=== PATIENT | female | born 1985 | race Caucasian/White ===

== ENCOUNTER 2023-08-04 20:33 | Outpatient (REF) | payer OTHER, SELFPAY ==
--- OUTSIDE RECORDS SUMMARY | 2023-08-05 10:13 | XMS_ITS | CCD ---
Author Name Unknown Address [id number] [place] [address] Organization [facility] Care Team Providers Care Computer Programming Supervisor Name Role Phone RAMSES CALERO Unavailable Unavailable RAMSES CALERO Unavailable Unavailable TRI, DR MULLEN Admitting Unavailable TRI, DR MULLEN Attending Unavailable TRI, DR MULLEN Consulting Unavailable TRI, DR MULLEN Primary Care Unavailable NGOC DALEY Consulting Unavailable TRI, DR MULLEN Primary Care Unavailable TRI, DR MULLEN Consulting Unavailable TRI, DR MULLEN Admitting Unavailable TRI, DR MULLEN Attending Unavailable TRI, DR MULLEN Admitting Unavailable TRI, DR MULLEN Attending Unavailable TRI, DR MULLEN Consulting Unavailable TRI, DR MULLEN Primary Care Unavailable MARV GARCIA Consulting Unavailable DEBORAH SY Consulting Unavailable TIR, DR MULLEN Admitting Unavailable TRI, DR MULLEN Attending Unavailable TRI, DR MULLEN Consulting Unavailable TRI, DR MULLEN Primary Care Unavailable TRI, DR MULLEN Admitting Unavailable RANKIN, DR JADEN Salazar Consulting Unavailable TRI, DR MULLEN Attending Unavailable TRI, DR MULLEN Primary Care Unavailable TRI, DR MULLEN Consulting Unavailable TRI, DR MULLEN Admitting Unavailable TRI, DR MULLEN Attending Unavailable TRI, DR MULLEN Consulting Unavailable TRI, DR MULLEN Primary Care Unavailable NORIS, DR MAHARAJ Admitting Unavailable NORIS, DR MAHARAJ Attending Unavailable NORIS, DR MAHARAJ Consulting Unavailable TRI, DR MULLEN Primary Care Unavailable Kenzie Lazar Unavailable Kenzie Lazar Primary Care Unavailable Kenzie Lazar Primary Care Unavailable Jamie Piper Admitting Unavailable Jamie Piper Attending Unavailable Kenzie Lazar Primary Care Unavailable Jamie Piper Admitting Unavailable Jamie Piper Attending Unavailable Allergies Allergy Classification Reported Allergen(s) Allergy Type Date of Onset Reaction(s) Facility (2 sources) Codeine; Translations: [codeine] Drug Allergy 08-16-19 03 [facility] Repository (1 source) NSAIDs Drug allergy (disorder) 08-16-19 14 [facility] Repository (1 source) Penicillins Drug allergy (disorder) 08-16-18 90 [facility] Repository (1 source) Sulfonamides (Antibiotic) Drug allergy (disorder) 08-16-18 96 [facility] Repository (1 source) Betadine Skin Cleanser Drug allergy (disorder) [facility] Repository (4 sources) Codeine Drug Allergy Unknown [facility] Other (4 sources) penicillAMINE Drug Allergy Unknown [facility] Other (4 sources) Sulfacetamide / Sulfur Drug Allergy Unknown [facility] Other (1 source) NSAIDs; Translations: [NSAIDs] Propensity to adverse reactions to drug (disorder) [facility] Repository (3 sources) Penicillin; Translations: [penicillin] Drug Allergy 11-19-19 18 Unknown [facility] Repository (1 source) Sulfamethoxazole; Translations: [sulfamethoxazole] Drug Allergy [facility] Repository (1 source) Sulfamethoxazole / Trimethoprim; Translations: [sulfamethoxazole-t rimethoprim] Drug Allergy [facility] Repository (2 sources) Caffeine Drug Allergy 11-19-19 18 Unknown [facility] Other (2 sources) Codeine Drug Allergy 11-19-19 18 Unknown [facility] Other (2 sources) Non-steroidal anti-inflammatory agent Drug allergy Unknown [facility] Other (2 sources) Wound Closure Strips *MEDICAL DEVICES AND SUPPLIES Propensity to adverse reactions Comment:Rednes s and swelling -Steri Strips [facility] Other (1 source) Allergies Reconciled Propensity to adverse reactions Unknown [facility] Other (2 sources) Substance with penicillin structure and antibacterial mechanism of action (substance) Drug allergy Unknown [facility] Other (2 sources) Substance with sulfonamide structure and antibacterial mechanism of action (substance) Drug allergy Unknown [facility] Other (1 source) patient allergy list reviewed by nurse or physicia Propensity to adverse reactions 08-25-19 Comment:Done [facility] Other (2 sources) Curity Wound Closure 1/2 x4 *MEDICAL DEVICES AND Propensity to adverse reactions Comment:Suture - [employer] [facility] Other Medications Current Medications Medication Drug Class(es) Dates Sig (Normalized) Sig (Original) lisdexamfetamine dimesylate 30 mg oral capsule (3 sources) Central Nervous System Stimulant Start: 02-05-2023 take 1 capsule by mouth every twenty-four hours Vyvanse 30 MG 1 capsule Orally Once a day for 30 days Jan, Active nitrofurantoin, macrocrystals 25 mg / nitrofurantoin, monohydrate 75 mg oral capsule (3 sources) Nitrofuran Antibacterial Start: 02-08-2023 take 1 capsule by mouth every twelve hours Nitrofurantoin Monohyd Macro 100 MG 1 capsule with food Orally every 12 hrs for 7 day(s) Jan, Active omeprazole 40 mg delayed release oral capsule (1 source) Proton Pump Inhibitor Start: 07-01-2023 take 1 capsule by mouth once daily Omeprazole 40 MG 1 capsule 30 minutes before morning meal Orally Once a day for 30 day(s) Jun, Active phentermine hydrochloride 37.5 mg oral tablet (1 source) Sympathomimetic Amine Anorectic Start: 07-01-2023 take 1 tablet by mouth once daily before breakfast Adipex-P 37.5 MG 1 tablet before breakfast Orally Once a day for 30 days Jun, Active Problems Active Problems Problem Classification Problem Date Documented Da te Episodic/Chronic Abdominal pain (11 sources) Pelvic and perineal pain; Translations: [Unspecified abdominal pain] Onset: 07-21-2022 Episodic Esophageal disorders (3 sources) Gastro-esophageal reflux disease without esophagitis; Translations: [Laryngopharyngeal reflux] Onset: 08-03-2022 Chronic Esophageal disorders (2 sources) Esophageal disorders; Translations: [GERD, OBESITY] Onset: 07-21-2017 Gastrointestinal hemorrhage (4 sources) Hemorrhage of rectum and anus; Translations: [Rectal bleed] Episodic Genitourinary symptoms and ill-defined conditions (1 source) Genitourinary symptoms; Translations: [Unspecified symptoms and signs involving the genitourinary system] Episodic Immunizations and screening for infectious disease (1 source) Encounter for screening for human papillomavirus (HPV); Translations: [ENC SCREENING HUMAN PAPILLOMAVIRUS] Onset: 05-13-2022 Episodic Inflammatory diseases of female pelvic organs (1 source) Female pelvic peritoneal adhesions (postinfective); Translations: [FE PELV PERITON ADHES POSTINFECTIVE] Onset: 08-03-2022 Episodic Miscellaneous mental health disorders (5 sources) Binge eating disorder; Translations: [Binge eating disorder] Chronic Mood disorders (2 sources) Depression; Translations: [Dysthymia] Onset: 11-18-2017 Resolved: 07-20-2019 Chronic Mood disorders (1 source) Mood disorders; Translations: [DEPRESSION UNSPECIFIED] Onset: 08-03-2022 Mycoses (1 source) Candidiasis; Translations: [Candidiasis, unspecified] Episodic Nonmalignant breast conditions (4 sources) Lump in right breast; Translations: [Unspecified lump in the right breast, unspecified quadrant] Resolved: 02-03-2022 Episodic Other aftercare (1 source) Other fdc (current) drug therapy; Translations: [OTH PENITENTIARY CURRENT DRUG THERAPY] Onset: 08-03-2022 Episodic Other aftercare (1 source) History and physical examination, follow-up; Translations: [Encounter for follow-up examination after completed treatment for conditions other than malignant neoplasm] Episodic Other complications of (1 source) High risk ; Translations: [Supervision of high risk , unspecified, unspecified trimester] Episodic Other female genital disorders (1 source) Abnormal uterine and vaginal bleeding, unspecified; Translations: [ABNORMAL UTERINE VAGINAL BLEED UNS] Onset: 08-03-2022 Chronic Other female genital disorders (1 source) Unspecified dyspareunia; Translations: [UNSPECIFIED DYSPAREUNIA] Onset: 08-03-2022 Chronic Other female genital disorders (2 sources) Noninflammatory disorder of the vagina; Translations: [Noninflammatory disorder of vagina, unspecified] Resolved: 07-20-2019 Episodic Other gastrointestinal disorders (4 sources) Diarrhea; Translations: [Diarrhea] Episodic Other gastrointestinal disorders (4 sources) Dysphagia; Translations: [Dysphagia] Episodic Other gastrointestinal disorders (1 source) Flatulence, eructation and gas pain; Translations: [Abdominal distension (gaseous)] Episodic Other lower respiratory disease (1 source) Dyspnea; Translations: [Other forms of dyspnea] Episodic Other nutritional; endocrine; and metabolic disorders (1 source) Obese class II; Translations: [Body mass index (BMI) 38.0-38.9, adult] Chronic Other nutritional; endocrine; and metabolic disorders (2 sources) Body mass index 40+ - severely obese; Translations: [Body mass index (BMI) 40.0-44.9, adult] Resolved: 02-03-2022 Chronic Other nutritional; endocrine; and metabolic disorders (1 source) Obesity; Translations: [Obesity, unspecified] Chronic Other nutritional; endocrine; and metabolic disorders (1 source) Severe obesity; Translations: [Morbid (severe) obesity due to excess calories] Chronic Other nutritional; endocrine; and metabolic disorders (1 source) Morbid (severe) obesity due to excess calories Chronic Other nutritional; endocrine; and metabolic disorders (1 source) Body mass index (BMI) 40.0-44.9, adult Chronic Other nutritional; endocrine; and metabolic disorders (1 source) Abnormal weight gain; Translations: [Abnormal weight gain] Episodic Other screening for suspected conditions (not mental disorders or infectious disease) (5 sources) Encounter for screening for malignant neoplasm of cervix; Translations: [Urine test negative] Onset: 05-11-2022 Episodic Ovarian cyst (4 sources) Unspecified ovarian cyst, left side; Translations: [UNSPECIFIED OVARIAN CYST LEFT SIDE] Onset: 06-16-2022 Episodic Residual codes; unclassified (1 source) Tobacco user; Translations: [Tobacco use] Episodic Residual codes; unclassified (1 source) History of uterine scar from previous surgery; Translations: [History of uterine scar from previous surgery] Episodic Spondylosis; intervertebral disc disorders; other back problems (2 sources) Low back pain; Translations: [Low back pain, unspecified] Onset: 11-18-2017 Resolved: 07-20-2019 Episodic Unclassified (1 source) CONTACT W/AND (SUSP) EXPOS COVID-19; Translations: [CONTACT W/AND (SUSP) EXPOS COVID-19] Onset: 07-27-2022 Urinary tract infections (1 source) Urinary tract infection, site not specified Episodic Varicose veins of lower extremity (1 source) Pain co-occurrent and due to varicose veins of bilateral legs; Translations: [Varicose veins of bilateral lower extremities with pain] Episodic Past or Other Problems Problem Classification Problem Date Documented Date Episodic/Chronic Anxiety disorders (2 sources) Anxiety disorder, unspecified; Translations: [Anxiety disorder] Onset: 11-18-2017 Resolved: 07-20-2019 Chronic Cardiac dysrhythmias (1 source) Tachycardia; Translations: [Tachycardia, unspecified] Onset: 11-18-2017 Resolved: 07-20-2019 Episodic Headache; including migraine (1 source) Migraine without aura, not refractory ; Translations: [Migraine, unspecified, not intractable, without status migrainosus] Onset: 11-18-2017 Resolved: 07-20-2019 Chronic Malaise and fatigue (1 source) Fatigue; Translations: [Other fatigue] Onset: 11-18-2017 Resolved: 07-20-2019 Episodic Miscellaneous mental health disorders (1 source) depression; Translations: [ depression] Resolved: 06-11-2017 Episodic Other female genital disorders (4 sources) Other specified noninflammatory disorders of vagina; Translations: [OTH SPEC NONINFLAMMATORY D/O VAGINA] Onset: 02-04-2022 Episodic Other infections; including parasitic (1 source) Disorder due to infection; Translations: [Unspecified infectious disease] Resolved: 02-03-2022 Episodic Other nutritional; endocrine; and metabolic disorders (3 sources) Obese class I; Translations: [Body mass index 32.0-32.9, adult] Onset: 11-18-2017 Resolved: 07-20-2019 Chronic Other nutritional; endocrine; and metabolic disorders (1 source) Body mass index 30+ - obesity; Translations: [Body mass index 31.0-31.9, adult] Onset: 11-18-2017 Resolved: 07-20-2019 Chronic Other nutritional; endocrine; and metabolic disorders (1 source) Overweight; Translations: [Overweight] Onset: 11-18-2017 Resolved: 07-20-2019 Episodic Other upper respiratory disease (1 source) Disorder of upper respiratory system; Translations: [Other diseases of nasal cavity and sinuses] Onset: 11-18-2017 Resolved: 07-20-2019 Episodic Other upper respiratory infections (1 source) Chronic sinusitis; Translations: [Chronic sinusitis, unspecified] Resolved: 02-03-2022 Chronic Residual codes; unclassified (1 source) C/O - a back symptom; Translations: [Other symptoms referable to back] Onset: 03-11-2018 Resolved: 07-20-2019 Episodic Unclassified (1 source) care; Translations: [Supervision of other normal ] Results Test Name Value Interpretation Reference Range Facility .Auto Diff 1on 02-17-2023 Auto Cassia % 7 % Normal 12 [facility] Comment on above: Performed By: #### [id number], [id number] 5, [id number], [id number] #### [facility] (DEFAULT) [address] [place] [address] 28889 Baso Abs# 0.0 x10 Normal 0.0-0.2 [facility] Comment on above: Performed By: #### [id number], [id number] 5, [id number], [id number] #### [facility] (DEFAULT) [address] [place] [address] 15746 Basophils/100 WBC (Bld) 0.4 % Normal 0.2-2.0 [facility] Comment on above: Performed By: #### [id number], [id number] 5, [id number], [id number] #### [facility] (DEFAULT) [address] [place] [address] 81364 Eos Abs# 0.1 x10 Normal 0.0-0.4 [facility] Comment on above: Performed By: #### [id number], [id number] 5, [id number], [id number] #### [facility] (DEFAULT) [address] [place] [address] 40446 Eosinophils/100 WBC (Bld) 1.0 % Normal 0.9-4.0 [facility] Comment on above: Performed By: #### [id number], [id number] 5, [id number], [id number] #### [facility] (DEFAULT) [address] [place] [address] 23552 Lymph Abs# 2.4 x10 Normal 1.3-2.9 [facility] Comment on above: Performed By: #### [id number], [id number] 5, [id number], [id number] #### [facility] (DEFAULT) [address] [place] [address] Lymphocytes/100 WBC (Bld) 41 % Normal 14-48 [facility] Comment on above: Performed By: #### [id number], [id number] 5, [id number], [id number] #### [facility] (DEFAULT) [address] [place] [address] Cassia Abs# 0.4 x10 Normal 0.0-0.8 [facility] Comment on above: Performed By: #### [id number], [id number] 5, [id number], [id number] #### [facility] (DEFAULT) [address] [place] [address] Neut Abs# 2.9 x10 Normal 1.5-9.2 [facility] Comment on above: Performed By: #### [id number], [id number] 5, [id number], [id number] #### [facility] (DEFAULT) [address] [place] [address] Neutrophils/100 WBC (Bld) 50 % Normal 44-88 [facility] Comment on above: Performed By: #### [id number], [id number] 5, [id number], [id number] #### [facility] (DEFAULT) [address] [place] [address] CBC w/ Auto Diffon 3 Erythrocyte distribution width (RBC) [Ratio] 14.1 % Normal 11.5-15.0 [facility] Comment on above: Performed By: #### [id number], [id number] 5, [id number], [id number] #### [facility] (DEFAULT) [address] [place] [address] Hematocrit (Bld) [Volume fraction] 37.5 % Normal 33.7-40.4 [facility] Comment on above: Performed By: #### [id number], [id number] 5, [id number], [id number] #### [facility] (DEFAULT) [address] [place] [address] 44106 Hemoglobin (Bld) [Mass/Vol] 12.8 g/dL Normal 11.3-15.9 [facility] Comment on above: Performed By: #### [id number], [id number] 5, [id number], [id number] #### [facility] (DEFAULT) [address] [place] [address] Man Diff? Auto Invalid Interpretation Code [facility] Comment on above: Performed By: #### [id number], [id number] 5, [id number], [id number] #### [facility] (DEFAULT) [address] [place] [address] MCH (RBC) [Entitic mass] 29 pg Normal 24-34 [facility] Comment on above: Performed By: #### [id number], [id number] 5, [id number], [id number] #### [facility] (DEFAULT) [address] [place] [address] MCHC (RBC) [Mass/Vol] 34 g/dL Normal 26-37 [facility] Comment on above: Performed By: #### [id number], [id number] 5, [id number], [id number] #### [facility] (DEFAULT) [address] [place] [address] 59741 MCV (RBC) [Entitic vol] 85 fL Normal 81-100 [facility] Comment on above: Performed By: #### [id number], [id number] 5, [id number], [id number] #### [facility] (DEFAULT) [address] [place] [address] 96145 Platelet 298 x10 Normal 138-427 [facility] Comment on above: Performed By: #### [id number], [id number] 5, [id number], [id number] #### [facility] (DEFAULT) [address] [place] [address] 14342 Platelet mean volume (Bld) [Entitic vol] 8.0 fL Normal 6.3-10.2 [facility] Comment on above: Performed By: #### [id number], [id number] 5, [id number], [id number] #### [facility] (DEFAULT) [address] [place] [address] 55807 RBC 4.42 x10 Normal 3.70-5.30 [facility] Comment on above: Performed By: #### [id number], [id number] 5, [id number], [id number] #### [facility] (DEFAULT) [address] [place] [address] 70162 WBC 5.8 x10 Normal 3.5-10.5 [facility] Comment on above: Performed By: #### [id number], [id number] 5, [id number], [id number] #### [facility] (DEFAULT) [address] [place] [address] 47392 CMP Standardon 02-17-2023 eGFR Non AA >60 Invalid Interpretation Code [facility] Comment on above: Performed By: #### [id number], [id number] 5, [id number], [id number] #### [facility] (DEFAULT) [address] [place] [address] 02495 eGFR AA >60 Invalid Interpretation Code [facility] Comment on above: Performed By: #### [id number], [id number] 5, [id number], [id number] #### [facility] (DEFAULT) [address] [place] [address] 88356 Albumin [Mass/Vol] 3.9 g/dL Normal 3.5-5.0 [facility] Comment on above: Performed By: #### [id number], [id number] 5, [id number], [id number] #### [facility] (DEFAULT) [address] [place] [address] 75181 Albumin/Globulin [Mass ratio] 1.3 {ratio} Low 1.4-2.6 [facility] Comment on above: Performed By: #### [id number], [id number] 5, [id number], [id number] #### [facility] (DEFAULT) [address] [place] [address] 92325 Alk Phos 57 IU/L Normal 32-91 [facility] Comment on above: Performed By: #### [id number], [id number] 5, [id number], [id number] #### [facility] (DEFAULT) [address] [place] [address] 92442 ALT [Catalytic activity/Vol] 17.0 U/L Normal 14.0-54.0 [facility] Comment on above: Performed By: #### [id number], [id number] 5, [id number], [id number] #### [facility] (DEFAULT) [address] [place] [address] 62503 Anion gap [Moles/Vol] 9.8 mmol/L Normal 5.0-19.0 [facility] Comment on above: Performed By: #### [id number], [id number] 5, [id number], 7369024 #### [facility] (DEFAULT) [address] [place] [address] 21047 AST [Catalytic activity/Vol] 16 U/L Normal 15-41 [facility] Comment on above: Performed By: #### [id number], [id number] 5, [id number], [id number] #### [facility] (DEFAULT) [address] [place] [address] 11504 Bili Total 0.5 mg/dL Normal 0.3-1.2 [facility] Comment on above: Performed By: #### [id number], [id number] 5, [id number], 6931619 #### [facility] (DEFAULT) [address] [place] [address] 69549 Calcium [Mass/Vol] 8.7 mg/dL Low 8.9-10.3 [facility] Comment on above: Performed By: #### [id number], [id number] 5, [id number], [id number] #### [facility] (DEFAULT) [address] [place] [address] 69449 Chloride [Moles/Vol] 109 mmol/L Normal 101-111 [facility] Comment on above: Performed By: #### [id number], [id number] 5, [id number], [id number] #### [facility] (DEFAULT) [address] [place] [address] 13218 CO2 [Moles/Vol] 25 mmol/L Normal 21-32 [facility] Comment on above: Performed By: #### [id number], [id number] 5, [id number], [id number] #### [facility] (DEFAULT) [address] [place] [address] 07374 Creatinine [Mass/Vol] 0.70 mg/dL Normal 0.60-1.30 [facility] Comment on above: Performed By: #### [id number], [id number] 5, [id number], [id number] #### [facility] (DEFAULT) [address] [place] [address] 04139 Globulin (S) [Mass/Vol] 3.0 g/dL Normal 1.5-4.3 [facility] Comment on above: Performed By: #### [id number], [id number] 5, [id number], [id number] #### [facility] (DEFAULT) [address] [place] [address] 41806 Glucose [Mass/Vol] 98.0 mg/dL Normal 74.0-118.0 [facility] Comment on above: Performed By: #### [id number], [id number] 5, [id number], [id number] #### [facility] (DEFAULT) [address] [place] [address] 34857 Osmolality 280 mOsm/L Invalid Interpretation Code [facility] Comment on above: Performed By: #### [id number], [id number] 5, [id number], [id number] #### [facility] (DEFAULT) [address] [place] [address] 29183 Potassium [Moles/Vol] 3.8 mmol/L Normal 3.6-5.1 [facility] Comment on above: Performed By: #### [id number], [id number] 5, [id number], [id number] #### [facility] (DEFAULT) [address] [place] [address] 07822 Protein [Mass/Vol] 6.9 g/dL Normal 6.5-8.1 [facility] Comment on above: Performed By: #### [id number], [id number] 5, [id number], [id number] #### [facility] (DEFAULT) [address] [place] [address] 82697 Sodium [Moles/Vol] 140.0 mmol/L Normal 136.0-144.0 [facility] Comment on above: Performed By: #### [id number], [id number] 5, [id number] #### [facility] (DEFAULT) [address] [place] [address] [id number] Urea nitrogen [Mass/Vol] 15 mg/dL Normal 8-26 [facility] Comment on above: Performed By: #### [id number], [id number] 5, [id number], [id number] #### [facility] (DEFAULT) [address] [place] [address] 34533 Urea nitrogen/Creatin ine [Mass ratio] 21.4 mg/mg High 4.6-16.2 [facility] Comment on above: Performed By: #### [id number], [id number] 5, [id number], [id number] #### [facility] (DEFAULT) [address] [place] [address] 50791 Lipid Panel Standardon 02-17 Cholesterol [Mass/Vol] 154.0 mg/dL Normal 66.0-200.0 [facility] Comment on above: Performed By: #### [id number], [id number] 5, [id number], [id number] #### [facility] (DEFAULT) [address] [place] [address] 48011 Cholesterol in HDL [Mass/Vol] 66 mg/dL Normal 40-71 [facility] Comment on above: Performed By: #### [id number], [id number] 5, [id number] #### [facility] (DEFAULT) [address] [place] [address] 57475 Cholesterol in LDL [Mass/Vol] 81 mg/dL Normal 1-100 [facility] Comment on above: Performed By: #### [id number], [id number] 5, [id number], [id number] #### [facility] (DEFAULT) [address] [place] [address] Cholesterol.tota l/Cholesterol in HDL [Mass ratio] 2.3 {ratio} Normal 0.0-4.5 [facility] Comment on above: Performed By: #### [id number], [id number] 5, [id number], [id number] #### [facility] (DEFAULT) [address] [place] [address] Triglyceride [Mass/Vol] 31.0 mg/dL Normal 0.0-150.0 [facility] Comment on above: Performed By: #### [id number], [id number] 5, [id number], [id number] #### [facility] (DEFAULT) [address] [place] [address] VLDL. 6 mg/dL Normal 5-40 [facility] Comment on above: Performed By: #### [id number], [id number] 5, [id number], [id number] #### [facility] (DEFAULT) [address] [place] [address] Consent Formson 10-27-2022 Consent Forms [id number] 08-13-2022 Consent Forms [id number]#[id number] CBC AUTO DIFFon 07-18-2022 BASO # 0.0 103/ul Normal 0.0-0.1 [facility] Comment on above: Performed By: #### CBC #### [facility] [address] [place] [address] Dr. Cullen Garcia Basophils/100 WBC (Bld) 0.1 % Critically low 0.2-2.0 [facility] Comment on above: Performed By: #### CBC #### [facility] [address] [place] [address] Dr. Cullen Garcia EO # 0.0 103/ul Normal 0.0-0.7 [facility] Comment on above: Performed By: #### CBC #### [facility] [address] [address] [address] Cullen Garcia Eosinophils/100 WBC (Bld) 0.5 % Critically low 0.9-7.0 [facility] Comment on above: Performed By: #### CBC #### [facility] [address] [place] [address] Dr. Cullen Garcia Erythrocyte distribution width (RBC) [Ratio] 13.1 % Normal 11.0-15.0 [facility] Comment on above: Performed By: #### CBC #### [facility] [address] [place] [address] Dr. Cullen Garcia Hematocrit (Bld) [Volume fraction] 38.2 % Normal 36.0-48.0 [facility] Comment on above: Performed By: #### CBC #### [facility] [address] [place] [address] Dr. Cullen Garcia Hemoglobin (Bld) [Mass/Vol] 12.8 g/dL Normal 12.0-16.0 [facility] Comment on above: Performed By: #### CBC #### [facility] [address] [place] [address] Dr. Cullen Garcia IG # 0.02 10e3/ul Normal 0.00-0.03 [facility] Comment on above: Performed By: #### CBC #### [facility] [address] [place] [address] Dr. Cullen Garcia IG % 0.3 % Normal 0.0-0.5 [facility] Comment on above: Performed By: #### CBC #### [facility] [address] [place] [address] Dr. Cullen Garcia LYMPH # 2.4 103/ul Normal 1.2-3.8 [facility] Comment on above: Performed By: #### CBC #### [facility] [address] [place] [address] Dr. Cullen Garcia Lymphocytes/100 WBC (Bld) 32.6 % Normal 20.5-60.0 [facility] Comment on above: Performed By: #### CBC #### [facility] [address] [place] [address] Dr. Cullen Garcia MANUAL DIFF REQ NO Normal [facility] Comment on above: Performed By: #### CBC #### [facility] [address] [place] [address] Dr. Cullen Garcia MCH (RBC) [Entitic mass] 28.9 pg Normal 26.7-34.0 [facility] Comment on above: Performed By: #### CBC #### [facility] [address] [place] [address] Dr. Cullen Garcia MCHC (RBC) [Mass/Vol] 33.5 g/dL Normal 29.9-35.2 [facility] Comment on above: Performed By: #### CBC #### [facility] [address] [place] [address] Dr. Cullen Garcia MCV (RBC) [Entitic vol] 86.2 fL Normal 81.0-99.0 [facility] Comment on above: Performed By: #### CBC #### [facility] [address] [place] [address] Dr. Cullen Garcia MONO # 0.5 103/ul Normal 0.3-0.8 [facility] Comment on above: Performed By: #### CBC #### [facility] [address] [place] [address] Dr. Cullen Garcia Monocytes/100 WBC (Bld) 6.7 % Normal 1.7-12.0 [facility] Comment on above: Performed By: #### CBC #### [facility] [address] [place] [address] Dr. Cullen Garcia NEUT # 4.4 103/ul Normal 1.4-6.5 [facility] Comment on above: Performed By: #### CBC #### [facility] [address] [place] [address] Dr. Cullen Garcia Neutrophils/100 WBC (Bld) 59.8 % Normal 43.0-75.0 [facility] Comment on above: Performed By: #### CBC #### [facility] [address] [place] [address] Dr. Cullen Garcia Platelet mean volume (Bld) [Entitic vol] 9.5 fL Normal 9.5-13.5 [facility] Comment on above: Performed By: #### CBC #### [facility] [address] [place] [address] Dr. Cullen Garcia PLT 279 103/ul Normal 150-450 [facility] Comment on above: Performed By: #### CBC #### [facility] [address] [place] [address] Dr. Cullen Garcia RBC 4.43 106/ul Normal 4.20-5.40 [facility] Comment on above: Performed By: #### CBC #### [facility] [address] [place] [address] Dr. Cullen Garcia WBC 7.3 103/ul Normal 4.0-11.0 [facility] Comment on above: Performed By: #### CBC #### [facility] [address] [place] [address] Dr. Cullen Garcia [facility]on SARS-CoV-2 (COVID-19) RNA ALISE+probe Ql (Unsp spec) Not detected Normal NOT DETECTED [facility] Comment on above: Result Comment: This test is not yet brianna roved or cleared by the [place] FDA. When there are no FDA-approved or cleared tests available, and other criteria are met, FDA can make tests available under an emergency access mechanism called an Emergency Use Authorization (EUA). The EUA for this test is supported by the [place] of Health and Human Service's (HHS's) declaration that circumstances exist to justify the emergency use of in vitro diagnostics for the detection and/or diagnosis of the virus that causes COVID-19. This EUA will remain in effect (meaning this test can be used) for the duration of the COVID-19 declaration justifying emergency of IVDs, unless it is terminated or revoked by FDA (after which the test may no longer be used). When diagnostic testing is negative, the possibility of a false negative should be considered in the context of a patient's recent exposures and the presence of clinical signs and symptoms consistent with SARS-CoV-2. Performed By: #### C VDTBH #### [facility] [address] [place] [address] Dr. Cullen Garcia PREG QUANT HCGon 07-18-2022 HCG QUANT <1 Normal [facility] Comment on above: Performed By: #### PREGQNT #### [facility] [address] [place] [address] Dr. Cullen Garcia HCG RANGE SEE BELOW Normal [facility] Comment on above: Result Comment: 5-50 0.2-1 WEEK 50-500 1 -2 WEEKS 100-5,000 2-3 WEEKS 500-10,000 3-4 WEEKS 1,000-50,000 4-5 WEEKS 10,000-100,000 5-6 WEEKS 15,000-200,000 6-8 WEEKS 10,000-100,000 2-3 MONTHS Performed By: #### P REGQNT #### [facility] [address] [place] [address] Dr. Cullen Garcia AFP (TUMOR MARKER)on 022 AFP, Serum, Tumor Marker 1.8 ng/mL Normal 0.0-6.4 [facility] Comment on above: Result Comment: [employer] Electr ochemiluminescence Immunoassay (ECLIA) . Values obtained with different assay methods or kits cannot be used interchangeably. Results cannot be interpreted as absolute evidence of the presence or absence of malignant disease. . This test is not interpretable in females. Performed By: #### A FP. #### [facility] [address] [place] [address] Dr. Cullen Garcia CA 125on 06-18-2022 Cancer Antigen (CA) 125 23.7 U/mL Normal 0.0-38.1 [facility] Comment on above: Result Comment: [employer] Electr ochemiluminescence Immunoassay (ECLIA) . Values obtained with different assay methods or kits cannot be used interchangeably. Results cannot be interpreted as absolute evidence of the presence or absence of malignant disease. Performed By: #### C VDTBH #### [facility] [address] [place] [address] Dr. Cullen Garcia CEAon 06-18-2022 CEA 0.5 ng/mL Normal 0.0-4.7 [facility] Comment on above: Result Comment: Nonsmokers <3.9 Smokers <5.6 . [employer] Electrochemiluminescence Immunoassay (ECLIA) . Values obtained with different assay methods or kits cannot be used interchangeably. Results cannot be interpreted as absolute evidence of the presence or absence of malignant disease. Performed By: #### C EA. #### [facility] [address] [place] [address] Dr. Cullen Garcia LDHon 06-16-2022 LDH 152 U/L Normal 81-234 [facility] Comment on above: Performed By: #### CVDTBH #### [facility] [address] [place] [address] Dr. Cullen Garcia PREG QUANT HCGon 06-16-2022 HCG QUANT <1 Normal [facility] Comment on above: Performed By: #### CVDTBH #### [facility] [address] [place] [address] Dr. Cullen Garcia HCG RANGE SEE BELOW Normal [facility] Comment on above: Result Comment: 5-50 0.2-1 WEEK 50-500 1 -2 WEEKS 100-5,000 2-3 WEEKS 500-10,000 3-4 WEEKS 1,000-50,000 4-5 WEEKS 10,000-100,000 5-6 WEEKS 15,000-200,000 6-8 WEEKS 10,000-100,000 2-3 MONTHS Performed By: #### C VDTBH #### [facility] [address] [place] [address] Dr. Cullen Garcia US PELVIS AND TRANSVAGon US PELVIS AND TRANSVAG EXAMINATION: US PELVIS AND TRANSVAG HISTORY: Pelvic and perineal pain COMPARISON: No relevant comparison available. FINDINGS: Transabdominal and transvaginal images The uterus is normal in size, contour and echotexture measuring 9.5 x 5.4 x 4.9 cm. Anteflexed. No focal myometrial mass. The endometrium measures 13 mm, normal The right ovary measures 3.4 x 2.4 x 2.5 cm. Normal color flow. Area of anechoic echogenicity measuring 1.8 cm, simple cyst Left ovary measures 4.9 x 3.8 x 4.2 cm. Normal color flow. Complex cystic area measuring 4.0 x 3.8 x 3.9 cm with no definite internal flow IMPRESSION: 4 cm complex cystic structure in the left ovary, consider hemorrhagic cyst, complex cyst or endometrioma Electronically authenticated by: JADEN LEBLANC Date: 2022-05-28 19:04 Normal [facility] PAP ACOG PANEL 2: 30 to 65on 05-18-2022 . . Normal [facility] Comment on above: Result Comment: Performed at: WB Performed By: #### [id number] #### [facility] [address] [address] [address] Cullen Garcia Age Gdln ACOG Testing 30-65 Normal [facility] Comment on above: Performed By: #### [id number] #### [facility] [address] [address] [address] Cullen Garcia DIAGNOSIS: Comment Normal [facility] Comment on above: Result Comment: NEGATIVE FOR INTRAEPITHE LIAL LESION OR MALIGNANCY. Performed at: WB Performed By: #### [id number] #### [facility] [address] [place] [address] Dr. Cullen Garcia HPV Aptima Negative Normal Negative [facility] Comment on above: Result Comment: This nucleic acid amplif ication test detects fourteen high-risk HPV types (16,18,31,33,35,39,45,51,52,56,58,59,66,68) without differentiation. Performed at: =G Performed By: #### [id number] #### [facility] [address] [place] [address] Dr. Cullen Garcia Methodology: Comment Normal [facility] Comment on above: Result Comment: This liquid based ThinPr ep(R) pap test was screened with the use of an image guided system. Performed at: WB Performed By: #### [id number] #### [facility] [address] [place] [address] Dr. Cullen Garcia Note: Comment Normal [facility] Comment on above: Result Comment: The Pap smear is a scree сергей test designed to aid in the detection of premalignant and malignant conditions of the uterine cervix. It is not a diagnostic procedure and should not be used as the sole means of detecting cervical cancer. Both false-positive and false-negative reports do occur. . Performed at: WB Performed By: #### [id number] #### [facility] [address] [place] [address] Dr. Cullen Garcia Performed by: Comment Normal [facility] Comment on above: Result Comment: Melly Poon Cytotechn ologist (ASCP) Performed at: WB Performed By: #### [id number] #### [facility] [address] [place] [address] Dr. Cullen Garcia Specimen adequacy: Comment Normal [facility] Comment on above: Result Comment: Satisfactory for evaluat ion. Endocervical and/or squamous metaplastic cells (endocervical component) are present. Performed at: WB Performed By: #### [id number] #### [facility] [address] [place] [address] Dr. Cullen Garcia HERPES SIMPLEX VIRUS (HSV) C ULTUREon 02-08-2022 HSV Culture/Type Comment Normal [facility] Comment on above: Result Comment: Negative No Herpes simplex virus isolated. Performed By: #### H SVCUL #### [facility] [address] [place] [address] Dr. Cullen Garcia VAGINITIS/VAGINOSIS DNA PROB Clark 02-06-2022 Seda species Negative Normal Negative [facility] Comment on above: Performed By: #### VAGINT #### [facility] [address] [place] [address] Dr. Cullen Garcia Gardnerella vaginalis Negative Normal Negative [facility] Comment on above: Performed By: #### VAGINT #### [facility] [address] [place] [address] Dr. Cullen Garcia Trichomonas vaginalis Negative Normal Negative [facility] Comment on above: Performed By: #### VAGINT #### [facility] [address] [place] [address] Dr. Cullen Garcia Diagnostic Mammogram, Bilate ral w/Beny (3D)on 08-22-2021 Diagnostic Mammogram, Bilateral w/Beny (3D) HISTORY: Right breast lump COMPARISON: No prior examinations. TECHNIQUE: 2D and 3D Tomosynthesis of the right and left breasts was performed. FINDINGS: Breast composition demonstrates scattered fibroglandular densities. No suspicious microcalcifications, dominant mass lesions, or distortion is present. IMPRESSION: BIRADS 1 - NEGATIVE MAMMOGRAM Board Certified Radiologist. Accredited by the ACR and FDA. MAMMOGRAPHY IS VERY IMPORTANT TO YOUR HEALTH. THE CURRENT [place] [employer] OF [employer] AND N[employer] COMPREHENSIVE CANCER NETWORK GUIDELINES RECOMMENDS ANNUAL MAMMOGRAPHY BEGINNING AT AGE 40 THIS FACILITY USES A REMINDER SYSTEM TO ENSURE ALL PATIENTS RECEIVE REMINDER NOTIFICATIONS AT THE APPROPRIATE TIME BASED ON THE RECOMMENDATIONS OF THIS EXAM. Report reported and signed by Abel Monroy on 08/22/2021 1304 Normal [facility] Specialist XR Chest 2 Views*on 08-22-19 22 XR Chest 2 Views* HISTORY: SOB x 1 month, right sided pain FINDINGS: No acute cardiac or pulmonary disease is identified. No worrisome mass lesions or infiltrates are seen. No pulmonary edema or pneumothorax is present. Cardiac silhouette size is normal. Skeletal structures are unremarkable. IMPRESSION: No acute cardiac or pulmonary disease. Report reported and signed by Abel Monroy on 08/22/2021 0938 Normal [facility] Field Human Resources Manager Progress Noteon 01-05-2018 HIM IP Note OR Uke Driver Normal [facility] Progress Noteon 12-09-2017 HIM IP Note OR Uke Driver Normal [facility] Progress Noteon 12-08-2017 HIM IP Note OR Uke Driver Normal [facility] Progress Noteon 11-11-2017 HIM IP Note OR Uke Driver Normal [facility] Progress Noteon 11-10-2017 HIM IP Note OR Uke Driver [facility] H. pylori Detectionon 2016 H. pylori Detection Specimen Description .TISSUE, STOMACH BIOPSY Special Requests NOT REPORTED Direct Exam NEGATIVE Report Status FINAL 07/22/2017 Normal [facility] Comment on above: Performed By: #### HCLO ####Rufina Whitehead [id number] [id number] History and Physicalon 07-21 HIM IP Note OR Uke Driver Normal [facility] Vital Signs Date Time Vital Sign Value Performing Clinician Facility 07-01-2023 10:45-0500 Body height 154.94 cm Kenzie Lazar Other [facility] 07-01-2023 10:45-0500 Body mass index (BMI) [Ratio] 41.56 kg/m2 Kenzie Lazar Other [facility] Other 07-01-2023 10:45-0500 Body weight 99.79 kg Kenzie Lazar Other [facility] Other 07-01-2023 10:45-0500 Diastolic blood pressure 80 mm[Hg] Kenzie Lazar Other [facility] Other 07-01-2023 10:45-0500 Systolic blood pressure 116 mm[Hg] Kenzie Lazar Other [facility] Other 02-05-2023 09:45-0400 Body height 154.94 cm Kenzie Lazar Other [facility] Other 02-05-2023 09:45-0400 Body mass index (BMI) [Ratio] 40.62 kg/m2 Kenzie Lazar Other [facility] Other 02-05-2023 09:45-0400 Body weight 97.52 kg Kenzie Lazar Other [facility] Other 02-05-2023 09:45-0400 Diastolic blood pressure 73 mm[Hg] Kenzie Lazar Other [facility] Other 02-05-2023 09:45-0400 Systolic blood pressure 109 mm[Hg] Kenzie Lazar Other [facility] Other Encounters Encounter Date Encounter Type Care Provider Facility Start: 07-01-2023 End: 07-01-2023 ambulatory Kenzie Lazar Other [facility] Other Start: 07-01-2023 Office outpatient vi sit 15 minutes Kenzie Cady [facility] Start: 03-13-2023 End: 03-13-2023 ambulatory Kenzie Cady Other [facility] Other Start: 03-13-2023 Telephone encounter Kenzie Lazar [facility] Start: 02-19-2023 End: 02-19-2023 ambulatory Kenzie Cady Other [facility] Other Start: 02-19-2023 Telephone encounter Kenzie Lazar [facility] Start: 02-17-2023 End: 02-18-2023 ambulatory Kenzie Lazar Facility:[facility] Start: 02-05-2023 End: 02-05-2023 ambulatory Kenzie Cady Other [facility] Other Start: 02-05-2023 Office outpatient vi sit 25 minutes Kenzie Lazar [facility] Start: 10-06-2022 End: 10-07-2022 ambulatory Kenzie Lazar Facility:[facility] Start: 08-04-2022 End: 08-05-2022 ambulatory Kenzie Lazar Facility:[facility] Start: 07-27-2022 Encounter for preprocedural laboratory examination DR SEBAS TORRES [facility] Start: 07-21-2022 End: 07-21-[address] SEBAS TORRES Facility:[facility] Start: 07-18-2022 End: 07-19-[address] SEBAS TORRES Facility:[facility] Start: 07-18-2022 End: 07-19-2022 Encounter for preprocedural laboratory examination DR SEBAS TORRES Facility:[facility] Start: 07-16-2022 Encounter for other preprocedural examination DR SEBAS TORRES [facility] Start: 07-16-2022 Encounter for preprocedural cardiovascular examination DR SEBAS TORRES [facility] Start: 07-13-2022 End: 07-14-[address] SEBAS TORRES Facility:[facility] Start: 07-13-2022 End: 07-14-2022 Encounter for preprocedural cardiovascular examination DR SEBAS TORRES Facility:[facility] Start: 06-16-2022 End: 06-17-[address] SEBAS TORRES Facility:[facility] Start: 05-28-2022 End: 05-29-[address] SEBAS TORRES Facility:[facility] Start: 05-11-2022 End: 05-11-[address] SEBAS TORRES Facility:[facility] Start: 05-11-2022 Adult health examination Phuong Lazar Other [facility] Other Start: 05-11-2022 Gynecological examin ation normal Kenzie Lazar Other [facility] Other Start: 02-04-2022 End: 02-04-[address] CAROL ANN HAMM Facility:[facility] Start: 07-21-2017 End: 07-21-2017 Ambulatory RAMSES CALERO [facility] Procedures Date Procedure Procedure Detail Performing Clinician Start: 07-21-2017 DISCHARGE PATIENT SONDRA CALERO Start: 07-21-2017 [facility]. [facility] Depression screening Kenzie Lazar Other Payers Date Payer Category Payer Unknown [id number] 1984 Unknown [id number] 2..84 [id number] 1984 Unknown [id number] ..[id number] 1984 Unknown [id number] ..[id number] 1984 Unknown [id number] .16.84 [id number] 1984 Unknown [id number] .16.84 [id number] 1984 Unknown [id number] 2.16.84 [id number] 1959 Unknown [id number] Social History Date Type Detail Facility Unknown if ever smoked [facility] Other Sex Assigned At Sex Assigned At Bir th [facility] Other Evaluation note 07-01-2023 Note Date & Type Note Facility 07-01-2023 Evaluation note Encounter Date Diagnosis Assessment Notes Jun, Morbid (severe) obesity due to excess calories (ICD-10 - E66.01) BMI 41. Patient has clearly made a good lacie effort for several months on her own to lose weight with little success. Pt to start Adipex daily. Medication is a stimulant. May cause you to be jittery or constipated. Take in the morning, may also take stool softener daily as needed. Continue to eat a healthy well balanced diet and continue work-out regimine. Pt aware that this is not a cure for obesity but a tool used to help them during their weight loss plateau. Pt aware that they need to continue to work hard at weight loss or the weight will be regained. Side effects discussed and understood. Pt education printed and discussed. Pt notified of prescribing schedule with 30 day dispensing, no refills, for up to 12 weeks, with a 6 month break in-between treatments. Id SOB, CP, mood changes, tachycardia, HTN, headaches, blurred vision occur, go to ER and Follow-up with me immediately. Jun, Body mass index [BMI] 40.0-44.9, adult (ICD-10 - Z68.41) Jun, LPRD (laryngophar yngeal reflux disease) (ICD-10 - K21.9) Offered referral to GI. Would opt to start w PPI for 1 month and proceed with EGD, etc if needed in 1 month. [facility] Other Evaluation note 02-05-2023 Note Date & Type Note Facility 02-05-2023 Evaluation note Encounter Date Diagnosis Assessment Notes Jan, Lower abdominal pain (ICD-10 - R10.30) Encouraged to followup w PHOTOVOLTAIC INSTALLATION TECHNICIAN. Pt will atkinson out CT and make phone calls to schedule. Order printed and given to Caryn. Jan, Left flank pain (ICD-10 - R10.9) as above. R/o kidney stone Jan, Binge eating disorder (ICD-10 - F50.81) resume sindyyvanse Jan, UTI (urinary tract infection) (ICD-10 - N39.0) Will treat empirically. [facility] Other Clinical Note 07-21-2022 Note Date & Type Note Facility 07-21-2022 Note OPERATIVE NOTE OPERATION DATE: 07/21/2022 PROCEDURE: Diagnostic laparoscopy with removal of epiploic adhesion of the bowel from the patient's left ovary. PREOPERATIVE DIAGNOSIS: Pelvic pain. POSTOPERATIVE DIAGNOSIS: Pelvic pain including adhesion of epiploic fat to the patient's ovary. SURGEON: Sebas Torres D.O. WEARING APPAREL PRESSER: GOLDEN Conway URINE OUTPUT: Yellow and clear. BLOOD LOSS: 5 mL. SPECIMEN: None. FINDINGS: Normal appearing uterus, tubes and right ovary. Left ovary had a small cyst and epiploic fat adhered densely to the patient's left ovary. ANESTHESIA: General. PROCEDURE: The patient was taken back to the Operating Room where she was placed in dorsal lithotomy position after given general anesthesia. The patient was prepped and draped in normal sterile fashion. A sponge stick was placed into the patient's vagina. Attention was turned to the patient's abdomen, where a small umbilical incision was made. The fascia was tented using Lida clamps and the fascia was entered sharply. Confirmation of intra-abdominal placement of the 10 mm port was confirmed under direct visualization using a laparoscope. The patient's abdomen was then insufflated using CO2 gas with approximately 4 liters. A second port was placed left laterally. This was done under direct visualization with a 5 mm port. Survey of the patient's abdomen demonstrated normal liver and gallbladder. Survey of the patient's pelvic anatomy demonstrated normal appearing ovaries and tubes as well as normal appearing uterus. No endometrial implants could be noted, no evidence of any pelvic disease was seen, normal appearing pelvic cavity. All instruments were removed from the patient's abdomen. The patient's abdomen was desufflated of CO2 gas. The patient tolerated the procedure well. Sponge stick was removed from the patient's vagina. The patient's infraumbilical fascia was closed using #0 Vicryl on a GI needle. The patient's skin was closed laterally and infraumbilically using 4-0 Vicryl. The patient tolerated the procedure well. Sponge, lap and needle counts were correct x 2. The patient was taken to Recovery Room in stable condition. [facility] Clinical Note 07-21-2022 Note Date & Type Note Facility 07-21-2022 Note OPERATIVE NOTE OPERATION DATE: 07/29/2022 ADDENDUM: Please note adhesion of epiploic fat to the patient's left ovary was noted and this was bluntly and sharply dissected and taken down. [facility] Clinical Note 08-22-2021 Note Date & Type Note Facility 08-22-2021 Note FINDINGS: Sonographic evaluation targeted to the right breast, periareolar region demonstrates no worrisome cystic or solid mass lesions. Comparison made with the same day bilateral mammogram. IMPRESSION: BIRADS 1 - NEGATIVE Report reported and signed by Abel Monroy on 08/22/2021 [id number] [facility] Field Human Resources Manager Evaluation note Note Date & Type Note Facility Evaluation note No Information [email or web address] Other History general Narrative - Reported Note Date & Type Note Facility History general Narrative - Reported Type Medical History Endometriosis Surgical History laparoscopy Surgical History c section x3 Surgical History vertical sleeve gastrectomy Hospitalization History SEE SURIGCAL HX [facility] Other Summary Purpose Family History No Family History Records FoundNo Family History Records FoundNo Family History Records FoundNo Family History Records Found Advance Directives No Advanced Directives Records FoundNo Advanced Directives Records FoundNo Advanced Directives Records FoundNo Advanced Directives Records Found Additional Source Comments INFORMATION SOURCE (unrecogn ized section and content) DATE CREATED AUTHOR 02/02/2018 [facility] DATE CREATED AUTHOR AUTHOR'S ORGANIZ ATION 08/23/2021 [facility] Me dical Specialist DATE CREATED AUTHOR AUTHOR'S ORGANIZ ATION 08/06/2022 [facility] pital DATE CREATED AUTHOR AUTHOR'S ORGANIZ ATION 02/18/2023 [facility] REASON FOR VISIT (unrecogniz ed section and content) pelvic fullnesslabsCTDifficu lty Swallowing, Sore Throat FOR RECORDS PERTAINING TO PATIENTS WHO ARE OR HAVE BEEN ENROLLED IN A CHEMICAL DEPENDENCY/SUBSTANCEABUSE PROGRAM, SOME INFORMATION MAY BE OMITTED. This clinical summary was aggregated from multiple sources. Caution should be exercised in using it in the provision of clinical care. This summary normalizes information from multiple sources, and as a consequence, information in this document may materially change the coding, format and clinical context of patient data. In addition, data may be omitted in some cases. CLINICAL DECISIONS SHOULD BE BASED ON THE PRIMARY CLINICAL RECORDS. [facility]. provides no warranty or guarantee of the accuracy or completeness of information in this document.
[2023-08-11 00:07] LABS: Age Gdln ACOG Testing Note (.); HPV Aptima Negative (Negative); IGP, Aptima HPV, rfx 16/18,45 Note (.)
== END 2023-08-04 20:34 | disposition home or self-care (01) ==
LOC: LAB 20:33
PROVIDERS: Visit Provider Obstetrics & Gynecology
DX: Z01.419 Encounter for gynecological examination (general) (routine) without abnormal findings (principal)
CPT/HCPCS: 87624; G0145

== ENCOUNTER 2023-11-26 09:57 | Outpatient (OUT) | payer OTHER, SELFPAY ==
--- OUTSIDE RECORDS SUMMARY | 2023-11-26 10:17 | XMS_ITS | CCD ---
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 Role Phone RAMSES CALERO Unavailable Unavailable [...] GARCIA Consulting Unavailable DEBORAH SY Consulting Unavailable TRI, DR MULLEN Admitting Unavailable TRI, DR MULLEN Attending Unavailable TRI, DR MULLEN Consulting Unavailable TRI, DR MULLEN Primary Care Unavailable TRI, DR MULLEN Admitting Unavailable EAST KILLINGLY, DR JADEN Salazar Consulting Unavailable TRI, DR MULLEN Attending Unavailable TRI, DR MULLEN Primary Care Unavailable TRI, DR MULLEN Consulting Unavailable TRI, DR MULLEN Admitting Unavailable TRI, DR MULLEN Attending Unavailable TRI, DR MULLEN Consulting Unavailable TRI, DR MULLEN Primary Care Unavailable KARBECKY, DR MAHARAJ Admitting Unavailable NORIS, DR MAHARAJ Attending Unavailable NORIS, DR MAHARAJ Consulting Unavailable TRI, DR MULLEN Primary Care Unavailable Kenzie Lazar Unavailable Kenize Lazar Primary Care Unavailable Kenzie Lazar Primary Care Unavailable Jamie Piper Admitting Unavailable Jamie Piper Attending Unavailable Kenzie Lazar Primary Care Unavailable Jamie Piper Admitting Unavailable Jamie Piper Attending Unavailable Natali Love Unavailable VERONICA SEE Attending Unavailable VERONICA SEE Attending Unavailable SEBAS TORRES Attending Unavailable Allergies Allergy Classification Reported Allergen(s) Allergy Type Date of Onset Reaction(s) Facility (2 sources) Codeine; Translations: [codeine] Drug Allergy 08-16-19 03 [facility] Repository (1 source) NSAIDs Drug allergy (disorder) 08-16-19 14 [facility] (1 source) Penicillins Drug allergy (disorder) 08-16-18 90 [facility] (1 source) Sulfonamides (Antibiotic) Drug allergy (disorder) 08-16-18 96 [facility] (1 source) Betadine Skin Cleanser Drug allergy (disorder) [facility] (7 sources) Codeine Drug Allergy Unknown [facility] Other (7 sources) penicillAMINE Drug Allergy Unknown [facility] Other (7 sources) Sulfacetamide / Sulfur Drug Allergy Unknown [facility] Other (1 source) NSAIDs; Translations: [NSAIDs] Propensity to adverse reactions to drug (disorder) [facility] Repository (6 sources) Penicillin; Translations: [penicillin] Drug Allergy 11-19-19 18 Unknown [facility] Repository (1 source) Sulfamethoxazole; Translations: [sulfamethoxazole] Drug Allergy [facility] Repository (1 source) Sulfamethoxazole / Trimethoprim; Translations: [sulfamethoxazole-t rimethoprim] Drug Allergy [facility] Repository (5 sources) Caffeine Drug Allergy 11-19-19 18 Unknown [facility] Other (5 sources) Codeine Drug Allergy 11-19-19 18 Unknown [facility] Other (5 sources) Non-steroidal anti-inflammatory agent Drug allergy Unknown [facility] Other (5 sources) Wound Closure Strips *MEDICAL DEVICES AND SUPPLIES Propensity to adverse reactions Comment:Rednes s and swelling -Steri Strips [facility] Other (1 source) Allergies Reconciled Propensity to adverse reactions Unknown [facility] Other (5 sources) Substance with penicillin structure and antibacterial mechanism of action (substance) Drug allergy Unknown [facility] Other (5 sources) Substance with sulfonamide structure and antibacterial mechanism of action (substance) Drug allergy Unknown [facility] Other (1 source) patient allergy list reviewed by nurse or physicia Propensity to adverse reactions 08-25-19 Comment:Done [facility] Other (5 sources) Curity Wound Closure 1/2 x4 *MEDICAL DEVICES AND Propensity to adverse reactions Comment:Suture - [employer] [facility] Other Medications Current Medications Medication Drug Class(es) Dates Sig (Normalized) Sig (Original) doxycycline hyclate 100 mg oral tablet (1 source) Tetracycline-class Drug Start: 08-25-2023 take 1 tablet by mouth every twelve hours Doxycycline Hyclate 100 MG 1 tablet Orally Twice a day for 10 day(s) Aug, Active lisdexamfetamine dimesylate 30 mg oral capsule (3 [...] omeprazole 40 mg delayed release oral capsule (4 sources) Proton Pump Inhibitor Start: 07-01-2023 take 1 capsule by mouth once daily Omeprazole 40 MG 1 capsule 30 minutes before morning meal Orally Once a day for 30 day(s) Jun, Active phentermine hydrochloride 37.5 mg oral tablet (4 sources) Sympathomimetic Amine Anorectic Start: 09-13-2023 take 1 tablet by mouth once daily before breakfast Adipex-P 37.5 MG 1 tablet before breakfast Orally Once a day for 30 days Aug, Active Start: 08-02-2023 take 1 tablet by kyung th once daily before breakfast Adipex-P 37.5 MG 1 tablet before breakfast Orally Once a day for 30 days Jul, Active Start: 07-01-2023 take 1 tablet by kyung th once daily before breakfast Adipex-P 37.5 MG 1 tablet before breakfast Orally Once a day for 30 days Jun, Active predniSONE 20 mg oral tablet (1 source) Start: 08-25-2023 take 2 tablets by mouth once daily at mealtime predniSONE 20 MG 2 tablets with food or milk Orally Once a day for 5 10 Aug, 2023 Active Problems Active Problems Problem Classification Problem Date Documented Da te Episodic/Chronic Abdominal pain (11 sources) Pelvic and perineal pain; Translations: [Unspecified abdominal pain] Onset: 07-21-2022 Episodic Esophageal disorders (8 sources) Gastro-esophageal reflux disease without esophagitis; Translations: [Laryngopharyngeal reflux] Onset: 08-03-2022 Chronic Esophageal disorders (2 sources) Esophageal disorders; Translations: [GERD, OBESITY] Onset: 07-21-2017 Gastrointestinal hemorrhage (7 sources) Hemorrhage of rectum and anus; Translations: [...] Onset: 08-03-2022 Episodic Miscellaneous mental health disorders (8 sources) Binge eating disorder; Translations: [Binge eating [...] 02-03-2022 Episodic Other aftercare (1 source) Other watermaster (current) drug therapy; Translations: [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] Onset: 08-03-2022 Episodic Other [...] unspecified] Resolved: 07-20-2019 Episodic Other gastrointestinal disorders (7 sources) Diarrhea; Translations: [Diarrhea] Episodic Other gastrointestinal disorders (7 sources) Dysphagia; Translations: [Dysphagia] Episodic Other gastrointestinal disorders (1 source) Flatulence, eructation and gas pain; Translations: [Abdominal distension (gaseous)] Episodic Other lower respiratory disease (1 source) Dyspnea; Translations: [Other forms of dyspnea] Episodic Other nutritional; endocrine; and metabolic disorders (1 source) Obese class II; Translations: [Body mass index (BMI) 38.0-38.9, adult] Chronic Other nutritional; endocrine; and metabolic disorders (5 sources) Body mass index 40+ - severely obese; Translations: [Body mass index (BMI) 40.0-44.9, adult] Resolved: 02-03-2022 Chronic Other nutritional; endocrine; and metabolic disorders (1 source) Obesity; Translations: [Obesity, unspecified] Chronic Other nutritional; endocrine; and metabolic disorders (4 sources) Severe obesity; Translations: [Morbid (severe) obesity due to excess calories] Chronic Other nutritional; endocrine; and metabolic disorders (3 sources) Morbid (severe) obesity due to excess calories Chronic Other nutritional; endocrine; and metabolic disorders (3 sources) Body mass index (BMI) 40.0-44.9, adult Chronic Other nutritional; endocrine; and metabolic disorders (1 source) Abnormal weight gain; Translations: [Abnormal weight gain] Episodic Other screening for suspected conditions (not mental disorders or infectious disease) (5 sources) Encounter for screening for malignant neoplasm of cervix; Translations: [Urine test negative] Onset: 05-11-2022 Episodic Other upper respiratory infections (1 source) Acute sinusitis, unspecified Episodic Ovarian cyst (4 sources) Unspecified ovarian cyst, left side; Translations: [UNSPECIFIED OVARIAN CYST LEFT SIDE] Onset: 06-16-2022 Episodic Pleurisy; pneumothorax; pulmonary collapse (2 sources) Pleurisy Episodic Residual codes; unclassified (1 source) Tobacco [...] Range Facility .Auto Diff 1on 02-17-2023 Auto [place] % 7 % Normal 08-27 [facility] Comment on above: Performed By: #### [id number], [id number] 5, [id number], [id number] #### [facility] (DEFAULT) [address] [place] [address] Baso Abs# 0.0 x10 Normal 0.0-0.2 [facility] Comment on above: Performed By: #### [id number], [id number] 5, [id number], [id number] #### [facility] (DEFAULT) [address] [place] [address] 55090 Basophils/100 WBC (Bld) 0.4 % Normal 0.2-2.0 [facility] Comment on above: Performed By: #### [id number], [id number] 5, [id number], [id number] #### [facility] (DEFAULT) [address] [place] [address] 37083 Eos Abs# 0.1 x10 Normal 0.0-0.4 [facility] Comment on above: Performed By: #### [id number], [id number] 5, [id number], [id number] #### [facility] (DEFAULT) [address] [place] [address] 99100 Eosinophils/100 WBC (Bld) 1.0 % Normal 0.9-4.0 [facility] Comment on above: Performed By: #### [id number], [id number] 5, [id number], [id number] #### [facility] (DEFAULT) [address] [place] [address] 41871 Lymph Abs# 2.4 x10 Normal 1.3-2.9 [facility] Comment on above: Performed By: #### [id number], [id number] 5, [id number], [id number] #### [facility] (DEFAULT) [address] [place] [address] 77148 Lymphocytes/100 WBC (Bld) 41 % Normal 14-48 [facility] Comment on above: Performed By: #### [id number], [id number] 5, [id number], [id number] #### [facility] (DEFAULT) [address] [place] [address] 36512 [place] Abs# 0.4 x10 Normal 0.0-0.8 [facility] Comment on above: Performed By: #### [id number], [id number] 5, [id number], [id number] #### [facility] (DEFAULT) [address] [place] [address] 66056 Neut Abs# 2.9 x10 Normal 1.5-9.2 [facility] Comment on above: Performed By: #### [id number], [id number] 5, 16854230, [id number] #### [facility] (DEFAULT) [address] [place] [address] 86342 Neutrophils/100 WBC (Bld) 50 % Normal 44-88 [facility] Comment on above: Performed By: #### [id number], [id number] 5, [id number], [id number] #### [facility] (DEFAULT) [address] [place] [address] CBC w/ Auto Diffon 3 Erythrocyte distribution width (RBC) [Ratio] 14.1 % Normal 11.5-15.0 [facility] Comment on above: Performed By: #### [id number], [id number] 5, [id number], 6214526 #### [facility] (DEFAULT) [address] [place] [address] Hematocrit (Bld) [Volume fraction] 37.5 % Normal 33.7-40.4 [facility] Comment on above: Performed By: #### [id number], [id number] 5, 98435229, 8871568 #### [facility] (DEFAULT) [address] [place] [address] Hemoglobin (Bld) [Mass/Vol] 12.8 g/dL Normal 11.3-15.9 [facility] Comment on above: Performed By: #### [id number], [id number] 5, 35053390, 8305475 #### [facility] (DEFAULT) [address] [place] [address] Man Diff? Auto Invalid Interpretation Code [facility] Comment on above: Performed By: #### [id number], [id number] 5, [id number], [id number] #### [facility] (DEFAULT) [address] [place] [address] 31682 MCH (RBC) [Entitic mass] 29 pg Normal 24-34 [facility] Comment on above: Performed By: #### [id number], [id number] 5, [id number], [id number] #### [facility] (DEFAULT) [address] [place] [address] MCHC (RBC) [Mass/Vol] 34 g/dL Normal 26-37 [facility] Comment on above: Performed By: #### [id number], [id number] 5, 90000567, [id number] #### [facility] (DEFAULT) [address] [place] [address] 03860 MCV (RBC) [Entitic vol] 85 fL Normal 81-100 [facility] Comment on above: Performed By: #### [id number], [id number] 5, 94869717, 3144636 #### [facility] (DEFAULT) [address] [place] [address] 92709 Platelet 298 x10 Normal 138-427 [facility] Comment on above: Performed By: #### [id number], [id number] 5, 60751220, 7459713 #### [facility] (DEFAULT) [address] [place] [address] 34608 Platelet mean volume (Bld) [Entitic vol] 8.0 fL Normal 6.3-10.2 [facility] Comment on above: Performed By: #### [id number], [id number] 5, 40096975, [id number] #### [facility] (DEFAULT) [address] [place] [address] 85286 RBC 4.42 x10 Normal 3.70-5.30 [facility] Comment on above: Performed By: #### [id number], [id number] 5, 05437291, 1743791 #### [facility] (DEFAULT) [address] [place] [address] 51224 WBC 5.8 x10 Normal 3.5-10.5 [facility] Comment on above: Performed By: #### [id number], [id number] 5, 57762935, 1334144 #### [facility] (DEFAULT) [address] [place] [address] CMP Standardon 02-17-2023 eGFR Non AA >60 Invalid Interpretation Code [facility] Comment on above: Performed By: #### [id number], [id number] 5, 85748563, 5978249 #### [facility] (DEFAULT) [address] [place] [address] 30638 eGFR AA >60 Invalid Interpretation Code [facility] Comment on above: Performed By: #### [id number], [id number] 5, [id number], [id number] #### [facility] (DEFAULT) [address] [place] [address] 44945 Albumin [Mass/Vol] 3.9 g/dL Normal 3.5-5.0 [facility] Comment on above: Performed By: #### [id number], [id number] 5, 29853640, 0235645 #### [facility] (DEFAULT) [address] [place] [address] 00395 Albumin/Globulin [Mass ratio] 1.3 {ratio} Low 1.4-2.6 [facility] Comment on above: Performed By: #### [id number], [id number] 5, 41337739, [id number] #### [facility] (DEFAULT) [address] [place] [address] 52611 Alk Phos 57 IU/L Normal 32-91 [facility] Comment on above: Performed By: #### [id number], [id number] 5, 86426973, 1310968 #### [facility] (DEFAULT) [address] [place] [address] 10717 ALT [Catalytic activity/Vol] 17.0 U/L Normal 14.0-54.0 [facility] Comment on above: Performed By: #### [id number], [id number] 5, 23542040, 0812976 #### [facility] (DEFAULT) [address] [place] [address] 08028 Anion gap [Moles/Vol] 9.8 mmol/L Normal 5.0-19.0 [facility] Comment on above: Performed By: #### [id number], [id number] 5, 07527800, 9623748 #### [facility] (DEFAULT) [address] [place] [address] 12980 AST [Catalytic activity/Vol] 16 U/L Normal 15-41 [facility] Comment on above: Performed By: #### [id number], [id number] 5, 53607144, 8221474 #### [facility] (DEFAULT) [address] [place] [address] 84331 Bili Total 0.5 mg/dL Normal 0.3-1.2 [facility] Comment on above: Performed By: #### [id number], [id number] 5, 83929671, 9329307 #### [facility] (DEFAULT) [address] [place] [address] 66424 Calcium [Mass/Vol] 8.7 mg/dL Low 8.9-10.3 [facility] Comment on above: Performed By: #### [id number], [id number] 5, 50999083, 9065283 #### [facility] (DEFAULT) [address] [place] [address] 30066 Chloride [Moles/Vol] 109 mmol/L Normal 101-111 [facility] Comment on above: Performed By: #### [id number], [id number] 5, 71103708, 8356008 #### [facility] (DEFAULT) [address] [place] [address] 37374 CO2 [Moles/Vol] 25 mmol/L Normal 21-32 [facility] Comment on above: Performed By: #### [id number], [id number] 5, 16157497, 8206386 #### [facility] (DEFAULT) [address] [place] [address] 15845 Creatinine [Mass/Vol] 0.70 mg/dL Normal 0.60-1.30 [facility] Comment on above: Performed By: #### [id number], [id number] 5, 85444468, 0962940 #### [facility] (DEFAULT) [address] [place] [address] 26792 Globulin (S) [Mass/Vol] 3.0 g/dL Normal 1.5-4.3 [facility] Comment on above: Performed By: #### [id number], [id number] 5, 02912705, 7788421 #### [facility] (DEFAULT) [address] [place] [address] 65248 Glucose [Mass/Vol] 98.0 mg/dL Normal 74.0-118.0 [facility] Comment on above: Performed By: #### [id number], [id number] 5, 61757166, 2799885 #### [facility] (DEFAULT) [address] [place] [address] 08221 Osmolality 280 mOsm/L Invalid Interpretation Code [facility] Comment on above: Performed By: #### [id number], [id number] 5, 52693554, 4850171 #### [facility] (DEFAULT) [address] [place] [address] 13521 Potassium [Moles/Vol] 3.8 mmol/L Normal 3.6-5.1 [facility] Comment on above: Performed By: #### [id number], [id number] 5, 03389210, 7993457 #### [facility] (DEFAULT) [address] [place] [address] 58909 Protein [Mass/Vol] 6.9 g/dL Normal 6.5-8.1 [facility] Comment on above: Performed By: #### [id number], [id number] 5, 73159739, 8126909 #### [facility] (DEFAULT) [address] [place] [address] 69614 Sodium [Moles/Vol] 140.0 mmol/L Normal 136.0-144.0 [facility] Comment on above: Performed By: #### [id number], [id number] 5, 07074882, 0163022 #### [facility] (DEFAULT) [address] [place] [address] 49161 Urea nitrogen [Mass/Vol] 15 mg/dL Normal 8-26 [facility] Comment on above: Performed By: #### [id number], [id number] 5, 58157972, 4428892 #### [facility] (DEFAULT) [address] [place] [address] 18768 Urea nitrogen/Creatin ine [Mass ratio] 21.4 mg/mg High 4.6-16.2 [facility] Comment on above: Performed By: #### [id number], [id number] 5, 97565921, 1371744 #### [facility] (DEFAULT) [address] [place] [address] 08205 Lipid Panel Standardon 02-17 Cholesterol [Mass/Vol] 154.0 mg/dL Normal 66.0-200.0 [facility] Comment on above: Performed By: #### [id number], [id number] 5, 68703076, 4944974 #### [facility] (DEFAULT) [address] [place] [address] 46152 Cholesterol in HDL [Mass/Vol] 66 mg/dL Normal 40-71 [facility] Comment on above: Performed By: #### [id number], [id number] 5, 61429295, 3703090 #### [facility] (DEFAULT) [address] [place] [address] 57369 Cholesterol in LDL [Mass/Vol] 81 mg/dL Normal 1-100 [facility] Comment on above: Performed By: #### [id number], [id number] 5, 13606841, 6760824 #### [facility] (DEFAULT) [address] [place] [address] 32308 Cholesterol.tota l/Cholesterol in HDL [Mass ratio] 2.3 {ratio} Normal 0.0-4.5 [facility] Comment on above: Performed By: #### [id number], [id number] 5, 31015971, 6636912 #### [facility] (DEFAULT) [address] [place] [address] 43509 Triglyceride [Mass/Vol] 31.0 mg/dL Normal 0.0-150.0 [facility] Comment on above: Performed By: #### [id number], [id number] 5, 91913283, 3498016 #### [facility] (DEFAULT) [address] [place] [address] 89440 VLDL. 6 mg/dL Normal 5-40 [facility] Comment on above: Performed By: #### [id number], [id number] 5, 12538774, 9266476 #### [facility] (DEFAULT) [address] [place] [address] 08156 Consent Formson 10-27-2022 Consent Forms [id number] 08-13-2022 Consent Forms [id number][facility] CBC AUTO DIFFon 07-18-2022 BASO # 0.0 103/ul Normal 0.0-0.1 [facility] Comment on above: Performed By: #### CBC #### [facility] [address] [address] [address] Cullen Garcia Basophils/100 WBC (Bld) 0.1 % Critically low 0.2-2.0 [facility] Comment on above: Performed By: #### CBC #### [facility] [address] [place] [address] Dr. Cullen Garcia EO # 0.0 103/ul Normal 0.0-0.7 [facility] Comment on above: Performed By: #### CBC #### [facility] [address] [place] [address] Dr. Cullen Garcia Eosinophils/100 WBC (Bld) 0.5 % Critically low 0.9-7.0 [facility] Comment on above: Performed By: #### CBC #### [facility] [address] [place] [address] Dr. Cullen Garcia Erythrocyte distribution width (RBC) [Ratio] 13.1 % Normal 11.0-15.0 [facility] Comment on above: Performed By: #### CBC #### [facility] [address] [place] [address] Dr. Cullen Garcia Hematocrit (Bld) [Volume fraction] 38.2 % Normal 36.0-48.0 [facility] Comment on above: Performed By: #### CBC #### [facility] [address] [place] [address] Dr. Cullen Garcia Hemoglobin (Bld) [Mass/Vol] 12.8 g/dL Normal 12.0-16.0 [facility] Comment on above: Performed By: #### CBC #### [facility] [address] [place] [address] Dr. Cullen Garcia IG # 0.02 10e3/ul Normal 0.00-0.03 [facility] Comment on above: Performed By: #### CBC #### [facility] [address] [place] [address] Dr. Cullen Garcia IG % 0.3 % Normal 0.0-0.5 [facility] Comment on above: Performed By: #### CBC #### [facility] [address] [place] [address] Dr. Cullen Garcia LYMPH # 2.4 103/ul Normal 1.2-3.8 [facility] Comment on above: Performed By: #### CBC #### [facility] [address] [place] [address] Dr. Cullen Garcia Lymphocytes/100 WBC (Bld) 32.6 % Normal 20.5-60.0 [facility] Comment on above: Performed By: #### CBC #### [facility] [address] [place] [address] Dr. Cullen Garcia MANUAL DIFF REQ NO Normal [facility] Comment on above: Performed By: #### CBC #### [facility] [address] [place] [address] Dr. Cullen Garcia MCH (RBC) [Entitic mass] 28.9 pg Normal 26.7-34.0 [facility] Comment on above: Performed By: #### CBC #### [facility] [address] [place] [address] Dr. Cullen Garcia MCHC (RBC) [Mass/Vol] 33.5 g/dL Normal 29.9-35.2 [facility] Comment on above: Performed By: #### CBC #### [facility] [address] [place] [address] Dr. Cullen Garcia MCV (RBC) [Entitic vol] 86.2 fL Normal 81.0-99.0 [facility] Comment on above: Performed By: #### CBC #### [facility] [address] [place] [address] Dr. Cullen Garcia MONO # 0.5 103/ul Normal 0.3-0.8 [facility] Comment on above: Performed By: #### CBC #### [facility] [address] [place] [address] Dr. Cullen Garcia Monocytes/100 WBC (Bld) 6.7 % Normal 1.7-12.0 [facility] Comment on above: Performed By: #### CBC #### [facility] [address] [place] [address] Dr. Cullen Garcia NEUT # 4.4 103/ul Normal 1.4-6.5 [facility] Comment on above: Performed By: #### CBC #### [facility] [address] [place] [address] Dr. Cullen Garcia Neutrophils/100 WBC (Bld) 59.8 % Normal 43.0-75.0 [facility] Comment on above: Performed By: #### CBC #### [facility] [address] [place] [address] Dr. Cullen Garcia Platelet mean volume (Bld) [Entitic vol] 9.5 fL Normal 9.5-13.5 [facility] Comment on above: Performed By: #### CBC #### [facility] [address] [place] [address] Dr. Cullen Garcia PLT 279 103/ul Normal 150-450 [facility] Comment on above: Performed By: #### CBC #### [facility] [address] [place] [address] Dr. Cullen Garcia RBC 4.43 106/ul Normal 4.20-5.40 [facility] Comment on above: Performed By: #### CBC #### [facility] [address] [place] [address] Dr. Cullen Garcia WBC 7.3 103/ul Normal 4.0-11.0 [facility] Comment on above: Performed By: #### CBC #### [facility] [address] [place] [address] Dr. Cullen Garcia [facility] SARS-CoV-2 (COVID-19) RNA ALISE+probe Ql (Unsp spec) Not detected Normal NOT DETECTED [facility] Comment on above: Result Comment: This test is not yet brianna roved or cleared by the [place] FDA. When there are no FDA-approved or cleared tests available, and other criteria are met, FDA can make tests available under an emergency access mechanism called an Emergency Use Authorization (EUA). The EUA for this test is supported by the Community Service Patrol Officer of Health and Human Service's (HHS's) declaration [...] SARS-CoV-2. Performed By: #### C VDTBH #### [facility] [address] [place] [address] Dr. Cullen Garcia PREG QUANT HCGon 07-18-2022 HCG QUANT <1 Normal [facility] Comment on above: Performed By: #### PREGQNT #### [facility] [address] [place] [address] Dr. Cullen Garcia HCG RANGE SEE BELOW Normal [facility] Comment on above: Result Comment: 5-50 0.2-1 WEEK 50-500 1 -2 WEEKS 100-5,000 2-3 WEEKS 500-10,000 3-4 WEEKS 1,000-50,000 4-5 WEEKS 10,000-100,000 5-6 WEEKS 15,000-200,000 6-8 WEEKS 10,000-100,000 2-3 MONTHS Performed By: #### P REGQNT #### [facility] [address] [place] [address] Dr. Cullen Garcia AFP (TUMOR MARKER)on 022 AFP, Serum, Tumor Marker 1.8 ng/mL Normal 0.0-6.4 [facility] Comment on above: Result Comment: [employer] Electr ochemiluminescence Immunoassay (ECLIA) . Values obtained with different assay methods or kits cannot be used interchangeably. Results cannot be interpreted as absolute evidence of the presence or absence of malignant disease. . This test is not interpretable in females. Performed By: #### A FP. #### [facility] [address] [place] [address] Dr. Cullen Garcia CA 125on 06-18-2022 Cancer Antigen (CA) 125 23.7 U/mL Normal 0.0-38.1 [facility] Comment on above: Result Comment: [employer] Electr ochemiluminescence Immunoassay (ECLIA) . Values obtained with different assay methods or kits cannot be used interchangeably. Results cannot be interpreted as absolute evidence of the presence or absence of malignant disease. Performed By: #### C VDTBH #### [facility] [address] [place] [address] Dr. Cullen Garcia CEAon 06-18-2022 CEA 0.5 ng/mL Normal 0.0-4.7 [facility] Comment on above: Result Comment: Nonsmokers <3.9 Smokers <5.6 . [employer] Electrochemiluminescence Immunoassay (ECLIA) . Values obtained with different assay methods or kits cannot be used interchangeably. Results cannot be interpreted as absolute evidence of the presence or absence of malignant disease. Performed By: #### C EA. #### [facility] [address] [place] [address] Dr. Cullen Garcia LDHon 06-16-2022 LDH 152 U/L Normal 81-234 [facility] Comment on above: Performed By: #### CVDTBH #### [facility] [address] [place] [address] Dr. Cullen Garcia PREG QUANT HCGon 06-16-2022 HCG QUANT <[address] [facility] Comment on above: Performed By: #### CVDTBH #### [facility] [address] [place] [address] Dr. Cullen Garcia HCG RANGE SEE BELOW Normal [facility] Comment on above: Result Comment: 5-50 0.2-1 WEEK 50-500 1 -2 WEEKS 100-5,000 2-3 WEEKS 500-10,000 3-4 WEEKS 1,000-50,000 4-5 WEEKS 10,000-100,000 5-6 WEEKS 15,000-200,000 6-8 WEEKS 10,000-100,000 2-3 MONTHS Performed By: #### C VDTBH #### [facility] [address] [place] [address] Dr. Cullen Garcia US PELVIS AND TRANSVAGon [...] by: JADEN LEBLANC Date: 2022-05-28 19:[address] [facility] PAP ACOG PANEL 2: 30 to 65on 05-18-[address] [facility] Comment on above: Result Comment: Performed at: WB Performed By: #### [id number] #### [facility] [address] [place] [address] Dr. Cullen Garcia Age Gdln ACOG Testing 30-[address] [facility] Comment on above: Performed By: #### [id number] #### [facility] [address] [address] [address] Cullen Garcia DIAGNOSIS: Comment Normal [facility] Comment on above: Result Comment: NEGATIVE FOR INTRAEPITHE LIAL LESION OR MALIGNANCY. Performed at: WB Performed By: #### [id number] #### [facility] [address] [address] [address] Cullen Garcia HPV Aptima Negative Normal Negative [facility] Comment on above: Result Comment: This nucleic acid amplif ication test detects fourteen high-risk HPV types (16,18,31,33,35,39,45,51,52,56,58,59,66,68) without differentiation. Performed at: =G Performed By: #### [id number] #### [facility] [address] [place] [address] Dr. Cullen Garcia Methodology: Comment Normal [facility] Comment on above: Result Comment: This liquid based ThinPr ep(R) pap test was screened with the use of an image guided system. Performed at: WB Performed By: #### [id number] #### [facility] [address] [place] [address] Dr. Cullen Garcia Note: Comment Normal [facility] Comment on above: Result Comment: The Pap smear is a scree сергей test designed to aid in the detection of premalignant and malignant conditions of the uterine cervix. It is not a diagnostic procedure and should not be used as the sole means of detecting cervical cancer. Both false-positive and false-negative reports do occur. . Performed at: WB Performed By: #### [id number] #### [facility] [address] [place] [address] Dr. Cullen Garcia Performed by: Comment Normal [facility] Comment on above: Result Comment: Melly Poon Cytotechn ologist (ASCP) Performed at: WB Performed By: #### [id number] #### [facility] [address] [place] [address] Dr. Cullen Garcia Specimen adequacy: Comment Normal [facility] Comment on above: Result Comment: Satisfactory for evaluat ion. Endocervical and/or squamous metaplastic cells (endocervical component) are present. Performed at: WB Performed By: #### [id number] #### [facility] [address] [place] [address] Dr. Cullen Garcia HERPES SIMPLEX VIRUS (HSV) Freddy Rawls 02-08-2022 HSV Culture/Type Comment Normal [facility] Comment on above: Result Comment: Negative No Herpes simplex virus isolated. Performed By: #### H SVCUL #### [facility] [address] [place], [place] [address] Dr. Cullen Garcia VAGINITIS/VAGINOSIS DNA PROB Clark 02-06-2022 Seda species Negative Normal Negative [facility] Comment on above: Performed By: #### VAGINT #### [facility] [address] [address] [address] Cullen Garcia Gardnerella vaginalis Negative Normal Negative [facility] Comment on above: Performed By: #### VAGINT #### [facility] [address] [address] [address] Cullen Garcia Trichomonas vaginalis Negative Normal Negative [facility] Comment on above: Performed By: #### VAGINT #### [facility] [address] [address] [address] Cullen Garcia Diagnostic Mammogram, Bilate ral [...] VERY IMPORTANT TO YOUR HEALTH. THE CURRENT [place] [employer] GUIDELINES RECOMMENDS ANNUAL MAMMOGRAPHY BEGINNING AT AGE 40 THIS FACILITY USES A REMINDER SYSTEM TO ENSURE ALL PATIENTS RECEIVE REMINDER NOTIFICATIONS AT THE APPROPRIATE TIME BASED ON THE RECOMMENDATIONS OF THIS EXAM. Report reported and signed by Abel Monroy on 08/22/2021 1304 Normal [facility] Specialist XR Chest 2 Views*on 08-22-19 [...] by Abel Monroy on 08/22/2021 0938 Normal [facility] Specialist Progress Noteon 01-05-2018 HIM IP Note OR Manager Rn Case Normal [facility] Progress Noteon 12-09-2017 HIM IP Note OR Manager Rn Case Normal [facility] Progress Noteon 12-08-2017 HIM IP Note OR Manager Rn Case Normal [facility] Progress Noteon 11-11-2017 HIM IP Note OR Manager Rn Case Normal [facility] Progress Noteon 11-10-2017 HIM IP Note OR Manager Rn Case [facility] H. pylori Detectionon 2016 H. pylori Detection Specimen Description .TISSUE, STOMACH BIOPSY Special Requests NOT REPORTED Direct Exam NEGATIVE Report Status FINAL 07/22/2017 Normal [facility] Comment on above: Performed By: #### TIERAO ####[address] [place] [address] History and Physicalon 07-21 HIM IP Note OR Manager Rn Case [facility] Vital Signs Date Time Vital Sign Value Performing Clinician Facility 09-13-2023 09:30-0500 Body height 154.94 cm Kenzie Lazar Other [facility] Other 09-13-2023 09:30-0500 Body mass index (BMI) [Ratio] 41.26 kg/m2 Kenzie Lazar Other [facility] Other 09-13-2023 09:30-0500 Body weight 99.07 kg Kenzie Lazar Other [facility] Other 09-13-2023 09:30-0500 Diastolic blood pressure 76 mm[Hg] Kenzie Lazar Other [facility] Other 09-13-2023 09:30-0500 Systolic blood pressure 110 mm[Hg] Kenzie Lazar Other [facility] Other 08-25-2023 09:00-0500 Body height 154.94 cm Natali Love Other [facility] Other 08-25-2023 09:00-0500 Body mass index (BMI) [Ratio] 41.19 kg/m2 Natali Astudillomond Other [facility] Other 08-25-2023 09:00-0500 Body temperature 97.6 [degF] Natali Astudillomond Other [facility] Other 08-25-2023 09:00-0500 Body weight 98.88 kg Natali Love Other [facility] Other 08-25-2023 09:00-0500 Diastolic blood pressure 58 mm[Hg] Natali Kate Other [facility] Other 08-25-2023 09:00-0500 Respiratory rate 18 /min Natali Love Other [facility] Other 08-25-2023 09:00-0500 SaO2% (BldA) [Mass fraction] 97 % Natali Love Other [facility] Other 08-25-2023 09:00-0500 Systolic blood pressure 123 mm[Hg] Natali Astudillomond Other [facility] Other 08-02-2023 13:15-0500 Body height 154.94 cm Kenzie Lazar Other [facility] Other 08-02-2023 13:15-0500 Body mass index (BMI) [Ratio] 40.7 kg/m2 Kenzie Lazar Other [facility] Other 08-02-2023 13:15-0500 Body weight 97.71 kg Kenzie Lazar Other [facility] Other 08-02-2023 13:15-0500 Diastolic blood pressure 82 mm[Hg] Kenzie Lazar Other [facility] Other 08-02-2023 13:15-0500 Systolic blood pressure 120 mm[Hg] Kenzie Lazar Other [facility] Other 07-01-2023 10:45-0500 Body height 154.94 cm Kenzie Lazar Other [facility] Other 07-01-2023 10:45-0500 Body mass index (BMI) [Ratio] 41.56 kg/m2 Kenzie Lazar Other [facility] Other 07-01-2023 10:45-0500 Body weight 99.79 kg Kenzie Lazar Other [facility] Other 07-01-2023 10:45-0500 Diastolic blood pressure 80 mm[Hg] Kenzie Lazar Other [facility] Other 07-01-2023 10:45-0500 Systolic blood pressure 116 mm[Hg] Kenzie Lazar Other [facility] Other 02-05-2023 09:45-0400 Body height 154.94 cm Kenzie Lazar Other [facility] Other 02-05-2023 09:45-0400 Body mass index (BMI) [Ratio] 40.62 kg/m2 Kenzie Lazar Other [facility] Other 02-05-2023 09:45-0400 Body weight 97.52 kg Kenzie Lazar Other [facility] Other 02-05-2023 09:45-0400 Diastolic blood pressure 73 mm[Hg] Kenzie Lazar Other [facility] Other 02-05-2023 09:45-0400 Systolic blood pressure 109 mm[Hg] Kenzie Lazar Other [facility] Other Encounters Encounter Date Encounter Type Care Provider Facility Start: 11-01-2023 End: 11-01-2023 ambulatory VERONICA H TIMMIS Not Available Start: 09-13-2023 End: 09-13-2023 ambulatory Kenzie Lazar Other [facility] Other Start: 09-13-2023 Office outpatient vi sit 15 minutes Kenzie Lazar [facility] Start: 08-30-2023 End: 08-30-2023 ambulatory VERONICA H TIMMIS Not Available Start: 08-25-2023 End: 08-25-2023 ambulatory Natali Kate Other [facility] Other Start: 08-25-2023 Office outpatient vi sit 15 minutes Natali Love [facility] Start: 08-04-2023 End: 08-04-2023 ambulatory SEBAS CORADOO Not Available Start: 08-02-2023 End: 08-02-2023 ambulatory Kenzie Lazar Other [facility] Other Start: 08-02-2023 Office outpatient vi sit 15 minutes Kenzie Lazar [facility] Start: 07-01-2023 End: 07-01-2023 ambulatory Kenzie Lazar Other [facility] Other Start: 07-01-2023 Office outpatient vi sit 15 minutes Kenzie Lazar [facility] Start: 03-13-2023 End: 03-13-2023 ambulatory Kenzie Lazar Other [facility] Other Start: 03-13-2023 Telephone encounter Kenzie Lazar [facility] Start: 02-19-2023 End: 02-19-2023 ambulatory Kenzie Lazar Other [facility] Other Start: 02-19-2023 Telephone encounter Kenzie Cady [facility] Start: 02-17-2023 End: 02-18-2023 ambulatory Kenzie Lazar Facility:[facility] Start: 02-05-2023 End: 02-05-2023 ambulatory Kenzie Lazar Other [facility] Other Start: 02-05-2023 Office outpatient vi sit 25 minutes Kenzie Cady [facility] Start: 10-06-2022 End: 10-07-2022 ambulatory Kenzie Lazar Facility:[facility] Start: 08-04-2022 End: 08-05-2022 ambulatory Kenzie Lazar Facility:[facility] Start: 07-27-2022 Encounter for preprocedural laboratory examination DR SEBAS TORRES [facility] Start: 07-21-2022 End: 07-21-[address] SEBAS TORRES Facility:[facility] Start: 07-18-2022 End: 07-19-[address] SEBAS TORRES Facility:[facility] Start: 07-18-2022 End: 07-19-2022 Encounter for preprocedural laboratory examination DR SEBAS TORRES Facility:[facility] Start: 07-16-2022 Encounter for other preprocedural examination DR SEBAS TORRES [facility] Start: 07-16-2022 Encounter for preprocedural cardiovascular examination DR SEBAS TORRES [facility] Start: 07-13-2022 End: 07-14-[address] SEBAS TORRES Facility:[facility] Start: 07-13-2022 End: 07-14-2022 Encounter for preprocedural cardiovascular examination DR SEBAS TORRES Facility:[facility] Start: 06-16-2022 End: 06-17-[address] SEBAS TORRES Facility:[facility] Start: 05-28-2022 End: 05-29-[address] SEBAS TORRES Facility:[facility] Start: 05-11-2022 End: 05-11-[address] SEBAS TORRES Facility:[facility] Start: 05-11-2022 Adult health examination Phuong Lazar Other [facility] Other Start: 05-11-2022 Gynecological examin ation normal Kenzie Cady Other [facility] Other Start: 02-04-2022 End: 02-04-[address] CAROL ANN HAMM Facility:[facility] Start: 07-21-2017 End: 07-21-2017 Ambulatory RAMSES CALERO [facility] Procedures Date Procedure Procedure Detail Performing Clinician Start: 07-21-2017 DISCHARGE PATIENT SONDRA CALERO Start: 07-21-2017 H. PYLORI DETECTION MAT [facility] JOHNBANNER Depression screening Kenzie Cady Other Payers Date Payer Category Payer Unknown [id number] 2.16.84 [id number] 1985 Unknown [id number] 2.16.84 [id number] 1984 Unknown [id number] 2.16.84 [id number] 1984 Unknown [id number] 2.16.84 [id number] 1984 Unknown [id number] 2.16.84 [id number] 1984 Unknown [id number] 2.16.84 [id number] 1984 Unknown [id number] 2.16.84 [id number] 1984 Unknown [id number] 2.16.84 [id number] 1984 Unknown [id number] 2.16.84 [id number] 1984 Unknown [id number] 1959 Unknown [id number] Social History Date Type Detail Facility Unknown if ever smoked [facility] Other Sex Assigned At Sex Assigned At Bir th [facility] Other Evaluation note 09-13-2023 Note Date & Type Note Facility 09-13-2023 Evaluation note Encounter Date Diagnosis Assessment Notes Aug, Morbid (severe) obesity due to excess calories (ICD-10 - E66.01) Patient has clearly made a good lacie [...] to ER and Follow-up with me immediately. Aug, Body mass index [BMI] 40.0-44.9, adult (ICD-10 - Z68.41) Aug, Pleurisy (ICD-10 - R09.1) reviewed urgent care note and treatment. overall improved. Aug, LPRD (laryngophar yngeal reflux disease) (ICD-10 - K21.9) reviewed notes from ENT visit. Laryngoscopy was normal, per pt. Continue PPI, added famotidine qpm [facility] Other Evaluation note 08-25-2023 Note Date & Type Note Facility 08-25-2023 Evaluation note Encounter Date Diagnosis Assessment Notes Aug, Acute sinusitis, recurrence not specified, unspecified location (ICD-10 - J01.90) Sinusitis home care material was printed Drink plenty fluids, get plenty of rest. Take the doxycycline and prednisone as prescribed until gone for your sinus infection. The prednisone will help the pleurisy as well. Use your Flonase inhaler as prescribed until your symptoms of sinus infection improved. Take Tylenol or Motrin for aches pains or fevers. Off work today, may return to work tomorrow. Follow-up with your family physician if no improvement in 2 to 3 days Aug, Pleurisy (ICD-10 - R09.1) [facility] Other Evaluation note 08-02-2023 Note Date & Type Note Facility 08-02-2023 Evaluation note Encounter Date Diagnosis Assessment Notes Jul, Morbid (severe) obesity due to excess calories (ICD-10 - E66.01) Patient has clearly made a good lacie [...] to ER and Follow-up with me immediately. Jul, Body mass index [BMI] 40.0-44.9, adult (ICD-10 - Z68.41) Jul, LPRD (laryngophar yngeal reflux disease) (ICD-10 - K21.9) Pt agrees to referral to Dr. See for globus sensation and ongoing LPRD while on PPI [facility] Other Evaluation note 07-01-2023 Note Date & [...] EGD, etc if needed in 1 month. [facility] Other Evaluation note 02-05-2023 Note Date & Type Note Facility 02-05-2023 Evaluation note Encounter Date Diagnosis Assessment Notes Jan, Lower abdominal pain (ICD-10 - R10.30) Encouraged to followup w HOUSE CLEANER. Pt will atkinson out CT and make phone calls to schedule. Order printed and given to Olga. Jan, Left flank pain (ICD-10 - R10.9) as above. R/o kidney stone Jan, Binge eating disorder (ICD-10 - F50.81) resume vyvanse Jan, UTI (urinary tract infection) (ICD-10 - N39.0) Will treat empirically. [facility] Other Clinical Note 07-21-2022 Note Date & Type Note Facility 07-21-2022 Note OPERATIVE NOTE OPERATION DATE: 07/21/2022 PROCEDURE: Diagnostic laparoscopy with removal of epiploic adhesion of the bowel from the patient's left ovary. PREOPERATIVE DIAGNOSIS: Pelvic pain. POSTOPERATIVE DIAGNOSIS: Pelvic pain including adhesion of epiploic fat to the patient's ovary. SURGEON: Sebas Torres D.O. DINING ROOM SUPERVISOR: GOLDEN Conway URINE OUTPUT: Yellow and clear. [...] to Recovery Room in stable condition. [facility] Clinical Note 07-21-2022 Note Date & Type Note Facility 07-21-2022 Note OPERATIVE NOTE OPERATION DATE: 07/29/2022 ADDENDUM: Please note adhesion of epiploic fat to the patient's left ovary was noted and this was bluntly and sharply dissected and taken down. [facility] Clinical Note 08-22-2021 Note Date & Type Note Facility 08-22-2021 Note FINDINGS: Sonographic evaluation targeted to the right breast, periareolar region demonstrates no worrisome cystic or solid mass lesions. Comparison made with the same day bilateral mammogram. IMPRESSION: BIRADS 1 - NEGATIVE Report reported and signed by Abel Monroy on 08/22/2021 1304 [facility] Child Nutrition Director Evaluation note Note Date & Type Note Facility Evaluation note No Information [facility] Other History general Narrative - Reported Note Date & Type Note Facility History general Narrative - Reported Type Medical History Endometriosis Surgical History laparoscopy Surgical History c section x3 Surgical History vertical sleeve gastrectomy Hospitalization History SEE SURIGCAL HX [facility] Other Summary Purpose Family History No Family History Records FoundNo Family History Records FoundNo Family History Records FoundNo Family History Records FoundNo Family History Records Found Advance Directives No Advanced Directives Records FoundNo Advanced Directives Records FoundNo Advanced Directives Records FoundNo Advanced Directives Records FoundNo Advanced Directives Records Found Reason for Referral Reason R anterior neck discomfort, LPRD on PPI Diagnosis 1 LPRD (laryngopharyng eal reflux disease) (K21.9) Referral Organization [facility] renita Referring Provider First Name Kenzie Referring Provider Last Name Cady Referring Provider Specialty Family [facility] Referred Organization [facility] Referred Provider Veronica See Referred Address ,[place], [place],[address] Referred Provider Specialty Ear, Nose an d Throat Referral Priority Routine General Notes Qi Sanchez 02:09:20 PM >received today, waiting for notes to be locked Additional Source Comments INFORMATION SOURCE (unrecogn ized section and content) DATE CREATED AUTHOR 02/02/2018 [facility] DATE CREATED AUTHOR AUTHOR'S ORGANIZ ATION 08/23/2021 [facility] Me dical Specialist DATE CREATED AUTHOR AUTHOR'S ORGANIZ ATION 08/06/2022 [facility] pitla DATE CREATED AUTHOR AUTHOR'S ORGANIZ ATION 02/18/2023 [facility] DATE CREATED AUTHOR AUTHOR'S ORGANIZ ATION 11/01/2023 [facility] dical Specialists EPIC REASON FOR VISIT (unrecogniz ed section and content) pelvic fullnesslabsCTDifficu lty Swallowing, Sore Throat1 month Follow upPOSS SINUS INFECTION1 month Follow up FOR RECORDS PERTAINING TO PATIENTS WHO ARE [...] BE BASED ON THE PRIMARY CLINICAL RECORDS. [facility] [employer] [facility]. provides no warranty or guarantee of the accuracy or completeness of information in this document.
--- NOTE | 2023-11-26 10:42 | ECG_ITS ---
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
--- NOTE | 2023-11-26 11:02 | PM.PRESUREVA ---
History of Present Illness History of Present Illness Chief complaint: tongue based asymmetry Narrative: Patient presents for preadmission testing, the patient reports a history of globus sensation and epigastric pain as well as pain with swallowing. The patient denies sore throat, hemoptysis, difficulty breathing, epistaxis, dental pain, fever, nausea, vomiting, or any other complaints. The patient states she has been taking Pepcid and Prilosec as directed. Review of Systems ROS Narrative REVIEW OF SYSTEMS: Negative except as stated in HPI, ten or more systems reviewed. Constitutional: No fever , chills, weakness ENT: No sore throat or epistaxis Cardiovascular: No edema, chest pain, palpitations, or activity intolerance Respiratory: No shortness of breath, cough, or wheezing Musculoskeletal: No joint pain or swelling Gastrointestinal: No abdominal pain, constipation, diarrhea, or vomiting Genitourinary: No dysuria or hematuria Neurological: No numbness, tingling, weakness, or headache Psychiatric: No mood changes PFSH [facility] Medical History (Updated 11/26/23 @ 11:06 by Odalis Gurrola NP) Back pain ?M54.9 - Dorsalgia, unspecified (ICD-10) Panic attacks ?F41.0 - Panic disorder [episodic paroxysmal anxiety] (ICD-10) Anxiety ?F41.9 - Anxiety disorder, unspecified (ICD-10) Depression ?F32.A - Depression, unspecified (ICD-10) COVID-19 ?U07.1 - COVID-19 (ICD-10) Migraine ?G43.909 - Migraine, unspecified, not intractable, without status migrainosus (ICD-10) Pelvic pain ?R10.2 - Pelvic and perineal pain (ICD-10) Fatty liver ?K76.0 - Fatty (change of) liver, not elsewhere classified (ICD-10) Epigastric pain ?R10.13 - Epigastric pain (ICD-10) GERD (gastroesophageal reflux disease) ?K21.9 - Gastro-esophageal reflux disease without esophagitis (ICD-10) Ovarian cyst ?N83.209 - Unspecified ovarian cyst, unspecified side (ICD-10) Hypotension after procedure ?I95.81 - Postprocedural hypotension (ICD-10) Postoperative nausea and vomiting ?R11.2 - Nausea with vomiting, unspecified (ICD-10) ?Z98.890 - Other specified postprocedural states (ICD-10) Delayed recovery from anesthesia Endometriosis ?N80.9 - Endometriosis, unspecified (ICD-10) Tongue symptom ?R19.8 - Other specified symptoms and signs involving the digestive system and abdomen (ICD-10) Dysphagia ?R13.10 - Dysphagia, unspecified (ICD-10) Globus sensation ?R09.A2 - Foreign body sensation, throat (ICD-10) Tongue lesion ?K14.8 - Other diseases of tongue (ICD-10) Surgical History (Updated 11/26/23 @ 11:01 by Odalis Gurrola NP) History of wisdom tooth extraction ?K08.409 - Partial loss of teeth, unspecified cause, unspecified class (ICD-10) History of tonsillectomy ?Z90.89 - Acquired absence of other organs (ICD-10) History of laparoscopy ?Z98.890 - Other specified postprocedural states (ICD-10) History of laparoscopy ?Z98.890 - Other specified postprocedural states (ICD-10) History of cholecystectomy ?Z90.49 - Acquired absence of other specified parts of digestive tract (ICD-10) History of section ?Z98.891 - History of uterine scar from previous surgery (ICD-10) History of section ?Z98.891 - History of uterine scar from previous surgery (ICD-10) History of section ?Z98.891 - History of uterine scar from previous surgery (ICD-10) History of sleeve gastrectomy ?Z90.3 - Acquired absence of stomach [part of] (ICD-10) Family History (Updated 11/26/23 @ 10:36 by Odalis Gurrola NP) Other Family history of cancer Family history of diabetes mellitus Family history of hypertension Family history of pulmonary embolism Social History (Updated 11/26/23 @ 10:27 by Odalis Gurrola NP) Within the past year, how often did you have a drink containing alcohol: never Score interpretation: A score less than 3 is consistent with normal alcohol consumption. 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 Highest level of school completed/degree received: Bachelor's degree Meds Home Medications and Allergies Home Medications ?Medication ?Instructions ?Recorded ?Confirmed ?Type famotidine 20 mg tablet 20 mg PO DAILY 11/26/23 11/26/23 History omeprazole 40 mg capsule,delayed 40 mg PO DAILY 11/26/23 11/26/23 History release phentermine 37.5 mg tablet 37.5 mg PO DAILY 11/26/23 11/26/23 History Allergies Allergy/AdvReac Type Severity Reaction Status Date / Time Penicillins Allergy Rash Verified 11/26/23 10:21 Sulfa (Sulfonamide Allergy Rash Verified 11/26/23 10:21 Antibiotics) codeine AdvReac dizzy Verified 11/26/23 10:21 NSAIDS (Non-Steroidal AdvReac Verified 11/26/23 10:21 Anti-Inflamma Exam Narrative Exam Narrative: Constitutional: Awake, alert, comfortable, well-appearing, nontoxic, interactive, vital signs as charted Head: Normocephalic, atraumatic Eyes: Conjunctiva and lids normal to inspection, pupils normal ENT: Tympanic membranes pearly delarosa, nonerythematous, noninjected, naris patent, uvula asymmetry noted, oral mucosa moist Neck: Supple, normal appearance, normal range of motion, no meningeal signs, no lymphadenopathy Respiratory: No respiratory distress, breath sounds clear Cardiovascular: Regular rate and rhythm, strong and regular heart tones Musculoskeletal: Normal gait, no swelling or edema Skin: No rashes or induration, no lesions, only visible skin inspected Neuro: No neurological deficits, normal sensation Psychiatric: Oriented ?3, normal affect Assessment and Plan Assessment and Plan (1) Tongue symptom: (2) Dysphagia: (3) Globus sensation: (4) Tongue lesion: Plan Direct laryngoscopy and biopsy scheduled with Dr. Becker 12/07/2023.
[2023-11-26 11:36] LABS: Basophils Percent Auto 0.3 % (0.2-2.0); Eosinophils Absolute Auto 0.1 10^3/uL (0.0-0.7); Eosinophils Percent Auto 0.8 % (0.9-7.0); Hematocrit 37.8 % (36.0-48.0); Hemoglobin 12.3 g/dL (12.0-16.0); Immature Granulocytes Abs Auto 0.02 10^3/uL (0.00-0.03); Immature Granulocytes Pct Auto 0.3 % (0.0-0.5); Lymphocytes Absolute Auto 2.4 10^3/uL (1.2-3.8); Lymphocytes Percent Auto 37.2 % (20.5-60.0); Mean Corpuscular HGB Conc 32.5 g/dL (29.9-35.2); Mean Corpuscular Hemoglobin 28.6 pg (26.7-34.0); Mean Corpuscular Volume 87.9 fL (81.0-99.0); Mean Platelet Volume 9.7 fL (9.5-13.5); Monocytes Absolute Auto 0.4 10^3/uL (0.3-0.8); Monocytes Percent Auto 6.2 % (1.7-12.0); Neutrophils Absolute Auto 3.6 10^3/uL (1.4-6.5); Neutrophils Percent Auto 55.2 % (43.0-75.0); Platelet Count 279 10^3/uL (150-450); Red Cell Distribution Width 12.9 % (11.0-15.0); White Blood Count 6.5 10^3/uL (4.0-11.0)
== END 2023-11-26 09:58 | disposition home or self-care (01) ==
LOC: PST 09:58
PROVIDERS: PCP Family Medicine; Visit Provider Otolaryngology
DX: Z01.810 Encounter for preprocedural cardiovascular examination (principal); Z01.812 Encounter for preprocedural laboratory examination; Z01.818 Encounter for other preprocedural examination; K14.8 Other diseases of tongue; R09.A2 Foreign body sensation, throat
CPT/HCPCS: 85025; 93005; G0463

== ENCOUNTER 2023-12-07 08:50 | Day surgery (SDC) | payer OTHER, SELFPAY ==
[2023-11-26 10:59] VITALS: BP 112/74; PULSE 74; TEMP 36.2; O2SAT 100; BMI 41.1
[2023-12-07] VITALS (12 sets, daily range): BP systolic 93–130; BP diastolic 66–90; PULSE 70–83; TEMP 36–36.2; O2SAT 97–100; BMI 41.3
--- NOTE | 2023-12-07 | OP_ITS ---
OPERATION DATE: 12/07/2023 PRIMARY CARE PHYSICIAN: Kenzie Lazar M.D. SURGEON: Veronica Becker M.D. PREOPERATIVE DIAGNOSIS: Globus sensation and right tongue base asymmetry. POSTOPERATIVE DIAGNOSIS: Globus sensation and right tongue base asymmetry. PROCEDURE: Direct laryngoscopy and biopsy of right tongue base. ANESTHESIA: General endotracheal. COMPLICATIONS: None. FINDINGS: Probable lymphatic fullness of the right tongue base. INDICATIONS: This 38-year-old woman presented with a globus sensation in the right side of her throat. She was noted to have a fullness of the right tongue base and was brought to the OR for biopsy as well as examination of the hypopharynx. PROCEDURE: Patient identified in the holding area and taken back to the OR where she was placed in the supine position. After induction of general endotracheal anesthesia, a shoulder roll was placed and a tooth guard put in position. An anterior commissure laryngoscope was used to examine the tonsillar fossae, tongue base, supraglottic larynx, piriform sinuses and introitus of the esophagus, as well as the endolarynx. The above finding was noted. There was no other abnormality evident. Using the upbiting cup forceps then, multiple biopsies were made of the asymmetric area of the tongue base. There was self- limited bleeding. The patient was then awakened and taken to the recovery room in good condition. 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
[2023-12-07 09:19] LABS: HCG Qualitative NEGATIVE (NEGATIVE)
[2023-12-07] MEDS: LACTATED RINGER'S SOLUTION 1,000 ML 50 ML IV (09:25)
--- NOTE | 2023-12-07 12:43 | PC.NURSE ---
PATIENT BECAME A LITTLE NAUSEOUS BUT GAVE HER AN ALCOHOL PAD TO SMELL AND NAUSEA CALMED DOWN.
== END 2023-12-07 13:28 | disposition home or self-care (01) ==
PROVIDERS: Anesthesiology; PCP Family Medicine; Visit Provider Otolaryngology
PROC: (CPT 320; principal; 2023-12-07 10:05)
DX: K14.8 Other diseases of tongue (principal); R13.10 Dysphagia, unspecified; F41.0 Panic disorder [episodic paroxysmal anxiety]; F41.9 Anxiety disorder, unspecified; Z86.16 Personal history of COVID-19; K76.0 Fatty (change of) liver, not elsewhere classified; K21.9 Gastro-esophageal reflux disease without esophagitis; R09.A2 Foreign body sensation, throat; Z90.49 Acquired absence of other specified parts of digestive tract; Z90.3 Acquired absence of stomach [part of]; E66.01 Morbid (severe) obesity due to excess calories; Z68.41 Body mass index [BMI] 40.0-44.9, adult
CPT/HCPCS: 31535; 36415; 84703; 88305; 88341; 88342; 99999; J1094; J2704

== ENCOUNTER 2024-03-28 10:09 | Outpatient (OUT) | payer OTHER, SELFPAY ==
--- NOTE | 2024-03-28 10:14 | CT_ITS ---
[address] [address] Patient Name: CARYN SALES MRN: [id number] date: 1985 Sex: F Assigned Patient Location: CT Current Patient Location: Accession/Order Number: [id number] Exam Date: 03/28/2024 10:25 Report Date: 03/29/2024 15:09 At the request of: JOSE RAFAEL MORRIS Procedure: CT soft tissue neck w con EXAM: CT soft tissue neck w con CLINICAL INDICATION: Globus Sensation R09.A2 COMPARISON: None TECHNIQUE: Standard enhanced CT of the neck following intravenous administration of 99 cc of Omnipaque 300. Axial sections with coronal and sagittal reformats were obtained. Dose reduction techniques were achieved by using automated exposure control and/or adjustment of mA and/or kV according to patient size and/or use of iterative reconstruction technique. FINDINGS: Lymph Nodes/Soft Tissues: No extranodal soft tissue mass, abnormal enhancement, or fat stranding. No enlarged or morphologically abnormal lymph nodes. No soft tissue abnormality adjacent to the cutaneous marker indicating the patient's stated palpable abnormality. No abnormal soft tissue mineralization/calcification. Nasopharynx: Normal. Suprahyoid Neck: Oropharynx, oral cavity, parapharyngeal, and retropharyngeal spaces are clear and symmetric. Infrahyoid Neck: Larynx, hypopharynx, and supraglottic area are clear and symmetric. Vocal cords are symmetric. Parotid Glands: Normal. Submandibular Glands: Normal. Thyroid: Normal. Orbits: Normal. Paranasal Sinuses: Well-aerated. Mastoid Air Cells: Well-aerated. Skull Base: Normal. Thoracic Inlet: Visualized lung apices are clear. Vascular Structures: Symmetric and patent. Musculoskeletal: No acute osseous abnormality. Minimal dorsal osteophytic ridging at C5-C6. CT/CT soft tissue neck w con IMPRESSION: No soft tissue abnormality or lymphadenopathy in the neck. Electronically authenticated by: MICHAEL VALLE Date: 03/29/2024 15:09
--- OUTSIDE RECORDS SUMMARY | 2024-03-28 10:26 | XMS_ITS | CCD ---
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 Name Role Phone RAMSES CALERO Unavailable Unavailable [...] Primary Care Unavailable MARV GARCIA Consulting Unavailable GEMBUSDEBORAH Consulting Unavailable TRI, DR MULLEN Admitting Unavailable TRI, DR MULLEN Attending Unavailable TRI, DR MULLEN Consulting Unavailable TRI, DR MULLEN Primary Care Unavailable TRI, DR MULLEN Admitting Unavailable [place], DR JADEN Salazar Consulting Unavailable TRI, DR MULLEN Attending Unavailable TRI, DR MULLEN Primary Care Unavailable TRI, DR MULLEN Consulting Unavailable TRI, DR MULLEN Admitting Unavailable TRI, DR MULLEN Attending Unavailable TRI, DR MULLEN Consulting Unavailable TRI, DR MULLEN Primary Care Unavailable KARHARRYK, DR MAHARAJ Admitting Unavailable KARBECKY, DR MAHARAJ Attending Unavailable NORIS, DR MAHARAJ Consulting Unavailable TRI, DR MULLEN Primary Care Unavailable Kenzie Lazar Unavailable Kenzie Lazar Primary Care Unavailable Kenzie Lazar Primary Care Unavailable Jamie Piper Admitting Unavailable Jamie Piper Attending Unavailable Kenzie Lazar Primary Care Unavailable Jamie Piper Admitting Unavailable Jamie Piper Attending Unavailable Natali Love Unavailable MD Kenzie Lazar Primary Care Provider [phone] MD Veronica See Jr Attending Provider VERONICA Paz Attending Unavailable VERONICA SEE Attending Unavailable SEBAS TORRES Attending Unavailable VERONICA SEE Attending Unavailable Veronica See Jr Attending Unavailable Veronica See Jr Admitting Unavailable Kenzie Lazar Primary Care Unavailable Allergies Allergy Classification Reported Allergen(s) Allergy Type Date of Onset Reaction(s) Facility (4 sources) Codeine; Translations: [codeine] Drug Allergy 08-16-19 03 [facility] Repository (1 source) NSAIDs Drug allergy (disorder) 08-16-19 14 [facility] Repository (3 sources) Penicillins Drug allergy (disorder) 08-16-18 90 [facility] Repository (1 source) Sulfonamides (Antibiotic) Drug allergy (disorder) 08-16-18 96 [facility] Repository (1 source) Betadine Skin Cleanser Drug allergy (disorder) [facility] Repository (7 sources) Codeine Drug Allergy Unknown [employer] Other (9 sources) penicillAMINE Drug Allergy 09-13-19 24 Unknown, [facility] (7 sources) Sulfacetamide / Sulfur Drug Allergy Unknown [employer] Other (1 source) NSAIDs; Translations: [NSAIDs] Propensity to adverse reactions to drug (disorder) [facility] Repository (6 sources) Penicillin; Translations: [penicillin] Drug Allergy 11-19-19 18 Unknown [facility] Repository (1 source) Sulfamethoxazole; Translations: [sulfamethoxazole] Drug Allergy [facility] Repository (1 source) Sulfamethoxazole / Trimethoprim; Translations: [sulfamethoxazole-t rimethoprim] Drug Allergy [facility] Repository (5 sources) Caffeine Drug Allergy 11-19-19 18 Unknown [employer] Other (5 sources) Codeine Drug Allergy 11-19-19 18 Unknown [employer] Other (5 sources) Non-steroidal anti-inflammatory agent Drug allergy Unknown [employer] Other (5 sources) Wound Closure Strips *MEDICAL DEVICES AND SUPPLIES Propensity to adverse reactions Comment:Rednes s and swelling -Steri Strips [employer] Other (1 source) Allergies Reconciled Propensity to adverse reactions Unknown [employer] Other (5 sources) Substance with penicillin structure and antibacterial mechanism of action (substance) Drug allergy Unknown [employer] Other (5 sources) Substance with sulfonamide structure and antibacterial mechanism of action (substance) Drug allergy Unknown [employer] Other (1 source) patient allergy list reviewed by nurse or physicia Propensity to adverse reactions 08-25-19 Comment:Done [employer] Other (5 sources) Curity Wound Closure 1/2 x4 *MEDICAL DEVICES AND Propensity to adverse reactions Comment:Suture - [employer] Other (3 sources) Sulfacetamide; Translations: [sulfacetamide] Drug Allergy 09-13-19 24 [facility] (3 sources) Sulfonamides (Antibiotic); Translations: [Sulfa (Sulfonamide Antibiotics)] Allergy to substance 09-13-19 24 [facility] (3 sources) Sulfur; Translations: [sulfur] Drug Allergy 09-13-19 24 [facility] (1 source) Codeine Drug Allergy 09-13-19 24 [facility] Repository (1 source) penicillAMINE Drug Allergy 09-13-19 24 [facility] Repository (1 source) Penicillins Drug allergy (disorder) 09-13-[address] [place] [address] Repository Medications Current Medications Medication Drug Class(es) Dates Sig (Normalized) Sig (Original) doxycycline hyclate 100 mg oral tablet (1 source) Tetracycline-cl ass Drug Start: 08-25-2023 take 1 tablet by mouth every twelve hours Doxycycline Hyclate 100 MG 1 tablet Orally Twice a day for 10 day(s) Aug, Active lisdexamfetamine dimesylate 30 mg oral capsule (4 sources) Central Nervous System Stimulant Start: 03-20-2024 take 1 capsule by mouth once daily Lisdexamfetamine (Vyvanse) 30 mg capsule Active 30 MG PO Daily 30 March 20, 2024 Start: 02-05-2023 take 1 capsule by mo uth every twenty-four hours Vyvanse 30 MG 1 [...] omeprazole 40 mg delayed release oral capsule (6 sources) Proton Pump Inhibitor Start: 02-11-2024 End: 02-14-2024 take 40 mg by mouth once daily Omeprazole Active 40 MG PO Daily February 14, 2024 12:26pm Start: 07-01-2023 take 1 capsule by mo uth once daily Omeprazole 40 MG 1 capsule 30 minutes before morning meal Orally Once a day for 30 day(s) Jun, Active predniSONE 20 mg oral tablet (1 source) Start: 08-25-2023 take 2 tablets by mouth once daily at mealtime predniSONE 20 MG 2 tablets with food or milk Orally Once a day for 5 Aug, Active Completed/Discontinued Medications Medication Drug Class(es) Dates Sig (Normalized) Sig (Original) ciprofloxacin 250 mg oral tablet (2 sources) Quinolone Antimicrobial Start: 11-03-2023 End: 03-20-2024 take 250 mg by mouth twice daily Ciprofloxacin Hcl Discontinued 250 MG PO Twice daily November 03, 2023 12:00am March 20, 2024 1:40pm phentermine hydrochloride 37.5 mg oral tablet (11 sources) Sympathomimetic Amine Anorectic Start: 10-15-2023 End: 03-20-2024 take 37.5 mg by mouth once daily Phentermine Discontinued 37.5 MG PO Daily February 14, 2024 12:26pm March 20, 2024 2:13pm Start: 09-13-2023 take 1 tablet by kyung th once [...] Translations: [Unspecified abdominal pain] Onset: 07-21-2022 Episodic Disorders usually diagnosed in infancy, childhood, or adolescence (2 sources) Adult attention deficit hyperactivity disorder ; Translations: [Other specified behavioral and emotional disorders with onset usually occurring in childhood and adolescence] 03-20-2024 Chronic Esophageal disorders (8 sources) Gastro-esophageal reflux disease [...] 02-03-2022 Episodic Other aftercare (1 source) Other termite helper (current) drug therapy; Translations: [OTH INTERMEDIATE CURRENT DRUG THERAPY] Onset: 08-03-2022 Episodic Other [...] metabolic disorders (3 sources) Body mass index 30+ - obesity; Translations: [Body mass index 31.0-31.9, adult] Onset: 11-18-2017 Resolved: 07-20-2019 10-15-2023 Chronic Other nutritional; endocrine; and metabolic disorders [...] Test Name Value Interpretation Reference Range Facility HCG ( test) IA.shantelli d Ql (U)on 12-07-2023 HCG ( test) Ql (U) Negative NEGATIVE [facility] Christos 12-07-2023 L Specimen: [id number] Received: 12/08/23 Status: AD [place]ira Num: [id number] Spec Type: Surgical Subm Dr: VERONCIA SEE MD Tissues: A TONGUE - biopsy (RT TONGUE BASE) Procedures: HE/2, Gross/Micro L4, AE1-AE3, BCL-2, BCL-6, CD10, CD20, CD23, CD3, CD5, Ki-67, PAX5 Age/ Patient Sex Location Account Attending Physician Olga Pressley 38/F LABELL [id number] VERONICA SEE MD SPEC NUM: [id number] RECD: 12/08/23 STATUS: AD MOREIRA NUM: [id number] KARINA: 12/07/[address] [facility] [address]: VERONICA SEE MD ENTERED: 12/08/23 [facility] DR: Jayy,Lab SPEC TYPE: Surgical DEPT: ADILSON CAO ORDERED: HE/2, Gross/Micro L4, AE1-AE3, BCL-2, BCL-6, CD10, CD20, CD23, CD3, CD5, Ki-67, PAX5 ORDERED: HE/2, Gross/Micro L4, AE1-AE3, BCL-2, BCL-6, CD10, CD20, CD23, CD3, CD5, Ki-67, PAX5 Pathological Diagnosis Right tongue base, biopsy: Fragments of benign squamous mucosa and lymphoid tissue showing reactive lymphoid hyperplasia. Focal features suggestive of lymphoepithelial cyst. Focal acute inflammation with ulceration. Diagnosis confirmed with CD3, CD20, CD5, CD10, Bcl-2, BCL6, CD23, PAX5, Ki-67 and pancytokeratin immunostain. Gross Description Received in formalin, labeled with the patient's name and right tongue base are multiple fragments of santana oral tissue measuring in aggregate 1.0 x 0.9 x 0.3 cm, entirely submitted in A1. Clinical history: Dysphagia, santana base asymmetry CPT Codes 73298, 02275, 64586p6 Specimen: [id number] Received: 12/08/23 Status: AD [place] Num: [id number] Spec Type: Surgical Subm Dr: VERONICA SEE MD Tissues: A TONGUE - biopsy (RT TONGUE BASE) Procedures: HE/2, Gross/Micro L4, AE1-AE3, BCL-2, BCL-6, CD10, CD20, CD23, CD3, CD5, Ki-67, PAX5 Patient: Olga Pressley [id number] (Continued) Signed (signature on file) Romeo Dong MD 12/14/23 1430 Normal [facility] Basophils Auto (Bld) [#/Vol] on 11-26-2023 Basophils (Bld) [#/Vol] 0.0 10 3/uL 0.0-0.1 [facility] Basophils/100 WBC Auto (Bld) on 11-26-2023 Basophils/100 WBC (Bld) 0.3 % 0.2-2.0 [facility] Eosinophils/100 WBC Auto (Bl d)on 11-26-2023 Eosinophils/100 WBC (Bld) 0.8 % 0.9-7.0 [facility] Erythrocyte distribution wid th Auto (RBC) [Ratio]on 11-26-2023 Erythrocyte distribution width (RBC) [Ratio] 12.9 % 11.0-15.0 [facility] Hematocrit Auto (Bld) [Volum e fraction]on 11-26-2023 Hematocrit (Bld) [Volume fraction] 37.8 % 36.0-48.0 [facility] Hemoglobin [Mass/volume] in Bloodon 11-26-2023 Hemoglobin (Bld) [Mass/Vol] 12.3 g/dL 12.0-16.0 [facility] Laboratory - Hematology and Cell countson 11-26-2023 Immature granulocytes/100 WBC (Bld) 0.3 % 0.0-0.5 [facility] Leukocytes [#/volume] correc eileen for nucleated erythrocytes in Blood by Automated counon 11-26-2023 WBC corrected for nucl RBC Auto (Bld) [#/Vol] 6.5 10 3/uL 4.0-11.0 [facility] Lymphocytes Auto (Bld) [#/Vo l]on 11-26-2023 Lymphocytes (Bld) [#/Vol] 2.4 10 3/uL 1.2-3.8 [facility] Lymphocytes/100 WBC Auto (Bl d)on 11-26-2023 Lymphocytes/100 WBC (Bld) 37.2 % 20.5-60.0 [facility] MCH Auto (RBC) [Entitic mass ]on 11-26-2023 MCH (RBC) [Entitic mass] 28.6 pg 26.7-34.0 [facility] MCHC Auto (RBC) [Mass/Vol]on 11-26-2023 MCHC (RBC) [Mass/Vol] 32.5 g/dL 29.9-35.2 [facility] MCV Auto (RBC) [Entitic vol] on 11-26-2023 MCV (RBC) [Entitic vol] 87.9 fL 81.0-99.0 [facility] Monocytes Auto (Bld) [#/Vol] on 11-26-2023 Monocytes (Bld) [#/Vol] 0.4 10 3/uL 0.3-0.8 [facility] Monocytes/100 WBC Auto (Bld) on 11-26-2023 Monocytes/100 WBC (Bld) 6.2 % 1.7-12.0 [facility] Neutrophils Auto (Bld) [#/Vo l]on 11-26-2023 Neutrophils (Bld) [#/Vol] 3.6 10 3/uL 1.4-6.5 [facility] Neutrophils/100 WBC Auto (Bl d)on 11-26-2023 Neutrophils/100 WBC (Bld) 55.2 % 43.0-75.0 [facility] No Panel Informationon 11-25 Eosinophils # (Auto) 0.1 10 3/uL 0.0-0.7 [facility] Immature Granulocyte # (Auto) 0.02 10 3/uL 0.00-0.03 [facility] Platelet mean volume Auto (B ld) [Entitic vol]on 11-26-2023 Platelet mean volume (Bld) [Entitic vol] 9.7 fL 9.5-13.5 [facility] Platelets Auto (Bld) [#/Vol] on 11-26-2023 Platelets (Bld) [#/Vol] 279 10 3/uL 150-450 [facility] RBC Auto (Bld) [#/Vol]on RBC (Bld) [#/Vol] 4.30 10 6/uL 4.20-5.40 [facility] .Auto Diff 1on 02-17-2023 Auto [place] % 7 % Normal - [facility] Comment on above: Performed By: #### [id number], [id number] 5, [id number], [id number] #### [facility] (DEFAULT) [address] [place] [address] 99790 Baso Abs# 0.0 x10 Normal 0.0-0.2 [facility] Comment on above: Performed By: #### [id number], [id number] 5, [id number], [id number] #### [facility] (DEFAULT) [address] [place] [address] 17212 Basophils/100 WBC (Bld) 0.4 % Normal 0.2-2.0 [facility] Comment on above: Performed By: #### [id number], [id number] 5, [id number], [id number] #### [facility] (DEFAULT) [address] [place] [address] 01595 Eos Abs# 0.1 x10 Normal 0.0-0.4 [facility] Comment on above: Performed By: #### [id number], [id number] 5, [id number], [id number] #### [facility] (DEFAULT) [address] [place] [address] 65888 Eosinophils/100 WBC (Bld) 1.0 % Normal 0.9-4.0 [facility] Comment on above: Performed By: #### [id number], [id number] 5, [id number], [id number] #### [facility] (DEFAULT) [address] [place] [address] 79416 Lymph Abs# 2.4 x10 Normal 1.3-2.9 [facility] Comment on above: Performed By: #### [id number], [id number] 5, [id number], [id number] #### [facility] (DEFAULT) [address] [place] [address] 11933 Lymphocytes/100 WBC (Bld) 41 % Normal 14-48 [facility] Comment on above: Performed By: #### [id number], [id number] 5, [id number], [id number] #### [facility] (DEFAULT) [address] [place] [address] 51524 [place] Abs# 0.4 x10 Normal 0.0-0.8 [facility] Comment on above: Performed By: #### [id number], [id number] 5, [id number], 9714832 #### [facility] (DEFAULT) [address] [place] [address] 30188 Neut Abs# 2.9 x10 Normal 1.5-9.2 [facility] Comment on above: Performed By: #### [id number], [id number] 5, [id number], [id number] #### [facility] (DEFAULT) [address] [place] [address] 61536 Neutrophils/100 WBC (Bld) 50 % Normal 44-88 [facility] Comment on above: Performed By: #### [id number], [id number] 5, 68683248, 7939804 #### [facility] (DEFAULT) [address] [place] [address] CBC w/ Auto Diffon 3 Erythrocyte distribution width (RBC) [Ratio] 14.1 % Normal 11.5-15.0 [facility] Comment on above: Performed By: #### [id number], [id number] 5, [id number], 4607321 #### [facility] (DEFAULT) [address] [place] [address] Hematocrit (Bld) [Volume fraction] 37.5 % Normal 33.7-40.4 [facility] Comment on above: Performed By: #### [id number], [id number] 5, 58403427, 5995239 #### [facility] (DEFAULT) [address] [place] [address] Hemoglobin (Bld) [Mass/Vol] 12.8 g/dL Normal 11.3-15.9 [facility] Comment on above: Performed By: #### [id number], [id number] 5, 54479965, [id number] #### [facility] (DEFAULT) [address] [place] [address] Man Diff? Auto Invalid Interpretation Code [facility] Comment on above: Performed By: #### [id number], [id number] 5, [id number], 5977330 #### [facility] (DEFAULT) [address] [place] [address] MCH (RBC) [Entitic mass] 29 pg Normal 24-34 [facility] Comment on above: Performed By: #### [id number], [id number] 5, [id number], 8251946 #### [facility] (DEFAULT) [address] [place] [address] MCHC (RBC) [Mass/Vol] 34 g/dL Normal 26-37 [facility] Comment on above: Performed By: #### [id number], [id number] 5, 43046310, 8144368 #### [facility] (DEFAULT) [address] [place] [address] 83499 MCV (RBC) [Entitic vol] 85 fL Normal 81-100 [facility] Comment on above: Performed By: #### [id number], [id number] 5, 00590060, 6187478 #### [facility] (DEFAULT) [address] [place] [address] 85794 Platelet 298 x10 Normal 138-427 [facility] Comment on above: Performed By: #### [id number], [id number] 5, 63238002, 0102703 #### [facility] (DEFAULT) [address] [place] [address] 95795 Platelet mean volume (Bld) [Entitic vol] 8.0 fL Normal 6.3-10.2 [facility] Comment on above: Performed By: #### [id number], [id number] 5, [id number], 2031761 #### [facility] (DEFAULT) [address] [place] [address] 16992 RBC 4.42 x10 Normal 3.70-5.30 [facility] Comment on above: Performed By: #### [id number], [id number] 5, 91574649, 9641649 #### [facility] (DEFAULT) [address] [place] [address] 77101 WBC 5.8 x10 Normal 3.5-10.5 [facility] Comment on above: Performed By: #### [id number], [id number] 5, 21149221, 1197647 #### [facility] (DEFAULT) [address] [place] [address] 97196 CMP Standardon 02-17-2023 eGFR Non AA >60 Invalid Interpretation Code [facility] Comment on above: Performed By: #### [id number], [id number] 5, 94574297, 5572920 #### [facility] (DEFAULT) [address] [place] [address] 83968 eGFR AA >60 Invalid Interpretation Code [facility] Comment on above: Performed By: #### [id number], [id number] 5, 49752701, 5333044 #### [facility] (DEFAULT) [address] [place] [address] 71101 Albumin [Mass/Vol] 3.9 g/dL Normal 3.5-5.0 [facility] Comment on above: Performed By: #### [id number], [id number] 5, 17460414, 3189812 #### [facility] (DEFAULT) [address] [place] [address] 60753 Albumin/Globulin [Mass ratio] 1.3 {ratio} Low 1.4-2.6 [facility] Comment on above: Performed By: #### [id number], [id number] 5, 43927596, 1019193 #### [facility] (DEFAULT) [address] [place] [address] Alk Phos 57 IU/L Normal 32-91 [facility] Comment on above: Performed By: #### [id number], [id number] 5, 90029629, 4189640 #### [facility] (DEFAULT) [address] [place] [address] 89431 ALT [Catalytic activity/Vol] 17.0 U/L Normal 14.0-54.0 [facility] Comment on above: Performed By: #### [id number], [id number] 5, 14429046, 1290848 #### [facility] (DEFAULT) [address] [place] [address] 54497 Anion gap [Moles/Vol] 9.8 mmol/L Normal 5.0-19.0 [facility] Comment on above: Performed By: #### [id number], [id number] 5, 59759047, 9530738 #### [facility] (DEFAULT) [address] [place] [address] 85381 AST [Catalytic activity/Vol] 16 U/L Normal 15-41 [facility] Comment on above: Performed By: #### [id number], [id number] 5, 44922677, 3099126 #### [facility] (DEFAULT) [address] [place] [address] 55363 Bili Total 0.5 mg/dL Normal 0.3-1.2 [facility] Comment on above: Performed By: #### [id number], [id number] 5, 04158273, 8070340 #### [facility] (DEFAULT) [address] [place] [address] 09633 Calcium [Mass/Vol] 8.7 mg/dL Low 8.9-10.3 [facility] Comment on above: Performed By: #### [id number], [id number] 5, 83297037, 7225137 #### [facility] (DEFAULT) [address] [place] [address] 12099 Chloride [Moles/Vol] 109 mmol/L Normal 101-111 [facility] Comment on above: Performed By: #### [id number], [id number] 5, 15113491, 8854077 #### [facility] (DEFAULT) [address] [place] [address] 92723 CO2 [Moles/Vol] 25 mmol/L Normal 21-32 [facility] Comment on above: Performed By: #### [id number], [id number] 5, 08380299, 3778465 #### [facility] (DEFAULT) [address] [place] [address] 63188 Creatinine [Mass/Vol] 0.70 mg/dL Normal 0.60-1.30 [facility] Comment on above: Performed By: #### [id number], [id number] 5, 93576130, 5088810 #### [facility] (DEFAULT) [address] [place] [address] 04960 Globulin (S) [Mass/Vol] 3.0 g/dL Normal 1.5-4.3 [facility] Comment on above: Performed By: #### [id number], [id number] 5, 52769060, 1453051 #### [facility] (DEFAULT) [address] [place] [address] 90339 Glucose [Mass/Vol] 98.0 mg/dL Normal 74.0-118.0 [facility] Comment on above: Performed By: #### [id number], [id number] 5, 63386832, 4380859 #### [facility] (DEFAULT) [address] [place] [address] 16883 Osmolality 280 mOsm/L Invalid Interpretation Code [facility] Comment on above: Performed By: #### [id number], [id number] 5, 40440759, 9653696 #### [facility] (DEFAULT) [address] [place] [address] 53856 Potassium [Moles/Vol] 3.8 mmol/L Normal 3.6-5.1 [facility] Comment on above: Performed By: #### [id number], [id number] 5, 32628590, 9248171 #### [facility] (DEFAULT) [address] [place] [address] 95410 Protein [Mass/Vol] 6.9 g/dL Normal 6.5-8.1 [facility] Comment on above: Performed By: #### [id number], [id number] 5, 79563000, 9554016 #### [facility] (DEFAULT) [address] [place] [address] 59293 Sodium [Moles/Vol] 140.0 mmol/L Normal 136.0-144.0 [facility] Comment on above: Performed By: #### [id number], [id number] 5, 02614590, 0365482 #### [facility] (DEFAULT) [address] [place] [address] 41782 Urea nitrogen [Mass/Vol] 15 mg/dL Normal 8-26 [facility] Comment on above: Performed By: #### [id number], [id number] 5, 50343361, 2494362 #### [facility] (DEFAULT) [address] [place] [address] 38231 Urea nitrogen/Creatin ine [Mass ratio] 21.4 mg/mg High 4.6-16.2 [facility] Comment on above: Performed By: #### [id number], [id number] 5, 85605823, 9953164 #### [facility] (DEFAULT) [address] [place] [address] 98638 Lipid Panel Standardon 02-17 Cholesterol [Mass/Vol] 154.0 mg/dL Normal 66.0-200.0 [facility] Comment on above: Performed By: #### [id number], [id number] 5, 87521760, 5492258 #### [facility] (DEFAULT) [address] [place] [address] 96567 Cholesterol in HDL [Mass/Vol] 66 mg/dL Normal 40-71 [facility] Comment on above: Performed By: #### [id number], [id number] 5, 54918587, 0049711 #### [facility] (DEFAULT) [address] [place] [address] 28411 Cholesterol in LDL [Mass/Vol] 81 mg/dL Normal 1-100 [facility] Comment on above: Performed By: #### [id number], [id number] 5, 66900976, 4373032 #### [facility] (DEFAULT) [address] [place] [address] 21291 Cholesterol.tota l/Cholesterol in HDL [Mass ratio] 2.3 {ratio} Normal 0.0-4.5 [facility] Comment on above: Performed By: #### [id number], [id number] 5, [id number], [id number] #### [facility] (DEFAULT) [address] [place] [id number] Triglyceride [Mass/Vol] 31.0 mg/dL Normal 0.0-150.0 [facility] Comment on above: Performed By: #### [id number], [id number] #### [facility] (DEFAULT) [address] [place] [id number] VLDL. 6 mg/dL Normal 5-40 [facility] Comment on above: Performed By: #### [id number], [id number], [id number] #### [facility] (DEFAULT) [address] [place] [id number] Consent Formson 10-27-2022 Consent Forms [id number] Normal [facility] Consent Formson 08-13-2022 Consent Forms [id number] Normal [facility] CBC AUTO DIFFon 07-18-2022 BASO # 0.0 103/ul Normal 0.0-0.1 [facility] Comment on above: Performed By: #### CBC #### [facility] [address] [address] [address] Cullen Garcia Basophils/100 WBC (Bld) 0.1 % Critically low 0.2-2.0 [facility] Comment on above: Performed By: #### CBC #### [facility] [address] [address] [address] Cullen Garcia EO # 0.0 103/ul Normal 0.0-0.7 [facility] Comment on above: Performed By: #### CBC #### [facility] [address] [address] [address] Cullen Garcia Eosinophils/100 WBC (Bld) 0.5 % Critically low 0.9-7.0 [facility] Comment on above: Performed By: #### CBC #### [facility] [address] [address] [address] Cullen Garcia Erythrocyte distribution width (RBC) [Ratio] 13.1 % Normal 11.0-15.0 [facility] Comment on above: Performed By: #### CBC #### [facility] [address] [address] [address] Cullen Garcia Hematocrit (Bld) [Volume fraction] 38.2 % Normal 36.0-48.0 [facility] Comment on above: Performed By: #### CBC #### [facility] [address] [address] [address] Cullen Garcia Hemoglobin (Bld) [Mass/Vol] 12.8 g/dL Normal 12.0-16.0 [facility] Comment on above: Performed By: #### CBC #### [facility] [address] [address] [address] Cullen Garcia IG # 0.02 10e3/ul Normal 0.00-0.03 [facility] Comment on above: Performed By: #### CBC #### [facility] [address] [place] [address] Dr. Cullen Garcia IG % 0.3 % Normal 0.0-0.5 [facility] Comment on above: Performed By: #### CBC #### [facility] [address] [place] [address] Dr. Cullen Garcia LYMPH # 2.4 103/ul Normal 1.2-3.8 [facility] Comment on above: Performed By: #### CBC #### [facility] [address] [place] [address] Dr. Cullen Garcia Lymphocytes/100 WBC (Bld) 32.6 % Normal 20.5-60.0 [facility] Comment on above: Performed By: #### CBC #### [facility] [address] [place] [address] Dr. Cullen Garcia MANUAL DIFF REQ NO Normal [facility] Comment on above: Performed By: #### CBC #### [facility] [address] [place] [address] Dr. Cullen Garcia MCH (RBC) [Entitic mass] 28.9 pg Normal 26.7-34.0 [facility] Comment on above: Performed By: #### CBC #### [facility] [address] [place] [address] Dr. Cullen Garcia MCHC (RBC) [Mass/Vol] 33.5 g/dL Normal 29.9-35.2 [facility] Comment on above: Performed By: #### CBC #### [facility] [address] [place] [address] Dr. Cullen Garcia MCV (RBC) [Entitic vol] 86.2 fL Normal 81.0-99.0 [facility] Comment on above: Performed By: #### CBC #### [facility] [address] [place] [address] Dr. Cullen Garcia MONO # 0.5 103/ul Normal 0.3-0.8 [facility] Comment on above: Performed By: #### CBC #### [facility] [address] [place] [address] Dr. Cullen Garcia Monocytes/100 WBC (Bld) 6.7 % Normal 1.7-12.0 [facility] Comment on above: Performed By: #### CBC #### [facility] [address] [place] [address] Dr. Cullen Garcia NEUT # 4.4 103/ul Normal 1.4-6.5 [facility] Comment on above: Performed By: #### CBC #### [facility] [address] [place] [address] Dr. Cullen Garcia Neutrophils/100 WBC (Bld) 59.8 % Normal 43.0-75.0 [facility] Comment on above: Performed By: #### CBC #### [facility] [address] [place] [address] Dr. Cullen Garcia Platelet mean volume (Bld) [Entitic vol] 9.5 fL Normal 9.5-13.5 [facility] Comment on above: Performed By: #### CBC #### [facility] [address] [place] [address] Dr. Cullen Garcia PLT 279 103/ul Normal 150-450 [facility] Comment on above: Performed By: #### CBC #### [facility] [address] [place] [address] Dr. Cullen Garcia RBC 4.43 106/ul Normal 4.20-5.40 [facility] Comment on above: Performed By: #### CBC #### [facility] [address] [place] [address] Dr. Cullen Garcia WBC 7.3 103/ul Normal 4.0-11.0 [facility] Comment on above: Performed By: #### CBC #### [facility] [address] [place] [address] Dr. Cullen Garcia [facility]on SARS-CoV-2 (COVID-19) RNA ALISE+probe Ql (Unsp spec) Not detected Normal NOT DETECTED [facility] Comment on above: Result Comment: This test is not yet brianna roved or cleared by the [place] FDA. When there are no FDA-approved or cleared tests available, and other criteria are met, FDA can make tests available under an emergency access mechanism called an Emergency Use Authorization (EUA). The EUA for this test is supported by the [employer] Assistant Principal of Health and Human Service's (HHS's) declaration [...] SARS-CoV-2. Performed By: #### C VDTBH #### [facility] [address] [address] [address] Cullen Garcia PREG QUANT HCGon 07-18-2022 HCG QUANT <1 Normal [facility] Comment on above: Performed By: #### PREGQNT #### [facility] [address] [address] [address] Cullen Garcia HCG RANGE SEE BELOW Normal [facility] Comment on above: Result Comment: 5-50 0.2-1 WEEK 50-500 1 -2 WEEKS 100-5,000 2-3 WEEKS 500-10,000 3-4 WEEKS 1,000-50,000 4-5 WEEKS 10,000-100,000 5-6 WEEKS 15,000-200,000 6-8 WEEKS 10,000-100,000 2-3 MONTHS Performed By: #### P REGQNT #### [facility] [address] [address] [address] Cullen Garcia AFP (TUMOR MARKER)on 022 AFP, Serum, Tumor Marker 1.8 ng/mL Normal 0.0-6.4 [facility] Comment on above: Result Comment: [employer] Electr ochemiluminescence Immunoassay (ECLIA) . Values obtained with different assay methods or kits cannot be used interchangeably. Results cannot be interpreted as absolute evidence of the presence or absence of malignant disease. . This test is not interpretable in females. Performed By: #### A FP. #### [facility] [address] [address] [address] Cullen Garcia CA 125on 06-18-2022 Cancer Antigen (CA) 125 23.7 U/mL Normal 0.0-38.1 [facility] Comment on above: Result Comment: [employer] Electr ochemiluminescence Immunoassay (ECLIA) . Values obtained with different assay methods or kits cannot be used interchangeably. Results cannot be interpreted as absolute evidence of the presence or absence of malignant disease. Performed By: #### C VDTBH #### [facility] [address] [place] [address] Dr. Cullen Garcia CEAon 06-18-2022 CEA 0.5 ng/mL Normal 0.0-4.7 [facility] Comment on above: Result Comment: Nonsmokers <3.9 Smokers <5.6 . [employer] Electrochemiluminescence Immunoassay (ECLIA) . Values obtained with different assay methods or kits cannot be used interchangeably. Results cannot be interpreted as absolute evidence of the presence or absence of malignant disease. Performed By: #### C EA. #### [facility] [address] [place] [address] Dr. Cullen Garcia LDHon 06-16-2022 LDH 152 U/L Normal 81-234 [facility] Comment on above: Performed By: #### CVDTBH #### [facility] [address] [place] [address] Dr. Cullen Garcia PREG QUANT HCGon 06-16-2022 HCG QUANT <1 Normal [facility] Comment on above: Performed By: #### CVDTBH #### [facility] [address] [place] [address] Dr. Cullen Garcia HCG RANGE SEE BELOW Normal [facility] Comment on above: Result Comment: 5-50 0.2-1 WEEK 50-500 1 -2 WEEKS 100-5,000 2-3 WEEKS 500-10,000 3-4 WEEKS 1,000-50,000 4-5 WEEKS 10,000-100,000 5-6 WEEKS 15,000-200,000 6-8 WEEKS 10,000-100,000 2-3 MONTHS Performed By: #### C VDTBH #### [facility] [address] [address] [address] Cullen Garcia US PELVIS AND TRANSVAGon [...] by: JADEN LEBLANC Date: 2022-05-28 19:04 Normal [facility] PAP ACOG PANEL 2: 30 to 65on 05-18-2022 . . Normal [facility] Comment on above: Result Comment: Performed at: WB Performed By: #### [id number] #### [facility] [address] [place] [address] Dr. Cullen Garcia Age Gdln ACOG Testing 30-65 Normal [facility] Comment on above: Performed By: #### [id number] #### [facility] [address] [address] [address] Cullen Garcia DIAGNOSIS: Comment Normal [facility] Comment on above: Result Comment: NEGATIVE FOR INTRAEPITHE LIAL LESION OR MALIGNANCY. Performed at: WB Performed By: #### [id number] #### [facility] [address] [address] [address] Cullen Garcia HPV Aptima Negative Normal Negative [facility] Comment on above: Result Comment: This nucleic acid amplif ication test detects fourteen high-risk HPV types (16,18,31,33,35,39,45,51,52,56,58,59,66,68) without differentiation. Performed at: =G Performed By: #### [id number] #### [facility] [address] [place] [address] Dr. Cullen Garcia Methodology: Comment Normal [facility] Comment on above: Result Comment: This liquid based ThinPr ep(R) pap test was screened with the use of an image guided system. Performed at: WB Performed By: #### [id number] #### [facility] [address] [place] [address] Dr. Cullen Garcia Note: Comment Normal [facility] Comment on above: Result Comment: The Pap smear is a scree сергей test designed to aid in the detection of premalignant and malignant conditions of the uterine cervix. It is not a diagnostic procedure and should not be used as the sole means of detecting cervical cancer. Both false-positive and false-negative reports do occur. . Performed at: WB Performed By: #### [id number] #### [facility] [address] [place] [address] Dr. Cullen Garcia Performed by: Comment Normal [facility] Comment on above: Result Comment: Melly Poon Cytotechn ologist (ASCP) Performed at: WB Performed By: #### [id number] #### [facility] [address] [place] [address] Dr. Cullen Garcia Specimen adequacy: Comment Normal [facility] Comment on above: Result Comment: Satisfactory for evaluat ion. Endocervical and/or squamous metaplastic cells (endocervical component) are present. Performed at: WB Performed By: #### [id number] #### [facility] [address] [place] [address] Dr. Cullen Garcia HERPES SIMPLEX VIRUS (HSV) C EDDIETUREon 02-08-2022 HSV Culture/Type Comment Normal [facility] Comment on above: Result Comment: Negative No Herpes simplex virus isolated. Performed By: #### H SVCUL #### [facility] [address] [place] [address] Dr. Cullen Garcia VAGINITIS/VAGINOSIS DNA PROB Clark 02-06-2022 Seda species Negative Normal Negative [facility] Comment on above: Performed By: #### VAGINT #### [facility] [address] [place], [place] [address] Dr. Cullen Garcia Gardnerella vaginalis Negative Normal Negative [facility] Comment on above: Performed By: #### VAGINT #### [facility] [address] [place], [place] [address] Dr. Cullen Garcia Trichomonas vaginalis Negative Normal Negative [facility] Comment on above: Performed By: #### VAGINT #### [facility] [address] [place], [place] [address] Dr. Cullen Garcia Diagnostic Mammogram, Bilate ral [...] VERY IMPORTANT TO YOUR HEALTH. THE CURRENT [employer] GUIDELINES RECOMMENDS ANNUAL MAMMOGRAPHY BEGINNING AT AGE 40 THIS FACILITY USES A REMINDER SYSTEM TO ENSURE ALL PATIENTS RECEIVE REMINDER NOTIFICATIONS AT THE APPROPRIATE TIME BASED ON THE RECOMMENDATIONS OF THIS EXAM. Report reported and signed by Abel Monroy on 08/22/2021 1304 Normal [facility] XR Chest 2 Views*on 08-22-19 22 XR [...] by Abel Monroy on 08/22/2021 0938 Normal [facility] Progress Noteon 01-05-2018 HIM IP Note OR Monomer Purification Operator Normal [facility] Progress Noteon 12-09-2017 HIM IP Note OR Monomer Purification Operator Normal [facility] Progress Noteon 12-08-2017 HIM IP Note OR Monomer Purification Operator [facility] Progress Noteon 11-11-2017 HIM IP Note OR Monomer Purification Operator Normal [facility] Progress Noteon 11-10-2017 HIM IP Note OR Monomer Purification Operator [facility] H. pylori Detectionon 2016 H. pylori Detection Specimen Description .TISSUE, STOMACH BIOPSY Special Requests NOT REPORTED Direct Exam NEGATIVE Report Status FINAL 07/22/2017 [facility] Comment on above: Performed By: #### TIERAO ####[address] [place] [address] History and Physicalon 07-21 HIM IP Note OR Monomer Purification Operator [facility] Vital Signs Date Time Vital Sign Value Performing Clinician Facility 03-20-2024 13:32-0400 Body height 154.94 cm [facility] [place] [facility] 03-20-2024 13:32-0400 Body mass index (BMI) [Ratio] 40 kg/m2 [facility] 03-20-2024 13:32-0400 Body weight 96.16 kg [facility] [place] [facility] 03-20-2024 13:32-0400 Diastolic blood pressure 62 mm[Hg] [facility] 03-20-2024 13:32-0400 Heart rate 83 /min [facility] [place] [facility] 03-20-2024 13:32-0400 Systolic blood pressure 104 mm[Hg] [facility] 09-13-2023 09:30-0500 Body height 154.94 cm Kenzie Lazar Other [facility] 09-13-2023 09:30-0500 Body mass index (BMI) [Ratio] 41.26 kg/m2 Kenzie Lazar Other [employer] Other 09-13-2023 09:30-0500 Body weight 99.07 kg Kenzie Lazra Other [employer] Other 09-13-2023 09:30-0500 Body weight 99.06 kg MD Kenzie Lazar Work Phone: [facility] 09-13-2023 09:30-0500 Diastolic blood pressure 76 mm[Hg] Kenzie Lazar Other [facility] 09-13-2023 09:30-0500 Systolic blood pressure 110 mm[Hg] Kenzie Lazar Other [facility] 08-25-2023 09:00-0500 Body height 154.94 cm Natali Kate Other [employer] Other 08-25-2023 09:00-0500 Body mass index (BMI) [Ratio] 41.19 kg/m2 Natali Kate Other [employer] Other 08-25-2023 09:00-0500 Body temperature 97.6 [degF] Natali Kate Other [employer] Other 08-25-2023 09:00-0500 Body weight 98.88 kg Natali Kate Other [employer] Other 08-25-2023 09:00-0500 Diastolic blood pressure 58 mm[Hg] Natali Kate Other [employer] Other 08-25-2023 09:00-0500 Respiratory rate 18 /min Natali Kate Other [employer] Other 08-25-2023 09:00-0500 SaO2% (BldA) [Mass fraction] 97 % Natali Kate Other [employer] Other 08-25-2023 09:00-0500 Systolic blood pressure 123 mm[Hg] Natali Kate Other [employer] Other 08-02-2023 13:15-0500 Body height 154.94 cm Kenzie Lazar Other [employer] Other 08-02-2023 13:15-0500 Body mass index (BMI) [Ratio] 40.7 kg/m2 Kenzie Lazar Other [employer] Other 08-02-2023 13:15-0500 Body weight 97.71 kg Kenzie Lazar Other [employer] Other 08-02-2023 13:15-0500 Diastolic blood pressure 82 mm[Hg] Kenzie Lazar Other [employer] Other 08-02-2023 13:15-0500 Systolic blood pressure 120 mm[Hg] Kenzie Lazar Other [employer] Other 07-01-2023 10:45-0500 Body height 154.94 cm Kenzie Lazar Other [employer] Other 07-01-2023 10:45-0500 Body mass index (BMI) [Ratio] 41.56 kg/m2 Kenzie Lazar Other [employer] Other 07-01-2023 10:45-0500 Body weight 99.79 kg Kenzie Lazar Other [employer] Other 07-01-2023 10:45-0500 Diastolic blood pressure 80 mm[Hg] Kenzie Lazar Other [employer] Other 07-01-2023 10:45-0500 Systolic blood pressure 116 mm[Hg] Kenzie Lazar Other [employer] Other 02-05-2023 09:45-0400 Body height 154.94 cm Kenzie Lazar Other [employer] Other 02-05-2023 09:45-0400 Body mass index (BMI) [Ratio] 40.62 kg/m2 Kenzie Lazar Other [employer] Other 02-05-2023 09:45-0400 Body weight 97.52 kg Kenzie Lazar Other [employer] Other 02-05-2023 09:45-0400 Diastolic blood pressure 73 mm[Hg] Kenzie Lazar Other [employer] Other 02-05-2023 09:45-0400 Systolic blood pressure 109 mm[Hg] Kenzie Lazar Other [employer] Other Encounters Encounter Date Encounter Type Care Provider Facility Start: 03-20-2024 End: 03-20-2024 ambulatory [facility] Work Phone: Start: 03-20-2024 End: 03-20-2024 Patient encounter procedure [facility] Work Phone: Start: 12-13-2023 End: 12-13-2023 ambulatory VERONICA H TIMMIS Not Available Start: 12-07-2023 End: 12-07-2023 ambulatory Veronica H Timmis Jr Facility:[facility] Start: 12-07-2023 End: 12-07-2023 ambulatory MD Kenzie Lazar Work Phone: [facility] Work Phone: Start: 12-07-2023 End: 12-07-2023 Departed Referred MD Kenzie Lazar Work Phone: [facility] Start: 12-07-2023 Non-patient / Non-visit MD Kristin Lazar Work Phone: [facility] Work Phone: Start: 11-26-2023 Non-patient / Non-visit MD Kristin Lazar Work Phone: [facility] Physician [facility] Work Phone: Start: 11-01-2023 End: 11-01-2023 ambulatory VERONICA H TIMMIS Not Available Start: 10-15-2023 Non-patient / Non-visit MD Kristin Lazar Work Phone: [facility] Physician [facility] Work Phone: Start: 09-13-2023 End: 09-13-2023 ambulatory Kenzie Lazar Other [employer] Other Start: 09-13-2023 Office outpatient vi sit 15 minutes Kenzie Lazar [facility] Start: 09-13-2023 End: 09-13-2023 Patient encounter procedure MD Kenzie Lazar Work Phone: [facility] Physician [facility] Start: 08-30-2023 End: 08-30-2023 ambulatory VERONICA H TIMMIS Not Available Start: 08-25-2023 End: 08-25-2023 ambulatory Natali Kate Other [employer] Other Start: 08-25-2023 Office outpatient vi sit 15 minutes Natali Love [facility] Start: 08-04-2023 End: 08-04-2023 ambulatory SEBAS TORRES Not Available Start: 08-02-2023 End: 08-02-2023 ambulatory Kenzie Lazar Other [employer] Other Start: 08-02-2023 Office outpatient vi sit 15 minutes Kenzie Lazar [facility] Start: 07-01-2023 End: 07-01-2023 ambulatory Kenzie Lazar Other [employer] Other Start: 07-01-2023 Office outpatient vi sit 15 minutes Kenzie Lazar [facility] Start: 03-13-2023 End: 03-13-2023 ambulatory Kenzie Lazar Other [employer] Other Start: 03-13-2023 Telephone encounter Kenzie Lazar [facility] Start: 02-19-2023 End: 02-19-2023 ambulatory Kenzie Lazar Other [employer] Other Start: 02-19-2023 Telephone encounter Kenzie Lazar [facility] Start: 02-17-2023 End: 02-18-2023 ambulatory Kenzie Lazra Facility:[facility] Start: 02-05-2023 End: 02-05-2023 ambulatory Kenzie Lazar Other [employer] Other Start: 02-05-2023 Office outpatient vi sit 25 minutes Kenzie Lazar [facility] Start: 10-06-2022 End: 10-07-2022 ambulatory Kenzie Lazar Facility:[facility] Start: 08-04-2022 End: 08-05-2022 ambulatory Kenzie Lazar Facility:[facility] Start: 07-27-2022 Encounter for preprocedural laboratory examination DR SEBAS TORRES [facility] Start: 07-21-2022 End: 07-21-[address] SEBAS TORRES Facility:[facility] Start: 07-18-2022 End: 07-19-[address] SEBAS TORRES Facility:[facility] Start: 07-18-2022 End: 07-19-2022 Encounter for preprocedural laboratory examination DR SEBAS TORRES Facility:[facility] Start: 07-16-2022 Encounter for other preprocedural examination DR SEBAS TORRES [facility] Start: 07-16-2022 Encounter for preprocedural cardiovascular examination DR SEBAS TORRES [facility] Start: 07-13-2022 End: 07-14-[address] SEBAS TORRES Facility:[facility] Start: 07-13-2022 End: 07-14-2022 Encounter for preprocedural cardiovascular examination DR SEBAS TORRES Facility:[facility] Start: 06-16-2022 End: 06-17-[address] SEBAS TORRES Facility:[facility] Start: 05-28-2022 End: 05-29-[address] SEBAS TORRES Facility:[facility] Start: 05-11-2022 End: 05-11-[address] SEBAS TORRES Facility:[facility] Start: 05-11-2022 Adult health examination Phuong Lazar Other [employer] Other Start: 05-11-2022 Gynecological examin ation normal Kenzie Lazar Other [employer] Other Start: 02-04-2022 End: 02-04-[address] CAROL ANN HAMM Facility:[facility] Start: 07-21-2017 End: 07-21-2017 Ambulatory RAMSES CALERO [facility] Procedures Date Procedure Procedure Detail Performing Clinician Start: 07-21-2017 DISCHARGE PATIENT SONDRA CALERO Start: 07-21-2017 H. PYLORI DETECTION MAT [facility] [place] Depression screening Kenzie Lazar Other Payers Date Payer Category Payer Self-pay 1985 Unknown [id number] 2.16.84 [id number] 1984 Unknown [id number] 2.16.84 [id number] 1984 Unknown [id number] 1984 Unknown [id number] 1984 Unknown [id number] 1984 Unknown [id number] 2.16.84 [id number] 1984 Unknown [id number] .16.84 [id number] 1984 Unknown [id number] 2.16.84 [id number] 1984 Unknown [id number] 2.16.84 [id number] 1984 Unknown [id number] 2.16.84 [id number] 1984 Unknown [id number] [id number] .[id number] 1959 Unknown [id number] Medicaid Medicaid [id number] Medicaid [employer] [id number] Unknown [id number] Social History Date Type Detail Facility Unknown if ever smoked [employer] Other Sex Assigned At Sex Assigned At Bir th [employer] Other Start: 10-15-2023 Tobacco smoking status NHIS Never smoked tobacco (finding) [facility] Start: 1985 Sex Assigned At Female F [facility] Clinical Notes 08-22-2021 to 09-13-2023 Note Date & Type Note Facility [...] per pt. Continue PPI, added famotidine qpm [employer] Other 01-10-2024 Evaluation note* Encounter Date Diagnosis Assessment Notes Treatment Notes Treatment Clinical Notes Aug, Acute sinusitis, recurrence not specified, [...] 3 days Aug, Pleurisy (ICD-10 - R09.1) [employer] Other 12-18-2023 Evaluation note* Encounter Date Diagnosis Assessment Notes Treatment Notes Treatment Clinical Notes Jul, Morbid (severe) obesity due to [...] 40.0-44.9, adult (ICD-10 - Z68.41) Jul, LPRD (laryngopharyngea l reflux disease) (ICD-10 - K21.9) Pt agrees to referral to Dr. See for globus sensation and ongoing LPRD while on PPI [employer] Other 11-16-2023 Evaluation note* Encounter Date Diagnosis Assessment Notes Treatment Notes Treatment Clinical Notes Jun, Morbid (severe) obesity due to [...] 40.0-44.9, adult (ICD-10 - Z68.41) Jun, LPRD (laryngopharyngea l reflux disease) (ICD-10 - K21.9) Offered referral to GI. Would opt to start w PPI for 1 month and proceed with EGD, etc if needed in 1 month. [employer] Other 06-23-2023 Evaluation note* Encounter Date Diagnosis Assessment Notes Treatment Notes Treatment Clinical Notes Jan, Lower abdominal pain (ICD-10 - R10.30) Encouraged to followup w [employer]. Pt will atkinson out CT and make phone calls to schedule. Order printed and given to Olga. Jan, Left flank pain (ICD-10 - R10.9) as above. R/o kidney stone Jan, Binge eating disorder (ICD-10 - F50.81) resume vyvanse Jan, UTI (urinary tract infection) (ICD-10 - N39.0) Will treat empirically. [employer] Other 12-06-2022 NoteOPERATIVE NOTE OPERATION DATE: 07/21/2022 PROCEDURE: Diagnostic laparoscopy with removal of epiploic adhesion of the bowel from the patient's left ovary. PREOPERATIVE DIAGNOSIS: Pelvic pain. POSTOPERATIVE DIAGNOSIS: Pelvic pain including adhesion of epiploic fat to the patient's ovary. SURGEON: Sebas Torres D.O. EMERGENCY ROOM RN: GOLDEN Conway URINE OUTPUT: Yellow and clear. [...] was taken to Recovery Room in stable condition.[facility] [id number] NoteOPERATIVE NOTE OPERATION DATE: 07/29/2022 ADDENDUM: Please note adhesion of epiploic fat to the patient's left ovary was noted and this was bluntly and sharply dissected and taken down.[facility] [id number] NoteFINDINGS: Sonographic evaluation targeted to the right breast, periareolar region demonstrates no worrisome cystic or solid mass lesions. Comparison made with the same day bilateral mammogram. IMPRESSION: BIRADS 1 - NEGATIVE Report reported and signed by Abel Monroy on 08/22/2021 [id number] [place] Medical SpecialistChief complaint+Reason for visit Narrative* Chief Complaint dicuss swallowing/ g astrology referral Reason for Visit Attention deficit di sorder (ADD) in adult [facility] Work Phone: Evaluation noteNo InformationNort Room [employer] Other Evaluation noteNo assessment information available [facility] Work Phone: Evaluation note* Diagnosis Onset Date Resolution Status Attention deficit disorder (ADD) in adult acute [facility] Work Phone: History general Narrative - Reported* Type Description Date Medical History Endometriosis Surgical History laparoscopy Surgical History c section x3 Surgical History vertical sleeve gastrectomy Hospitalization History SEE SURIGCAL HX [employer] Other Summary Purpose Family History No Family History Records FoundNo Family History Records FoundNo Family History Records FoundNo Family History Records FoundNo Family History Records FoundNo Family History Records Found Advance Directives Advance Directive Response Recorded Date/ Time Advance Directives No November 25 024 11:52am Reason for Referral Reason R anterior neck discomfort, LPRD on PPI Diagnosis 1 LPRD (laryngopharyng eal reflux disease) (K21.9) Referral Organization [facility] Referring Provider First Name Kenzie Referring Provider Last Name Cady Referring Provider Specialty Family Medi cine Referred Organization [facility] Referred Provider Veronica See Referred Address ,[place], [place],[address] Referred Provider Specialty Ear, Nose an d Throat Referral Priority Routine General Notes Qi Sanchez 02:09:20 PM >received today, waiting for notes to be locked Additional Source Comments INFORMATION SOURCE (unrecogn ized section and content) DATE CREATED AUTHOR 02/02/[address] [facility] DATE CREATED AUTHOR AUTHOR'S ORGANIZ ATION 08/23/2021 [facility] Special[facility] DATE CREATED AUTHOR AUTHOR'S ORGANIZ ATION 08/06/2022 [facility] DATE CREATED AUTHOR AUTHOR'S ORGANIZ ATION 02/18/2023 [facility] DATE CREATED AUTHOR AUTHOR'S ORGANIZ ATION 12/14/2023 [facility] dical Specialists EPIC DATE CREATED AUTHOR AUTHOR'S ORGANIZ ATION 12/15/2023 [facility] y[facility] REASON FOR VISIT (unrecogniz ed section and content) pelvic fullnesslabsCTDifficu lty Swallowing, Sore Throat1 month Follow upPOSS SINUS INFECTION1 month Follow up Care Teams (unrecognized sec tion and content) Team Status: Active Member Role Status Dates Kenzie Lazar MD Primary Care Provider Active Team Status: Inactive Member Role Status Dates Kenzie Lazar MD Attending Provider Active St art: September 13, 2023 End: September 13, 2023 Team Status: Active Member Role Status Dates Kenzie Lazar MD Primary Care Provider Active Start: October 15, 2023 TAY Britton Attending Provider Active Start : October 15, 2023 Team Status: Active Member Role Status Dates Kenzie Lazar MD Primary Care Provide r, Attending Provider Active Start: November 26, 2023 Team Status: Active Member Role Status Dates Kenzie Lazar MD Primary Care Provide r, Attending Provider Active Start: December 07, 2023 Team Status: Inactive Member Role Status Dates Kenzie Lazar MD Primary Care Provider Active Start: December 07, 2023 End: December 07, 2023 Veronica See Jr, MD Attending Provider Active Start: December 07, 2023 End: December 07, 2023 Team Status: Inactive Member Role Status Dates Kenzie Lazar MD Primary Care Provide r, Attending Provider Active Start: March 20, 2024 End: March 20, 2024 Goals (unrecognized section and content) Goals may be documented in a n alternate section FOR RECORDS PERTAINING TO PATIENTS WHO ARE [...] BE BASED ON THE PRIMARY CLINICAL RECORDS. [employer] provides no warranty or guarantee of the accuracy or completeness of information in this document.
== END 2024-03-28 10:10 | disposition home or self-care (01) ==
LOC: CT 10:10
PROVIDERS: PCP Family Medicine; Visit Provider Family Medicine
DX: R09.A2 Foreign body sensation, throat (principal)
CPT/HCPCS: 70491; Q9967

== ENCOUNTER 2024-08-07 20:51 | Outpatient (REF) | payer OTHER, SELFPAY ==
--- OUTSIDE RECORDS SUMMARY | 2024-08-07 20:54 | XMS_ITS | CCD ---
Author Organization [facility] Care Team Providers Care Weatherization Administrator Name Role Phone RAMSES CALERO Unavailable Unavailable RAMSES CALERO Unavailable Unavailable BRIAN, DR MULLEN Admitting Unavailable BRIAN, DR MULLEN Attending Unavailable BRIAN, DR MULLEN Consulting Unavailable BRIAN, DR MULLEN Primary Care Unavailable NGOC DALEY Consulting Unavailable BRIAN, DR MULLEN Primary Care Unavailable BRIAN, DR MULLEN Consulting Unavailable BRIAN, DR MULLEN Admitting Unavailable BRIAN, DR MULLEN Attending Unavailable BRIAN, DR MULLEN Admitting Unavailable BRIAN, DR MULLEN Attending Unavailable BRIAN, DR MULLEN Consulting Unavailable BRIAN, DR MULLEN Primary Care Unavailable MARV GARCIA Consulting Unavailable DEBORAH SY Consulting Unavailable BRIAN, DR MULLEN Admitting Unavailable BRIAN, DR MULLEN Attending Unavailable BRIAN, DR MULLEN Consulting Unavailable BRIAN, DR MULLEN Primary Care Unavailable BRIAN, DR MULLEN Admitting Unavailable K[place]AS, DR JADEN Salazar Consulting Unavailable BRIAN, DR MULLEN Attending Unavailable BRIAN, DR MULLEN Primary Care Unavailable BRIAN, DR MULLEN Consulting Unavailable BRIAN, DR MULLEN Admitting Unavailable BRIAN, DR MULLEN Attending Unavailable BRIAN, DR MULLEN Consulting Unavailable BRIAN, DR MULLEN Primary Care Unavailable NORIS, DR MAHARAJ Admitting Unavailable NORIS, DR MAHARAJ Attending Unavailable NORIS, DR MAHARAJ Consulting Unavailable BRIAN, DR MULLEN Primary Care Unavailable Kenzie Lazar Unavailable Kenzie Lazar Primary Care Unavailable Kenzie Lazar Primary Care Unavailable Jamie Piper Admitting Unavailable Jamie Piper Attending Unavailable Kenzie Lazar Primary Care Unavailable Jamie Piper Admitting Unavailable Piper, Jamie L Attending Unavailable Natali Love Unavailable MD Kenzie Lazar Primary Care Provider [phone] MD Veronica See Jr Attending Provider VERONICA Paz Attending Unavailable VERONICA SEE Attending Unavailable SEBAS TORRES Attending Unavailable VERONICA SEE Attending Unavailable Veronica See Jr Attending Unavailable Veronica See Jr Admitting Unavailable Kenzie Lazar Primary Care Unavailable Kenzie Lazar MD Primary Care Provider [phone] Allergies Allergy Classification Reported Allergen(s) Allergy Type Date of Onset Reaction(s) Facility (5 sources) Codeine; Translations: [codeine] Drug Allergy 08-16-19 03 Hives, dizziness [facility] Repository (1 source) NSAIDs Drug allergy (disorder) 08-16-19 14 [facility] Rep[facility] (4 sources) Penicillins Drug allergy (disorder) 08-16-18 90 Hives [facility] Repository (1 source) Sulfonamides (Antibiotic) Drug allergy (disorder) 08-16-18 96 [facility] Rep[facility] (1 source) Betadine Skin Cleanser Drug allergy (disorder) [facility] Rep[facility] (7 sources) Codeine Drug Allergy Unknown [employer] Other (10 sources) penicillAMINE Drug Allergy 09-13-19 24 Unknown, [facility] (7 sources) Sulfacetamide / Sulfur Drug Allergy Unknown [employer] Other (4 sources) NSAIDs; Translations: [NSAIDs] Propensity to adverse reactions to drug (disorder) 07-28-20 23 GI bleeding, GI intolerance [facility] Repository (6 sources) Penicillin; Translations: [penicillin] Drug Allergy 11-19-19 18 Unknown [facility] Repository (1 source) Sulfamethoxazole; Translations: [sulfamethoxazole] Drug Allergy [facility] Repository (1 source) Sulfamethoxazole / Trimethoprim; Translations: [sulfamethoxazole-t rimethoprim] Drug Allergy [facility] Repository (5 sources) Caffeine Drug Allergy 11-19-19 18 Unknown [employer] Other (8 sources) Codeine Drug Allergy 08-01-20 13 Nausea And Vomiting, Unknown [facility] Work Phone: (5 sources) Non-steroidal anti-inflammatory agent Drug allergy Unknown [employer] Other (5 sources) Wound Closure Strips *MEDICAL DEVICES AND SUPPLIES Propensity to adverse reactions Comment:Redne ss and swelling -Steri Strips [employer] Other (1 source) Allergies Reconciled Propensity to adverse reactions Unknown [employer] Other (5 sources) Substance with penicillin structure and antibacterial mechanism of action (substance) Drug allergy Unknown [employer] Other (8 sources) Substance with sulfonamide structure and antibacterial mechanism of action (substance) Drug allergy 08-01-20 13 Hives, Itching, Rash, Swelling [employer] Other (1 source) patient allergy list reviewed by nurse or physicia Propensity to adverse reactions 08-25-19 19 Comment:Done [employer] Other (5 sources) Curity Wound Closure 1/2 x4 *MEDICAL DEVICES AND Propensity to adverse reactions Comment:[employer] [facility] [employer] Other (4 sources) Sulfacetamide; Translations: [sulfacetamide] Drug Allergy 09-13-19 [facility] (4 sources) Sulfonamides (Antibiotic); Translations: [Sulfa (Sulfonamide Antibiotics)] Allergy to substance 09-13-19 [facility] (4 sources) Sulfur; Translations: [sulfur] Drug Allergy 09-13-19 [facility] (1 source) Codeine Drug Allergy 09-13-19 [facility] Repository (1 source) penicillAMINE Drug Allergy 09-13-19 [facility] Repository (1 source) Penicillins Drug allergy (disorder) 09-13-19 [facility] Repository (1 source) NSAIDS (Non-Steroidal Anti-Inflamma Propensity to adverse reactions 06-12-20 24 Abdominal Pain [facility] (3 sources) Penicillins Drug Intolerance 08-01-20 13 Hives, Itching, Rash, Swelling [facility] Medications Current Medications Medication Drug Class(es) Dates Sig (Normalized) Sig (Original) Berberine Chloride (1 source) Start: 06-12-2024 Berberine Chloride Active MG PO June 12, 2024 12:00am doxycycline hyclate 100 mg oral tablet (1 source) Tetracycline-cl ass Drug Start: 08-25-2023 take 1 tablet by mouth every twelve hours Doxycycline Hyclate 100 MG 1 tablet Orally Twice a day for 10 day(s) Aug, Active famotidine 20 mg oral tablet (3 sources) Histamine-2 Receptor Antagonist Start: 08-30-2023 End: 08-07-2024 take 1 tablet by mouth at bedtime famotidine (Pepcid) 20 MG tablet Indications: LPRD (laryngopharyngeal reflux disease) Take 1 tablet (20 mg) by mouth at bedtime 90 tablet 08/30/2023 08/07/2024 Discontinued (Therapy completed) lisdexamfetamine dimesylate 40 mg oral capsule (9 sources) Central Nervous System Stimulant Start: 04-24-2024 End: 05-26-2024 take 40 mg by mouth once daily Lisdexamfetamine Active 40 MG PO Daily May 26, 2024 Start: 03-20-2024 End: 04-24-2024 take 1 capsule by mouth once daily Lisdexamfetamine (Vyvanse) 30 mg capsule Discontinued 30 MG PO Daily March 20, 2024 April 24, 2024 9:40pm Start: 02-05-2023 take 1 capsule by [facility] every twenty-four hours Vyvanse 30 MG 1 capsule Orally Once a day for 30 days Jan, Active magnesium gluconate 500 mg oral tablet (1 source) Start: 06-12-2024 take 500 mg by mouth once daily Magnesium Gluconate Active 500 MG PO Daily June 12, 2024 12:00am nitrofurantoin, macrocrystals 25 mg / nitrofurantoin, monohydrate 75 mg oral capsule (3 sources) Nitrofuran Antibacterial Start: 02-08-2023 take 1 capsule by mouth every twelve hours Nitrofurantoin Monohyd Macro 100 MG 1 capsule with food Orally every 12 hrs for 7 day(s) Jan, Active omeprazole 40 mg delayed release oral capsule (12 sources) Proton Pump Inhibitor Start: 06-01-2024 take 1 capsule by mouth once daily Omeprazole Active 0 .ROUTE .COMPLEX 90 June 01, 2024 8:22am TAKE 1 CAPSULE BY MOUTH DAILY Start: 07-01-2023 End: 06-01-2024 take 1 capsule by mouth before mealtime omeprazole (PriLOSEC) [address] capsule Indications: LPRD (laryngopharyngeal reflux disease) Take 1 capsule (40 mg) by mouth in the morning. Take before meals. Do not crush or chew.. 90 capsule 08/30/2023 Active predniSONE 20 mg oral tablet (1 source) Start: 08-25-2023 take 2 tablets by mouth once daily at mealtime predniSONE 20 MG 2 tablets with food or milk Orally Once a day for 5 Aug, Active Tirzepatide (Weight Loss) (1 source) Start: 06-12-2024 Tirzepatide (W eight Loss) (Zepbound) 2.5 mg/0.5 mL pen injector Active 2.5 MG SUBCUT every week 2.5 June 12, 2024 12:00am Zepbound 2.5 MG/0.5ML solution auto-injector (2 sources) Start: 06-13-2024 inject 2.5 mg by subcutaneous injection every week Zepbound 2.5 MG/0.5ML solution auto-injector INJECT 2.5 MG SUBCUTANEOUSLY (UNDER THE SKIN) ONCE A WEEK 06/13/2024 Active Completed/Discontinued Medications Medication Drug Class(es) Dates Sig (Normalized) Sig (Original) ciprofloxacin 250 mg oral tablet (3 sources) Quinolone Antimicrobial Start: 11-03-2023 End: 03-20-2024 take 250 mg by mouth twice daily Ciprofloxacin Hcl Discontinued 250 MG PO Twice daily November 03, 2023 12:00am March 20, 2024 1:40pm phentermine hydrochloride 37.5 mg oral tablet (18 sources) Sympathomimetic Amine Anorectic Start: 10-15-2023 End: 03-20-2024 take 37.5 mg by mouth once daily Phentermine Discontinued 37.5 MG PO Daily February 14, 2024 12:26pm March 20, 2024 2:13pm Start: 07-01-2023 End: 08-07-2024 take 1 tablet by mouth once daily before breakfast Adipex-P 37.5 MG 1 tablet before breakfast Orally Once a day for 30 days Aug, Active Problems Active Problems Problem Classification Problem Date Documented Da te Episodic/Chronic Administrative/social admission (4 sources) Patient encounter status; Translations: [Exercise counseling] 06-12-2024 Episodic Disorders usually diagnosed in infancy, childhood, or adolescence (5 sources) Adult attention deficit hyperactivity disorder ; Translations: [Other specified behavioral and emotional disorders with onset usually occurring in childhood and adolescence] 03-20-2024 Chronic Endometriosis (3 sources) Endometriosis (clinical); Translations: [Endometriosis, unspecified] Onset: 08-13-2023 08-13-2023 Chronic Esophageal disorders (11 sources) Gastro-esophageal reflux disease without esophagitis; Translations: [Laryngopharyngeal reflux] Onset: 08-03-2022 Chronic Esophageal disorders (2 sources) Esophageal disorders; Translations: [GERD, OBESITY] Onset: 07-21-2017 Gastrointestinal hemorrhage (7 sources) Hemorrhage of rectum and anus; Translations: [Rectal bleed] Episodic Genitourinary symptoms and ill-defined conditions (1 source) Genitourinary symptoms; Translations: [Unspecified symptoms and signs involving the genitourinary system] Episodic Headache; including migraine (4 sources) Migraine without aura, not refractory ; Translations: [Migraine, unspecified, not intractable, without status migrainosus] Onset: 08-01-2013 Resolved: 07-20-2019 08-13-2023 Chronic Immunizations and screening for infectious disease (1 source) Encounter for screening for human papillomavirus (HPV); Translations: [ENC SCREENING HUMAN PAPILLOMAVIRUS] Onset: 05-13-2022 Episodic Inflammatory diseases of female pelvic organs (1 source) Female pelvic peritoneal adhesions (postinfective); Translations: [FE PELV PERITON ADHES POSTINFECTIVE] Onset: 08-03-2022 Episodic Miscellaneous mental health disorders (10 sources) Binge eating disorder; Translations: [Binge eating disorder] Chronic Mood disorders (5 sources) Depression; Translations: [Dysthymia] Onset: 08-01-2013 Resolved: 07-20-2019 08-13-2023 Chronic Mood disorders (1 source) Mood disorders; Translations: [DEPRESSION UNSPECIFIED] Onset: 08-03-2022 Mycoses (1 source) Candidiasis; Translations: [Candidiasis, unspecified] Episodic Nonmalignant breast conditions (4 sources) Lump in right breast; Translations: [Unspecified lump in the right breast, unspecified quadrant] Resolved: 02-03-2022 Episodic Nutritional deficiencies (3 sources) Vitamin D deficiency; Translations: [Vitamin D deficiency, unspecified] Onset: 09-28-2014 08-13-2023 Chronic Other aftercare (1 source) Other prison (current) drug therapy; Translations: [OTH LONG-TERM CURRENT DRUG THERAPY] Onset: 08-03-2022 Episodic Other [...] pain; Translations: [Abdominal distension (gaseous)] Episodic Other gastrointestinal disorders (1 source) Heartburn; Translations: [Heartburn] 06-12-2024 Episodic Other gastrointestinal disorders (1 source) Heartburn; Translations: [Heartburn] 06-12-2024 Episodic Other lower respiratory disease (1 source) Dyspnea; Translations: [Other forms of dyspnea] Episodic Other nutritional; endocrine; and metabolic disorders (1 source) Obese class II; Translations: [Body mass index (BMI) 38.0-38.9, adult] Chronic Other nutritional; endocrine; and metabolic disorders (7 sources) Body mass index 40+ - severely obese; Translations: [Body mass index (BMI) 40.0-44.9, adult] Resolved: 02-03-2022 06-12-2024 Chronic Other nutritional; endocrine; and metabolic disorders (4 sources) Body mass index 30+ - obesity; Translations: [Body mass index 31.0-31.9, adult] Onset: 11-18-2017 Resolved: 07-20-2019 10-15-2023 Chronic Other nutritional; endocrine; and metabolic disorders (1 source) Obesity; Translations: [Obesity, unspecified] Chronic Other nutritional; endocrine; and metabolic disorders (4 sources) Severe obesity; Translations: [Morbid (severe) obesity due to excess calories] Chronic Other nutritional; endocrine; and metabolic disorders (4 sources) Morbid (severe) obesity due to excess calories; Translations: [Morbid obesity] Chronic Other nutritional; endocrine; and metabolic disorders (4 sources) Body mass index (BMI) 40.0-44.9, adult; Translations: [Body Mass Index 40.0-44.9, adult] Chronic Other nutritional; endocrine; and metabolic disorders (3 sources) Morbid obesity; Translations: [Morbid (severe) obesity due to excess calories] Onset: 08-01-2013 08-13-2023 Chronic Other nutritional; endocrine; and metabolic disorders (2 sources) Abnormal weight gain; Translations: [Abnormal weight gain] 06-12-2024 Episodic Other nutritional; endocrine; and metabolic disorders (1 source) Abnormal weight gain; Translations: [Abnormal weight gain] 06-12-2024 Episodic Other screening for suspected conditions (not mental disorders or infectious disease) (7 sources) Encounter for screening for malignant neoplasm of cervix; Translations: [Urine test negative] Onset: 05-11-2022 Episodic Other upper respiratory disease (3 sources) Chronic laryngitis; Translations: [Chronic laryngitis] Onset: 08-30-2023 08-30-2023 Chronic Other upper respiratory infections (1 source) Acute [...] of uterine scar from previous surgery] Episodic Residual codes; unclassified (1 source) Acquired absence of stomach [part of]; Translations: [Personal history of surgery to other organs] 06-12-2024 Episodic Residual codes; unclassified (1 source) Acquired absence of other specified parts of digestive tract; Translations: [Other postprocedural status] 06-12-2024 Episodic Unclassified (1 source) CONTACT W/AND (SUSP) EXPOS COVID-19; Translations: [CONTACT W/AND (SUSP) EXPOS COVID-19] Onset: 07-27-2022 Varicose veins of lower extremity (1 source) Pain co-occurrent and due to varicose veins of bilateral legs; Translations: [Varicose veins of bilateral lower extremities with pain] Episodic Past or Other Problems Problem Classification Problem Date Documented Date Episodic/Chronic Abdominal pain (20 sources) Pelvic and perineal pain; Translations: [Unspecified abdominal pain] Onset: 07-21-2022 Episodic Anxiety disorders (2 sources) Anxiety disorder, unspecified; Translations: [Anxiety disorder] Onset: 11-18-2017 Resolved: 07-20-2019 Chronic Cardiac dysrhythmias (1 source) Tachycardia; Translations: [Tachycardia, unspecified] Onset: 11-18-2017 Resolved: 07-20-2019 Episodic Diseases of mouth; excluding dental (3 sources) Lesion of tongue; Translations: [Other diseases of tongue] Onset: 11-01-2023 11-01-2023 Episodic Malaise and fatigue (1 source) Fatigue; Translations: [...] Resolved: 07-20-2019 Episodic Other upper respiratory disease (5 sources) Feeling of lump in throat; Translations: [Globus sensation] Onset: 11-01-2023 03-20-2024 Episodic Other upper respiratory infections (1 source) Chronic sinusitis; Translations: [Chronic sinusitis, unspecified] Resolved: 02-03-2022 Chronic Residual codes; unclassified (1 source) C/O - a back symptom; Translations: [Other symptoms referable to back] Onset: 03-11-2018 Resolved: 07-20-2019 Episodic Residual codes; unclassified (4 sources) History of sleeve gastrectomy; Translations: [Acquired absence of stomach [part of]] Onset: 10-18-2013 Resolved: 08-13-2023 06-12-2024 Episodic Spondylosis; intervertebral disc disorders; other back problems (5 sources) Low back pain; Translations: [Low back pain, unspecified] Onset: 08-01-2013 Resolved: 07-20-2019 08-13-2023 Episodic Unclassified (1 source) care; Translations: [Supervision of other normal ] Urinary tract infections (4 sources) Urinary tract infection, site not specified; Translations: [Recurrent urinary tract infection] Onset: 08-13-2023 Episodic Results Test Name Value Interpretation Reference Range Facility HCG ( test) IA.shantelli d Ql (U)on 12-07-2023 HCG ( test) Ql (U) Negative NEGATIVE [facility] Christos 12-07-2023 L Specimen: [id number] Received: 12/08/23 Status: AD [facility] Num: [id number] Spec Type: Surgical Subm Dr: VERONICA SEE MD Tissues: A TONGUE - biopsy (RT TONGUE BASE) Procedures: HE/2, Gross/Micro L4, AE1-AE3, BCL-2, BCL-6, CD10, CD20, CD23, CD3, CD5, Ki-67, PAX5 Age/ Patient Sex Location Account Attending Physician Olga Pressley 38/F [facility] [id number] VERONICA SEE MD SPEC NUM: [id number] RECD: 12/08/23 STATUS: AD [facility] NUM: [id number] KARINA: 12/07/[address] [facility] [address]: VERONICA SEE MD ENTERED: 12/08/[address] [facility] [address]: Jayy,Lab SPEC TYPE: Surgical DEPT: ADILSON [...] history: Dysphagia, santana base asymmetry CPT Codes 56711, 99764, 28979c8 Specimen: [id number] Received: 12/08/23-1425 Status: AD [place] Num: [id number] Spec Type: Surgical Subm Dr: VERONICA SEE MD Tissues: A TONGUE - biopsy (RT TONGUE BASE) Procedures: HE/2, Gross/Micro L4, AE1-AE3, BCL-2, BCL-6, CD10, CD20, CD23, CD3, CD5, Ki-67, PAX5 Patient: Olga Pressley [id number] (Continued) Signed (signature on file) Romeo Dong MD 12/14/23 1430 Normal [facility] Basophils Auto (Bld) [#/Vol] on 11-26-2023 Basophils (Bld) [#/Vol] 0.0 10 3/uL 0.0-0.1 [facility] Basophils/100 WBC Auto (Bld) on 11-26-2023 Basophils/100 WBC (Bld) 0.3 % 0.2-2.0 [facility] Eosinophils/100 WBC Auto (Bl d)on 11-26-2023 Eosinophils/100 WBC (Bld) 0.8 % 0.9-7.0 [facility] Erythrocyte distribution wid th Auto (RBC) [Ratio]on 11-26-2023 Erythrocyte distribution width (RBC) [Ratio] 12.9 % 11.0-15.0 [facility] Hematocrit Auto (Bld) [Volum e fraction]on 11-26-2023 Hematocrit (Bld) [Volume fraction] 37.8 % 36.0-48.0 [facility] Hemoglobin [Mass/volume] in Bloodon 11-26-2023 Hemoglobin (Bld) [Mass/Vol] 12.3 g/dL 12.0-16.0 [facility] Laboratory - Hematology and Cell countson 11-26-2023 Immature granulocytes/100 WBC (Bld) 0.3 % 0.0-0.5 [facility] Leukocytes [#/volume] correc eileen for nucleated erythrocytes in Blood by Automated counon 11-26-2023 WBC corrected for nucl RBC Auto (Bld) [#/Vol] 6.5 10 3/uL 4.0-11.0 [facility] Lymphocytes Auto (Bld) [#/Vo l]on 11-26-2023 Lymphocytes (Bld) [#/Vol] 2.4 10 3/uL 1.2-3.8 [facility] Lymphocytes/100 WBC Auto (Bl d)on 11-26-2023 Lymphocytes/100 WBC (Bld) 37.2 % 20.5-60.0 [facility] MCH Auto (RBC) [Entitic mass ]on 11-26-2023 MCH (RBC) [Entitic mass] 28.6 pg 26.7-34.0 [facility] MCHC Auto (RBC) [Mass/Vol]on 11-26-2023 MCHC (RBC) [Mass/Vol] 32.5 g/dL 29.9-35.2 [facility] MCV Auto (RBC) [Entitic vol] on 11-26-2023 MCV (RBC) [Entitic vol] 87.9 fL 81.0-99.0 [facility] Monocytes Auto (Bld) [#/Vol] on 11-26-2023 Monocytes (Bld) [#/Vol] 0.4 10 3/uL 0.3-0.8 [facility] Monocytes/100 WBC Auto (Bld) on 11-26-2023 Monocytes/100 WBC (Bld) 6.2 % 1.7-12.0 [facility] Neutrophils Auto (Bld) [#/Vo l]on 11-26-2023 Neutrophils (Bld) [#/Vol] 3.6 10 3/uL 1.4-6.5 [facility] Neutrophils/100 WBC Auto (Bl d)on 11-26-2023 Neutrophils/100 WBC (Bld) 55.2 % 43.0-75.0 [facility] No Panel Informationon 11-25 Eosinophils # (Auto) 0.1 10 3/uL 0.0-0.7 [facility] Immature Granulocyte # (Auto) 0.02 10 3/uL 0.00-0.03 [facility] Platelet mean volume Auto (B ld) [Entitic vol]on 11-26-2023 Platelet mean volume (Bld) [Entitic vol] 9.7 fL 9.5-13.5 [facility] Platelets Auto (Bld) [#/Vol] on 11-26-2023 Platelets (Bld) [#/Vol] 279 10 3/uL 150-450 [facility] RBC Auto (Bld) [#/Vol]on RBC (Bld) [#/Vol] 4.30 10 6/uL 4.20-5.40 [facility] .Auto Diff 1on 02-17-2023 Auto [place] % 7 % Normal 08-27 [facility] Comment on above: Performed By: #### [id number] 5, [id number] #### [facility] (DEFAULT) [address] [place] [address] 38518 Baso Abs# 0.0 x10 Normal 0.0-0.2 [facility] Comment on above: Performed By: #### [id number], [id number] 5, [id number] #### [facility] (DEFAULT) [address] [place] [address] 62125 Basophils/100 WBC (Bld) 0.4 % Normal 0.2-2.0 [facility] Comment on above: Performed By: #### [id number], [id number] 5, [id number] #### [facility] (DEFAULT) [address] [place] [address] 17204 Eos Abs# 0.1 x10 Normal 0.0-0.4 [facility] Comment on above: Performed By: #### [id number], [id number] 5, [id number] #### [facility] (DEFAULT) [address] [place] [address] 91326 Eosinophils/100 WBC (Bld) 1.0 % Normal 0.9-4.0 [facility] Comment on above: Performed By: #### [id number], [id number] 5, [id number], [id number] #### [facility] (DEFAULT) [address] [place] [address] 68019 Lymph Abs# 2.4 x10 Normal 1.3-2.9 [facility] Comment on above: Performed By: #### [id number], [id number] 5, [id number] #### [facility] (DEFAULT) [address] [place] [address] 22410 Lymphocytes/100 WBC (Bld) 41 % Normal 14-48 [facility] Comment on above: Performed By: #### [id number], [id number] 5, [id number], [id number] #### [facility] (DEFAULT) [address] [place] [address] 78783 Bergen Abs# 0.4 x10 Normal 0.0-0.8 [facility] Comment on above: Performed By: #### [id number], [id number] 5, [id number] #### [facility] (DEFAULT) [address] [place] [address] 36950 Neut Abs# 2.9 x10 Normal 1.5-9.2 [facility] Comment on above: Performed By: #### [id number], [id number] 5, [id number], [id number] #### [facility] (DEFAULT) [address] [place] [address] 49013 Neutrophils/100 WBC (Bld) 50 % Normal 44-88 [facility] Comment on above: Performed By: #### [id number], [id number] 5, [id number], [id number] #### [facility] (DEFAULT) [address] [place] [address] 89041 CBC w/ Auto Diffon 3 Erythrocyte distribution width (RBC) [Ratio] 14.1 % Normal 11.5-15.0 [facility] Comment on above: Performed By: #### [id number], [id number] 5, [id number], [id number] #### [facility] (DEFAULT) [address] [place] [address] Hematocrit (Bld) [Volume fraction] 37.5 % Normal 33.7-40.4 [facility] Comment on above: Performed By: #### [id number], [id number] 5, [id number], [id number] #### [facility] (DEFAULT) [address] [place] [address] Hemoglobin (Bld) [Mass/Vol] 12.8 g/dL Normal 11.3-15.9 [facility] Comment on above: Performed By: #### [id number], [id number] 5, [id number], [id number] #### [facility] (DEFAULT) [address] [place] [address] Man Diff? Auto Invalid Interpretation Code [facility] Comment on above: Performed By: #### [id number], [id number] 5, [id number] #### [facility] (DEFAULT) [address] [place] [address] 24173 MCH (RBC) [Entitic mass] 29 pg Normal 24-34 [facility] Comment on above: Performed By: #### [id number], [id number] 5, [id number], [id number] #### [facility] (DEFAULT) [address] [place] [address] 36555 MCHC (RBC) [Mass/Vol] 34 g/dL Normal 26-37 [facility] Comment on above: Performed By: #### [id number], [id number] 5, [id number], [id number] #### [facility] (DEFAULT) [address] [place] [address] MCV (RBC) [Entitic vol] 85 fL Normal 81-100 [facility] Comment on above: Performed By: #### [id number], [id number] 5, [id number], [id number] #### [facility] (DEFAULT) [address] [place] [address] 23137 Platelet 298 x10 Normal 138-427 [facility] Comment on above: Performed By: #### [id number], [id number] 5, [id number], [id number] #### [facility] (DEFAULT) [address] [place] [address] 02903 Platelet mean volume (Bld) [Entitic vol] 8.0 fL Normal 6.3-10.2 [facility] Comment on above: Performed By: #### [id number], [id number] 5, [id number], [id number] #### [facility] (DEFAULT) [address] [place] [address] RBC 4.42 x10 Normal 3.70-5.30 [facility] Comment on above: Performed By: #### [id number], [id number] 5, [id number], [id number] #### [facility] (DEFAULT) [address] [place] [address] WBC 5.8 x10 Normal 3.5-10.5 [facility] Comment on above: Performed By: #### [id number], [id number] 5, [id number], [id number] #### [facility] (DEFAULT) [address] [place] [address] 87958 CMP Standardon 02-17-2023 eGFR Non AA >60 Invalid Interpretation Code [facility] Comment on above: Performed By: #### [id number], [id number] 5, [id number], [id number] #### [facility] (DEFAULT) [address] [place] [address] 30518 eGFR AA >60 Invalid Interpretation Code [facility] Comment on above: Performed By: #### [id number], [id number] 5, [id number], [id number] #### [facility] (DEFAULT) [address] [place] [address] 05649 Albumin [Mass/Vol] 3.9 g/dL Normal 3.5-5.0 [facility] Comment on above: Performed By: #### [id number], [id number] 5, [id number], 9767021 #### [facility] (DEFAULT) [address] [place] [address] Albumin/Globulin [Mass ratio] 1.3 {ratio} Low 1.4-2.6 [facility] Comment on above: Performed By: #### [id number], [id number] 5, [id number], [id number] #### [facility] (DEFAULT) [address] [place] [address] Alk Phos 57 IU/L Normal 32-91 [facility] Comment on above: Performed By: #### [id number], [id number] 5, [id number], [id number] #### [facility] (DEFAULT) [address] [place] [address] ALT [Catalytic activity/Vol] 17.0 U/L Normal 14.0-54.0 [facility] Comment on above: Performed By: #### [id number], [id number] 5, [id number], [id number] #### [facility] (DEFAULT) [address] [place] [address] 05373 Anion gap [Moles/Vol] 9.8 mmol/L Normal 5.0-19.0 [facility] Comment on above: Performed By: #### [id number], [id number] 5, [id number], [id number] #### [facility] (DEFAULT) [address] [place] [address] 60345 AST [Catalytic activity/Vol] 16 U/L Normal 15-41 [facility] Comment on above: Performed By: #### [id number], [id number] 5, [id number], 6210724 #### [facility] (DEFAULT) [address] [place] [address] 81599 Bili Total 0.5 mg/dL Normal 0.3-1.2 [facility] Comment on above: Performed By: #### [id number], [id number] 5, [id number], 5915285 #### [facility] (DEFAULT) [address] [place] [address] 38551 Calcium [Mass/Vol] 8.7 mg/dL Low 8.9-10.3 [facility] Comment on above: Performed By: #### [id number], [id number] 5, [id number], [id number] #### [facility] (DEFAULT) [address] [place] [address] 24838 Chloride [Moles/Vol] 109 mmol/L Normal 101-111 [facility] Comment on above: Performed By: #### [id number], [id number] 5, [id number], 9269619 #### [facility] (DEFAULT) [address] [place] [address] 83938 CO2 [Moles/Vol] 25 mmol/L Normal 21-32 [facility] Comment on above: Performed By: #### [id number], [id number] 5, [id number], 4303786 #### [facility] (DEFAULT) [address] [place] [address] 18230 Creatinine [Mass/Vol] 0.70 mg/dL Normal 0.60-1.30 [facility] Comment on above: Performed By: #### [id number], [id number] 5, [id number], 1308792 #### [facility] (DEFAULT) [address] [place] [address] 26499 Globulin (S) [Mass/Vol] 3.0 g/dL Normal 1.5-4.3 [facility] Comment on above: Performed By: #### [id number], [id number] 5, [id number], 3754269 #### [facility] (DEFAULT) [address] [place] [address] 44776 Glucose [Mass/Vol] 98.0 mg/dL Normal 74.0-118.0 [facility] Comment on above: Performed By: #### [id number], [id number] 5, [id number], 5729203 #### [facility] (DEFAULT) [address] [place] [address] 50327 Osmolality 280 mOsm/L Invalid Interpretation Code [facility] Comment on above: Performed By: #### [id number], [id number] 5, [id number], [id number] #### [facility] (DEFAULT) [address] [place] [address] 51782 Potassium [Moles/Vol] 3.8 mmol/L Normal 3.6-5.1 [facility] Comment on above: Performed By: #### [id number], [id number] 5, [id number], [id number] #### [facility] (DEFAULT) [address] [place] [address] 24708 Protein [Mass/Vol] 6.9 g/dL Normal 6.5-8.1 [facility] Comment on above: Performed By: #### [id number], [id number] 5, 87991507, 1741855 #### [facility] (DEFAULT) [address] [place] [address] 64393 Sodium [Moles/Vol] 140.0 mmol/L Normal 136.0-144.0 [facility] Comment on above: Performed By: #### [id number], [id number] 5, [id number], 5500387 #### [facility] (DEFAULT) [address] [place] [address] 23051 Urea nitrogen [Mass/Vol] 15 mg/dL Normal 8-26 [facility] Comment on above: Performed By: #### [id number], [id number] 5, [id number], 2648509 #### [facility] (DEFAULT) [address] [place] [address] 52748 Urea nitrogen/Creatin ine [Mass ratio] 21.4 mg/mg High 4.6-16.2 [facility] Comment on above: Performed By: #### [id number], [id number] 5, [id number], 2113925 #### [facility] (DEFAULT) [address] [place] [address] 72654 Lipid Panel Standardon 02-17 Cholesterol [Mass/Vol] 154.0 mg/dL Normal 66.0-200.0 [facility] Comment on above: Performed By: #### [id number], [id number] 5, [id number], 8576931 #### [facility] (DEFAULT) [address] [place] [address] 70698 Cholesterol in HDL [Mass/Vol] 66 mg/dL Normal 40-71 [facility] Comment on above: Performed By: #### [id number], [id number] 5, 90078030, 6052619 #### [facility] (DEFAULT) [address] [place] [address] 32262 Cholesterol in LDL [Mass/Vol] 81 mg/dL Normal 1-100 [facility] Comment on above: Performed By: #### [id number], [id number] 5, 97761150, 9233280 #### [facility] (DEFAULT) [address] [place] [address] 41853 Cholesterol.tota l/Cholesterol in HDL [Mass ratio] 2.3 {ratio} Normal 0.0-4.5 [facility] Comment on above: Performed By: #### [id number], [id number] 5, 57282716, 6048897 #### [facility] (DEFAULT) [address] [place] [address] 77176 Triglyceride [Mass/Vol] 31.0 mg/dL Normal 0.0-150.0 [facility] Comment on above: Performed By: #### [id number], [id number] 5, 94547861, 9016166 #### [facility] (DEFAULT) [address] [place] [address] 77379 VLDL. 6 mg/dL Normal 5-40 [facility] Comment on above: Performed By: #### [id number], [id number] 5, 57002086, 9625259 #### [facility] (DEFAULT) [address] [place] [address] 39861 Consent Formson 10-27-2022 Consent Forms [id number] Normal [facility] Consent Formson 08-13-2022 Consent Forms [id number]#[id number] Normal [facility] CBC AUTO DIFFon 07-18-2022 BASO # 0.0 103/ul Normal 0.0-0.1 [facility] Comment on above: Performed By: #### CBC #### [facility] [address] [address] [address] Cullen Garcia Basophils/100 WBC (Bld) 0.1 % Critically low 0.2-2.0 [facility] Comment on above: Performed By: #### CBC #### [facility] [address] [place] [address] Dr. Cullen Garcia EO # 0.0 103/ul Normal 0.0-0.7 [facility] Comment on above: Performed By: #### CBC #### [facility] [address] [place] [address] Dr. Cullen Garcia Eosinophils/100 WBC (Bld) 0.5 % Critically low 0.9-7.0 [facility] Comment on above: Performed By: #### CBC #### [facility] [address] [place] [address] Dr. Cullen Garcia Erythrocyte distribution width (RBC) [Ratio] 13.1 % Normal 11.0-15.0 [facility] Comment on above: Performed By: #### CBC #### [facility] [address] [place] [address] Dr. Cullen Garcia Hematocrit (Bld) [Volume fraction] 38.2 % Normal 36.0-48.0 [facility] Comment on above: Performed By: #### CBC #### [facility] [address] [place] [address] Dr. Cullen Garcia Hemoglobin (Bld) [Mass/Vol] 12.8 g/dL Normal 12.0-16.0 [facility] Comment on above: Performed By: #### CBC #### [facility] [address] [place] [address] Dr. Cullen Garcia IG # 0.02 10e3/ul Normal 0.00-0.03 [facility] Comment on above: Performed By: #### CBC #### [facility] [address] [place] [address] Dr. Cullen Garcia IG % 0.3 % Normal 0.0-0.5 [facility] Comment on above: Performed By: #### CBC #### [facility] [address] [place] [address] Dr. Cullen Garcia LYMPH # 2.4 103/ul Normal 1.2-3.8 [facility] Comment on above: Performed By: #### CBC #### [facility] [address] [place] [address] Dr. Cullen Garcia Lymphocytes/100 WBC (Bld) 32.6 % Normal 20.5-60.0 [facility] Comment on above: Performed By: #### CBC #### [facility] [address] [place] [address] Dr. Cullen Garcia MANUAL DIFF REQ NO Normal [facility] Comment on above: Performed By: #### CBC #### [facility] [address] [place] [address] Dr. Cullen Garcia MCH (RBC) [Entitic mass] 28.9 pg Normal 26.7-34.0 [facility] Comment on above: Performed By: #### CBC #### [facility] [address] [place] [address] Dr. Cullen Garcia MCHC (RBC) [Mass/Vol] 33.5 g/dL Normal 29.9-35.2 [facility] Comment on above: Performed By: #### CBC #### [facility] [address] [place] [address] Dr. Cullen Garcia MCV (RBC) [Entitic vol] 86.2 fL Normal 81.0-99.0 [facility] Comment on above: Performed By: #### CBC #### [facility] [address] [place] [address] Dr. Cullen Garcia MONO # 0.5 103/ul Normal 0.3-0.8 [facility] Comment on above: Performed By: #### CBC #### [facility] [address] [place] [address] Dr. Cullen Garcia Monocytes/100 WBC (Bld) 6.7 % Normal 1.7-12.0 [facility] Comment on above: Performed By: #### CBC #### [facility] [address] [place] [address] Dr. Cullen Garcia NEUT # 4.4 103/ul Normal 1.4-6.5 [facility] Comment on above: Performed By: #### CBC #### [facility] [address] [address] [address] Cullen Garcia Neutrophils/100 WBC (Bld) 59.8 % Normal 43.0-75.0 [facility] Comment on above: Performed By: #### CBC #### [facility] [address] [place] [address] Dr. Cullen Garcia Platelet mean volume (Bld) [Entitic vol] 9.5 fL Normal 9.5-13.5 [facility] Comment on above: Performed By: #### CBC #### [facility] [address] [place] [address] Dr. Cullen Garcia PLT 279 103/ul Normal 150-450 [facility] Comment on above: Performed By: #### CBC #### [facility] [address] [place] [address] Dr. Cullen Garcia RBC 4.43 106/ul Normal 4.20-5.40 [facility] Comment on above: Performed By: #### CBC #### [facility] [address] [place] [address] Dr. Cullen Garcia WBC 7.3 103/ul Normal 4.0-11.0 [facility] Comment on above: Performed By: #### CBC #### [facility] [address] [place] [address] Dr. Cullen Garcia Covid-19 PCR ([facility]on SARS-CoV-2 (COVID-19) RNA ALISE+probe Ql (Unsp spec) Not detected Normal NOT DETECTED [facility] Comment on above: Result Comment: This test is not yet rbianna roved or cleared by the [place] FDA. When there are no FDA-approved or cleared tests available, and other criteria are met, FDA can make tests available under an emergency access mechanism called an Emergency Use Authorization (EUA). The EUA for this test is supported by the [place] of Health and Human Service's (HHS's) declaration [...] SARS-CoV-2. Performed By: #### C VDTBH #### [facility] [address] [place] [address] Dr. Cullen Garcia PREG QUANT HCGon 07-18-2022 HCG QUANT <1 Normal [facility] Comment on above: Performed By: #### PREGQNT #### [facility] [address] [place] [address] Dr. Cullen Garcia HCG RANGE SEE BELOW Normal [facility] Comment on above: Result Comment: 5-50 0.2-1 WEEK 50-500 1 -2 WEEKS 100-5,000 2-3 WEEKS 500-10,000 3-4 WEEKS 1,000-50,000 4-5 WEEKS 10,000-100,000 5-6 WEEKS 15,000-200,000 6-8 WEEKS 10,000-100,000 2-3 MONTHS Performed By: #### P REGQNT #### [facility] [address] [place] [address] Dr. Cullen Garcia AFP (TUMOR MARKER)on 022 AFP, Serum, Tumor Marker 1.8 ng/mL Normal 0.0-6.4 [facility] Comment on above: Result Comment: [employer] Electr ochemiluminescence Immunoassay (ECLIA) . Values obtained with different assay methods or kits cannot be used interchangeably. Results cannot be interpreted as absolute evidence of the presence or absence of malignant disease. . This test is not interpretable in females. Performed By: #### A FP. #### [facility] [address] [place] [address] Dr. Culeln Garcia CA 125on 06-18-2022 Cancer Antigen (CA) 125 23.7 U/mL Normal 0.0-38.1 [facility] Comment on above: Result Comment: [employer] Electr ochemiluminescence Immunoassay (ECLIA) . Values obtained with different assay methods or kits cannot be used interchangeably. Results cannot be interpreted as absolute evidence of the presence or absence of malignant disease. Performed By: #### C VDTBH #### [facility] [address] [place] [address] Dr. Cullen Garcia CEAon 06-18-2022 CEA 0.5 ng/mL Normal 0.0-4.7 [facility] Comment on above: Result Comment: Nonsmokers <3.9 Smokers <5.6 . [employer] Electrochemiluminescence Immunoassay (ECLIA) . Values obtained with different assay methods or kits cannot be used interchangeably. Results cannot be interpreted as absolute evidence of the presence or absence of malignant disease. Performed By: #### C EA. #### [facility] [address] [place] [address] Dr. Cullen Garcia LDHon 06-16-2022 LDH 152 U/L Normal 81-234 [facility] Comment on above: Performed By: #### CVDTBH #### [facility] [address] [place] [address] Dr. Cullen Garcia PREG QUANT HCGon 06-16-2022 HCG QUANT <1 Normal [facility] Comment on above: Performed By: #### CVDTBH #### [facility] [address] [place] [address] Dr. Cullen Garcia HCG RANGE SEE BELOW Normal [facility] Comment on above: Result Comment: 5-50 0.2-1 WEEK 50-500 1 -2 WEEKS 100-5,000 2-3 WEEKS 500-10,000 3-4 WEEKS 1,000-50,000 4-5 WEEKS 10,000-100,000 5-6 WEEKS 15,000-200,000 6-8 WEEKS 10,000-100,000 2-3 MONTHS Performed By: #### C VDTBH #### [facility] [address] [place] [address] Dr. Cullen Garcia US PELVIS AND TRANSVAGon [...] by: JADEN LEBLANC Date: 2022-05-28 19:04 Normal [facility] PAP ACOG PANEL 2: 30 to 65on 05-18-2022 . . Normal [facility] Comment on above: Result Comment: Performed at: WB Performed By: #### [id number] #### [facility] [address] [address] [address] Cullen Garcia Age Gdln ACOG Testing 30-65 Normal [facility] Comment on above: Performed By: #### [id number] #### [facility] [address] [address] [address] Cullen Garcia DIAGNOSIS: Comment Normal [facility] Comment on above: Result Comment: NEGATIVE FOR INTRAEPITHE LIAL LESION OR MALIGNANCY. Performed at: WB Performed By: #### [id number] #### [facility] [address] [address] [address] Cullen Garcia HPV Aptima Negative Normal Negative [facility] Comment on above: Result Comment: This nucleic acid amplif ication test detects fourteen high-risk HPV types (16,18,31,33,35,39,45,51,52,56,58,59,66,68) without differentiation. Performed at: =G Performed By: #### [id number] #### [facility] [address] [address] [address] Cullen Garcia Methodology: Comment Normal [facility] Comment on above: Result Comment: This liquid based ThinPr ep(R) pap test was screened with the use of an image guided system. Performed at: WB Performed By: #### [id number] #### [facility] [address] [place] [address] Dr. Cullen Garcia Note: Comment Normal [facility] Comment on above: Result Comment: The Pap smear is a scree сергей test designed to aid in the detection of premalignant and malignant conditions of the uterine cervix. It is not a diagnostic procedure and should not be used as the sole means of detecting cervical cancer. Both false-positive and false-negative reports do occur. . Performed at: WB Performed By: #### [id number] #### [facility] [address] [place] [address] Dr. Cullen Garcia Performed by: Comment Normal [facility] Comment on above: Result Comment: Melly Poon [employer] ologist (ASCP) Performed at: WB Performed By: #### [id number] #### [facility] [address] [place] [address] Dr. Cullen Garcia Specimen adequacy: Comment Normal [facility] Comment on above: Result Comment: Satisfactory for evaluat ion. Endocervical and/or squamous metaplastic cells (endocervical component) are present. Performed at: WB Performed By: #### [id number] #### [facility] [address] [place] [address] Dr. Cullen Garcia HERPES SIMPLEX VIRUS (HSV) C ULTUREon 02-08-2022 HSV Culture/Type Comment Normal [facility] Comment on above: Result Comment: Negative No Herpes simplex virus isolated. Performed By: #### H SVCUL #### [facility] [address] [place] [address] Dr. Cullen Garcia VAGINITIS/VAGINOSIS DNA PROB Clark 02-06-2022 Seda species Negative Normal Negative [facility] Comment on above: Performed By: #### VAGINT #### [facility] [address] [place], [place] [address] Dr. Cullen Garcia Gardnerella vaginalis Negative Normal Negative [facility] Comment on above: Performed By: #### VAGINT #### [facility] [address] [place], [place] [address] Dr. Cullen Garcia Trichomonas vaginalis Negative Normal Negative [facility] Comment on above: Performed By: #### VAGINT #### [facility] [address] [address] [address] Cullen Garcia Diagnostic Mammogram, Bilate ral [...] VERY IMPORTANT TO YOUR HEALTH. THE CURRENT [employer] GUIDELINES RECOMMENDS ANNUAL MAMMOGRAPHY BEGINNING AT AGE 40 THIS FACILITY USES A REMINDER SYSTEM TO ENSURE ALL PATIENTS RECEIVE REMINDER NOTIFICATIONS AT THE APPROPRIATE TIME BASED ON THE RECOMMENDATIONS OF THIS EXAM. 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 pylori Detectionon 2016 H. pylori Detection Specimen Description .TISSUE, STOMACH BIOPSY Special Requests NOT REPORTED Direct Exam NEGATIVE Report Status FINAL 07/22/2017 [facility] Comment on above: Performed By: #### HCLO ####Rufina Charley [id number] [place] [address] History and Physicalon 07-21 HIM IP Note OR [employer] [facility] Vital Signs Date Time Vital Sign Value Performing Clinician Facility 08-07-2024 10:46-0500 Body mass index (BMI) [Ratio] 36.84 kg/m2 [employer] DO Work Phone: [facility] 08-07-2024 10:46-0500 Body weight 88.45 kg [facility] Work Phone: [facility] 08-07-2024 10:46-0500 Diastolic blood pressure 74 mm[Hg] [employer] DO Work Phone: [facility] 08-07-2024 10:46-0500 Systolic blood pressure 122 mm[Hg] Sebas Brian DO Work Phone: [facility] 06-12-2024 14:47-0400 Body mass index (BMI) [Ratio] 42.2 kg/m2 [facility] 06-12-2024 14:47-0400 Diastolic blood pressure 72 mm[Hg] [facility] 06-12-2024 14:47-0400 Heart rate 80 /min [facility] 06-12-2024 14:47-0400 Respiratory rate 16 /min [facility] 06-12-2024 14:47-0400 SaO2% (BldA) [Mass fraction] 100 % [facility] 06-12-2024 14:47-0400 Systolic blood pressure 119 mm[Hg] [facility] 06-12-2024 10:57-0400 Body height 153.03 cm [facility] 06-12-2024 10:57-0400 Body weight 98.93 kg [facility] 03-20-2024 13:32-0400 Body height 154.94 cm [facility] 03-20-2024 13:32-0400 Body mass index (BMI) [Ratio] 40 kg/m2 [facility] 03-20-2024 13:32-0400 Body weight 96.16 kg [facility] 03-20-2024 13:32-0400 Diastolic blood pressure 62 mm[Hg] [facility] 03-20-2024 13:32-0400 Heart rate 83 /min [facility] 03-20-2024 13:32-0400 Systolic blood pressure 104 mm[Hg] [facility] 09-13-2023 09:30-0500 Body height 154.94 cm Kenzie Lazar Other [facility] 09-13-2023 09:30-0500 Body mass index (BMI) [Ratio] 41.26 kg/m2 Kenzie Lazar Other [employer] [facility] [employer] Other 09-13-2023 09:30-0500 Body weight 99.07 kg Kenzie Lazar Other [employer] [facility] [employer] Other 09-13-2023 09:30-0500 Body weight 99.06 kg MD Kenzie Lazar Work Phone: [facility] 09-13-2023 09:30-0500 Diastolic blood pressure 76 mm[Hg] Kenzie Lazar Other [facility] 09-13-2023 09:30-0500 Systolic blood pressure 110 mm[Hg] Kenzie Lazar Other [facility] 08-25-2023 09:00-0500 Body height 154.94 cm Natali Love Other [employer] Other 08-25-2023 09:00-0500 Body mass index (BMI) [Ratio] 41.19 kg/m2 Natali Love Other [employer] Other 08-25-2023 09:00-0500 Body temperature 97.6 [degF] Natali Love Other [employer] Other 08-25-2023 09:00-0500 Body weight 98.88 kg Natali Astudillomond Other [employer] Other 08-25-2023 09:00-0500 Diastolic blood pressure 58 mm[Hg] Natali Kate Other [employer] Other 08-25-2023 09:00-0500 Respiratory rate 18 /min Natali Love Other [employer] Other 08-25-2023 09:00-0500 SaO2% (BldA) [Mass fraction] 97 % Natali Love Other [employer] Other 08-25-2023 09:00-0500 Systolic blood pressure 123 mm[Hg] Natali Kate Other [employer] Other 08-02-2023 13:15-0500 Body height 154.94 cm Kenzie Lazar Other [employer] Other 08-02-2023 13:15-0500 Body mass index (BMI) [Ratio] 40.7 kg/m2 Kenzie Lazar Other [employer] Other 08-02-2023 13:15-0500 Body weight 97.71 kg Kenzie Lazar Other [employer] Other 08-02-2023 13:15-0500 Diastolic blood pressure 82 mm[Hg] Kenzie Lazar Other [employer] Other 08-02-2023 13:15-0500 Systolic blood pressure 120 mm[Hg] Kenzie Lazar Other [employer] Other 07-01-2023 10:45-0500 Body height 154.94 cm Kenzie Lazar Other [employer] Other 07-01-2023 10:45-0500 Body mass index (BMI) [Ratio] 41.56 kg/m2 Kenzie Lazar Other [employer] Other 07-01-2023 10:45-0500 Body weight 99.79 kg Kenzie Lazar Other [employer] Other 07-01-2023 10:45-0500 Diastolic blood pressure 80 mm[Hg] Kenzie Lazar Other [employer] Other 07-01-2023 10:45-0500 Systolic blood pressure 116 mm[Hg] Kenzie Lazar Other [employer] Other 02-05-2023 09:45-0400 Body height 154.94 cm Kenzie Lazar Other [employer] Other 02-05-2023 09:45-0400 Body mass index (BMI) [Ratio] 40.62 kg/m2 Kenzie Lazar Other [employer] Other 02-05-2023 09:45-0400 Body weight 97.52 kg Kenzie Lazar Other [employer] Other 02-05-2023 09:45-0400 Diastolic blood pressure 73 mm[Hg] Kenzie Lazar Other [employer] Other 02-05-2023 09:45-0400 Systolic blood pressure 109 mm[Hg] Kenzie Lazar Other [facility] [employer] Other Encounters Encounter Date Encounter Type Care Provider Facility Start: 08-07-2024 End: 08-07-2024 Bamboo flowsheet Sebas Brian DO Work Phone: [facility] Start: 08-07-2024 End: 08-07-2024 Bamboo flowsheet Sebas Brian DO Work Phone: [facility] Start: 08-07-2024 End: 08-07-2024 Patient encounter procedure Sebas Brian DO Work Phone: [facility] Start: 08-07-2024 End: 08-07-2024 Periodic preventive med est patient 40-64yrs Sebas Brian DO Work Phone: [facility] Comment on above: Well woman exam with routine gynecological exam; Breast cancer screening by mammogram Start: 06-12-2024 End: 06-12-2024 ambulatory [facility] Work Phone: Start: 06-12-2024 End: 06-12-2024 Patient encounter procedure [facility] Physician [facility] Work Phone: Start: 03-20-2024 End: 03-20-2024 ambulatory [facility] Work Phone: Start: 03-20-2024 End: 03-20-2024 Patient encounter procedure [facility] Physician [facility] Work Phone: Start: 12-13-2023 End: 12-13-2023 ambulatory VERONICA H TIMMIS Not Available Start: 12-07-2023 End: 12-07-2023 ambulatory Veronica H Timmis Jr Facility:[facility] Start: 12-07-2023 End: 12-07-2023 ambulatory MD Kenzie Lazar Work Phone: [facility] Work Phone: Start: 12-07-2023 End: 12-07-2023 Departed Referred MD Kenzie Lazar Work Phone: [facility] Start: 12-07-2023 Non-patient / Non-visit MD Kristin Lazar Work Phone: [facility] Work Phone: Start: 11-26-2023 Non-patient / Non-visit MD Kristin Lazar Work Phone: [facility] Work Phone: Start: 11-01-2023 End: 11-01-2023 ambulatory VERONICA H TIMMIS Not Available Start: 10-15-2023 Non-patient / Non-visit MD Kristin Lazar Work Phone: [facility] Work Phone: Start: 09-13-2023 End: 09-13-2023 ambulatory Kenzie Lazar Other [employer] Other Start: 09-13-2023 Office outpatient vi sit 15 minutes Kenzie Lazar [facility] Start: 09-13-2023 End: 09-13-2023 Patient encounter procedure MD Kenzie Lazar Work Phone: [facility] Start: 08-30-2023 End: 08-30-2023 ambulatory VERONICA H TIMMIS Not Available Start: 08-25-2023 End: 08-25-2023 ambulatory Natali Love Other [employer] Other Start: 08-25-2023 Office outpatient vi sit 15 minutes Natali Love [facility] Start: 08-04-2023 End: 08-04-2023 ambulatory SEBAS BRIAN Not Available Start: 08-02-2023 End: 08-02-2023 ambulatory Kenzie Lazar Other [employer] Other Start: 08-02-2023 Office outpatient vi sit 15 minutes Kenzie Lazar [facility] Start: 07-01-2023 End: 07-01-2023 ambulatory Kenzie Lazar Other [employer] Other Start: 07-01-2023 Office outpatient vi sit 15 minutes Kenzie Lazar [facility] Start: 03-13-2023 End: 03-13-2023 ambulatory Kenzie Lazar Other [employer] Other Start: 03-13-2023 Telephone encounter Kenzie Lazar [facility] Start: 02-19-2023 End: 02-19-2023 ambulatory Kenzie Lazar Other [employer] Other Start: 02-19-2023 Telephone encounter Kenzie Lazar [facility] Start: 02-17-2023 End: 02-18-2023 ambulatory Kenzie Lazar Facility:[facility] Start: 02-05-2023 End: 02-05-2023 ambulatory Kenzie Lazar Other [employer] Other Start: 02-05-2023 Office outpatient vi sit 25 minutes Kenzie Lazar [facility] Start: 10-06-2022 End: 10-07-2022 ambulatory Kenzie Lazar Facility:[facility] Start: 08-04-2022 End: 08-05-2022 ambulatory Kenzie Lazar Facility:[facility] Start: 07-27-2022 Encounter for preprocedural laboratory examination DR SEBAS TORRES [facility] Start: 07-21-2022 End: 07-21-[address] SEBAS TORRES Facility:[facility] Start: 07-18-2022 End: 07-19-[address] SEBAS TORRES Facility:[facility] Start: 07-18-2022 End: 07-19-2022 Encounter for preprocedural laboratory examination DR SEBAS TORRES Facility:[facility] Start: 07-16-2022 Encounter for other preprocedural examination DR SEBAS TORRES [facility] Start: 07-16-2022 Encounter for preprocedural cardiovascular examination DR SEBAS TORRES [facility] Start: 07-13-2022 End: 07-14-[address] SEBAS TORRES Facility:[facility] Start: 07-13-2022 End: 07-14-2022 Encounter for preprocedural cardiovascular examination DR SEBAS TORRES Facility:[facility] Start: 06-16-2022 End: 06-17-[address] SEBAS TORRES Facility:[facility] Start: 05-28-2022 End: 05-29-[address] SEBAS TORRES Facility:[facility] Start: 05-11-2022 End: 05-11-[address] SEBAS TORRES Facility:[facility] Start: 05-11-2022 Adult health examination Phuong Lazar Other [employer] Other Start: 05-11-2022 Gynecological examin ation normal Kenzie Lazar Other [employer] Other Start: 02-04-2022 End: 02-04-[address] CAROL ANN HAMM Facility:[facility] Start: 07-21-2017 End: 07-21-2017 Ambulatory RAMSES CALERO [facility] Procedures Date Procedure Procedure Detail Performing Clinician Start: 08-04-2023 Microscopic observation [Identifier] in Cervix by Cyto stain Sebas Garciao DO Work Phone: Start: 08-22-2021 Mammography Sebas Garciao DO Work Phone: Start: 07-21-2017 DISCHARGE PATIENT RAMSES CALERO Start: 07-21-2017 H. PYLORI DETECTION RAMSES CALERO Depression screening Kenzie Lazar Other History of cholecystectomy Hx laparoscopic cholecystectomy Plan of Treatment Date Care Activity Detail Author Start: 08-04-2026 Screening for malignant neoplasm of cervix [facility] [employer] Start: 08-07-2024 End: 10-08-2025 MG Breast - bilateral Screening Bilateral screening mammogram Imaging Routine Breast cancer screening by mammogram Expected: 08/07/2024 (Approximate), Expires: 10/08/2025 [facility] Work Phone: Comment on above: Expected: 08/07/2024 (Approximate), Expires: 10/08/2025 Start: 04-16-2024 Influenza vaccination Influenza Vacc ine (#1) [facility] Start: 03-20-2024 Patient referral [facility] Work Phone: Start: 2024 Screening for malignant neoplasm of breast Mammogram [facility] Start: 2014 Screening for malignant neoplasm of cervix HPV/Cotest [facility] CT Neck W contrast IV [facility] Patient referral [facility] Work Phone: THIN PREP TIS PAP AN D HR HPV DNA THIN PREP TIS PAP AND HR HPV DNA Pathology and Cytology Routine Well woman exam with routine gynecological exam Ordered: 08/07/2024 [facility] Comment on above: Ordered: 08/07/2024 Immunizations Immunization Date Immunization Notes Care Provider [facility] 06-07-2024 influenza virus vacc ine, unspecified formulation Sebas Brian DO Work Phone: [facility] 05-20-2023 influenza, injectabl e, quadrivalent, preservative free Sebas Brian DO Work Phone: [facility] 05-29-2021 influenza, injectabl e, quadrivalent, preservative free Sebas Brian DO Work Phone: [facility] 06-05-2020 influenza, injectabl e, quadrivalent, preservative free Sebas Brian DO Work Phone: [facility] 06-02-2016 influenza, injectabl e, quadrivalent, preservative free Sebas Brian DO Work Phone: [facility] Payers Date Payer Category Payer Self-pay 2021 Private Health Insurance [id number] 1984 Unknown [id number] 2.16.84 [id number] 1984 Unknown [id number] 2.16.84 [id number] 1984 Unknown [id number] 2.16.84 [id number] 1984 Unknown [id number] 2.16.84 [id number] 1984 Unknown [id number] 2.16.84 [id number] 1984 Unknown [id number] 2.16.84 [id number] 1984 Unknown [id number] 2.16.84 [id number] 1984 Unknown [id number] 2.16.84 [id number] 1984 Unknown [id number] 2.16.84 [id number] 1984 Unknown [id number] 2.16.84 [id number] 1984 Unknown [id number] [id number] .[id number] 1959 Unknown [id number] Medicaid Medicaid [id number] Medicaid [id number] Unknown [id number] 2.16.8 [id number] Social History Date Type Detail Facility Unknown if ever smoked [employer] Other Start: 08-27-2023 End: 12-08-2023 Sex Assigned At [facility] Start: 08-13-2023 End: 10-15-2023 Tobacco smoking status NHIS Never smoked tobacco (finding) [facility] Start: 1985 Sex Assigned At Female F [facility] Start: 08-13-2023 Tobacco use and exposure Smokeless tobacco non-user [facility] Start: 12-13-2023 End: 08-07-2024 Alcoholic beverage intake Ex-drinker (finding) [facility] Start: 08-27-2023 End: 12-08-2023 History of Social function [facility] How often to you hav e a drink containing alcohol? Monthly or less [facility] Average Number of Drinks Not on file [facility] Start: 07-20-2023 Alcohol Comment caffeine: soda [facility] Start: 03-09-2023 Gender identity Identifies as female gender (finding) [facility] Start: 03-09-2023 Sexual orientation Heterosexual (fin ding) [facility] NEGATED: Highlighted row [facility] Clinical Notes 08-22-2021 to 08-07-2024 Alyson Pham MA - 08/07/2024 10:00 AM EST Note Date & Type Note Facility 08-07-2024 History of Presen t illness Narrative Reason for Appointment: Patient ID: Olga Pressley is a 39 y.o. female who presents for Routine Visit Patient presents today for Annual Exam. MEDICATIONS Current Outpatient Medications Medication Instructions lisdexamfetamine (Vyvanse) 40 MG capsule omeprazole (PRILOSEC) 40 mg, Oral, Daily before breakfast, Do not crush or chew. Zepbound 2.5 MG/0.5ML solution auto-injector INJECT 2.5 MG SUBCUTANEOUSLY (UNDER THE SKIN) ONCE A WEEK ALLERGIES Allergies Allergen Reactions Nsaids GI bleeding and GI intolerance Codeine Nausea And Vomiting and Unknown Other Reaction(s): Other (See Comments) dizzy Penicillins Hives, Itching, Rash and Swelling Other Reaction(s): Unknown Sulfa Antibiotics Hives, Itching, Rash and Swelling Other Reaction(s): Unknown PROBLEMS Active Ambulatory Problems Diagnosis Date Noted Depressed ([facility]) 08/01/2013 Endometriosis 08/13/2023 Epigastric pain 08/13/2023 Abdominal pain 08/13/2023 Back pain 08/01/2013 Flank pain 08/13/2023 Pelvic pain 08/13/2023 Migraine ([facility]) 08/01/2013 Morbid obesity ([facility]) 08/01/2013 Recurrent UTI 08/13/2023 Vitamin D deficiency 09/28/2014 LPRD (laryngopharyngeal reflux disease) 08/30/2023 Chronic laryngitis 08/30/2023 Globus sensation 11/01/2023 Tongue lesion 11/01/2023 Resolved Ambulatory Problems Diagnosis Date Noted 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 Past Medical History: Diagnosis Date Anxiety Binge eating disorder Depression (CMS/HCC) Dizziness GERD (gastroesophageal reflux disease) History of migraine headaches Inflammatory bowel disease Obesity Ovarian cyst HISTORY PAST MEDICAL HISTORY SOCIAL HISTORY Past Medical History: Diagnosis Date Anxiety Binge eating disorder Depression (CMS/HCC) Dizziness Endometriosis GERD (gastroesophageal reflux disease) History of migraine headaches Inflammatory bowel disease Obesity Ovarian cyst 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 Vitamin D deficiency Social History Tobacco Use Smoking status: Never Smokeless tobacco: Never Substance Use Topics Alcohol use: Not Currently Comment: caffeine: soda Drug use: Never FAMILY HISTORY Family History Problem Relation Name Age of Onset Hypertension Mother Arelis Bre Mental illness Mother Arelis Bre Migraines Mother Arelis Bre Mental illness Father Connor Leann Hypertension Father Connor Leann Cancer Father Connor Leann Hyperlipidemia Father Connor Leann Diabetes Paternal Grandmother Sonjafelicita Noriega Cancer Father's Sister JULIO ARMENTA Cancer Father's Sister Rosy Crawofrd Cancer Father's Brother Dougie Noriega SURGICAL HISTORY Past Surgical History: Procedure Laterality Date ADENOIDECTOMY SECTION, LOW TRANSVERSE CHOLECYSTECTOMY 2007 GASTRECTOMY 09/2013 Verical sleeve OTHER SURGICAL HISTORY 12/07/2023 DL & BX @ [facility] Timmis PELVIC LAPAROSCOPY 07/21/2022 laparoscopy w/removal of epiploic adhesion of bowel from left ovary TONSILLECTOMY REVIEW OF SYSTEMS Review of Systems: Review of Systems All other systems reviewed and are negative. OBJECTIVE Objective: Physical Exam Constitutional: Appearance: Normal appearance. She is well-developed. Genitourinary: Vulva normal. Cardiovascular: Rate and Rhythm: Normal rate and regular rhythm. Pulmonary: Effort: Pulmonary effort is normal. Breath sounds: Normal breath sounds. Abdominal: General: Bowel sounds are normal. There is no distension. Palpations: Abdomen is soft. Tenderness: There is no abdominal tenderness. There is no guarding or rebound. Musculoskeletal: General: No swelling. Normal range of motion. Right lower leg: No edema. Left lower leg: No edema. Neurological: Mental Status: She is alert and oriented to person, place, and time. Skin: General: Skin is warm and dry. Psychiatric: Mood and Affect: Mood normal. Behavior: Behavior normal. Vitals and nursing note reviewed. Exam conducted with a lesson instructor present. Vitals: Estimated body mass index is 40.25 kg/m as calculated from the following: Height as of 12/13/23: 5' 1 . Weight as of 12/13/23: 213 lb. BP: No LMP recorded. ASSESSMENT & PLAN ICD-10-CM 1. Well woman exam with routine gynecological exam Z01.419 2. Breast cancer screening by mammogram Z12.31 Annual: Patient presents today for an annual exam. Patient states she is doing well and has no complaints. Pap was obtained without difficulty and patient given mammogram order to have scheduled/obtained. No orders of the defined types were placed in this encounter. Follow Up: Patient is to return in one year for annual unless needed otherwise. Documented by Alyson Pham MA on behalf of: Sebas Torres DO documented in this encounter [facility] 09-13-2023 Evaluation note Encounter Date Diagnosis Assessment [...] per pt. Continue PPI, added famotidine qpm [employer] Other 01-10-2024 Evaluation note* Encounter Date Diagnosis [...] 3 days Aug, Pleurisy (ICD-10 - R09.1) [employer] Other 12-18-2023 Evaluation note* Encounter Date Diagnosis [...] sensation and ongoing LPRD while on PPI [employer] Other 11-16-2023 Evaluation note* Encounter Date Diagnosis [...] EGD, etc if needed in 1 month. [employer] Other 06-23-2023 Evaluation note* Encounter Date Diagnosis Assessment Notes Treatment Notes Treatment Clinical Notes Jan, Lower abdominal pain (ICD-10 - R10.30) Encouraged to followup w MAIL SORTING SUPERVISOR. Pt will atkinson out CT and make phone calls to schedule. Order printed and given to Olga. Jan, Left flank pain (ICD-10 - R10.9) as above. R/o kidney stone Jan, Binge eating disorder (ICD-10 - F50.81) resume vyvanse Jan, UTI (urinary tract infection) (ICD-10 - N39.0) Will treat empirically. [employer] Other 12-06-2022 NoteOPERATIVE NOTE OPERATION DATE: 07/21/2022 PROCEDURE: Diagnostic laparoscopy with removal of epiploic adhesion of the bowel from the patient's left ovary. PREOPERATIVE DIAGNOSIS: Pelvic pain. POSTOPERATIVE DIAGNOSIS: Pelvic pain including adhesion of epiploic fat to the patient's ovary. SURGEON: Sebas Torres D.O. TIMBER CUTTER: GOLDEN Conway URINE OUTPUT: Yellow and clear. [...] taken to Recovery Room in stable condition.[facility] [id number] NoteOPERATIVE NOTE OPERATION DATE: 07/29/2022 ADDENDUM: Please note adhesion of epiploic fat to the patient's left ovary was noted and this was bluntly and sharply dissected and taken down.[facility] [id number] NoteFINDINGS: Sonographic evaluation targeted to the right breast, periareolar region demonstrates no worrisome cystic or solid mass lesions. Comparison made with the same day bilateral mammogram. IMPRESSION: BIRADS 1 - NEGATIVE Report reported and signed by Abel Monroy on 08/22/2021 [id number] [place] [facility] SpecialistChief complaint+Reason for visit Narrative* Chief Complaint dicuss swallowing/ g astrology referral Reason for Visit Attention deficit di sorder (ADD) in adult [facility] Work Phone: Chief complaint+Reason for visit Narrative* Chief Complaint dicuss swallowing/ g astrology referral Self- [facility] Reason for Visit Attention deficit di sorder (ADD) in adult Globus sensation Abnormal weight gain Attention deficit disorder (ADD) in adult Binge eating disorder BMI 40.0-44.9, adult Dietary surveillance and counseling Exercise counseling H/O gastric sleeve Heartburn Hx laparoscopic cholecystectomy Obesity, Class III, BMI 40-49.9 (morbid obesity) [facility] Work Phone: Evaluation noteNo [employer] Other Evaluation noteNo assessment information available [facility] Work Phone: Evaluation note* Diagnosis Onset Date Resolution Status Attention deficit disorder (ADD) in adult acute [facility] Work Phone: Evaluation note* Diagnosis Onset Date Resolution Status Attention deficit disorder (ADD) in adult acute Globus sensation acute Abnormal weight gain acute Attention deficit disorder (ADD) in adult acute Binge eating disorder acute BMI 40.0-44.9, adult acute Dietary surveillance and counseling acute Exercise counseling acute H/O gastric sleeve acute Heartburn acute Hx laparoscopic cholecystectomy acute Obesity, Class III, BMI 40-49.9 (morbid obesity) acute [facility] Work Phone: Evaluation note* Diagnosis Well woman exam with routine gynecological exam Routine gynecological examination Breast cancer screening by mammogram documented in this encounter [facility] N[facility]ative - Reported* Type Description Date Medical History Endometriosis Surgical History laparoscopy Surgical History c section x3 Surgical History vertical sleeve gastrectomy Hospitalization History [facility] [employer] Other Summary Purpose Family History Relationship Condition Age at Onset Recorded Date/T destiny mother Mental disorder Unknown father Malignant neoplasm Unknown Hypertension Unknown High blood cholesterol Unknown brother Hypertension Unknown son Attention deficit hy peractivity disorder (ADHD) Unknown Advance Directives Advance Directive Response Recorded Date/ Time Advance Directives No November 25 024 11:52am Reason for Referral Reason R anterior neck discomfort, LPRD on PPI Diagnosis 1 LPRD (laryngopharyng eal reflux disease) (K21.9) Referral Organization [facility] Referring Provider First Name Kenzie Referring Provider Last Name Cady Referring Provider Specialty [facility] Referred Organization [facility] Referred Provider Veronica See Referred Address ,[place], [place],[address] Referred Provider Specialty Ear, Nose an d Throat Referral Priority Routine General Notes Qi Sanchez 02:09:20 PM >received today, waiting for notes to be locked Additional Source Comments INFORMATION SOURCE (unrecogn ized section and content) DATE CREATED AUTHOR 02/02/2018 [facility] DATE CREATED AUTHOR AUTHOR'S ORGANIZ ATION 08/23/2021 [facility] dical Specialist DATE CREATED AUTHOR AUTHOR'S ORGANIZ ATION 08/06/2022 [facility] DATE CREATED AUTHOR AUTHOR'S ORGANIZ ATION 02/18/2023 [facility] DATE CREATED AUTHOR AUTHOR'S ORGANIZ ATION 12/14/2023 [facility] dical Specialists EPIC DATE CREATED AUTHOR AUTHOR'S ORGANIZ ATION 12/15/2023 [facility] REASON FOR VISIT (unrecogniz ed section and content) Reason Comments Routine Visit Care Teams (unrecognized sec tion and content) [...] March 20, 2024 End: March 20, 2024 Team Status: Inactive Member Role Status Dates Kenzie Lazar MD Primary Care Provider Active Start: June 12, 2024 End: June 12, 2024 Leticia Razo DNP Attending Provider Active S tart: June 12, 2024 End: June 12, 2024 Weatherization Administrator Relationship Specialty Start Date End Date Kenzie Lazar MD [address] [place] [phone] PCP - General 08/03/23 Weatherization Administrator Relationship Specialty [place] [address] [place] [phone] PCP - General 08/03/23 Goals (unrecognized section and content) Goals may [...] BE BASED ON THE PRIMARY CLINICAL RECORDS. [facility] [employer] [facility]. provides no warranty or guarantee of the accuracy or completeness of information in this document.
[2024-08-15 14:07] LABS: Age Gdln ACOG Testing Note (.); HPV Aptima Negative (Negative); IGP, Aptima HPV, rfx 16/18,45 Note (.)
== END 2024-08-07 20:52 | disposition home or self-care (01) ==
LOC: LAB 20:51
PROVIDERS: PCP Family Medicine; Visit Provider Obstetrics & Gynecology
DX: Z01.419 Encounter for gynecological examination (general) (routine) without abnormal findings (principal)
CPT/HCPCS: 87624; 88175

== ENCOUNTER 2025-02-09 11:27 | Outpatient (OUT) | payer OTHER, SELFPAY ==
--- OUTSIDE RECORDS SUMMARY | 2025-02-09 11:35 | XMS_ITS | CCD ---
Author Organization [facility] Care Team Providers Care Wheel Truer Name Role Phone RAMSES CALERO Unavailable Unavailable RAMSES CALERO Unavailable Unavailable BRIAN, DR MULLEN Admitting Unavailable BRIAN, DR MULLEN Attending Unavailable BRIAN, DR MULLEN Consulting Unavailable BRIAN, DR MULLEN Primary Care Unavailable DALEYNGOC RAMIREZ Consulting Unavailable BRIAN, DR MULLEN Primary Care [...] Care Unavailable BRIAN, DR MULLEN Admitting Unavailable WANAKENA, DR JADEN Salzaar Consulting Unavailable BRIAN, DR MULLEN Attending Unavailable BRIAN, DR MULLNE Primary Care Unavailable BRIAN, DR MULLEN Consulting Unavailable BRIAN, DR MULLEN Admitting Unavailable BRIAN, DR MULLEN Attending Unavailable BRIAN, DR MULLEN Consulting Unavailable BRIAN, DR MULLEN Primary Care Unavailable KARBECKY, DR MAHARAJ Admitting Unavailable NORIS, DR MAHARAJ Attending Unavailable NORIS, DR MAHARAJ Consulting Unavailable BRIAN, DR MULLEN Primary Care Unavailable Kenzie Lazar Unavailable Kenzie Lazar Primary Care Unavailable Kenzie aLzar Primary Care Unavailable Jamie Piper Admitting Unavailable Jamie Piper Attending Unavailable Kenzie Lazar Primary Care Unavailable Jamie Piper Admitting Unavailable Jamie Piper Attending Unavailable Natali Love Unavailable MD Kenzie Lazar Primary Care Provider [phone] MD Layne See Jr Attending Provider Kenzie Parra MD Primary Care Provider [phone] LAYNE SEE Attending Unavailable LAYNE SEE Attending Unavailable LAYNE SEE Attending Unavailable HAMILTON TORRES Attending Unavailable Kenzie Lazar MD Primary Care Provider Ly DODeedeeJane L Attending Provider Ly, Jane L Admitting Unavailable Chelly Jane L Attending Unavailable Kenzie Lazar Primary Care Unavailable Layne See Jr Admitting Unavailable Layne See Jr Attending Unavailable Kenzie Lazar Primary Care Unavailable GIA ALVAREZ Attending Unavailable Allergies Allergy Classification Reported Allergen(s) Allergy Type Date of Onset Reaction(s) Facility (9 sources) Codeine; Translations: [codeine] Drug Allergy 08-16-19 03 Hives, dizziness [facility] Repository (1 source) NSAIDs Drug allergy (disorder) 08-16-19 14 [facility] Repository (8 sources) Penicillins Drug allergy (disorder) 08-16-18 90 [facility] Repository (1 source) Sulfonamides (Antibiotic) Drug allergy (disorder) 08-16-18 96 [facility] Repository (1 source) Betadine Skin Cleanser Drug allergy (disorder) [facility] Repository (7 sources) Codeine Drug Allergy Unknown [facility] Other (10 sources) penicillAMINE Drug Allergy 09-13-19 24 Unknown, [facility] (7 sources) Sulfacetamide / Sulfur Drug Allergy Unknown [facility] Other (5 sources) NSAIDs; Translations: [NSAIDs] Propensity to adverse reactions to drug (disorder) 07-28-20 23 GI bleeding, GI intolerance [facility] Repository (6 sources) Penicillin; Translations: [penicillin] Drug Allergy 11-19-19 18 Unknown [facility] Repository (1 source) Sulfamethoxazole; Translations: [sulfamethoxazole] Drug Allergy [facility] Repository (1 source) Sulfamethoxazole / Trimethoprim; Translations: [sulfamethoxazole-t rimethoprim] Drug Allergy [facility] Repository (5 sources) Caffeine Drug Allergy 11-19-19 18 Unknown [facility] Other (9 sources) Codeine Drug Allergy 08-01-20 13 Nausea And Vomiting, Unknown [facility] Work Phone: (5 sources) Non-steroidal anti-inflammatory agent Drug allergy Unknown [facility] Other (5 sources) Wound Closure Strips *MEDICAL DEVICES AND SUPPLIES Propensity to adverse reactions Comment:Redne ss and swelling -Steri Strips [facility] Other (1 source) Allergies Reconciled Propensity to adverse reactions Unknown [facility] Other (5 sources) Substance with penicillin structure and antibacterial mechanism of action (substance) Drug allergy Unknown [facility] Other (9 sources) Substance with sulfonamide structure and antibacterial mechanism of action (substance) Drug allergy 08-01-20 13 Hives, Itching, Rash, Swelling [facility] Other (1 source) patient allergy list reviewed by nurse or physicia Propensity to adverse reactions 08-25-19 19 Comment:Done [facility] Other (5 sources) Curity Wound Closure 1/2 x4 *MEDICAL DEVICES AND Propensity to adverse reactions Comment:[employer]ur [employer] - [employer] [facility] [employer] Other (4 sources) Sulfacetamide; Translations: [sulfacetamide] Drug Allergy 09-13-[address] [facility] (8 sources) Sulfonamides (Antibiotic); Translations: [Sulfa (Sulfonamide Antibiotics)] Allergy to substance 09-13-[address] [facility] (4 sources) Sulfur; Translations: [sulfur] Drug Allergy 09-13-[address] [facility] (6 sources) NSAIDS (Non-Steroidal Anti-Inflamma; Translations: [NSAIDS (Non-Steroidal Anti-Inflamma] Propensity to adverse reactions 06-12-20 24 Abdominal Pain [facility] Comment on above: hx gastric sleeve (4 sources) Penicillins Drug Intolerance 08-01-20 13 Hives, Itching, Rash, Swelling [facility] (1 source) Codeine Drug Allergy 08-17-19 [facility] Repository (1 source) penicillAMINE Drug Allergy 09-13-19 24 [facility] Repository (1 source) Penicillins Drug allergy (disorder) 08-17-19 [facility] Repository Medications Current Medications Medication Drug Class(es) [...] completed) lisdexamfetamine dimesylate 40 mg oral capsule (20 sources) Central Nervous System Stimulant Start: 04-24-2024 End: 11-03-2024 take 1 capsule by mouth once daily Lisdexamfetamine 40 mg capsule Active 40 MG PO Daily November 03, 2024 Start: 03-20-2024 End: 04-24-2024 take 1 capsule by mouth once daily Lisdexamfetamine (Vyvanse) 30 mg capsule Discontinued 30 MG PO Daily March 20, 2024 April 24, 2024 9:40pm Start: 02-05-2023 take 1 capsule by [facility] every twenty-four hours Vyvanse 30 MG 1 capsule Orally Once a day for 30 days Jan, Active magnesium gluconate 500 mg oral tablet (1 source) Start: 06-12-2024 take 500 mg by mouth once daily Magnesium Gluconate Active 500 MG PO Daily June 12, 2024 12:00am magnesium glycinate 100 mg oral tablet (7 sources) Start: 09-01-2024 Magnesium Glyc inate 100 mg tablet Active 400 MG PO Daily September 01, 2024 10:07am Start: 07-28-2024 End: 09-01-2024 Magnesium Glycinate 100 mg t ablet Discontinued 200 MG PO Daily July 28, 2024 1:00am September 01, 2024 10:08am melatonin 10 mg oral capsule (1 source) Start: 11-17-2024 take 1 capsule by mouth once daily at bedtime as needed Melatonin 10 mg capsule Active 10 MG PO Daily at bedtime as needed November 17, 2024 12:00am nitrofurantoin, macrocrystals 25 mg / nitrofurantoin, monohydrate 75 mg oral capsule (3 sources) Nitrofuran Antibacterial Start: 02-08-2023 take 1 capsule by mouth every twelve hours Nitrofurantoin Monohyd Macro 100 MG 1 capsule with food Orally every 12 hrs for 7 day(s) Jan, Active omeprazole 40 mg delayed release oral capsule (20 sources) Proton Pump Inhibitor Start: 08-17-2024 End: 09-25-2024 take 1 capsule by mouth once daily Omeprazole 40 mg capsule,delayed release(DR/EC) Active 40 MG PO Daily September 25, 2024 3:58pm TAKE 1 CAPSULE BY MOUTH DAILY Start: 06-01-2024 End: 08-17-2024 take 1 capsule by mouth once daily Omeprazole 40 mg capsule,delayed release(DR/EC) Discontinued 0 .ROUTE .COMPLEX June 01, 2024 8:22am August 17, 2024 8:28am TAKE 1 CAPSULE BY MOUTH DAILY Start: 07-01-2023 End: 06-01-2024 take 1 capsule by mouth once daily Omeprazole 40 mg capsule,delayed release(DR/EC) Discontinued 40 MG PO Daily February 11, 2024 12:00am February 14, 2024 12:26pm predniSONE 20 mg oral tablet (1 source) Start: 08-25-2023 take 2 tablets by mouth once daily at mealtime predniSONE 20 MG 2 tablets with food or milk Orally Once a day for 5 Aug, Active Tirzepatide-Weight Management (Zepbound) 5 MG/0.5ML solution auto-injector (1 source) Start: 08-07-2024 inject 0.5 mL by subcutaneous injection every week Tirzepatide-Weight Management (Zepbound) 5 MG/0.5ML solution auto-injector Indications: Encounter for weight management Inject 0.5 mL under the skin 1 (one) time per week 0.5 mL 3 08/07/2024 Active Zepbound 2.5 MG/0.5ML solution auto-injector (3 sources) Start: 06-13-2024 inject 2.5 mg by subcutaneous injection every week Zepbound 2.5 MG/0.5ML solution auto-injector INJECT 2.5 MG SUBCUTANEOUSLY (UNDER THE SKIN) ONCE A WEEK 06/13/2024 Active Completed/Discontinued Medications Medication Drug Class(es) Dates Sig (Normalized) Sig (Original) Berberine Chloride 500 mg capsule (4 sources) Start: 06-12-2024 End: 07-28-2024 Berberine Chloride 500 mg capsule Discontinued MG PO June 12, 2024 12:00am July 28, 2024 11:17am Start: 06-12-2024 End: 07-28-2024 Berberine Chloride 500 mg ca psule Discontinued MG PO June 11, 2024 11:00pm July 28, 2024 10:17am ciprofloxacin 250 mg oral tablet (7 sources) Quinolone Antimicrobial Start: 11-03-2023 End: 03-20-2024 take 1 tablet by mouth twice daily Ciprofloxacin Hcl 250 mg tablet Discontinued 250 MG PO Twice daily November 03, 2023 12:00am March 20, 2024 1:40pm Magnesium Gluconate 12.5 mg magne- sium (250 mg) tablet (4 sources) Start: 06-12-2024 End: 07-28-2024 take 1 tablet by mouth once daily Magnesium Gluconate 12.5 mg magne- sium (250 mg) tablet Discontinued 500 MG PO Daily June 12, 2024 12:00am July 28, 2024 11:38am Start: 06-12-2024 End: 07-28-2024 take 1 tablet by mouth once daily Magnesium Gluconate 12.5 mg magne- sium (250 mg) tablet Discontinued 500 MG PO Daily June 11, 2024 11:00pm July 28, 2024 10:38am phentermine hydrochloride 37.5 mg oral tablet (20 sources) Sympathomimetic Amine Anorectic Start: 07-01-2023 End: 08-07-2024 take 1 tablet by mouth once daily Phentermine 37.5 mg tablet Discontinued 37.5 MG PO Daily October 15, 2023 1:00am October 15, 2023 10:11am Tirzepatide (3 sources) Start: 08-18-2024 End: 09-08-2024 Tirzepatide (Mounjaro) 5 mg/0.5 mL pen injector Discontinued 5 MG SUBCUT every week 2 August 18, 2024 1:00am September 08, 2024 11:26am Start: 08-18-2024 End: 09-08-2024 Tirzepatide (Mounjaro) 5 mg/ 0.5 mL pen injector Discontinued 5 MG SUBCUT every week 2 August 18, 2024 12:00am September 08, 2024 10:26am Start: 08-18-2024 Tirzepatide (M ounjaro) 5 mg/0.5 mL pen injector Active 5 MG SUBCUT every week 2 August 18, 2024 12:00am Tirzepatide (Weight Loss) (5 sources) Start: 06-12-2024 End: 07-18-2024 Tirzepatide (Weight Loss) (Z epbound) 2.5 mg/0.5 mL pen injector Discontinued 2.5 MG SUBCUT every week 2.5 June 12, 2024 12:00am July 18, 2024 3:58pm Start: 06-12-2024 End: 07-18-2024 Tirzepatide (Weight Loss) (Z epbound) 2.5 mg/0.5 mL pen injector Discontinued 2.5 MG SUBCUT every week 2.5 June 11, 2024 11:00pm July 18, 2024 2:58pm Start: 06-12-2024 Tirzepatide (W eight Loss) (Zepbound) 2.5 mg/0.5 mL pen injector Active 2.5 MG SUBCUT every week 2.5 June 12, 2024 12:00am Tirzepatide (Weight Loss) (10 sources) Start: 09-08-2024 End: 11-17-2024 Tirzepatide (Weight Loss) (Z epbound) 5 mg/0.5 mL pen injector Discontinued MG SUBCUT September 08, 2024 1:00am November 17, 2024 9:04am Start: 09-08-2024 Tirzepatide (W eight Loss) (Zepbound) 5 mg/0.5 mL pen injector Active MG SUBCUT September 08, 2024 12:00am Start: 07-28-2024 End: 08-18-2024 Tirzepatide (Weight Loss) 5 mg/0.5 mL pen injector Discontinued 5 MG SUBCUT every week 2 July 28, 2024 12:08pm August 18, 2024 10:05am Start: 07-28-2024 End: 08-18-2024 Tirzepatide (Weight Loss) 5 mg/0.5 mL pen injector Discontinued 5 MG SUBCUT every week 2 July 28, 2024 11:08am August 18, 2024 9:05am Start: 07-28-2024 Tirzepatide (W eight Loss) 5 mg/0.5 mL pen injector Active 5 MG SUBCUT every week 2 July 28, 2024 11:08am Start: 07-18-2024 End: 07-28-2024 Tirzepatide (Weight Loss) 5 mg/0.5 mL pen injector Discontinued 5 MG SUBCUT every week 2 July 18, 2024 3:58pm July 28, 2024 12:08pm Start: 07-18-2024 End: 07-28-2024 Tirzepatide (Weight Loss) 5 mg/0.5 mL pen injector Discontinued 5 MG SUBCUT every week 2 July 18, 2024 2:58pm July 28, 2024 11:08am Problems Active Problems Problem Classification Problem Date Documented Da te Episodic/Chronic Administrative/social admission (20 sources) Patient encounter status; Translations: [Exercise counseling] 06-12-2024 Episodic Disorders of teeth and jaw (1 source) Arthralgia of right temporomandibular joint; Translations: [Arthralgia of right temporomandibular joint] Onset: Episodic Disorders usually diagnosed in infancy, childhood, or adolescence (19 sources) Adult attention deficit hyperactivity disorder ; Translations: [Other specified behavioral and emotional disorders with onset usually occurring in childhood and adolescence] 03-20-2024 Chronic Endometriosis (4 sources) Endometriosis (clinical); Translations: [Endometriosis, unspecified] Onset: 3 08-13-2023 Chronic Esophageal disorders (15 sources) Gastro-esophageal reflux disease without esophagitis; Translations: [Laryngopharyngeal reflux] Onset: 2 Chronic Esophageal disorders (2 sources) Esophageal disorders; Translations: [GERD, OBESITY] Onset: 7 Gastrointestinal hemorrhage (7 sources) Hemorrhage of rectum and anus; Translations: [Rectal bleed] Episodic Genitourinary symptoms and ill-defined conditions (1 source) Genitourinary symptoms; Translations: [Unspecified symptoms and signs involving the genitourinary system] Episodic Headache; including migraine (5 sources) Migraine without aura, not refractory ; Translations: [Migraine, unspecified, not intractable, without status migrainosus] Onset: 3 Resolved: 9 08-13-2023 Chronic Immunizations and screening for infectious disease (1 source) Encounter for screening for human papillomavirus (HPV); Translations: [ENC SCREENING HUMAN PAPILLOMAVIRUS] Onset: 2 Episodic Inflammatory diseases of female pelvic organs (1 source) Female pelvic peritoneal adhesions (postinfective); Translations: [FE PELV PERITON ADHES POSTINFECTIVE] Onset: 2 Episodic Miscellaneous mental health disorders (20 sources) Binge eating disorder; Translations: [Binge eating disorder] Onset: 5 Chronic Mood disorders (6 sources) Depression; Translations: [Dysthymia] Onset: 3 Resolved: 9 08-13-2023 Chronic Mood disorders (1 source) Mood disorders; Translations: [DEPRESSION UNSPECIFIED] Onset: 2 Mycoses (1 source) Candidiasis; Translations: [Candidiasis, unspecified] Episodic Nonmalignant breast conditions (4 sources) Lump in right breast; Translations: [Unspecified lump in the right breast, unspecified quadrant] Resolved: 2 Episodic Nutritional deficiencies (4 sources) Vitamin D deficiency; Translations: [Vitamin D deficiency, unspecified] Onset: 5 08-13-2023 Chronic Other aftercare (1 source) Other half-way (current) drug therapy; Translations: [OTH HALFWAY CURRENT DRUG THERAPY] Onset: 2 Episodic Other aftercare (1 source) History and physical examination, follow-up; Translations: [Encounter for follow-up examination after completed treatment for conditions other than malignant neoplasm] Episodic Other complications of (1 source) High risk ; Translations: [Supervision of high risk , unspecified, unspecified trimester] Episodic Other female genital disorders (1 source) Abnormal uterine and vaginal bleeding, unspecified; Translations: [ABNORMAL UTERINE VAGINAL BLEED UNS] Onset: 2 Chronic Other female genital disorders (1 source) Unspecified dyspareunia; Translations: [UNSPECIFIED DYSPAREUNIA] Onset: 2 Chronic Other female genital disorders (2 sources) Noninflammatory disorder of the vagina; Translations: [Noninflammatory disorder of vagina, unspecified] Resolved: 9 Episodic Other gastrointestinal disorders (7 sources) Diarrhea; Translations: [Diarrhea] Episodic Other gastrointestinal disorders (8 sources) Dysphagia; Translations: [Dysphagia] 11-17-2024 Episodic Other gastrointestinal disorders (1 source) Flatulence, eructation and gas pain; Translations: [Abdominal distension (gaseous)] Episodic Other gastrointestinal disorders (5 sources) Heartburn; Translations: [Heartburn] 06-12-2024 Episodic Other gastrointestinal disorders (9 sources) Heartburn; Translations: [Heartburn] 06-12-2024 Episodic Other gastrointestinal disorders (4 sources) Rectum finding; Translations: [Other specified symptoms and signs involving the digestive system and abdomen] 07-19-2024 Episodic Other gastrointestinal disorders (4 sources) Other specified symptoms and signs involving the digestive system and abdomen; Translations: [Other symptoms involving digestive system] 07-19-2024 Episodic Other gastrointestinal disorders (3 sources) Dysphagia, unspecified; Translations: [Dysphagia, unspecified] Onset: 5 11-17-2024 Episodic Other lower respiratory disease (1 source) Dyspnea; Translations: [Other forms of dyspnea] Episodic Other nutritional; endocrine; and metabolic disorders (12 sources) Obese class II; Translations: [Body mass index (BMI) 38.0-38.9, adult] 07-28-2024 Chronic Other nutritional; endocrine; and metabolic disorders (15 sources) Body mass index 40+ - severely obese; Translations: [Body mass index (BMI) 40.0-44.9, adult] Resolved: 2 06-12-2024 Chronic Other nutritional; endocrine; and metabolic disorders (14 sources) Body mass index 30+ - obesity; Translations: [Body mass index 31.0-31.9, adult] Onset: 8 Resolved: 9 10-15-2023 Chronic Other nutritional; endocrine; and metabolic disorders (1 source) Obesity; Translations: [Obesity, unspecified] Chronic Other nutritional; endocrine; and metabolic disorders (4 sources) Severe obesity; Translations: [Morbid (severe) obesity due to excess calories] Chronic Other nutritional; endocrine; and metabolic disorders (7 sources) Morbid (severe) obesity due to excess calories; Translations: [Morbid obesity] Chronic Other nutritional; endocrine; and metabolic disorders (7 sources) Body mass index (BMI) 40.0-44.9, adult; Translations: [Body Mass Index 40.0-44.9, adult] Chronic Other nutritional; endocrine; and metabolic disorders (4 sources) Morbid obesity; Translations: [Morbid (severe) obesity due to excess calories] Onset: 3 08-13-2023 Chronic Other nutritional; endocrine; and metabolic disorders (3 sources) Body mass index (BMI) 37.0-37.9, adult; Translations: [Body Mass Index 37.0-37.9, adult] 07-28-2024 Chronic Other nutritional; endocrine; and metabolic disorders (2 sources) Body mass index (BMI) 36.0-36.9, adult; Translations: [Body Mass Index 36.0-36.9, adult] 09-08-2024 Chronic Other nutritional; endocrine; and metabolic disorders (6 sources) Abnormal weight gain; Translations: [Abnormal weight gain] 06-12-2024 Episodic Other nutritional; endocrine; and metabolic disorders (9 sources) Abnormal weight gain; Translations: [Abnormal weight gain] 06-12-2024 Episodic Other screening for suspected conditions (not mental disorders or infectious disease) (7 sources) Encounter for screening for malignant neoplasm of cervix; Translations: [Urine test negative] Onset: 2 Episodic Other upper respiratory disease (4 sources) Chronic laryngitis; Translations: [Chronic laryngitis] Onset: 4 08-30-2023 Chronic Other upper respiratory disease (14 sources) Feeling of lump in throat; Translations: [Globus sensation] Onset: 4 03-20-2024 Episodic Other upper respiratory infections (1 source) Acute sinusitis, unspecified Episodic Ovarian cyst (4 sources) Unspecified ovarian cyst, left side; Translations: [UNSPECIFIED OVARIAN CYST LEFT SIDE] Onset: 2 Episodic Pleurisy; pneumothorax; pulmonary collapse (2 sources) Pleurisy Episodic Residual codes; unclassified (1 source) Tobacco user; Translations: [Tobacco use] Episodic Residual codes; unclassified (1 source) History of uterine scar from previous surgery; Translations: [History of uterine scar from previous surgery] Episodic Residual codes; unclassified (9 sources) History of sleeve gastrectomy; Translations: [Acquired absence of stomach [part of]] Onset: 4 Resolved: 3 06-12-2024 Episodic Residual codes; unclassified (9 sources) Acquired absence of stomach [part of]; Translations: [Personal history of surgery to other organs] 06-12-2024 Episodic Residual codes; unclassified (9 sources) Acquired absence of other specified parts of digestive tract; Translations: [Other postprocedural status] 06-12-2024 Episodic Spondylosis; intervertebral disc disorders; other back problems (7 sources) Low back pain; Translations: [Low back pain, unspecified] Onset: 3 Resolved: 9 08-13-2023 Episodic Unclassified (1 source) CONTACT W/AND (SUSP) EXPOS COVID-19; Translations: [CONTACT W/AND (SUSP) EXPOS COVID-19] Onset: 2 Varicose veins of lower extremity (1 source) [...] 07-20-2019 Episodic Diseases of mouth; excluding dental (4 sources) Lesion of tongue; Translations: [Other diseases [...] of other normal ] Urinary tract infections (5 sources) Urinary tract infection, site not specified; Translations: [Recurrent urinary tract infection] Onset: 08-13-2023 Episodic Results Test Name Value Interpretation Reference Range Facility OVon 12-08-2024 [facility] Office Visit ([facility] ) OLGA SALES ([id number]) 1985 F Date Time Provider Department 12/08/24 11:25 AM [facility] During your visit today, we recorded the following information about you: Gia Alvarez APRN.CNP 12/08/2024 12:02 PM Signed Tobacco Use: Not on file Gia Alvarze APRN.CNP 12/08/2024 12:02 PM Signed IMPRESSION: - Dysphagia - Globus sensation - LPR PLAN: Discussed findings, diagnosis and management options with patient. - Olga Sales is presenting today for evaluation of dysphagia. Started around 2 years ago with a sensation of something constantly sticking in her throat. Has been on omeprazole and Pepcid and been seen by an outside ENT and GI. Has had a EGD that she reports was essentially normal. Sensation has been persistent. Was concerned about a lump on the right side of her neck and had a CT neck at an outside facility. On exam today, no palpable lymphadenopathy. On flexible laryngoscopy exam today, bilateral vocal cords are mobile without any masses, lesions or pooling of secretions. She does have a history of a gastric sleeve and hiatal hernia repair. MBS and esophagram ordered for her dysphagia, [facility]. FOLLOW UP: Return as needed. Call sooner if problems develop. Gia Alvarez APRN.CNP Referring Provider: I was consulted by self for dysphagia. Reason for Consult: Olga Sales is a 39 year old female who presents to [facility] Otolaryngology Department. Patient presents with: New Patient HPI: Olga Sales is a 39 year old female who presents with dysphagia. Started in April 2023. Thought it felt like a globus sensation Was started on omeprazole by her PCP, didn't seem to help. Was then seen by ENT and added Pepcid. Was on both for about 5-6 months. In October, noticed some lingual tonsil asymmetry and had a biopsy that was negative. Was seen in December and suggest to see GI. Also noticed a little bump on the right sided of her neck. [place] like a firm bump that had grown. Did have a gastric sleeve and hiatal hernia repair in 2013. Tougher foods has the most trouble getting things down. Has a constant sensation of something stuck. Had a CT neck ordered by her PCP. Aug 08- had an EGD that was essentially normal. Describes the spot on her neck is getting bigger and getting more annoying. Is now having pain on the right side. Feels a tightness on the right neck and a tingling/numbness sensation that radiates to her neck and face. Wears a mouth guard for teeth grinding. No voice changes. Sometimes is a soreness on the right when she swallows. Never smoker EAT 10: 12/08/2024 Eating Asessment Tool Score EAT Score 10 PAST MEDICAL HISTORY No past medical history on file. PAST SURGICAL HISTORY No past surgical history on file. SOCIAL HISTORY Tobacco Use: Never Alcohol Use: Never FAMILY HISTORY No family history on file. MEDICATIONS No prescriptions on file. ALLERGIES Patient has no allergy information on record. REVIEW OF SYSTEMS: Review of systems template on 12/08/2024 was completed in entirety on day of appointment and negative except where noted below: Constitutional: Negative for fever, appetite change, weight loss, weight gain Neurological: Negative for headaches, no history of stroke or seizure ENT: See HPI Cardiovascular: Negative for chest pain, dyspnea on exertion Respiratory: Is not experiencing shortness of breath. No history of asthma, COPD or recent pneumonia Gastrointestinal: Negative for nausea, vomiting Endo: No history of diabetes or thyroid disorders Heme/Lymph: No history of bleeding disorder Allergy: + for seasonal allergies, nasal congestion PHYSICAL EXAM Physical exam template on 12/08/2024 was completed in entirety on day of appointment and negative except where noted below: Vital Signs: There were no vitals taken for this visit. General: Well-developed, well-nourishes. No distress Respiratory Effort: Equal inspiration and expiration without stridor and is breathing comfortably on room air. Cardiovascular: No peripheral edema. Neuro: Awake, alert and oriented Ears: External ear is intact. Canal is patent with intact skin and TM is clear and mobile. Nose: No scar or anatomic deformity. Septum is intact. Mucosa is pink without any purulence or polyps. Oral Cavity: Normal lips. The dentition is fair. The mucosal surfaces are moist with no lesions or abnormalities, tonsillar fossa symmetric. The oropharynx and pharynx is unremarkable and without lesions. Larynx: Please see scope exam below Neck:The neck is atraumatic and without scars. Trachea is midline. There is no lymphadenopathy, no skin lesions and no neck masses appreciated. Voice:Perceptual voic (more content not included)... Normal [facility] Pathology study report docum entOrdered By: Ward Macias on 08-18-2024 Pathology study [facility] Other Phone: HCG ( test) IA.cony thompson Ql (U)Ordered By: Jane Spaulding on 08-17-2024 HCG ( test) Ql (U) Urine human chorionic gonadotropin (hCG) detection by immunoassay [facility] HCG,Urineon 08-17-2024 Beta HCG ( test) Ql (U) Negative Normal [facility] Comment on above: Result Comment: PERF ORMED BY: [place] [address] PATHOLOGIST VENDING SERVICE TECHNICIAN ROMEO DONG M.D. Performed By: #### U HCG #### [address] 08-17-2024 L ------- Specimen: [id number] Received: 08/17/24 Status: AD Moreira Num: [id number] Spec Type: Surgical Subm Dr: Jane Spaulding DO Tissues: A Small Intestine - Biopsy/Polyp (SM BOWEL BX R/O CELIAC) B GASTRIC FOR HP (GASTRIC BX R/O H PYLORI) C Esophagus Biopsy (DISTAL ESOPHAGUS BX R/O EOE) D Esophagus Biopsy (PROXIMAL ESOPHAGUS BX R/O EO) Procedures: HE/8, Gross/Micro L4/4, H PYLORI Age/ Patient Sex Location Account Attending Physician Olga Sales 39/F [id number] Jane Spaulding DO SPEC NUM: [id number] RECD: 08/17/24 STATUS: AD NATASHA NUM: [id number] KARINA: 08/17/[address]: Jane Spaulding DO ENTERED: 08/17/[address]: RAZ TYPE: Surgical DEPT: S ENTERED BY: [id number] RECV BY: [id number] ORDERED: HE/8, Gross/Micro L4/4, H PYLORI ORDERED: HE/8, Gross/Micro L4/4, H PYLORI Pathological Diagnosis A. Small bowel (mucosal biopsy): Minimal increase in intraepithelial lymphocytes with relatively normal villous morphology, non-specific No dysplasia seen B. Stomach (mucosal biopsies): Fundic and antral mucosa, within normal limits No Helicobacter pylori or dysplasia seen See microscopic description C. Esophagus, distal (mucosal biopsy): Esophageal squamous mucosa, within normal limits No glandular epithelium or features of eosinophilic esophagitis seen D. Esophagus, proximal (mucosal biopsy): Esophageal squamous mucosal with mild reactive changes No features of eosinophilic esophagitis seen Specimen: [id number] Received: 08/17/24 Status: AD Moreira Num: [id number] Spec Type: Surgical Subm Dr: Jane Spaulding DO Tissues: A Small Intestine - Biopsy/Polyp (SM BOWEL BX R/O CELIAC) B GASTRIC FOR HP (GASTRIC BX R/O H PYLORI) C Esophagus Biopsy (DISTAL ESOPHAGUS BX R/O EOE) D Esophagus Biopsy (PROXIMAL ESOPHAGUS BX R/O EO) Procedures: , Gross/Micro L4/4, H PYLORI Patient: Olga Sales [id number] (Continued) Specimen: [id number] Received: 08/17/24 (Continued) Signed (signature on file) Ward Macias Jr., MD 08/18/24 0926 Specimen: Received: 08/17/24 Status: AD oMreira Num: [id number] Spec Type: Surgical Subm Dr: Jane Spaulding DO Tissues: A Small Intestine - Biopsy/Polyp (SM BOWEL BX R/O CELIAC) B GASTRIC FOR HP (GASTRIC BX R/O H PYLORI) C Esophagus Biopsy (DISTAL ESOPHAGUS BX R/O EOE) D Esophagus Biopsy (PROXIMAL ESOPHAGUS BX R/O EO) Procedures: HE/8, Gross/Micro L4/4, H PYLORI Patient: Olga Sales [id number] (Continued) Specimen: [id number] Received: 08/17/24 (Continued) Clinical Information Globus/constipation. Part A rule out celiac, Part B rule out H. pylori, Part C and D rule out eosinophilic esophagitis Gross Description Part A is received in formalin labeled with the patients name, date of , and small bowel BX is a santana-delarosa, focally erythematous, friable, 0.4 cm in greatest dimension tissue bit. The specimen is entirely submitted in a single cassette. (1, ns, S25-10 A) JG Part B is received in formalin labeled with the patients name, date of , and gastric BX are 2 santana-delarosa, focally erythematous, friable, 0.2 and 0.3 cm in greatest dimension tissue bits. The specimen is entirely submitted in a single cassette. (1, ns, S25-10 B) JG Part C is received in formalin labeled with the patients name, date of , and distal esophagus BX is a pale delarosa, focally erythematous, feathery, 0.3 cm in greatest dimension tissue bit. The specimen is entirely submitted in a single cassette. (1, ns, S25-10 C) JG Part D is received in formalin labeled with the patients name, date of , and proximal esophagus BX is a pale delarosa, feathery, 0.4 cm in greatest dimension tissue bit. The specimen is entirely submitted in a single cassette. (1, ns, S25-10 D) Microscopic Description Microscopic examination performed Immunoperoxidase stain performed on formalin fixed and paraffin-embedded tissue sections (block B1) for Helicobacter p (more content not included)... Normal [facility] IGP,APTIMA HPV,AGE GDLNon AGE GDLN ACOG TESTING Note . [facility] Comment on above: TESTS RESULT FLAG U NITS REF RANGE LAB Clinician Provided Cytology Information Source.............Cervix;Endocervix No. of containers..01 ThinPrep Vial Age Algo ACOG Angélica... FLAG LEGEND: L-Low Normal,H-High Normal,LL-Alert Low,HH-Alert High <-Panic Low,>-Panic High,A-Abnormal,AA-Critical Abnormal Performed at: 01 = [facility] [address] Elli Medeiros MD, HPV APTIMA Negative Negative [facility] Comment on above: This nucleic acid am plification test detects fourteen high- risk HPV types (16,18,31,33,35,39,45,51,52,56,58,59,66,68) without differentiation. Performed at: =[employer] [facility] [id number] Account Solutions Analyst: Elli Medeiros MD, Phone: [phone] Performed at: [facility] [id number] [place] [id number] Account Solutions Analyst: Edward Hamilton MD, Phone: [phone] IGP, APTIMA HPV, RFX 16/18,45 Note . [facility] Comment on above: TESTS RESULT FLAG UN ITS REF RANGE LAB DIAGNOSIS: 02 NEGATIVE FOR INTRAEPITHELIAL LESION OR MALIGNANCY. Specimen adequacy: 02 Satisfactory for evaluation. Endocervical and/or squamous metaplastic cells (endocervical component) are present. Performed by: 02 Ifeanyi Pizarro, Page Designer (ASC) . 02 Note: Note 03 The Pap smear is a screening test designed to aid in the detection of premalignant and malignant conditions of the uterine cervix. It is not a diagnostic procedure and should not be used as the sole means of detecting cervical cancer. Both false-positive and false-negative reports do occur. Test Methodology: Note 03 This liquid based ThinPrep(R) pap test was screened with the use of an image guided system. HPV Genotype Reflex Note 02 Criteria not met, HPV Genotype not performed. FLAG LEGEND: L-Low Normal,H-High Normal,LL-Alert Low,HH-Alert High <-Panic Low,>-Panic High,A-Abnormal,AA-Critical Abnormal Performed at: 02 [facility] [address] [place] [address] Edward Hamilton MD, 03 WB [facility] [address] [address] Elli Medeiros MD, BRUSH-SPATULA CERVIX [facility]IX [facility] Human papilloma virus 16+18+ 31+33+35+39+45+51+52+56+58+59+66+68 DNA [Presence] in Yoan 08-07-2024 HPV 16+18+31+33+35+39+ 45+51+52+56+58+59+ 66+68 DNA Probe+sig amp Ql (Cvx) Human papilloma virus 16+18+31+33+35+39+45+51+52+ 56+58+59+66+68 DNA [Presence] in Cer Negative [facility] Comment on above: This nucleic acid am plification test detects fourteen high- risk HPV types (16,18,31,33,35,39,45,51,52,56,58,59,66,68)without differentiation.Performed at: =G - [facility] [address] [id number] Director: Elli Medeiros MD, Phone: [phone] at: [facility] [id number] [place], [place] [id number] Director: Edward Hamilton MD, Phone: [phone] No Panel Informationon 08-07 HPV High Risk Other Comment Note . [facility] Comment on above: TESTS RESULT FLAG UN ITS REF RANGE LAB DIAG NOSIS: 02 NEGATIVE FOR INTRAEPITHELIAL LESION OR MALIGNANCY.Specimen adequacy: 02 Satisfactory for evaluation. Endocervical and/or squamous metaplastic cells (endocervical component) are present.Performed by: 02 Ifeanyi Pizarro, Page Designer (ASCP). 02Note: Note 03 The Pap smear is a screening test designed to aid in the detection of premalignant and malignant conditions of the uterine cervix. It is not a diagnostic procedure and should not be used as the sole means of detecting cervical cancer. Both false-positive and false-negative reports do occur.Test Methodology: Note 03 This liquid based ThinPrep(R) pap test was screened with the use of an image guided system.HPV Genotype Reflex Note 02 Criteria not met, HPV Genotype not performed. --- FLAG LEGEND: L-Low Normal,H-High Normal,LL-Alert Low,HH-Alert High <-Panic Low,>-Panic High,A-Abnormal,AA-Critical Abnormal -Performed at:02 [facility] [address] [place] [address] Edward Hamilton MD, 03 WB [facility] [address] [address] Elli Medeiros MD, Reference Lab Test Patient Age Note . [facility] Comment on above: TESTS RESULT FLAG UN ITS REF RANGE LAB Clinician Provided Cytology Information Source.............Cervix;Endocervix No. of containers..01 ThinPrep VialAge Milao LUXOG Angélica... 30-65 01 FLAG LEGEND: L-Low Normal,H-High Normal,LL-Alert Low,HH-Alert High <-Panic Low,>-Panic High,A-Abnormal,AA-Critical Abnormal -Performed at:01 =G [facility] [address] [place] [address] Elli Medeiros MD, HCG ( test) Aleida thompson Ql (U)on 12-07-2023 HCG ( test) Ql (U) Negative NEGATIVE [facility] Christos 12-07-2023 L Specimen: [id number] Received: 12/08/23 Status: SOUT Req Num: [id number] Spec Type: Surgical Subm Dr: LAYNE SEE MD Tissues: A TONGUE - biopsy (RT TONGUE BASE) Procedures: HE/2, Gross/Micro L4, AE1-AE3, BCL-2, BCL-6, CD10, CD20, CD23, CD3, CD5, Ki-67, PAX5 Age/ Patient Sex Location Account Attending Physician Olga Sales 38/F [facility] [id number] LAYNE SEE MD SPEC NUM: [id number] RECD: 12/08/23 STATUS: SOUMichael REQ NUM: [id number] KARINA: 12/07/[address]: LAYNE SEE MD ENTERED: 12/08/23 [facility] DR: Milady Hope SPEC TYPE: Surgical DEPT: ADILSON CAO ORDERED: [...] history: Dysphagia, santana base asymmetry CPT Codes 12703, 72728, 23476j9 Specimen: [id number] Received: 12/08/23 Status: AD Moreira Num: [id number] Spec Type: Surgical Subm Dr: LAYNE SEE MD Tissues: A TONGUE - biopsy (RT TONGUE BASE) Procedures: HE/2, Gross/Micro L4, AE1-AE3, BCL-2, BCL-6, CD10, CD20, CD23, CD3, CD5, Ki-67, PAX5 Patient: Olga Sales [id number] (Continued) Signed (signature on file) Romeo Dong MD 12/14/23 1430 Normal [facility] Basophils Auto (Bld) [#/Vol] on 11-26-2023 Basophils (Bld) [#/Vol] 0.0 10 3/uL 0.0-0.1 [facility] Basophils/100 WBC Auto (Bld) on 11-26-2023 Basophils/100 WBC (Bld) 0.3 % 0.2-2.0 [facility] Eosinophils/100 WBC Auto (Bl d)on 11-26-2023 Eosinophils/100 WBC (Bld) 0.8 % 0.9-7.0 [facility] Erythrocyte distribution wid th Auto (RBC) [Ratio]on 11-26-2023 Erythrocyte distribution width (RBC) [Ratio] 12.9 % 11.0-15.0 [facility] Hematocrit Auto (Bld) [Volum e fraction]on 11-26-2023 Hematocrit (Bld) [Volume fraction] 37.8 % 36.0-48.0 [facility] Hemoglobin [Mass/volume] in Bloodon 11-26-2023 Hemoglobin (Bld) [Mass/Vol] 12.3 g/dL 12.0-16.0 [facility] Laboratory - Hematology and Cell countson 11-26-2023 Immature granulocytes/100 WBC (Bld) 0.3 % 0.0-0.5 [facility] Leukocytes [#/volume] correc eileen for nucleated erythrocytes in Blood by Automated counon 11-26-2023 WBC corrected for nucl RBC Auto (Bld) [#/Vol] 6.5 10 3/uL 4.0-11.0 [facility] Lymphocytes Auto (Bld) [#/Vo l]on 11-26-2023 Lymphocytes (Bld) [#/Vol] 2.4 10 3/uL 1.2-3.8 [facility] Lymphocytes/100 WBC Auto (Bl d)on 11-26-2023 Lymphocytes/100 WBC (Bld) 37.2 % 20.5-60.0 [facility] MCH Auto (RBC) [Entitic mass ]on 11-26-2023 MCH (RBC) [Entitic mass] 28.6 pg 26.7-34.0 [facility] MCHC Auto (RBC) [Mass/Vol]on 11-26-2023 MCHC (RBC) [Mass/Vol] 32.5 g/dL 29.9-35.2 [facility] MCV Auto (RBC) [Entitic vol] on 11-26-2023 MCV (RBC) [Entitic vol] 87.9 fL 81.0-99.0 [facility] Monocytes Auto (Bld) [#/Vol] on 11-26-2023 Monocytes (Bld) [#/Vol] 0.4 10 3/uL 0.3-0.8 [facility] Monocytes/100 WBC Auto (Bld) on 11-26-2023 Monocytes/100 WBC (Bld) 6.2 % 1.7-12.0 [facility] Neutrophils Auto (Bld) [#/Vo l]on 11-26-2023 Neutrophils (Bld) [#/Vol] 3.6 10 3/uL 1.4-6.5 [facility] Neutrophils/100 WBC Auto (Bl d)on 11-26-2023 Neutrophils/100 WBC (Bld) 55.2 % 43.0-75.0 [facility] No Panel Informationon 11-25 Eosinophils # (Auto) 0.1 10 3/uL 0.0-0.7 [facility] Immature Granulocyte # (Auto) 0.02 10 3/uL 0.00-0.03 [facility] Platelet mean volume Auto (B ld) [Entitic vol]on 11-26-2023 Platelet mean volume (Bld) [Entitic vol] 9.7 fL 9.5-13.5 [facility] Platelets Auto (Bld) [#/Vol] on 11-26-2023 Platelets (Bld) [#/Vol] 279 10 3/uL 150-450 [facility] RBC Auto (Bld) [#/Vol]on RBC (Bld) [#/Vol] 4.30 10 6/uL 4.20-5.40 [facility] .Auto Diff 1on 02-17-2023 Auto Turner % 7 % Normal 08-27 [facility] Comment on above: Performed By: #### 1 [id number], [id number], [id number], [id number] #### [facility] (DEFAULT) [address] [place] [address] Baso Abs# 0.0 x10 Normal 0.0-0.2 [facility] Comment on above: Performed By: #### 1 [id number], [id number], [id number], 1485585 #### [facility] (DEFAULT) [address] [place] [address] Basophils/100 WBC (Bld) 0.4 % Normal 0.2-2.0 [facility] Comment on above: Performed By: #### 1 [id number], [id number], 96062991, 2964146 #### [facility] (DEFAULT) [address] [place] [address] Eos Abs# 0.1 x10 Normal 0.0-0.4 [facility] Comment on above: Performed By: #### 1 [id number], [id number], 78771024, 3616518 #### [facility] (DEFAULT) [address] [place] [address] Eosinophils/100 WBC (Bld) 1.0 % Normal 0.9-4.0 [facility] Comment on above: Performed By: #### 1 [id number], [id number], 43028106, 0434735 #### [facility] (DEFAULT) [address] [place] [address] Lymph Abs# 2.4 x10 Normal 1.3-2.9 [facility] Comment on above: Performed By: #### 1 [id number], [id number], 85379162, 3785149 #### [facility] (DEFAULT) [address] [place] [address] Lymphocytes/100 WBC (Bld) 41 % Normal 14-48 [facility] Comment on above: Performed By: #### 1 [id number], [id number], 95439673, 4572221 #### [facility] (DEFAULT) [address] [place] [address] Turner Abs# 0.4 x10 Normal 0.0-0.8 [facility] Comment on above: Performed By: #### 1 [id number], [id number], 50100916, 3866444 #### [facility] (DEFAULT) [address] [place] [address] Neut Abs# 2.9 x10 Normal 1.5-9.2 [facility] Comment on above: Performed By: #### 1 [id number], [id number], 96792338, 9001820 #### [facility] (DEFAULT) [address] [place] [address] Neutrophils/100 WBC (Bld) 50 % Normal 44-88 [facility] Comment on above: Performed By: #### 1 [id number], [id number], 92851288, 7802469 #### [facility] (DEFAULT) [address] [place] [address] CBC w/ Auto Diffon 3 Erythrocyte distribution width (RBC) [Ratio] 14.1 % Normal 11.5-15.0 [facility] Comment on above: Performed By: #### 1 [id number], [id number], 88376213, 5026455 #### [facility] (DEFAULT) [address] [place] [address] Hematocrit (Bld) [Volume fraction] 37.5 % Normal 33.7-40.4 [facility] Comment on above: Performed By: #### 1 [id number], 1687914158, 74773286, 3122074 #### [facility] (DEFAULT) [address] [place] [address] Hemoglobin (Bld) [Mass/Vol] 12.8 g/dL Normal 11.3-15.9 [facility] Comment on above: Performed By: #### 1 [id number], [id number], 78346405, 1216148 #### [facility] (DEFAULT) [address] [place] [address] Man Diff? Auto Invalid Interpretation Code [facility] Comment on above: Performed By: #### 1 [id number], [id number], 74201410, 5575310 #### [facility] (DEFAULT) [address] [place] [address] MCH (RBC) [Entitic mass] 29 pg Normal 24-34 [facility] Comment on above: Performed By: #### 1 [id number], [id number], 58781462, 9231051 #### [facility] (DEFAULT) [address] [place] [address] MCHC (RBC) [Mass/Vol] 34 g/dL Normal 26-37 [facility] Comment on above: Performed By: #### 1 [id number], [id number], 57206496, 6523445 #### [facility] (DEFAULT) [address] [place] [address] MCV (RBC) [Entitic vol] 85 fL Normal 81-100 [facility] Comment on above: Performed By: #### 1 [id number], [id number], 80267524, 2262482 #### [facility] (DEFAULT) [address] [place] [address] Platelet 298 x10 Normal 138-427 [facility] Comment on above: Performed By: #### 1 [id number], [id number], 18964084, 6169802 #### [facility] (DEFAULT) [address] [place] [address] Platelet mean volume (Bld) [Entitic vol] 8.0 fL Normal 6.3-10.2 [facility] Comment on above: Performed By: #### 1 [id number], [id number], 93900182, 4402516 #### [facility] (DEFAULT) [address] [place] [address] RBC 4.42 x10 Normal 3.70-5.30 [facility] Comment on above: Performed By: #### 1 [id number], [id number], 68141188, 0227583 #### [facility] (DEFAULT) [address] [place] [address] WBC 5.8 x10 Normal 3.5-10.5 [facility] Comment on above: Performed By: #### 1 [id number], [id number], 57283709, 9456665 #### [facility] (DEFAULT) [address] [place] [address] CMP Standardon 02-17-2023 eGFR Non AA >60 Invalid Interpretation Code [facility] Comment on above: Performed By: #### 1 [id number], [id number], 11536212, 8002701 #### [facility] (DEFAULT) [address] [place] [address] eGFR AA >60 Invalid Interpretation Code [facility] Comment on above: Performed By: #### 1 [id number], [id number], 91115001, 4534207 #### [facility] (DEFAULT) [address] [place] [address]36 Albumin [Mass/Vol] 3.9 g/dL Normal 3.5-5.0 [facility] Comment on above: Performed By: #### 1 [id number], 5561551567, 93612709, 7146328 #### [facility] (DEFAULT) [address] [place] [address] Albumin/Globulin [Mass ratio] 1.3 {ratio} Low 1.4-2.6 [facility] Comment on above: Performed By: #### 1 [id number], 3742676173, 55702121, 6160567 #### [facility] (DEFAULT) [address] [place] [address] Alk Phos 57 IU/L Normal 32-91 [facility] Comment on above: Performed By: #### 1 [id number], 1492510761, 99073855, 7835653 #### [facility] (DEFAULT) [address] [place] [address] ALT [Catalytic activity/Vol] 17.0 U/L Normal 14.0-54.0 [facility] Comment on above: Performed By: #### 1 [id number], 4180981780, 54302857, 4501741 #### [facility] (DEFAULT) [address] [place] [address] Anion gap [Moles/Vol] 9.8 mmol/L Normal 5.0-19.0 [facility] Comment on above: Performed By: #### 1 [id number], 0393719502, 87355865, 5528566 #### [facility] (DEFAULT) [address] [place] [address] 48820 AST [Catalytic activity/Vol] 16 U/L Normal 15-41 [facility] Comment on above: Performed By: #### 1 [id number], 6498203123, 18598170, 2794387 #### [facility] (DEFAULT) [address] [place] [address] Bili Total 0.5 mg/dL Normal 0.3-1.2 [facility] Comment on above: Performed By: #### 1 [id number], 7948849412, 70569201, 8741394 #### [facility] (DEFAULT) [address] [place] [address]391 Calcium [Mass/Vol] 8.7 mg/dL Low 8.9-10.3 [facility] Comment on above: Performed By: #### 1 [id number], 5726905199, 95500138, 8445073 #### [facility] (DEFAULT) [address] [place] [address] Chloride [Moles/Vol] 109 mmol/L Normal 101-111 [facility] Comment on above: Performed By: #### 1 [id number], [id number], 36228880, 2807133 #### [facility] (DEFAULT) [address] [place] [address]48[address] CO2 [Moles/Vol] 25 mmol/L Normal 21-32 [facility] Comment on above: Performed By: #### 1 [id number], 8919666331, 10339132, 7727705 #### [facility] (DEFAULT) [address] [place] [address]2012 Creatinine [Mass/Vol] 0.70 mg/dL Normal 0.60-1.30 [facility] Comment on above: Performed By: #### 1 [id number], 4375130496, 67990338, 6307438 #### [facility] (DEFAULT) [address] [place] [address] 31342 Globulin (S) [Mass/Vol] 3.0 g/dL Normal 1.5-4.3 [facility] Comment on above: Performed By: #### 1 [id number], 6508075521, 39137830, 6166234 #### [facility] (DEFAULT) [address] [place] [address] 15580 Glucose [Mass/Vol] 98.0 mg/dL Normal 74.0-118.0 [facility] Comment on above: Performed By: #### 1 [id number], 0566456462, 96082486, 0911170 #### [facility] (DEFAULT) [address] [place] [address] 23043 Osmolality 280 mOsm/L Invalid Interpretation Code [facility] Comment on above: Performed By: #### 1 [id number], [id number], 12615397, 2523784 #### [facility] (DEFAULT) [address] [place] [address] Potassium [Moles/Vol] 3.8 mmol/L Normal 3.6-5.1 [facility] Comment on above: Performed By: #### 1 [id number], 7535169575, 84039237, 7750801 #### [facility] (DEFAULT) [address] [place] [address] 48043 Protein [Mass/Vol] 6.9 g/dL Normal 6.5-8.1 [facility] Comment on above: Performed By: #### 1 [id number], 1524618892, 51862977, 8630710 #### [facility] (DEFAULT) [address] [place] [address] 79276 Sodium [Moles/Vol] 140.0 mmol/L Normal 136.0-144.0 [facility] Comment on above: Performed By: #### 1 [id number], 8811327413, 91988155, 6857389 #### [facility] (DEFAULT) [address] [place] [address]174 Urea nitrogen [Mass/Vol] 15 mg/dL Normal 8-26 [facility] Comment on above: Performed By: #### 1 [id number], [id number], [id number], [id number] #### [facility] (DEFAULT) [address] [place] [address] 96294 Urea nitrogen/Creatinin e [Mass ratio] 21.4 mg/mg High 4.6-16.2 [facility] Comment on above: Performed By: #### 1 [id number], [id number], [id number], [id number] #### [facility] (DEFAULT) [address] [place] [address] 44233 Lipid Panel Standardon 02-17 Cholesterol [Mass/Vol] 154.0 mg/dL Normal 66.0-200.0 [facility] Comment on above: Performed By: #### 1 [id number], [id number], [id number], [id number] #### [facility] (DEFAULT) [address] [place] [address] 28796 Cholesterol in HDL [Mass/Vol] 66 mg/dL Normal 40-71 [facility] Comment on above: Performed By: #### 1 [id number], [id number], [id number], [id number] #### [facility] (DEFAULT) [address] [place] [address] 78200 Cholesterol in LDL [Mass/Vol] 81 mg/dL Normal 1-100 [facility] Comment on above: Performed By: #### 1 [id number], [id number], [id number], [id number] #### [facility] (DEFAULT) [address] [place] [address] 93347 Cholesterol.total/ Cholesterol in HDL [Mass ratio] 2.3 {ratio} Normal 0.0-4.5 [facility] Comment on above: Performed By: #### 1 [id number], [id number], [id number], [id number] #### [facility] (DEFAULT) [address] [place] [address] 63426 Triglyceride [Mass/Vol] 31.0 mg/dL Normal 0.0-150.0 [facility] Comment on above: Performed By: #### 1 [id number], [id number], [id number], [id number] #### [facility] (DEFAULT) [address] [place] [address] 69365 VLDL. 6 mg/dL Normal 5-40 [facility] Comment on above: Performed By: #### 1 [id number], [id number], [id number], [id number] #### [facility] (DEFAULT) [address] [place] [address] 59697 Consent Formson 10-27-2022 Consent Forms [id number] [facility] Consent Formson 08-13-2022 Consent Forms [id number]#1.00[facility] AUTO DIFFon 07-18-2022 BASO # 0.0 103/ul Normal 0.0-0.1 [facility] Comment on above: Performed By: #### C BC #### [facility] [address] [place] [address] Dr. Cullen Garcia Basophils/100 WBC (Bld) 0.1 % Critically low 0.2-2.0 [facility] Comment on above: Performed By: #### C BC #### [facility] [address] [place] [address] Dr. Cullen Garcia EO # 0.0 103/ul Normal 0.0-0.7 [facility] Comment on above: Performed By: #### C BC #### [facility] [address] [place] [address] Dr. Cullen Garcia Eosinophils/100 WBC (Bld) 0.5 % Critically low 0.9-7.0 [facility] Comment on above: Performed By: #### C BC #### [facility] [address] [place] [address] Dr. Cullen Garcia Erythrocyte distribution width (RBC) [Ratio] 13.1 % Normal 11.0-15.0 [facility] Comment on above: Performed By: #### C BC #### [facility] [address] [place] [address] Dr. Cullen Garcia Hematocrit (Bld) [Volume fraction] 38.2 % Normal 36.0-48.0 [facility] Comment on above: Performed By: #### C BC #### [facility] [address] [place] [address] Dr. Cullen Garcia Hemoglobin (Bld) [Mass/Vol] 12.8 g/dL Normal 12.0-16.0 [facility] Comment on above: Performed By: #### C BC #### [facility] [address] [place] [address] Dr. Cullen Garcia IG # 0.02 10e3/ul Normal 0.00-0.03 [facility] Comment on above: Performed By: #### C BC #### [facility] [address] [place] [address] Dr. Cullen Garcia IG % 0.3 % Normal 0.0-0.5 [facility] Comment on above: Performed By: #### C BC #### [facility] [address] [place] [address] Dr. Cullen Garcia LYMPH # 2.4 103/ul Normal 1.2-3.8 [facility] Comment on above: Performed By: #### C BC #### [facility] [address] [place] [address] Dr. Cullen Garcia Lymphocytes/100 WBC (Bld) 32.6 % Normal 20.5-60.0 [facility] Comment on above: Performed By: #### C BC #### [facility] [address] [place] [address] Dr. Cullen Garcia MANUAL DIFF REQ NO Normal [facility] Comment on above: Performed By: #### C BC #### [facility] [address] [place] [address] Dr. Cullen Garcia MCH (RBC) [Entitic mass] 28.9 pg Normal 26.7-34.0 [facility] Comment on above: Performed By: #### C BC #### [facility] [address] [place] [address] Dr. Cullen Garcia MCHC (RBC) [Mass/Vol] 33.5 g/dL Normal 29.9-35.2 [facility] Comment on above: Performed By: #### C BC #### [facility] [address] [place] [address] Dr. Cullen Garcia MCV (RBC) [Entitic vol] 86.2 fL Normal 81.0-99.0 [facility] Comment on above: Performed By: #### C BC #### [facility] [address] [place] [address] Dr. Cullen Garcia MONO # 0.5 103/ul Normal 0.3-0.8 [facility] Comment on above: Performed By: #### C BC #### [facility] [address] [place] [address] Dr. Cullen Garcia Monocytes/100 WBC (Bld) 6.7 % Normal 1.7-12.0 [facility] Comment on above: Performed By: #### C BC #### [facility] [address] [place] [address] Dr. Cullen Garcia NEUT # 4.4 103/ul Normal 1.4-6.5 [facility] Comment on above: Performed By: #### C BC #### [facility] [address] [place] [address] Dr. Cullen Garcia Neutrophils/100 WBC (Bld) 59.8 % Normal 43.0-75.0 [facility] Comment on above: Performed By: #### C BC #### [facility] [address] [place] [address] Dr. Cullen Garcia Platelet mean volume (Bld) [Entitic vol] 9.5 fL Normal 9.5-13.5 [facility] Comment on above: Performed By: #### C BC #### [facility] [address] [place] [address] Dr. Cullen Garcia PLT 279 103/ul Normal 150-450 [facility] Comment on above: Performed By: #### C BC #### [facility] [address] [place] [address] Dr. Cullen Garcia RBC 4.43 106/ul Normal 4.20-5.40 [facility] Comment on above: Performed By: #### C BC #### [facility] [address] [place] [address] Dr. Cullen Garcia WBC 7.3 103/ul Normal 4.0-11.0 [facility] Comment on above: Performed By: #### C BC #### [facility] [address] [place] [address] Dr. Cullen Garcia Covid-19 PCR ([facility])on SARS-CoV-2 (COVID-19) RNA ALISE+probe Ql (Unsp spec) Not detected Normal NOT DETECTED [facility] Comment on above: Result Comment: This test is not yet approved or cleared by the [place] FDA. When there are no FDA-approved or cleared tests available, and other criteria are met, FDA can make tests available under an emergency access mechanism called an Emergency Use Authorization (EUA). The EUA for this test is supported by the [employer] of Health and Human Service's (HHS's) declaration [...] SARS-CoV-2. Performed By: #### C VDTBH #### [facility] [address] [place] [address] Dr. Cullen Garcia PREG QUANT HCGon 07-18-2022 HCG QUANT <1 Normal [facility] Comment on above: Performed By: #### P REGQNT #### [facility] [address] [place] [address] Dr. Cullen Garcia HCG RANGE SEE BELOW Normal [facility] Comment on above: Result Comment: 5-50 0.2-1 WEEK 50-500 1-2 WEEKS 100-5,000 2-3 WEEKS 500-10,000 3-4 WEEKS 1,000-50,000 4-5 WEEKS 10,000-100,000 5-6 WEEKS 15,000-200,000 6-8 WEEKS 10,000-100,000 2-3 MONTHS Performed By: #### P REGQNT #### [facility] [address] [place] [address] Dr. Cullen Garcia AFP (TUMOR MARKER)on 022 AFP, Serum, Tumor Marker 1.8 ng/mL Normal 0.0-6.4 [facility] Comment on above: Result Comment: [employer] Electrochemiluminescence Immunoassay (ECLIA) . Values obtained with different assay methods or kits cannot be used interchangeably. Results cannot be interpreted as absolute evidence of the presence or absence of malignant disease. . This test is not interpretable in females. Performed By: #### A FP. #### [facility] [address] [place] [address] Dr. Cullen Garcia CA 125on 06-18-2022 Cancer Antigen (CA) 125 23.7 U/mL Normal 0.0-38.1 [facility] Comment on above: Result Comment: [employer] Electrochemiluminescence Immunoassay (ECLIA) . Values obtained with different assay methods or kits cannot be used interchangeably. Results cannot be interpreted as absolute evidence of the presence or absence of malignant disease. Performed By: #### C VDTBH #### [facility] [address] [place] [address] Dr. Cullen Garcia CEAon 06-18-2022 CEA 0.5 ng/mL Normal 0.0-4.7 [facility] Comment on above: Result Comment: Nons mokers <3.9 Smokers <5.6 . [employer] Electrochemiluminescence Immunoassay (ECLIA) . Values obtained with different assay methods or kits cannot be used interchangeably. Results cannot be interpreted as absolute evidence of the presence or absence of malignant disease. Performed By: #### C EA. #### [facility] [address] [place] [address] Dr. Cullen Garcia LDHon 06-16-2022 LDH 152 U/L Normal 81-234 [facility] Comment on above: Performed By: #### C VDTBH #### [facility] [address] [place] [address] Dr. Cullen Garcia PREG QUANT HCGon 06-16-2022 HCG QUANT <1 Normal [facility] Comment on above: Performed By: #### C VDTBH #### [facility] [address] [place] [address] Dr. Cullen Garcia HCG RANGE SEE BELOW Normal [facility] Comment on above: Result Comment: 5-50 0.2-1 WEEK 50-500 1-2 WEEKS 100-5,000 2-3 WEEKS 500-10,000 3-4 WEEKS 1,000-50,000 4-5 WEEKS 10,000-100,000 5-6 WEEKS 15,000-200,000 6-8 WEEKS 10,000-100,000 2-3 MONTHS Performed By: #### C VDTBH #### [facility] [address] [place] [address] Dr. Cullen Garcia US PELVIS AND TRANSVAGon [...] authenticated by: JADEN LEBLANC Date: 2022-05-28 19:04 [facility] PAP ACOG PANEL 2: 30 to 65on 05-18-2022 . . Normal [facility] Comment on above: Result Comment: Perf ormed at: WB Performed By: #### 4 [id number] #### [facility] [address] [place] [address] Dr. Cullen Garcia Age Gdln ACOG Testing 30-65 Normal [facility] Comment on above: Performed By: #### 4 [id number] #### [facility] [address] [place] [address] Dr. Cullne Garcia DIAGNOSIS: Comment [facility] Comment on above: Result Comment: NEGA TIVE FOR INTRAEPITHELIAL LESION OR MALIGNANCY. Performed at: WB Performed By: #### 4 [id number] #### [facility] [address] [place] [address] Dr. Cullen Garcia HPV Aptima Negative Normal Negative [facility] Comment on above: Result Comment: This nucleic acid amplification test detects fourteen high-risk HPV types (16,18,31,33,35,39,45,51,52,56,58,59,66,68) without differentiation. Performed at: =G Performed By: #### 4 [id number] #### [facility] [address] [place] [address] Dr. Cullen Garcia Methodology: Comment Normal [facility] Comment on above: Result Comment: This liquid based ThinPrep(R) pap test was screened with the use of an image guided system. Performed at: WB Performed By: #### 4 [id number] #### [facility] [address] [place] [address] Dr. Cullen Garcia Note: Comment Normal [facility] Comment on above: Result Comment: The Pap smear is a screening test designed to aid in the detection of premalignant and malignant conditions of the uterine cervix. It is not a diagnostic procedure and should not be used as the sole means of detecting cervical cancer. Both false-positive and false-negative reports do occur. . Performed at: WB Performed By: #### 4 [id number] #### [facility] [address] [place] [address] Dr. Cullen Garcia Performed by: Comment Normal [facility] Comment on above: Result Comment: Melly Poon, Page Designer (ASCP) Performed at: WB Performed By: #### 4 [id number] #### [facility] [address] [place] [address] Dr. Cullen Garcia Specimen adequacy: Comment Normal [facility] [place] [facility] Comment on above: Result Comment: Sati sfactory for evaluation. Endocervical and/or squamous metaplastic cells (endocervical component) are present. Performed at: WB Performed By: #### 4 [id number] #### [facility] [address] [place] [address] Dr. Cullen Garcia HERPES SIMPLEX VIRUS (HSV) C [facility] 02-08-2022 HSV Culture/Type Comment Normal [facility] Comment on above: Result Comment: Nega tive No Herpes simplex virus isolated. Performed By: #### H SVCUL #### [facility] [address] [place], [place] [address] Dr. Cullen Garcia VAGINITIS/VAGINOSIS DNA PROB [facility] 02-06-2022 Seda species Negative Normal Negative [facility] Comment on above: Performed By: #### V AGINT #### [facility] [address] [place] [address] [address] Cullen Garcia Gardnerella vaginalis Negative Normal Negative [facility] Comment on above: Performed By: #### V AGINT #### [facility] [address] [place] [address] [address] Cullen Garcia Trichomonas vaginalis Negative Normal Negative [facility] Comment on above: Performed By: #### V AGINT #### [facility] [address] [place], [place] [address] Dr. Cullen Garcia Diagnostic Mammogram, Bilate ral [...] VERY IMPORTANT TO YOUR HEALTH. THE CURRENT [employer] GUIDELINES RECOMMENDS ANNUAL MAMMOGRAPHY BEGINNING AT AGE 40 THIS FACILITY USES A REMINDER SYSTEM TO ENSURE ALL PATIENTS RECEIVE REMINDER NOTIFICATIONS AT THE APPROPRIATE TIME BASED ON THE RECOMMENDATIONS OF THIS EXAM. Report reported and signed by Abel Monroy on 08/22/2021 1304 Normal [facility] [employer] XR Chest 2 Views*on 08-22-19 22 XR Chest 2 Views* HISTORY: SOB x 1 mon th, right sided pain FINDINGS: No acute cardiac or pulmonary disease is identified. No worrisome mass lesions or infiltrates are seen. No pulmonary edema or pneumothorax is present. Cardiac silhouette size is normal. Skeletal structures are unremarkable. IMPRESSION: No acute cardiac or pulmonary disease. Report reported and signed by Abel Monroy on 08/22/2021 0938 Normal [facility] Progress Noteon 01-05-2018 HIM IP Note OR Distribution Superintendent Normal [facility] Progress Noteon 12-09-2017 HIM IP Note OR Distribution Superintendent Normal [facility] Progress Noteon 12-08-2017 HIM IP Note OR Distribution Superintendent Normal [facility] Progress Noteon 11-11-2017 HIM IP Note OR Distribution Superintendent Normal [facility] Progress Noteon 11-10-2017 HIM IP Note OR Distribution Superintendent [facility] H. pylori Detectionon 2016 H. pylori Detection Specimen Description .TISSUE, STOMACH BIOPSY Special Requests NOT REPORTED Direct Exam NEGATIVE Report Status FINAL 07/22/2017 [facility] Comment on above: Performed By: #### H JUS ####[facility] [id number] [place] [address] History and Physicalon 07-21 HIM IP Note OR Distribution Superintendent [facility] Vital Signs Date Time Vital Sign Value Performing Clinician Facility 11-17-2024 09:03-0400 Body height 154.94 cm [facility] 11-17-2024 09:03-0400 Body mass index (BMI) [Ratio] 33.4 kg/m2 [facility] 11-17-2024 09:03-0400 Body weight 80.28 kg [facility] 09-08-2024 10:28-0500 Body height 154.94 cm Kenzie Lazar MD Work Phone: [facility] 09-08-2024 10:28-0500 Body mass index (BMI) [Ratio] 36.1 kg/m2 Kenzie Lazar MD Work Phone: [facility] 09-08-2024 10:28-0500 Body weight 86.74 kg Kenzie Lazar MD Work Phone: [facility] 09-08-2024 10:28-0500 Diastolic blood pressure 66 mm[Hg] Kenzie Lazar MD Work Phone: [facility] 09-08-2024 10:28-0500 Heart rate 96 /min Kenzie Lazar MD Work Phone: [facility] 09-08-2024 10:28-0500 Respiratory rate 18 /min Kenzie Lazar MD Work Phone: [facility] 09-08-2024 10:28-0500 SaO2% (BldA) [Mass fraction] 99 % Kenzie Lazar MD Work Phone: [facility] 09-08-2024 10:28-0500 Systolic blood pressure 107 mm[Hg] Kenzie Lazar MD Work Phone: [facility] 09-01-2024 09:03-0500 Body height 154.94 cm Kenzie Lazar MD Work Phone: [facility] 09-01-2024 09:03-0500 Body mass index (BMI) [Ratio] 36.6 kg/m2 Kenzie Lazar MD Work Phone: [facility] 09-01-2024 09:03-0500 Body weight 87.99 kg Kenzie Lazar MD Work Phone: [facility] 09-01-2024 09:03-0500 Diastolic blood pressure 81 mm[Hg] Kenzie Lazar MD Work Phone: [facility] 09-01-2024 09:03-0500 Heart rate 85 /min Kenzie Lazar MD Work Phone: [facility] 09-01-2024 09:03-0500 Systolic blood pressure 120 mm[Hg] Kenzie Lazar MD Work Phone: [facility] 08-17-2024 08:42-0500 Diastolic blood pressure 61 mm[Hg] Kenzie Lazar MD Work Phone: [facility] 08-17-2024 08:42-0500 Heart rate 80 /min Kenzie Lazar MD Work Phone: [facility] 08-17-2024 08:42-0500 Respiratory rate 20 /min Kenzie Lazar MD Work Phone: [facility] 08-17-2024 08:42-0500 SaO2% (BldA) [Mass fraction] 100 % Kenzie Lazar MD Work Phone: [facility] 08-17-2024 08:42-0500 Systolic blood pressure 103 mm[Hg] Kenzie Lazar MD Work Phone: [facility] 08-17-2024 07:22-0500 Body height 154.94 cm Kenzie Lazar MD Work Phone: [facility] 08-17-2024 07:22-0500 Body weight 87.54 kg Kenzie Lazar MD Work Phone: [facility] 08-07-2024 10:46-0500 Body mass index (BMI) [Ratio] 36.84 kg/m2 Hamilton Brian DO Work Phone: [facility] 08-07-2024 10:46-0500 Body weight 88.45 kg Hamilton Brian DO Work Phone: [facility] 08-07-2024 10:46-0500 Diastolic blood pressure 74 mm[Hg] Hamilton Brian DO Work Phone: [facility] 08-07-2024 10:46-0500 Systolic blood pressure 122 mm[Hg] Hamilton Brian DO Work Phone: [facility] 07-28-2024 10:09-0500 Body height 154.94 cm Kenzie Lazar MD Work Phone: [facility] 07-28-2024 10:09-0500 Body mass index (BMI) [Ratio] 37.8 kg/m2 Kenzie Lazar MD Work Phone: [facility] 07-28-2024 10:09-0500 Body weight 90.71 kg Kenzie Lazar MD Work Phone: [facility] 07-28-2024 10:09-0500 Diastolic blood pressure 69 mm[Hg] Kenzie Lazar MD Work Phone: [facility] 07-28-2024 10:09-0500 Heart rate 74 /min Kenzie Lazar MD Work Phone: [facility] 07-28-2024 10:09-0500 Respiratory rate 18 /min Kenzie Lazar MD Work Phone: [facility] 07-28-2024 10:09-0500 SaO2% (BldA) [Mass fraction] 100 % Kenzie Lazar MD Work Phone: [facility] 07-28-2024 10:09-0500 Systolic blood pressure 104 mm[Hg] Kenzie Lazar MD Work Phone: [facility] 07-19-2024 10:23-0500 Body height 152.4 cm Kenzie Lazar MD Work Phone: [facility] 07-19-2024 10:23-0500 Body mass index (BMI) [Ratio] 39.4 kg/m2 Kenzie Lazar MD Work Phone: [facility] 07-19-2024 10:23-0500 Body weight 91.62 kg Kenzie Lazar MD Work Phone: [facility] 06-12-2024 14:47-0400 Body mass index (BMI) [Ratio] 42.2 kg/m2 [facility] 06-12-2024 14:47-0400 Diastolic blood pressure 72 mm[Hg] [facility] 06-12-2024 14:47-0400 Heart rate 80 /min [facility] 06-12-2024 14:47-0400 Respiratory rate 16 /min [facility] 06-12-2024 14:47-0400 SaO2% (BldA) [Mass fraction] 100 % [facility] 06-12-2024 14:47-0400 Systolic blood pressure 119 mm[Hg] [facility] 06-12-2024 10:57-0400 Body height 153.03 cm [facility] 06-12-2024 10:57-0400 Body weight 98.93 kg [facility] 03-20-2024 13:32-0400 Body height 154.94 cm [facility] 03-20-2024 13:32-0400 Body mass index (BMI) [Ratio] 40 kg/m2 [facility] 03-20-2024 13:32-0400 Body weight 96.16 kg [facility] 03-20-2024 13:32-0400 Diastolic blood pressure 62 mm[Hg] [facility] 03-20-2024 13:32-0400 Heart rate 83 /min [facility] 03-20-2024 13:32-0400 Systolic blood pressure 104 mm[Hg] [facility] 09-13-2023 09:30-0500 Body height 154.94 cm Kenzie Lazar Other [facility] 09-13-2023 09:30-0500 Body mass index (BMI) [Ratio] 41.26 kg/m2 Kenzie Lazar Other [facility] [employer] Other 09-13-2023 09:30-0500 Body weight 99.07 kg Kenzie Lazar Other [facility] [employer] Other 09-13-2023 09:30-0500 Body weight 99.06 kg MD Kenzie Lazar Work Phone: [facility] 09-13-2023 09:30-0500 Diastolic blood pressure 76 mm[Hg] Kenzie Lazar Other [facility] 09-13-2023 09:30-0500 Systolic blood pressure 110 mm[Hg] Kenzie Lazar Other [facility] 08-25-2023 09:00-0500 Body height 154.94 cm Natali Love Other [employer] Other 08-25-2023 09:00-0500 Body mass index (BMI) [Ratio] 41.19 kg/m2 Natali Love Other [employer] Other 08-25-2023 09:00-0500 Body temperature 97.6 [degF] Natali Love Other [employer] Other 08-25-2023 09:00-0500 Body weight 98.88 kg Natali Love Other [employer] Other 08-25-2023 09:00-0500 Diastolic blood pressure 58 mm[Hg] Natali Kate Other [employer] Other 08-25-2023 09:00-0500 Respiratory rate 18 /min Natali Love Other [employer] Other 08-25-2023 09:00-0500 SaO2% (BldA) [Mass fraction] 97 % Natali Love Other [employer] Other 08-25-2023 09:00-0500 Systolic blood pressure 123 mm[Hg] Natali Astudillomond Other [employer] Other 08-02-2023 13:15-0500 Body height 154.94 cm Kenzie Lazar Other [employer] Other 08-02-2023 13:15-0500 Body mass index (BMI) [Ratio] 40.7 kg/m2 Kenzie Lazar Other [employer] Other 08-02-2023 13:15-0500 Body weight 97.71 kg Kenzie Lazar Other [facility] Other 08-02-2023 13:15-0500 Diastolic blood pressure 82 mm[Hg] Kenzie Lazar Other [facility] Other 08-02-2023 13:15-0500 Systolic blood pressure 120 mm[Hg] Kenzie Lazar Other [facility] Other 07-01-2023 10:45-0500 Body height 154.94 cm Kenzie Lazar Other [facility] Other 07-01-2023 10:45-0500 Body mass index (BMI) [Ratio] 41.56 kg/m2 Kenzie Lazar Other [facility] Other 07-01-2023 10:45-0500 Body weight 99.79 kg Kenzie Lazar Other [facility] Other 07-01-2023 10:45-0500 Diastolic blood pressure 80 mm[Hg] Kenzie Lazar Other [facility] Other 07-01-2023 10:45-0500 Systolic blood pressure 116 mm[Hg] Kenzie Lazar Other [facility] Other 02-05-2023 09:45-0400 Body height 154.94 cm Kenzie Lazar Other [facility] Other 02-05-2023 09:45-0400 Body mass index (BMI) [Ratio] 40.62 kg/m2 Kenzie Lazar Other [facility] Other 02-05-2023 09:45-0400 Body weight 97.52 kg Kenzie Lazar Other [facility] Other 02-05-2023 09:45-0400 Diastolic blood pressure 73 mm[Hg] Kenzie Lazar Other [facility] Other 02-05-2023 09:45-0400 Systolic blood pressure 109 mm[Hg] Kenzie Lazar Other [facility] Other Encounters Encounter Date Encounter Type Care Provider Facility Start: 12-08-2024 End: 12-08-2024 ambulatory GIA ALVAREZ Facility:[facility] Start: 11-17-2024 End: 11-17-2024 ambulatory [place] Work Phone: Start: 11-17-2024 End: 11-17-2024 Patient encounter procedure [facility] Work Phone: Start: 09-08-2024 End: 09-08-2024 ambulatory Kenzie Lazar MD Work Phone: [facility] Work Phone: Start: 09-08-2024 End: 09-08-2024 Patient encounter procedure Kenzie Lazar MD Work Phone: [facility] Work Phone: Start: 09-01-2024 End: 09-01-2024 ambulatory Kenzie Lazar MD Work Phone: [facility] Work Phone: Start: 09-01-2024 End: 09-01-2024 Patient encounter procedure Kenzie Lazar MD Work Phone: [facility] Work Phone: Start: 08-22-2024 Non-patient / Non-visit Kenzie Lazar MD Work Phone: [facility] Work Phone: Start: 08-17-2024 Non-patient / Non-visit Kenzie Lazar MD Work Phone: [facility] Work Phone: Start: 08-17-2024 End: 08-17-2024 Admission to same day surgery center Kenzie Lazar MD Work Phone: [facility] Work Phone: Start: 08-17-2024 End: 08-17-2024 ambulatory Kenzie Lazar MD Work Phone: [facility] Work Phone: Start: 08-07-2024 End: 08-07-2024 Bamboo flowsheet Hamilton Brian DO Work Phone: [facility] Start: 08-07-2024 End: 08-15-2024 Bamboo flowsheet Hamilton Brian DO Work Phone: [facility] Start: 08-07-2024 End: 08-15-2024 Clinisync Result Encounter Hamilton Brian DO Work Phone: [facility] Unsolicited Start: 08-07-2024 End: 08-07-2024 ambulatory HAMILTON BRIAN Not Available Start: 08-07-2024 End: 08-07-2024 Patient encounter procedure Hamilton Brian DO Work Phone: [facility] Start: 08-07-2024 End: 08-07-2024 Periodic preventive med est patient 40-64yrs Hamilton Brian DO Work Phone: [facility] Comment on above: Well woman exam with routine gynecological exam; Breast cancer screening by mammogram Start: 07-28-2024 End: 07-28-2024 Patient encounter procedure Kenzie Lazar MD Work Phone: [facility] Work Phone: Start: 07-19-2024 End: 07-19-2024 Patient encounter procedure Kenzie Lazar MD Work Phone: [facility] Work Phone: Start: 06-12-2024 End: 06-12-2024 ambulatory [facility] Work Phone: Start: 06-12-2024 End: 06-12-2024 Patient encounter procedure [facility] Work Phone: Start: 03-20-2024 End: 03-20-2024 ambulatory [facility] Work Phone: Start: 03-20-2024 End: 03-20-2024 Patient encounter procedure [facility] Work Phone: Start: 12-13-2023 End: 12-13-2023 ambulatory LAYNE H TIMMIS Not Available Start: 12-07-2023 End: 12-07-2023 ambulatory MD Kenzie Lazar Work Phone: [facility] Work Phone: Start: 12-07-2023 End: 12-07-2023 Departed Referred MD Kenzie Lazar Work Phone: [facility] Start: 12-07-2023 Non-patient / Non-visit MD Kristin Lazar Work Phone: [facility] Work Phone: Start: 11-26-2023 Non-patient / Non-visit MD Kristin Lazar Work Phone: [facility] Work Phone: Start: 11-01-2023 End: 11-01-2023 ambulatory LAYNE H TIMMIS Not Available Start: 10-15-2023 Non-patient / Non-visit MD Kristin Lazar Work Phone: [facility] Work Phone: Start: 09-13-2023 End: 09-13-2023 ambulatory Kenzie Lazar Other [facility] Other Start: 09-13-2023 Office outpatient vi sit 15 minutes Kenzie Lazar [facility] Start: 09-13-2023 End: 09-13-2023 Patient encounter procedure MD Kenzie Lazar Work Phone: [facility] Start: 08-30-2023 End: 08-30-2023 ambulatory LAYNE H TIMMIS Not Available Start: 08-25-2023 End: 08-25-2023 ambulatory Natali Love Other [facility] Other Start: 08-25-2023 Office outpatient vi sit 15 minutes Natali Love [facility] Start: 08-02-2023 End: 08-02-2023 ambulatory Kenzie Lazar Other [facility] Other Start: 08-02-2023 Office outpatient vi sit 15 minutes Kenzie Lazar [facility] Start: 07-01-2023 End: 07-01-2023 ambulatory Kenzie Lazar Other [facility] Other Start: 07-01-2023 Office outpatient vi sit 15 minutes Kenzie Lazar [facility] Start: 03-13-2023 End: 03-13-2023 ambulatory Kenzie Lazar Other [facility] Other Start: 03-13-2023 Telephone encounter Kenzie Lazar [facility] Start: 02-19-2023 End: 02-19-2023 ambulatory Kenzie Lazar Other [facility] Other Start: 02-19-2023 Telephone encounter Kenzie Lazar [facility] Start: 02-17-2023 End: 02-18-2023 ambulatory Kenzie Lazar Facility:[facility] Start: 02-05-2023 End: 02-05-2023 ambulatory Kenzie Lazar Other [facility] Other Start: 02-05-2023 Office outpatient vi sit 25 minutes Kenzie Lazar [facility] Start: 10-06-2022 End: 10-07-2022 ambulatory Kenzie Lazar Facility:[facility] Start: 08-04-2022 End: 08-05-2022 ambulatory Kenzie Lazar Facility:[facility] Start: 07-27-2022 Encounter for preprocedural laboratory examination DR HAMILTON TORRES [facility] Start: 07-21-2022 End: 07-21-[address] HAMILTON TORRES Facility: Start: 07-18-2022 End: 07-19-[address] HAMILTON TORRES Facility:[facility] Start: 07-18-2022 End: 07-19-2022 Encounter for preprocedural laboratory examination DR HAMILTON TORRES Facility:[facility] Start: 07-16-2022 Encounter for other preprocedural examination DR HAMILTON TORRES [facility] Start: 07-16-2022 Encounter for preprocedural cardiovascular examination DR HAMILTON TORRES [facility] Start: 07-13-2022 End: 07-14-[address] HAMILTON TORRES Facility:[facility] Start: 07-13-2022 End: 07-14-2022 Encounter for preprocedural cardiovascular examination DR HAMILTON TORRES Facility:[facility] Start: 06-16-2022 End: 06-17-[address] HAMILTON TORRES Facility:[facility] Start: 05-28-2022 End: 05-29-[address] HAMILTON TORRES Facility:[facility] Start: 05-11-2022 End: 05-11-[address] HAMILTON TORRES Facility:[facility] Start: 05-11-2022 Adult health examination Phuong Lazar Other [facility] Other Start: 05-11-2022 Gynecological examin ation normal Kenzie Lazar Other [facility] Other Start: 02-04-2022 End: 02-04-[address] CAROL ANN HAMM Facility:[facility] Start: 07-21-2017 End: 07-21-2017 Ambulatory RAMSES Ambriz [facility] Procedures Date Procedure Procedure Detail Performing Clinician Start: 08-17-2024 Esophagogastroduodenoscopy Kenzie Lazar MD Work Phone: Start: 08-07-2024 IGP,APTIMA HPV,AGE GDLN Hamilton Torres DO Work Phone: Start: 08-04-2023 Microscopic observation [Identifier] in Cervix by Cyto stain Hamilton Torres DO Work Phone: Start: 08-22-2021 Mammography Hamilton Torres DO Work Phone: Start: 07-21-2017 DISCHARGE PATIENT RAMSES CALERO Start: 07-21-2017 H. PYLORI DETECTION RAMSES CALERO Depression screening Kenzie Cady Other History of cholecystectomy Hx la paroscopic cholecystectomy Plan of Treatment Date Care Activity Detail Author Start: 08-04-2026 Screening for malignant neoplasm of cervix [facility] Start: 11-17-2024 Patient referral [facility] Work Phone: Start: 08-17-2024 [facility] Start: 08-07-2024 End: 10-08-2025 MG Breast - bilateral Screening Bilateral screening mammogram Imaging Routine Breast cancer screening by mammogram Expected: 08/07/2024 (Approximate), Expires: 10/08/2025 [facility] Work Phone: Comment on above: Expected: 08/07/2024 (Approximate), Expires: 10/08/2025 Start: 04-16-2024 Influenza vaccination Influenza Vacc ine (#1) [facility] Start: 03-20-2024 Patient referral [facility] Work Phone: Start: 2024 Screening for malignant neoplasm of breast Mammogram [facility] Start: 2014 Screening for malignant neoplasm of cervix HPV/Cotest [facility] CT Neck W contrast IV [facility] Patient Education Esophageal Str icture (DC) Hemorrhoids ED Know your [facility] Work Phone: Patient referral [facility] Work Phone: THIN PREP TIS PAP AN D HR HPV DNA THIN PREP TIS PAP AND HR HPV DNA Pathology and Cytology Routine Well woman exam with routine gynecological exam Ordered: 08/07/2024 [facility] Comment on above: Ordered: 08/07/2024 Immunizations Immunization Date Immunization Notes Care Provider Fa dennys 06-07-2024 influenza virus vacc ine, unspecified formulation Hamilton Brian DO Work Phone: [facility] 05-20-2023 influenza, injectabl e, quadrivalent, [facility]ative [facility] 05-29-2021 influenza, injectabl e, quadrivalent, preservative free Hamilton Brian DO Work Phone: [facility] 06-05-2020 influenza, injectabl e, quadrivalent, preservative free Hamilton Brian DO Work Phone: [facility] 06-02-2016 influenza, injectabl e, quadrivalent, preservative free Hamilton Brian DO Work Phone: [facility] Healthcare Payers Date Payer Category Payer Self-pay 2021 Private Health Insurance [id number] 1984 Unknown [id number] 2.16.84 [id number] 1984 Unknown [id number] 2.16.84 [id number] 1984 Unknown [id number] 2.16.84 [id number] 1984 Unknown [id number] 2.16.84 [id number] 1984 Unknown [id number] 2.16.84 [id number] 1984 Unknown [id number] 2.16.84 [id number] 1984 Unknown [id number] 2.16.84 [id number] 1984 Unknown [id number] 2.16.84 [id number] 1984 Unknown [id number] 2.16.84 [id number] 1984 Unknown [id number] 2.16.84 [id number] 1984 Unknown [id number] 2.16.84 [id number] 1959 Unknown [id number] Medicaid Medicaid [id number] Medicaid [id number] Unknown [id number] 2.16.8 [id number] Unknown [id number] 2.16.8 [id number] Social History Date Type Detail Facility Unknown if ever smoked [facility] Other Start: 08-27-2023 End: 12-08-2023 Sex Assigned At [facility] Start: 10-15-2023 End: 08-17-2024 Tobacco smoking status NHIS Never smoked tobacco (finding) [facility] Start: 1985 Sex Assigned At Female [facility] Start: 08-13-2023 Tobacco use and exposure Smokeless tobacco non-user [facility] Start: 12-13-2023 End: 08-07-2024 Alcoholic beverage intake [...] Sexual orientation Heterosexual (fin ding) [facility] Start: 08-17-2024 End: 11-17-2024 Sex Female (finding) [facility] NEGATED: Highlighted row [facility] Goals Date Patient Goal Desired Activity /State Clinical Notes 08-22-2021 to 12-08-2024 Note Date & Type Note Facility 12-08-2024 Note HNO ID: [id number] Author: GIA ALVAREZ APRN.CNP Service: ? Author Type: Nurse Practitioner Type: Progress Notes Filed: 12/08/2024 12:02 Note Text: IMPRESSION: - Dysphagia - Globus sensation - LPR PLAN: Discussed findings, diagnosis and management options with patient. - Olga Sales is presenting today for evaluation of dysphagia. Started around 2 years ago with a sensation of something constantly sticking in her throat. Has been on omeprazole and Pepcid and been seen by an outside ENT and GI. Has had a EGD that she reports was essentially normal. Sensation has been persistent. Was concerned about a lump on the right side of her neck and had a CT neck at an outside facility. On exam today, no palpable lymphadenopathy. On flexible laryngoscopy exam today, bilateral vocal cords are mobile without any masses, lesions or pooling of secretions. She does have a history of a gastric sleeve and hiatal hernia repair. MBS and esophagram ordered for her dysphagia, [id number]. FOLLOW UP: Return as needed. Call sooner if problems develop. Gia Alvarez APRN.PHYSICS AND ASTRONOMY PROFESSOR Referring Provider: I was consulted by self for dysphagia. Reason for Consult: Olga Sales is a 39 year old female who presents to [facility] Otolaryngology Department. Patient presents with: New Patient HPI: Olga Sales is a 39 year old female who presents with dysphagia. Started in April 2023. Thought it felt like a globus sensation Was started on omeprazole by her PCP, didn't seem to help. Was then seen by ENT and added Pepcid. Was on both for about 5-6 months. In October, noticed some lingual tonsil asymmetry and had a biopsy that was negative. Was seen in December and suggest to see GI. Also noticed a little bump on the right sided of her neck. [place] like a firm bump that had grown. Did have a gastric sleeve and hiatal hernia repair in 2013. Tougher foods has the most trouble getting things down. Has a constant sensation of something stuck. Had a CT neck ordered by her PCP. Aug 08- had an EGD that was essentially normal. Describes the spot on her neck is getting bigger and getting more annoying. Is now having pain on the right side. Feels a tightness on the right neck and a tingling/numbness sensation that radiates to her neck and face. Wears a mouth guard for teeth grinding. No voice changes. Sometimes is a soreness on the right when she swallows. Never smoker EAT 10: 12/08/2024 Eating Asessment Tool Score EAT Score 10 PAST MEDICAL HISTORY No past medical history on file. PAST SURGICAL HISTORY No past surgical history on file. SOCIAL HISTORY Tobacco Use: Never Alcohol Use: Never FAMILY HISTORY No family history on file. MEDICATIONS No prescriptions on file. ALLERGIES Patient has no allergy information on record. REVIEW OF SYSTEMS: Review of systems template on 12/08/2024 was completed in entirety on day of appointment and negative except where noted below: Constitutional: Negative for fever, appetite change, weight loss, weight gain Neurological: Negative for headaches, no history of stroke or seizure ENT: See HPI Cardiovascular: Negative for chest pain, dyspnea on exertion Respiratory: Is not experiencing shortness of breath. No history of asthma, COPD or recent pneumonia Gastrointestinal: Negative for nausea, vomiting Endo: No history of diabetes or thyroid disorders Heme/Lymph: No history of bleeding disorder Allergy: + for seasonal allergies, nasal congestion PHYSICAL EXAM Physical exam template on 12/08/2024 was completed in entirety on day of appointment and negative except where noted below: Vital Signs: There were no vitals taken for this visit. General: Well-developed, well-nourishes. No distress Respiratory Effort: Equal inspiration and expiration without stridor and is breathing comfortably on room air. Cardiovascular: No peripheral edema. Neuro: Awake, alert and oriented Ears: External ear is intact. Canal is patent with intact skin and TM is clear and mobile. Nose: No scar or anatomic deformity. Septum is intact. Mucosa is pink without any purulence or polyps. Oral Cavity: Normal lips. The dentition is fair. The mucosal surfaces are moist with no lesions or abnormalities, tonsillar fossa symmetric. The oropharynx and pharynx is unremarkable and without lesions. Larynx: Please see scope exam below Neck:The neck is atraumatic and without scars. Trachea is midline. There is no lymphadenopathy, no skin lesions and no neck masses appreciated. Voice:Perceptual voice evaluation demonstrates normal speaking voice. DATA: Previous notes reviewed PROCEDURE PROCEDURE NOTE: Recommended Flexible Laryngoscopy PROCEDURE: Flexible Laryngoscopy PREOPERATIVE DIAGNOSIS: Dysphagia and globus sensation POSTOPERATIVE DIAGNOSIS: same (more content not included)... [facility] 12-08-2024 Note HNO ID: [id number] Author: GIA ALVAREZ APRN.PHYSICS AND ASTRONOMY PROFESSOR Service: ? Author Type: Nurse Practitioner Type: Progress Notes Filed: 12/08/2024 12:02 Note Text: Tobacco Use: Not on file [facility] 09-01-2024 Evaluation note Diagnosis Onset Date Resolution Attention deficit disorder (ADD) in adult acute September 01, 2024 8:57am Obesity, Class II, BMI 35-39.9 acute September 01 8:57am Abnormal weight gain acute 2024 10:11am Attention deficit disorder (ADD) in adult acute September 08, 2024 10:11am Binge eating disorder acute Aug 10:11am BMI 36.0-36.9,adult acute 2024 10:11am Dietary surveillance and counseling acute September 08 10:11am Exercise counseling acute 2024 10:11am H/O gastric sleeve acute y 2024 10:11am Heartburn acute September 08, 2024 10:11am Hx laparoscopic cholecystectomy acute September 08 10:11am Obesity, Class II, BMI 35-39.9 acute September 08 10:11am Dysphagia acute November 17 8:53am GERD (gastroesophageal reflux disease) acute November 17, 2024 8:53am Globus sensation acute November 8:53am Rectal pressure acute November 8:53am [facility] Work Phone: 1(220) 587-120601-02-2025 Procedure noteLeslie V[place] [id number] Colonoscopy Procedure Report Signed Patient: Olga Sales MR#: [id number] : 1985 Acct:[id number] Age/Sex: 39 / F Adm Date: 5 Loc: Room: Type: [facility] Attending Dr: Jane Spaulding DO Copies to: DO Kenzie Ornelas MD~ Colonoscopy Date/Provider 08/17/2024 Jane Spaulding DO Narrative Procedure: Colonoscopy Indication: Constipation, rectal pressure. Last colonoscopy several years ago. Pre-operative diagnosis: Constipation, rectal pressure Post-operative diagnosis: small internal hemorrhoids, otherwise normal colon andTI Sedation: propofol per anesthesia dept O2 oximetry, hemodynamic monitoring was performed pre, during, and post procedure. Patient was identified, H&P completed, patient was given full explanation of the procedure as well as associatedrisks and written consent wasobtained prior to procedure. Patient expressed complete understanding of the procedure as well as alternatives to the procedure and to anesthesia and agreed toproceed with the procedure as indicated. Patient was immediately reassessed prior to IV sedation. Under IV sedation, patient was placed in the left lateral decubitus position. Digital rectal exam was performed and normal. Colonoscope was inserted and passed proximally to the cecum, which was identified by the ileocecal valve, appendiceal orifice and cecal floor. The terminal ileum was intubatedand examined. Colonoscope was slowly withdrawn with the findings as below. [place] bowel prep score was adequate. Findings: Terminal ileum: normal Cecum: Normal. Ascending colon: Normal. Hepatic flexure: Normal. Transverse colon: Normal. Splenic flexure: Normal. Descending colon: Normal. Sigmoid colon: Normal. Rectum: Normal. Retroflexed views: Rectum did show small internal hemorrhoids. Biopsy taken: None Complications: None EBL: None Recommendations: -Repeat colonoscopy in 7-10 yrs -fiber rich diet and fiber supplement daily -Miralax as needed -Follow up in the office in 3-4 months -Follow up with PCP Following a period of recovery, patient was seen and given full explanation of the procedure. Patient tolerated the procedure well and will be discharged in satisfactory, stable condition. Jane Spaulding DO Documented By: Jane Spaulding DO 08/17/24 0744 Signed By: 08/17/24 0821 [facility]01-02-2025 Procedure noteLeslie [place] [id number] EGD Procedure Note Signed Patient: Olga Sales MR#: [id number] : 1985 Acct:[id number] Age/Sex: 39 / F Adm Date: 5 Loc: Room: Type: [facility] Attending Dr: Jane Spaulding DO Copies to: DO Kenzie Ornelas MD~ Esophagogastroduodenoscopy Date/Provider Date: 08/17/2024 Jane Spaulding DO Narrative Narrative: Procedure: EGD with balloon dilation and biopsy Indication: GERD, dysphagia, globus Pre-operative diagnosis: GERD, dysphagia, globus Post-operative diagnosis: Mild stricture at the GE junction status post balloon dilation, otherwisenormal EGD status post small bowel, gastric, distal and proximal esophageal biopsies obtained Sedation: propofol per anesthesia dept O2 oximetry, hemodynamic monitoring was performed pre, during, and post procedure. Patient was identified, H&P completed, patient was given full explanation of the procedure as well as associatedrisks and written consent was obtained prior to procedure. Patient expressed complete understandingof the procedure as well as alternatives to the procedure and to anesthesia and agreed to proceed with the procedure as indicated. Patient was immediately reassessed prior to IV sedation. Following IV sedation, patient was placed in the left lateral decubitus position. Bite block was inserted. Endoscope was passed through the mouth, into the esophagus. Endoscope was advanced into the stomach through the pyloricchannel and into the 2nd portion of duodenum by direct visualization. Endoscopewas withdrawn into the stomach and retroflexion was performed. The endoscope was straightened,the stomach was decompressed. Endoscope was withdrawn into the esophagus then completely removed with the findings as below. Findings: DUODENUM: The bulb and descending portion appeared normal. Biopsies were obtained from the small bowel for histology and to rule out Celiac disease. STOMACH: The pyloric channel, antrum, body, fundus and cardia, including retroflexed views appear normal. Biopsies were obtained from the gastric antrumand body for histology and to rule out H. Pylori. ESOPHAGUS: GE junction (upper margin of gastric folds) was at 35 cm from incisors. There is mild narrowing at the GE junction. A [id number] esophageal balloon dilator was used to dilate this area to 21 mm. Post dilationinspection revealed no significant change. Mucosa appeared normal. Biopsies were obtained with cold forceps from the distal proximal esophagus and sent to pathology to rule out eosinophilic esophagitis Biopsy taken: Yes Complications: None EBL: Minimal Recommendations: -Follow up pathology -Resume normal diet -Continue PPI and lifestyle modifications for GERD -Follow up in the office 3 to 4 months -Repeat EGD as needed -Consider esophagram if symptoms persist -Follow up with PCP Following a period of recovery, patient was seen and given full explanation of the procedure. Patient tolerated the procedure well and will be discharged in satisfactory, stable condition. Jane Spaulding DO Documented By: Jane Spaulding DO 08/17/24 0744 Signed By: 08/17/24 0807 [facility]01-02-2025 [place] [address] Gastroenterology H&P Signed Patient: Olga Sales MR#: [id number] : 1985 Acct:[id number] Age/Sex: 39 / F Adm Date: 5 Loc: Room: Type: [facility] Attending Dr: Jane Spaulding DO Copies to: DO Kenzie Ornelas MD~ Date of Service: 08/17/2024 HISTORY & PHYSICAL: Patient's history with special attention to the cardiovascular, pulmonary systems and the current problem was reviewed with the patient immediately prior to the procedure. Present medications and doses reviewed in the EMR. Allergies and pertinent laboratory tests were also re viewedat this time in the EMR. The physical examination, as below, was then performed. Indication, assessment and HPI: 3-year-old female who presents for EGD and colonoscopy for globus, dysphagia, GERD, constipation, rectal pressure. Last EGD and colonoscopy several years ago. Family history of GI malignancy? Family history of pancreatic cancer PHYSICAL EXAMINATION General appearance: cooperative, NAD Skin: No jaundice, no rash or lesions Head: NCAT Eyes: Anicteric Neck: Supple Lungs: Normal respiratory effort, no use of accessory muscles Abdomen: Soft, nondistended Neuro: No focal deficits, Ox3. REVIEW OF SYSTEMS Constitutional: Denies malaise, fevers Cardiovascular: Denies chest pain, palpitations Respiratory: Denies shortness of breath, wheezing Gastrointestinal: As per HPI Genitourinary: Denies dysuria, polyuria Musculoskeletal: Denies joint swelling, joint stiffness Neurological: Denies confusion, numbness, tingling Endocrine: Denies fatigue Written informed consent obtained from the patient. Risks (including but not limited to perforation, infection, bloating, bleeding, need for emergent surgeryand loss of life), benefits and alternatives explained and questions answered. The patient verbalized understanding. Based on history patient is an appropriate candidate for the procedure. Jane Spaulding DO Present medication and doses reviewed in the EMR Documented By: Jane Spaulding DO 08/17/24 0743 Signed By: 08/17/24 0805 [facility]12-23-2024 History of Present illness Narrative * Alyson Pham MA - 08/07/2024 10:00 AM EST Reason for Appointment: Patient ID: Olga Sales is a 39 y.o. female who presents [...] Active Ambulatory Problems Diagnosis Date Noted Depressed ([facility]) 08/01/2013 Endometriosis 08/13/2023 Epigastric pain 08/13/2023 Abdominal pain 08/13/2023 Back pain 08/01/2013 Flank pain 08/13/2023 Pelvic pain 08/13/2023 Migraine (CMS/HCC) 08/01/2013 Morbid obesity (CMS/[facility]) 08/01/2013 Recurrent UTI 08/13/2023 Vitamin D deficiency 09/28/2014 LPRD (laryngopharyngeal reflux disease) 08/30/2023 Chronic laryngitis 08/30/2023 Globus sensation 11/01/2023 Tongue lesion 11/01/2023 Resolved Ambulatory Problems Diagnosis Date Noted 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 Past Medical History: Diagnosis Date Anxiety Binge eating disorder Depression ([facility]) Dizziness GERD (gastroesophageal reflux disease) History of [...] Hyperlipidemia Father Connor Leann Diabetes Paternal Grandmother Sonja Noriega Cancer Father's Sister JULIO ARMENTA Cancer Father's Sister Rosy Crawford Cancer Father's Brother Dougie Noriega SURGICAL HISTORY Past Surgical History: Procedure Laterality Date ADENOIDECTOMY SECTION, LOW TRANSVERSE CHOLECYSTECTOMY 2007 GASTRECTOMY 09/2013 Verical sleeve OTHER SURGICAL HISTORY 12/07/2023 DL & BX @ [facility] Timmis PELVIC LAPAROSCOPY 07/21/2022 laparoscopy w/removal of [...] nursing note reviewed. Exam conducted with a furnishings conservator present. Vitals: Estimated body mass index is [...] by Alyson Pham MA on behalf of: Hamilton Torres DO documented in this encounterShriners Hospitals for [id number] Evaluation note* Diagnosis Onset Date Resolution Status Admit Date Abnormal weight gain acute Octo ced 2023 1:54pm Attention deficit disorder ( ADD) in adult acute June 12 1:54pm Binge eating disorder acute Oct rosa 2023 1:54pm BMI 40.0-44.9, adult acute Octo ced 2023 1:54pm Dietary surveillance and counseling acute June 12 1:54pm Exercise counseling acute Octob er 2023 1:54pm H/O gastric sleeve acute Octobe r 2023 1:54pm Heartburn acute June 12, 2024 1:54pm Hx laparoscopic cholecystectomy acut e June 12, 2024 1:54pm Obesity, Class III, BMI 40-4 9.9 (morbid obesity) acute June 12, 024 1:54pm Globus sensation acute July 19, 2024 10:13am Rectal pressure acute July 19, 2024 10:13am Abnormal weight gain acute Dece mber 2023 10:05am Attention deficit disorder ( ADD) in adult acute July 28, 2 024 10:05am Binge eating disorder acute Dec ember 2023 10:05am BMI 37.0-37.9, adult acute Dece mber 2023 10:05am Dietary surveillance and counseling acute July 28, 2 024 10:05am Exercise counseling acute Decem ced 2023 10:05am H/O gastric sleeve acute Decemb er 2023 10:05am Heartburn acute July 28, 2024 10:05am Hx laparoscopic cholecystectomy acut e July 28, 2024 10:05am Obesity, Class II, BMI 35-39.9 acute July 28, 2024 10:05am [facility] Work Phone: 1(532) 300-247010-28-2024 Evaluation note* Diagnosis Onset Date Resolution Status Admit Date Abnormal weight gain acute Octo ced 2023 1:54pm Attention deficit disorder ( ADD) in adult acute June 12 1:54pm Binge eating disorder acute Oct rosa 2023 1:54pm BMI 40.0-44.9, adult acute Octo ced 2023 1:54pm Dietary surveillance and counseling acute June 12 1:54pm Exercise counseling acute Octob er 2023 1:54pm H/O gastric sleeve acute Octobe r 2023 1:54pm Heartburn acute June 12, 2024 1:54pm Hx laparoscopic cholecystectomy acut e June 12, 2024 1:54pm Obesity, Class III, BMI 40-4 9.9 (morbid obesity) acute June 12, 1:54pm Globus sensation acute July 19, 2024 10:13am Rectal pressure acute July 19, 2024 10:13am Abnormal weight gain acute Dece mber 2023 10:05am Attention deficit disorder ( ADD) in adult acute July 28, 024 10:05am Binge eating disorder acute Dec ember 2023 10:05am BMI 37.0-37.9, adult acute Dece mber 2023 10:05am Dietary surveillance and counseling acute July 28, 2 024 10:05am Exercise counseling acute Decem ced 2023 10:05am H/O gastric sleeve acute Decemb er 2023 10:05am Heartburn acute July 28, 2024 10:05am Hx laparoscopic cholecystectomy acut e July 28, 2024 10:05am Obesity, Class II, BMI 35-39.9 acute July 28, 2024 10:05am Attention deficit disorder ( ADD) in adult acute September 01 8:57am Obesity, Class II, BMI 35-39.9 acute September 01, 2024 8:57am Abnormal weight gain acute Flo remedios 2024 10:11am Attention deficit disorder ( ADD) in adult acute September 08 10:11am Binge eating disorder acute Hector uary 2024 10:11am BMI 36.0-36.9,adult acute Hectorua ry 2024 10:11am Dietary surveillance and counseling acute September 08 10:11am Exercise counseling acute Janua ry 2024 10:11am H/O gastric sleeve acute Auguar y 2024 10:11am Heartburn acute September 08, 2024 10:11am Hx laparoscopic cholecystectomy acut e September 08, 2024 10:11am Obesity, Class II, BMI 35-39.9 acute September 08, 2024 10:11am [facility] Work Phone: 1(301) 561-543901-29-2024 Evaluation note* Encounter Date Diagnosis Assessment Notes Treatment Notes Treatment Clinical Notes Aug, Morbid (severe) obesity due to [...] note and treatment. overall improved. Aug, LPRD (laryngopharyngea l reflux disease) (ICD-10 - K21.9) reviewed notes from ENT visit. Laryngoscopy was normal, per pt. Continue PPI, added famotidine qpm MitoProd Other 01-10-2024 Evaluation note* Encounter Date Diagnosis [...] 3 days Aug, Pleurisy (ICD-10 - R09.1) [facility]Prod Other 12-18-2023 Evaluation note* Encounter Date Diagnosis [...] index [BMI] 40.0-44.9, adult (ICD-10 - Z68.41) 18 Jul, 2023 LPRD (laryngopharyngea l reflux disease) (ICD-10 - K21.9) Pt agrees to referral to Dr. See for globus sensation and ongoing LPRD while on PPI [facility]itoProd Other 11-16-2023 Evaluation note* Encounter Date Diagnosis [...] EGD, etc if needed in 1 month. [facility]Prod Other 06-23-2023 Evaluation note* Encounter Date Diagnosis Assessment Notes Treatment Notes Treatment Clinical Notes Jan, Lower abdominal pain (ICD-10 - R10.30) Encouraged to followup w [facility] [employer] [facility]. Pt will atkinson out CT and make phone calls to schedule. Order printed and given to Olga. Jan, Left flank pain (ICD-10 - R10.9) as above. R/o kidney stone Jan, Binge eating disorder (ICD-10 - F50.81) resume crystal Jan, UTI (urinary tract infection) (ICD-10 - N39.0) Will treat empirically. M[facility]Prod Other 12-06-2022 NoteOPERATIVE NOTE OPERATION DATE: 07/21/2022 PROCEDURE: Diagnostic laparoscopy with removal of epiploic adhesion of the bowel from the patient's left ovary. PREOPERATIVE DIAGNOSIS: Pelvic pain. POSTOPERATIVE DIAGNOSIS: Pelvic pain including adhesion of epiploic fat to the patient's ovary. SURGEON: Hamilton Torres D.O. DIRECTOR OF BILLING: GOLDEN Conway URINE OUTPUT: Yellow and clear. [...] taken to Recovery Room in stable condition.[facility] [id number] NoteOPERATIVE NOTE OPERATION DATE: 07/29/2022 ADDENDUM: Please note adhesion of epiploic fat to the patient's left ovary was noted and this was bluntly and sharply dissected and taken down.[facility] [id number] NoteFINDINGS: Sonographic evaluation targeted to the right breast, periareolar region demonstrates no worrisome cystic or solid mass lesions. Comparison made with the same day bilateral mammogram. IMPRESSION: BIRADS 1 - NEGATIVE Report reported and signed by Abel Monroy on 08/22/2021 [id number] Medical SpecialistChief complaint+Reason for visit Narrative* Chief Complaint dicuss swallowing/ g astrology referral Reason for Visit Attention deficit di sorder (ADD) in adult [facility] Work Phone: Chief complaint+Reason for visit Narrative* Chief Complaint dicuss swallowing/ g astrology referral Self- [facility] Reason for Visit Attention deficit di sorder (ADD) in adult Globus sensation Abnormal weight gain Attention deficit disorder (ADD) in adult Binge eating disorder BMI 40.0-44.9, adult Dietary surveillance and counseling Exercise counseling H/O gastric sleeve Heartburn Hx laparoscopic cholecystectomy Obesity, Class III, BMI 40-49.9 (morbid obesity) [facility] Work Phone: Evaluation noteNo InformationNort [employer] Other Evaluation noteNo assessment information available [facility] Work Phone: Evaluation note* Diagnosis Onset Date Resolution Status Attention deficit disorder (ADD) in adult acute [facility] Work Phone: Evaluation note* Diagnosis Onset Date [...] Class III, BMI 40-49.9 (morbid obesity) acute [facility] Work Phone: Evaluation note* Diagnosis Well woman exam with routine gynecological exam Routine gynecological examination Breast cancer screening by mammogram documented in this encounter [facility] HealthcareHistory and physical note Author Jane Spaulding [facility] Note Date/Time August 17, 2024 8: 05am [facility] [address] [place] [address] Gastroenterology H&P Signed Patient: Olga Sales MR#: [id number] : 1985 Acct:[id number] Age/Sex: 39 / F Adm Date: 5 Loc: Room: Type: [facility] Attending Dr: Jane Spaulding DO Copies to: DO Kenzie Ornelas MD~ Date of Service: 08/17/2024 HISTORY & PHYSICAL: Patient's history with special attention to the cardiovascular, pulmonary systems and the current problem was reviewed with the patient immediately prior to the procedure. Present medications and doses reviewed in the EMR. Allergies and pertinent laboratory tests were also reviewedat this time in the EMR. The physical examination, as below, was then performed. Indication, assessment and HPI: 3-year-old female who presents for EGD and colonoscopy for globus, dysphagia, GERD, constipation, rectal pressure. Last EGD and colonoscopy several years ago. Family history of GI malignancy? Family history of pancreatic cancer PHYSICAL EXAMINATION General appearance: cooperative, NAD Skin: No jaundice, no rash or lesions Head: NCAT Eyes: Anicteric Neck: Supple Lungs: Normal respiratory effort, no use of accessory muscles Abdomen: Soft, nondistended Neuro: No focal deficits, Ox3. REVIEW OF SYSTEMS Constitutional: Denies malaise, fevers Cardiovascular: Denies chest pain, palpitations Respiratory: Denies shortness of breath, wheezing Gastrointestinal: As per HPI Genitourinary: Denies dysuria, polyuria Musculoskeletal: Denies joint swelling, joint stiffness Neurological: Denies confusion, numbness, tingling Endocrine: Denies fatigue Written informed consent obtained from the patient. Risks (including but not limited to perforation, infection, bloating, bleeding, need for emergent surgeryand loss of life), benefits and alternatives explained and questions answered. The patient verbalized understanding. Based on history patient is an appropriate candidate for the procedure. Jane Spaulding DO Present medication and doses reviewed in the EMR Documented By: Jane Spaulding DO 08/17/24 0743 Signed By: <Electronically signed by Jane Spaulding DO> 08/17/24 0805 [facility] Work Phone: History general Narrative - Reported* Type Description Date Medical History Endometriosis Surgical History laparoscopy Surgical History c section x3 Surgical History vertical sleeve gastrectomy Hospitalization History SEE SURIGCAL HX MitoProd Other Hospital Discharge instructionsAmbulatory Orders* Referral to ENT Time Frame: 11/17/24, Location: None Selected [facility] Work Phone: Summary Purpose Family History No Family History Records Found Relationship Condition Age at Onset Recorded Date/T destiny mother Mental disorder Unknown father Malignant neoplasm Unknown Hypertension Unknown High blood cholesterol Unknown brother Hypertension Unknown son Attention deficit hy peractivity disorder (ADHD) Unknown Advance Directives No Advanced Directives Records Found Advance Directive Response Recorded Date/ Time Advance Directives No November 25 11:52am Advance Directive Response Recorded Date/ Time Advance Directives No November 25 10:52am Reason for Referral Reason R anterior neck discomfort, LPRD on PPI Diagnosis 1 LPRD (laryngopharyng eal reflux disease) (K21.9) Referral Organization [facility] renita Referring Provider First Name Kenzie Referring Provider Last Name Cady Referring Provider Specialty Family [facility] Referred Organization [facility] Referred Provider Layne See Referred Address ,[place], [place],[address] Referred Provider Specialty Ear, Nose an d Throat Referral Priority Routine General Notes Qi Sanchez 02:09:20 PM >received today, waiting for notes to be locked Chief Complaint and Reason for Visit Chief Complaint Admit Date Amb Documentation August 22, 2024 9: 43am Med f/u September 01, 2024 8 :57am 3 month follow up November 17, 2024 8:53 am Reason for Visit Admit Date Attention deficit disorder (ADD) in adul t September 01, 2024 8:57am Obesity, Class II, BMI 35-39.9 August 162024 8:57am Abnormal weight gain September 08, 2024 10:11am [facility] September 08, 2024 10:11am Binge eating disorder September 08, 2024 10:11am BMI 36.0-36.9,adult September 08, 2024 1 0:11am Dietary surveillance and counseling Flotania whittaker 2024 10:11am Exercise counseling September 08, 2024 1 0:11am H/O gastric sleeve September 08, 2024 1 0:11am Heartburn September 08, 2024 1 0:11am Hx laparoscopic cholecystectomy September 08, 2024 10:11am Obesity, Class II, BMI 35-39.9 August 172024 10:11am Dysphagia November 17, 2024 8:53 am GERD (gastroesophageal reflux disease) A pril 2024 8:53am Globus sensation November 17, 2024 8:53 am Rectal pressure November 17, 2024 8:53 am Chief Complaint Admit Date Self- [facility] June 12, 2024 1 :54pm Refer: foreign body sensation in throat July 19, 2024 10:13am See message to Dario August 07 12:49pm Globus/constipation August 17, 2024 7: 09am Globus/constipation August 17, 2024 7: 44am Reason for Visit Admit Date Abnormal weight gain June 12, 2024 1:54pm [facility] June 12, 2024 1:54pm Binge eating disorder June 12, 2024 1:54pm BMI 40.0-44.9, adult June 12, 2024 1:54pm Dietary surveillance and counseling Octo 2023 1:54pm Exercise counseling June 12, 2024 1 :54pm H/O gastric sleeve June 12, 2024 1 :54pm Heartburn June 12, 2024 1 :54pm Hx laparoscopic cholecystectomy June 12, 2024 1:54pm Obesity, Class III, BMI 40-49.9 (morbid obesity) June 12, 2024 1:54pm Globus sensation July 19, 2024 1 0:13am Rectal pressure July 19, 2024 1 0:13am Abnormal weight gain July 28, 2024 10:05am [facility] July 28, 2024 10:05am Binge eating disorder July 28 10:05am BMI 37.0-37.9, adult July 28, 2024 10:05am Dietary surveillance and counseling Dece mber 2023 10:05am Exercise counseling July 28, 2024 10:05am H/O gastric sleeve July 28, 2024 10:05am Heartburn July 28, 2024 10:05am Hx laparoscopic cholecystectomy July 28, 2024 10:05am Obesity, Class II, BMI 35-39.9 July 28, 2024 10:05am Additional Source Comments INFORMATION SOURCE (unrecogn ized section and content) DATE CREATED AUTHOR 02/02/2018 [facility] DATE CREATED AUTHOR AUTHOR'S ORGANIZ ATION 08/23/2021 [facility] Specialist DATE CREATED AUTHOR AUTHOR'S ORGANIZ ATION 08/06/2022 [facility] DATE CREATED AUTHOR AUTHOR'S ORGANIZ ATION 02/18/2023 [facility] DATE CREATED AUTHOR AUTHOR'S ORGANIZ ATION 08/09/2024 [facility]ists EPIC DATE CREATED AUTHOR AUTHOR'S ORGANIZ ATION 08/27/2024 [facility] DATE CREATED AUTHOR AUTHOR'S ORGANIZ ATION 12/20/2024 [facility] REASON FOR VISIT (unrecogniz ed section and content) Reason Comments Routine Visit Care Teams (unrecognized sec tion and content) Team Status: Active Member Role Status Dates Kenzie Lazar MD Primary Care Provider Active Team Status: Active Member Role Status Dates Kenzie Lazar MD Primary Care Provider Active Start: August 22, 2024 Jovita Soto LPN Attending Provider Active St art: August 22, 2024 Team Status: Inactive Member Role Status Dates Kenzie Lazra MD Primary Care Provide r, Attending Provider Active Start: September 01, 2024 End: September 01, 2024 Team Status: Inactive Member Role Status Dates Kenzie Lazar MD Primary Care Provider Active Start: September 08, 2024 End: September 08, 2024 Leticia Razo DNP Attending Provider Active S tart: September 08, 2024 End: September 08, 2024 Team Status: Inactive Member Role Status Dates Kenzie Lazar MD Primary Care Provider Active Start: November 17, 2024 End: November 17, 2024 Jane Spaulding DO Attending Provider Active St art: November 17, 2024 End: November 17, 2024 Team Status: Inactive Member Role Status [...] December 07, 2023 End: December 07, 2023 Layne See Jr, MD Attending Provider Active Start: [...] June 12, 2024 End: June 12, 2024 Wheel Truer Relationship Specialty Start Date End Date Kenzie Lazar MD [address] [place] [address] PCP - General 08/03/23 Wheel Truer Relationship Specialty Start Date End Date Kenzie Lazar MD [address] [facility] [place] [address] PCP - General 08/03/23 Wheel Truer Relationship Specialty Start Date End Date Kenzie Lazar MD [address] [facility] [place] [address] PCP - General 08/03/23 Team Status: Inactive Member Role Status Dates Kenzie Lazar MD Primary Care Provider Active Start: July 19, 2024 End: July 19, 2024 Jane L Ly , DO Attending Provider Active St art: July 19, 2024 End: July 19, 2024 Team Status: Inactive Member Role Status Sydnee Lazar MD Primary Care Provider Active Start: July 28, 2024 End: July 28, 2024 Leticia Razo DNP Attending Provider Active S tart: July 28, 2024 End: July 28, 2024 Team Status: Inactive Member Role Status Sydnee Lazar MD Primary Care Provider Active Start: August 07, 2024 End: August 07, 2024 VIKY Galeano Attending Provider Active S tart: August 07, 2024 End: August 07, 2024 Team Status: Inactive Member Role Status Sydnee Lazar MD Primary Care Provider Active Start: August 17, 2024 End: August 17, 2024 Jane L Ly , DO Attending Provider Active St art: August 17, 2024 End: August 17, 2024 Team Status: Active Member Role Status Sydnee Lazar MD Primary Care Provider Active Start: August 17, 2024 Jane L Ly , DO Attending Provider, Other Provider Active Start: August 17, 2024 Goals (unrecognized section and content) Goals [...] BE BASED ON THE PRIMARY CLINICAL RECORDS. [facility] [employer] provides no warranty or guarantee of the accuracy or completeness of information in this document.
--- NOTE | 2025-02-09 11:55 | MM_ITS ---
Patient Name: CARYN SALES MR#: [id number] : 1985 Exam Date: 02/09/2025 Ordering Doctor: DR SEBAS BARTLETT . RADIOLOGY REPORT PROCEDURE: MM TOMOSYNTHESIS SCREENING BI COMPARISON: MM TOMOSYNTHESIS DIAGNOSTIC BI, 08/22/2021. MG MAMM GUNJAN DIAG W CAD, 06/18/2017. INDICATIONS: Mammogram Calculator Name NCI Breast Cancer Risk Assessment Tool 5 Year Breast Cancer Risk 0.60% Lifetime Breast Cancer Risk 11.10% Personal Breast Cancer No Personal Ovarian Cancer No Treatments None Family Cancers Father with lung cancer at age 57; Uncle-paternal with pancreatic cancer at age 61; Grandfather-maternal with lung cancer at age ~60; Aunt-maternal with breast cancer at age 30; Aunt-paternal with lung cancer at age 49. LOCATION: [facility] BREAST COMPOSITION: There are scattered areas of fibroglandular density. FINDINGS: DIAGNOSTIC CATEGORY 1--NEGATIVE. RIGHT BREAST: No significant suspicious finding. LEFT BREAST: No significant suspicious finding. RECOMMENDATIONS: ROUTINE MAMMOGRAM AND CLINICAL EVALUATION IN 12 MONTHS. PLEASE NOTE: A NORMAL MAMMOGRAM DOES NOT EXCLUDE THE POSSIBILITY OF BREAST CANCER. A CLINICALLY SUSPICIOUS PALPABLE LUMP SHOULD BE BIOPSIED. Dictated by: Abel Geiger DO on 02/09/2025 at 14:18 Approved by: Abel Geiger DO on 02/09/2025 at 14:19
== END 2025-02-09 11:28 | disposition home or self-care (01) ==
PROVIDERS: PCP Family Medicine; Visit Provider Obstetrics & Gynecology
DX: Z12.31 Encounter for screening mammogram for malignant neoplasm of breast (principal); Z80.1 Family history of malignant neoplasm of trachea, bronchus and lung; Z80.3 Family history of malignant neoplasm of breast; Z80.8 Family history of malignant neoplasm of other organs or systems
CPT/HCPCS: 77063; 77067

== ENCOUNTER 2025-06-20 07:37 | Outpatient (OUT) | payer OTHER, SELFPAY ==
--- OUTSIDE RECORDS SUMMARY | 2025-06-12 10:40 | XMS_ITS | Encounter Summary ---
Author Organization [facility] Address [address] [place] [address] Care Team Providers Care Electronics Engineering Professor Name Role Phone Kenzie Lazar MD Primary Care Provider [phone] Reason for Visit * ReasonCommentsIrregular cycles Encounter Details DateTypeDepartmentCare Team (Latest Contact Info)Durvtuwpper69/28/2025 11:40 AM EDTOffice Visit YOLETTE SAHU [address] [place] [address] Hamilton Torres DO [address] [place], [facility]11 Vaginal itching; Hormone disorder; Yeast infection Social History Tobacco UseTypesPacks/DayYears UsedDateSmoking Tobacco: NeverSmokeless Tobacco: NeverAlcohol UseStandard Drinks/WeekCommentsNot Currently0 (1 standard drink = 0.6 oz pure alcohol)caffeine: sodaAUDIT-CAnswerDate RecordedQ1: How often do you have a drink containing alcohol?Monthly or less08/27/2023verage Number of DrinksNot on file08/27/2023Frequency of Binge DrinkingNot on file08/27/2023 CommentsNoSex and Gender InformationValueDate RecordedSex Assigned at OgylhMiknfg18/25/2023 10:18 PM EDTLegal RgfYooanq28/15/2023 6:42 PM EDTGender AzqtqxlmJllbwt32/25/2023 10:18 PM EDTSexual NrknubqgazbXozcrrtx70/25/2023 10:18 PM EDTdocumented as of this encounter Last Filed Vital Signs Vital SignReadingTime TakenCommentsBlood Xgfcttdd343/8406/12/2025 11:53 AM EDT Pulse--Temperature--Respiratory Rate--Oxygen Saturation--Inhaled Oxygen Concentration--Bxyfjf30.7 kg (162 lb 8 oz)06/12/2025 11:53 AM EDTHeight--Body Mass Index30.7012/13/2023 9:43 AM EDTdocumented in this encounter Progress Notes * Sonia TAWANDA Rouse - 06/12/2025 11:40 AM EDT Reason for Appointment: Patient ID: Olga Pressley is a 40 y.o. female who presents for Irregular cycles Patient presents today for Acute Visit. MEDICATIONS Current Outpatient Medications Medication Instructions lisdexamfetamine (Vyvanse) 40 MG capsule omeprazole (PRILOSEC) 40 mg, Oral, Daily before breakfast, Do not crush or chew. ALLERGIES Allergies Allergen Reactions Nsaids GI bleeding and GI intolerance Codeine Nausea And Vomiting and Unknown Other Reaction(s): Other (See Comments) dizzy Penicillins Hives, Itching, Rash and Swelling Other Reaction(s): Unknown Sulfa Antibiotics Hives, Itching, Rash and Swelling Other Reaction(s): Unknown PROBLEMS Active Ambulatory Problems Diagnosis Date Noted Depressed 08/01/2013 Endometriosis 08/13/2023 Epigastric pain 08/13/2023 Abdominal pain 08/13/2023 Back pain 08/01/2013 Flank pain 08/13/2023 Pelvic pain 08/13/2023 Migraine 08/01/2013 Morbid obesity ([facility] 08/01/2013 Recurrent UTI 08/13/2023 Vitamin D deficiency 09/28/2014 LPRD (laryngopharyngeal reflux disease) 08/30/2023 Chronic laryngitis 08/30/2023 Globus sensation 11/01/2023 Tongue lesion 11/01/2023 Resolved Ambulatory Problems Diagnosis Date Noted 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 Past Medical History: Diagnosis Date Anxiety Binge eating disorder Depression Dizziness GERD (gastroesophageal reflux disease) History of migraine headaches Inflammatory bowel disease Obesity Ovarian cyst HISTORY PAST MEDICAL HISTORY SOCIAL HISTORY Past Medical History: Diagnosis Date Anxiety Binge eating disorder Depression Dizziness Endometriosis GERD (gastroesophageal reflux disease) History [...] SURGICAL HISTORY 12/07/2023 DL & BX @ [facility] Timmis PELVIC LAPAROSCOPY 07/21/2022 laparoscopy w/removal of epiploic adhesion of bowel from left ovary TONSILLECTOMY REVIEW OF SYSTEMS Review of Systems: Review of Systems Constitutional: Negative. HENT: Negative. Eyes: Negative. Respiratory: Negative. Cardiovascular: Negative. Gastrointestinal: Negative. Genitourinary: Negative. Musculoskeletal: Negative. Skin: Negative. Neurological: Negative. All other systems reviewed and are negative. Hematological: Negative. Endocrine: Negative. Allergic/Immunologic: Negative. OBJECTIVE Objective: Physical Exam Constitutional: Appearance: Normal [...] nursing note reviewed. Exam conducted with a helmet coverer present. Vitals: Estimated body mass index is 30.7 kg/m?? as calculated from the following: Height as of 12/13/23: 5' 1 . Weight as of this encounter: 162 lb 8 oz. BP: 112/84 Patient's last menstrual period was 05/31/2025 (approximate). Assessment/Plan ICD-10-CM 1. Vaginal itching N89.8 SURESWAB(R) ADVANCED VAGINITIS PLUS, TMA CHLAMYDIA TRACHOMATIS (GENITO/STI) Neisseria gonorrhea DNA probe, direct Pt presents with vaginal itching. Cultures obtained without difficulty. Pt given labs and ultrasound orders with Buderer packet. Pt to have everything obtained and talk with Buderer. Pt voiced understanding rx for diflucan faxed to pharmacy. Documented by Sonia Rouse LPN on behalf of: Hamilton Torres DO documented in this encounter Plan of Treatment DateTypeDepartmentCare Team (Latest Contact Info)Xopdrixwsyo90/14/2025 11:00 AM ESTAncillary Procedure [facility] [address] [place] [address] 09/11/2025 8:30 AM ESTProcedure Visit [facility] [address] [place] [id number] Hamilton Torres DO [address] [place], [place] [id number] NameTypePriorityAssociated DiagnosesOrder ScheduleSURESWAB(R) ADVANCED VAGINITIS PLUS, TMAPathology and CytologyRoutine Vaginal itching Ordered: 06/12/2025HLAMYDIA TRACHOMATIS (GENITO/STI)LabRoutine Vaginal itching Ordered: 06/12/2025Neisseria gonorrhea DNA probe, directLabRoutine Vaginal itching Ordered: 06/12/2025EstradiolLabRoutine Hormone disorder Ordered: 06/12/2025EstroneLabRoutine Hormone disorder Ordered: 06/12/2025ortisol, freeLabRoutine Hormone disorder Expected: 06/12/2025 (Approximate), Expires: 06/12/2026DHEA-sulfateLabRoutine Hormone disorder Ordered: 06/12/2025Sex hormone binding globulinLabRoutine Hormone disorder Ordered: 06/12/2025Insulin, totalLabRoutine Hormone disorder Expected: 06/12/2025 (Approximate), Expires: 06/12/2026Serotonin serumLabRoutine Hormone disorder Expected: 06/12/2025 (Approximate), Expires: 06/12/2026TSHLabRoutine Hormone disorder Ordered: 06/12/2025T4, freeLabRoutine Hormone disorder Ordered: 06/12/2025T3, reverseLabRoutine Hormone disorder Ordered: 06/12/2025ProgesteroneLabRoutine Hormone disorder Ordered: 06/12/2025Vitamin D 1,25 dihydroxyLabRoutine Hormone disorder Ordered: 06/12/2025FerritinLabRoutine Hormone disorder Ordered: 06/12/2025T3, freeLabRoutine Hormone disorder Ordered: 06/12/2025ThyroglobulinLabRoutine Hormone disorder Expected: 06/12/2025 (Approximate), Expires: 06/12/2026Thyroglobulin AntibodyLab Routine Hormone disorder Expected: 06/12/2025 (Approximate), Expires: 06/12/2026Thyroid peroxidase antibodyLabRoutine Hormone disorder Ordered: 06/12/20253950H2BurClawstd Hormone disorder Expected: 06/12/2025 (Approximate), Expires: 06/12/2026TESTOSTERONE, FREELab Routine Hormone disorder Ordered: 06/12/2025Testosterone, free, totalLabRoutine Hormone disorder Ordered: 06/12/2025Hemoglobin K7iQxbVcpepba Hormone disorder Ordered: 06/12/2025Glucose, randomLabRoutine Hormone disorder Expected: 06/12/2025 (Approximate), Expires: 06/12/2026-peptideLabRoutine Hormone disorder Expected: 06/12/2025 (Approximate), Expires: 06/12/2026US Pelvis w/ TVImaging Routine Vaginal itching Hormone disorder Expected: 06/12/2025, Expires: 12/11/2025documented as of this encounter Visit Diagnoses Diagnosis Vaginal itching Pruritus of genital organs Hormone disorder Unspecified endocrine disorder Yeast infection documented in this encounter Care Teams Team MemberRelationshipSpecialtyStart DateEnd Date Kenzie Lazar MD [address] [place] [id number] [facility]08/03/23documented as of this encounter
--- OUTSIDE RECORDS SUMMARY | 2025-06-20 07:41 | XMS_ITS | CCD ---
Author Organization [facility] Care Team Providers Care Rolfer Name Role Phone RAMSES CALERO Unavailable Unavailable RAMSES CALERO Unavailable Unavailable BRIAN, DR MULLEN Admitting Unavailable BRIAN, DR MULLEN Attending Unavailable BRIAN, DR MULLEN Consulting Unavailable BRIAN, DR MULLEN Primary Care Unavailable DALEYNGOC Consulting Unavailable BRIAN, DR MULLEN Primary Care Unavailable BRIAN, DR MULLEN Consulting Unavailable BRIAN, DR MULLEN Admitting Unavailable BRIAN, DR MULLEN Attending Unavailable BRIAN, DR MULLEN Admitting Unavailable BRIAN, DR MULLEN Attending Unavailable BRIAN, DR MULLEN Consulting Unavailable BRIAN, DR MULLEN Primary Care Unavailable JOSEMARV Consulting Unavailable GEMBUSDEBORAH Consulting Unavailable BRIAN, DR MULLEN Admitting Unavailable BRIAN, DR MULLEN Attending Unavailable BRIAN, DR MULLEN Consulting Unavailable BRIAN, DR MULLEN Primary Care Unavailable BRIAN, DR MULLEN Admitting Unavailable WEST, DR JADEN Salazar Consulting Unavailable BRIAN, DR MULLEN Attending Unavailable BRIAN, DR MULLEN Primary Care Unavailable BRIAN, DR MULLEN Consulting Unavailable BRIAN, DR MULLEN Admitting Unavailable BRIAN, DR MULLEN Attending Unavailable BRIAN, DR MULLEN Consulting Unavailable BRIAN, DR MULLEN Primary Care Unavailable KARASIK, DR MAHARAJ Admitting Unavailable KARASIK, DR MAHARAJ Attending Unavailable KARBECKY, DR MAHARAJ Consulting Unavailable BRIAN, DR MULLEN Primary Care Unavailable Kenzie Lazar Unavailable Natali Love Unavailable MD Kenzie Lazar Primary Care Provider [phone] MD Layne See Jr Attending Provider Kenzie Parra MD Primary Care Provider Kenzie Lazar MD Primary Care Provider Ly DO, Jane Becerril Attending Provider Ly, Jane L Admitting Unavailable Ly, Jane L Attending Unavailable Kenzie Lazar Primary Care Unavailable Timmis Jr, Layne H Admitting Unavailable Timmis Jr, Layne H Attending Unavailable Kenzie Lazar Primary Care Unavailable GIA ALVAREZ Attending Unavailable Kenzie Lazar MD Primary Care Provider [phone] Kenzie Lazar MD Primary Care Provider Kenzie Lazar MD Attending Provider Olga Seth APRN Attending Provider Kenzie Lazar Primary Care Unavailable Kenzie Lazar MD Primary Care Provider [phone] HAMILTON TORRES Attending Unavailable HAMILTON TORRES Attending Unavailable Allergies Allergy ClassificationReported Allergen(s)Allergy TypeDate of OnsetReaction(s) Facility (11 sources)Codeine; Translations: [codeine]Drug Urtupzt97-68-8764Fzhkg, dizzinessC[facility] (1 source)NSAIDsDrug allergy (disorder)28-61-6842Hmv [facility] Repository (10 sources)PenicillinsDrug allergy (disorder)36-30-6462IxxglGleCleveland Clinic Children'S [facility] Repository (1 source)Sulfonamides (Antibiotic)Drug allergy (disorder)87-81-9612Vjr [facility] Repository (1 source)Betadine Skin CleanserDrug allergy (disorder)[facility] Repository (7 sources)CodeineDrug AllergyUnkI-Shake Other (10 sources)penicillAMINEDrug Kyvwnvp35-51-5598RkagjmrParkview Health (7 sources)Sulfacetamide / SulfurDrug AllergyArbour-Hri HospitalI-Shake Other (5 sources)CaffeineDrug Ladbowe80-09-4575MthmzdlItprnI-Shake Other (15 sources)CodeineDrug Dvdxuor31-30-2602Nuwmzo And Vomiting, UnknownNOMS Healthcare Work Phone: (5 sources)Non-steroidal anti-inflammatory agentDrug allergyUnkResearch Psychiatric Center Soonr Other (6 sources)Penicillin; Translations: [penicillin]Drug Euqaiun54-31-8574PujytpwK[facility]tering [facility] Repository (5 sources)Wound Closure Strips *MEDICAL DEVICES AND SUPPLIESPropensity to adverse reactionsComment:Redness and swelling -Steri StripsFannettsburg Soonr Other (1 source)Allergies ReconciledPropensity to adverse reactionsPerry County Memorial Hospital Soonr Other (5 sources)Substance with penicillin structure and antibacterial mechanism of action (substance)Drug allergyPerry County Memorial Hospital Soonr Other (15 sources)Substance with sulfonamide structure and antibacterial mechanism of action (substance)Drug igctqjp34-26-1475Nwtot, Itching, Rash, SwellingFannettsburg Soonr Other (1 source)patient allergy list reviewed by nurse or physiciaPropensity to adverse mokzeslqt00-61-0607Dedypcz:[facility] Soon[facility] Other (5 sources)Curity Wound Closure 1/2 x4 *MEDICAL DEVICES ANDPropensity to adverse reactionsComment:Suture - VicResearch [facility] Soon[facility] Other (4 sources)Sulfacetamide; Translations: [sulfacetamide]Drug Nynwvnp46-67-3176 [facility] (10 sources)Sulfonamides (Antibiotic); Translations: [Sulfa (Sulfonamide Antibiotics)]Allergy to frpocatir92-37-2048RlxejVpninalyjSelect Medical [facility] (4 sources)Sulfur; Translations: [sulfur]Drug Rzsemmb19-77-0602JfzbaZazjlywqmSelect Medical [facility] (8 sources)NSAIDS (Non-Steroidal Anti-Inflamma; Translations: [NSAIDS (Non- Steroidal Anti-Inflamma]Propensity to adverse lvqkhhugp34-00-0598Eotoaepjk Pain [facility] CenterComment on above:hx gastric sleeve (11 sources)Non-steroidal anti-inflammatory agent; Translations: [NSAIDs]Drug Fdyhtjdjxih31-57-7210OB bleeding, GI intoleranceNOMS Healthcare (10 sources)PenicillinsDrug Fsdiwhtkdkz12-98-0392Wboch, Itching, Rash, Swelling [facility] (1 source)CodeineDrug Hrlibha48-69-5671NdbwbiuffFairfield Medical Center Repository (1 source)penicillAMINEDrug Izolpyq59-54-0889SkrrworzvFairfield Medical Center Repository (1 source)PenicillinsDrug allergy (disorder)76-45-3153QuqqorzsaFairfield Medical Center Repository (1 source)Sulfamethoxazole; Translations: [sulfamethoxazole]Drug AllergyFairfield Medical Center Repository (1 source)Sulfamethoxazole / Trimethoprim; Translations: [sulfamethoxazole-trimethoprim]Drug [facility] Repository Medications Current Medications MedicationDrug Class(es)DatesSig (Normalized)Sig (Original)Berberine Chloride (1 source)Start: 81-67-5187Qpmgpmtfp Chloride Active MG PO June 12, 2024 12:00amdoxycycline hyclate 100 mg oral tablet (1 source)Tetracycline-class DrugStart: 26-71-4272sskr 1 tablet by mouth every twelve hoursDoxycycline Hyclate 100 MG 1 tablet Orally Twice a day for 10 day(s) Aug, Activefamotidine 20 mg oral tablet (3 sources)Histamine-2 Receptor AntagonistStart: 08-30-2023 End: 49-04-8899yhxu 1 tablet by mouth at bedtimefamotidine (Pepcid) 20 MG tablet Indications: LPRD (laryngopharyngeal reflux disease) Take 1 tablet(20 mg) by mouth at bedtime 90 tablet 08/30/2023 08/07/2024 Discontinued (Therapy completed)fluconazole 150 mg oral tablet (2 sources)Azole AntifungalStart: 06-12-2025 End: 78-61-1916hitq 1 tablet by mouth once, then take 1 tablet by mouth once fluconazole (Diflucan) 150 MG tablet Indications: Yeast infection Take 1 tablet (150 mg) by mouth 1(one) time for 1 dose This is a 1 time dose, take single tablet by mouth. 1 tablet 1 06/12/2025 06/12/2025 Activelisdexamfetamine dimesylate 40 mg oral capsule (20 sources)Central Nervous System StimulantStart: 90-34-5936nqag 1 capsule by mouth once dailyLisdexamfetamine 40 mg capsule Active 40 MG PO Daily 30 March 02, 2025 Complies with drug therapyStart: 10-54-6016mvco 1 capsule by mouth once dailyLisdexamfetamine 40 mg capsule Active 40 MG PO Daily March 02, 2025 Complies with drug therapyStart: 01-02-2025 End: 31-21-1742tfwl 1 capsule by mouth once dailyLisdexamfetamine 40 mg capsule Discontinued 40 MG PO Daily 30 February 01, 2025 February 26, 2025 9:44amStart: 12-04-2024 End: 69-52-3388ovoz 1 capsule by mouth once dailyLisdexamfetamine 40 mg capsule Discontinued 40 MG PO Daily 30 December 04, 2024 December 02, 2024 3:45pmStart: 12-04-2024 End: 78-76-7364hmgx 1 capsule by mouth once dailyLisdexamfetamine 40 mg capsule Discontinued 40 MG PO Daily December 04, 2024 December 02, 2024 3:45pmStart: 12-02-2024 End: 50-52-6781saxd 1 capsule by mouth once dailyLisdexamfetamine 40 mg capsule Discontinued 40 MG PO Daily December 02, 2024 January 02, 2025 10:50amStart: 04-24-2024 End: 14-43-1438fjcb 1 capsule by mouth once dailyLisdexamfetamine 40 mg capsule Discontinued 40 MG PO Daily November 03, 2024 December 01, 2024 8:30amStart: 03-20-2024 End: 75-94-9323jelo 1 capsule by mouth once dailyLisdexamfetamine (Vyvanse) 30 mg capsule Discontinued 30 MG PO Daily March 20, 2024 April 24, 2024 9:40pmStart: 87-84-9492vqhz 1 capsule by mouth every twenty-four hours Vyvanse 30 MG 1 capsule Orally Once a day for 30 days Jan, Active magnesium gluconate 500 mg oral tablet (3 sources)Start: 39-48-7263eiwp 500 mg by mouth once dailyMagnesium Gluconate Active 500 MG PO Daily June 12, 2024 12:00amStart: 06-12-2024 End: 89-14-7085ibpg 1 tablet by mouth once dailyMagnesium Gluconate 12.5 mg magne- sium (250 mg) tablet Discontinued 500 MG PO Daily June 12, 2024 12:00am July 28, 2024 11:38ammagnesium glycinate 100 mg oral tablet (12 sources)Start: 09-01-2024 End: 66-94-9327Yxrxrotvx Glycinate 100 mg tablet Active 400 MG PO Daily as needed March 25, 2025 11:56am Complies with drug therapyStart: 07-28-2024 End: 69-38-3110Zkoxpyeuf Glycinate 100 mg tablet Discontinued 200 MG PO Daily July 28, 2024 1:00am September 01, 2024 10:08ammelatonin 10 mg oral capsule (3 sources)Start: 64-64-9966klju 1 capsule by mouth once daily at bedtime as neededMelatonin 10 mg capsule Active 10 MG PO Daily at bedtime as needed November 17, 2024 12:00am Complieswith drug therapynitrofurantoin, macrocrystals 25 mg / nitrofurantoin, monohydrate 75 mg oral capsule (3 sources)Nitrofuran AntibacterialStart: 67-75-5119ivqe 1 capsule by mouth every twelve hoursNitrofurantoin Monohyd Macro 100 MG 1 capsule with food Orally every 12 hrs for 7 day(s) Jan, ActivepredniSONE 20 mg oral tablet (2 sources)Start: 65-05-7349dftw 2 tablets by mouth once dailyPrednisone 20 mg tablet Active 40 MG PO Daily 6 3 March 25, 2025 12:00am Complies with drug therapyStart: 95-71-2649gfmg 2 tablets by mouth once daily at mealtimepredniSONE 20 MG 2 tablets with food or milk Orally Once a day for 5 Aug, Active Completed/Discontinued Medications MedicationDrug Class(es)DatesSig (Normalized)Sig (Original)Berberine Chloride 500 mg capsule (6 sources)Start: 06-12-2024 End: 81-76-4637Yurxnoxkx Chloride 500 mg capsule Discontinued MG PO June 12, 2024 12:00am July 281:17amStart: 06-12-2024 End: 29-72-3108Yuovbhpeb Chloride 500 mg capsule Discontinued MG PO June 11, 2024 11:00pm July 280:17amciprofloxacin 250 mg oral tablet (9 sources)Quinolone AntimicrobialStart: 11-03-2023 End: 08-95-9032npik 1 tablet by mouth twice dailyCiprofloxacin Hcl 250 mg tablet Discontinued 250 MG PO Twice daily November 03, 2023 12:00am March 20, 2024 1:40pmMagnesium Gluconate 12.5 mg magne- sium (250 mg) tablet (4 sources)Start: 06-12-2024 End: 78-29-3320wahd 1 tablet by mouth once dailyMagnesium Gluconate 12.5 mg magne- sium (250 mg) tablet Discontinued 500 MG PO Daily June 12, 2024 12:00am July 28, 2024 11:38amStart: 06-12-2024 End: 85-13-7092qmyu 1 tablet by mouth once dailyMagnesium Gluconate 12.5 mg magne- sium (250 mg) tablet Discontinued 500 MG PO Daily June 11, 2024 11:00pm July 28, 2024 10:38amomeprazole 40 mg delayed release oral capsule (20 sources)Proton Pump InhibitorStart: 06-01-2024 End: 52-27-4216hbza 1 capsule by mouth once dailyOmeprazole 40 mg capsule,delayed release(DR/EC) Discontinued 0 .ROUTE .COMPLEX 90 June 01, 2024 8:22am August 17, 2024 8:28am TAKE 1 CAPSULE BY MOUTH DAILYStart: 07-01-2023 End: 51-97-8173qfem 1 capsule by mouth before mealtimeomeprazole (PriLOSEC) [address] capsule Indications: LPRD (laryngopharyngeal reflux disease) Take 1 c apsule (40 mg) by mouth in the morning. Take before meals. Do not crush or chew.. 90 capsule 08/30/2023 Activephentermine hydrochloride 37.5 mg oral tablet (20 sources)Sympathomimetic Amine AnorecticStart: 07-01-2023 End: 36-03-5530lsdj 1 tablet by mouth once dailyPhentermine 37.5 mg tablet Discontinued 37.5 MG PO Daily October 15, 2023 1:00am October 15, 2023 10:11am Tirzepatide (5 sources)Start: 08-18-2024 End: 95-21-5804Ufhvxyydfyb (Mounjaro) 5 mg/0.5 mL pen injector Discontinued 5 MG SUBCUT every week 2 August 18, 2024 1:00am September 08, 2024 11:26am Start: 08-18-2024 End: 38-47-2793Njfdkjqncqv (Mounjaro) 5 mg/0.5 mL pen injector Discontinued 5 MG SUBCUT every week 2 August 18, 2024 12:00am September 08, 2024 10:26am Start: 21-37-0767Hwuagwkjlej (Mounjaro) 5 mg/0.5 mL pen injector Active 5 MG SUBCUT every week 2 August 18, 2024 12:00amTirzepatide (Weight Loss) (7 sources)Start: 06-12-2024 End: 47-59-5274Pwlbxcdnygw (Weight Loss) (Zepbound) 2.5 mg/0.5 mL pen injector Discontinued 2.5 MG SUBCUT every week 2.5 June 12, 2024 12:00am July 18, 2024 3:58pmStart: 06-12-2024 End: 37-36-6743Unodmfjtawk (Weight Loss) (Zepbound) 2.5 mg/0.5 mL pen injector Discontinued 2.5 MG SUBCUT every week 2.5 June 11, 2024 11:00pm July 18, 2024 2:58pmStart: 41-96-8378Rkeggsmuoyb (Weight Loss) (Zepbound) 2.5 mg/0.5 mL pen injector Active 2.5 MG SUBCUT every week 2.530 June 12, 2024 12:00amTirzepatide (Weight Loss) (16 sources)Start: 09-08-2024 End: 78-61-2363Qbbfvisxnop (Weight Loss) (Zepbound) 5 mg/0.5 mL pen injector Discontinued MG SUBCUT September 08, 2024 1:00am November 17, 2024 9:04amStart: 58-38-8825Lyvizdfnuho (Weight Loss) (Zepbound) 5 mg/0.5 mL pen injector Active MG SUBCUT September 08, 2024 12:00amStart: 07-28-2024 End: 77-96-3489Grnkdbncbsz (Weight Loss) 5 mg/0.5 mL pen injector Discontinued 5 MG SUBCUT every week 2 July 28, 2024 12:08pm August 18, 2024 10:05am Start: 07-28-2024 End: 04-67-8593Iqrrcpwxvhp (Weight Loss) 5 mg/0.5 mL pen injector Discontinued 5 MG SUBCUT every week 2 July 28, 2024 11:08am August 18, 2024 9:05am Start: 06-40-8044Wuyikceyvhu (Weight Loss) 5 mg/0.5 mL pen injector Active 5 MG SUBCUT every week 2 July 28, 2024 11:08amStart: 07-18-2024 End: 42-93-1913Idscizhhero (Weight Loss) 5 mg/0.5 mL pen injector Discontinued 5 MG SUBCUT every week 2 July 18, 2024 3:58pm July 28, 2024 12:08pm Start: 07-18-2024 End: 67-25-7443Ofxlzfbysrs (Weight Loss) 5 mg/0.5 mL pen injector Discontinued 5 MG SUBCUT every week 2 July 18, 2024 2:58pm July 28, 2024 11:08am Tirzepatide-Weight Management (Zepbound) 5 MG/0.5ML solution auto-injector (5 sources)Start: 08-07-2024 End: 62-02-2859gjealk 0.5 mL by subcutaneous injection every weekTirzepatide- Weight Management (Zepbound) 5 MG/0.5ML solution auto-injector Indications: Encounter for weight management Inject 0.5 mL under the skin 1 (one) time per week 0.5 mL 3 08/07/2024 06/12/2025 DiscontinuedStart: 93-95-2180ohsogt 0.5 mL by subcutaneous injection every weekTirzepatide-Weight Management (Zepbound) 5 MG/0.5ML solution auto-injector Indications: Encounter for weight management Inject 0.5 mL under the skin 1 (one) time per week 0.5 mL 3 08/07/2024 Active Zepbound 2.5 MG/0.5ML solution auto-injector (7 sources)Start: 06-13-2024 End: 39-07-1623velqah 2.5 mg by subcutaneous injection every weekZepbound 2.5 MG/0.5ML solution auto-injector INJECT 2.5 MG SUBCUTANEOUSLY (UNDER THE SKIN) ONCE A WEEK 06/13/2024 06/12/2025 DiscontinuedStart: 12-36-1306gmgwho 2.5 mg by subcutaneous injection every weekZepbound 2.5 MG/0.5ML solution auto-injector INJECT 2.5 MG SUBCUTANEOUSLY (UNDER THE SKIN) ONCE A WEEK 06/13/2024 Active Problems Active Problems Problem ClassificationProblemDateDocumented DateEpisodic/Chronic Administrative/social admission (20 sources)Patient encounter status; Translations: [Exercise counseling] 18-81-8616UnimlaciKutgkdff reactions (3 sources)Allergic reaction; Translations: [Allergy, unspecified, initial encounter]31-20-0202YszrboomZuyldsdjf of teeth and jaw (4 sources)Arthralgia of right temporomandibular joint; Translations: [Arthralgia of right temporomandibular joint]Onset: 85-64-1273NvruhbltZpghyknwu usually diagnosed in infancy, childhood, or adolescence (20 sources)Adult attention deficit hyperactivity disorder ; Translations: [Other specified behavioral and emotional disorders with onset usually occurring in childhood and adolescence]59-15-0684OgpdyeqXryuormuiisqw (10 sources)Endometriosis (clinical); Translations: [Endometriosis, unspecified] Onset: 974141-13-1940XpdrymfVmkillileg disorders (20 sources)Gastro-esophageal reflux disease without esophagitis; Translations: [Laryngopharyngeal reflux]Onset: 56-35-4320GivyuqyRcuosatpkk disorders (2 sources)Esophageal disorders; Translations: [GERD, OBESITY]Onset: 07-21-2017 Gastrointestinal hemorrhage (7 sources)Hemorrhage of rectum and anus; Translations: [Rectal bleed]Episodic Genitourinary symptoms and ill-defined conditions (1 source)Genitourinary symptoms; Translations: [Unspecified symptoms and signs involving the genitourinary system]EpisodicHeadache; including migraine (11 sources)Migraine without aura, not refractory ; Translations: [Migraine, unspecified, not intractable, without status migrainosus]Onset: 08-01-2013 Resolved: 513522-89-9216TrgvotgWmuhkxakzfpql and screening for infectious disease (1 source)Encounter for screening for human papillomavirus (HPV); Translations: [ENC SCREENING HUMAN PAPILLOMAVIRUS]Onset: 99-84-6285PzsemorxOdsgzuisyxvl diseases of female pelvic organs (1 source)Female pelvic peritoneal adhesions (postinfective); Translations: [FE PELV PERITON ADHES POSTINFECTIVE]Onset: 92-94-4308UfcnrnvwJnyvpkulbdbbz mental health disorders (20 sources)Binge eating disorder; Translations: [Binge eating disorder]Onset: 44-73-9470XovsrzaSple disorders (12 sources)Depression; Translations: [Dysthymia]Onset: 08-01-2013 Resolved: 013105-05-0647KwnwksrCvtl disorders (1 source)Mood disorders; Translations: [DEPRESSION UNSPECIFIED]Onset: 62-25-8414Dvdnvxa (3 sources)Candidiasis; Translations: [Candidiasis, unspecified]06-12-2025 EpisodicNonmalignant breast conditions (4 sources)Lump in right breast; Translations: [Unspecified lump in the right breast, unspecified quadrant] Resolved: 35-06-0194FxwrztfzJmjjpvcdjsa deficiencies (10 sources)Vitamin D deficiency; Translations: [Vitamin D deficiency, unspecified]Onset: 297449-98-1806FrswlfdCthey aftercare (1 source)Other supervisor intermediates (current) drug therapy; Translations: [OTH [facility] CURRENT DRUG THERAPY]Onset: 62-84-9698VwlelkhwTunoj aftercare (1 source)History and physical examination, follow-up; Translations: [Encounter for follow-up examination after completed treatment for conditions other than malignant neoplasm]EpisodicOther complications of (1 source)High risk ; Translations: [Supervision of high risk , unspecified, unspecified trimester]EpisodicOther endocrine disorders (2 sources)Disorder of endocrine system; Translations: [Endocrine disorder, unspecified]02-12-0455GntblsnrQwkpi female genital disorders (1 source)Abnormal uterine and vaginal bleeding, unspecified; Translations: [ABNORMAL UTERINE VAGINAL BLEED UNS]Onset: 86-91-1008AqkxmltUpbry female genital disorders (1 source)Unspecified dyspareunia; Translations: [UNSPECIFIED DYSPAREUNIA]Onset: 86-60-4359LfwfwrnTmoys female genital disorders (2 sources)Noninflammatory disorder of the vagina; Translations: [Noninflammatory disorder of vagina, unspecified] Resolved: 73-34-1355PpqhdcnxPuhki female genital disorders (2 sources)Pruritus of vagina; Translations: [Other specified noninflammatory disorders of vagina]99-85-5254ZrcwfksmEvbpq gastrointestinal disorders (7 sources)Diarrhea; Translations: [Diarrhea]EpisodicOther gastrointestinal disorders (10 sources)Dysphagia; Translations: [Dysphagia]96-03-2627PrhxhvgnZfiil gastrointestinal disorders (1 source)Flatulence, eructation and gas pain; Translations: [Abdominal distension (gaseous)]EpisodicOther gastrointestinal disorders (7 sources)Heartburn; Translations: [Heartburn]20-58-3448ZbwrpndlBakib gastrointestinal disorders (9 sources)Heartburn; Translations: [Heartburn]44-77-5919BicieseeAtvtk gastrointestinal disorders (6 sources)Rectum finding; Translations: [Other specified symptoms and signs involving the digestive system and abdomen]05-52-2385ZpxyiqenZyvjd gastrointestinal disorders (4 sources)Other specified symptoms and signs involving the digestive system and abdomen; Translations: [Othersymptoms involving digestive system]07-19-2024 EpisodicOther gastrointestinal disorders (3 sources)Dysphagia, unspecified; Translations: [Dysphagia, unspecified]Onset: 214584-81-4189JlbyvdfsAllht lower respiratory disease (1 source)Dyspnea; Translations: [Other forms of dyspnea]EpisodicOther nutritional; endocrine; and metabolic disorders (14 sources)Obese class II; Translations: [Body mass index (BMI) 38.0-38.9, adult]19-39-7939RkynblfVneun nutritional; endocrine; and metabolic disorders (19 sources)Body mass index 40+ - severely obese; Translations: [Body mass index (BMI) 40.0-44.9, adult] Resolved: 199732-88-2176PjchnvcVotck nutritional; endocrine; and metabolic disorders (20 sources)Body mass index 30+ - obesity; Translations: [Body mass index 31.0- 31.9, adult]Onset: 11-18-2017 Resolved: 347350-41-9803PciwmvjIyqzq nutritional; endocrine; and metabolic disorders (3 sources)Obesity; Translations: [Obesity, unspecified]52-98-2333IjqgoaaHoflw nutritional; endocrine; and metabolic disorders (4 sources)Severe obesity; Translations: [Morbid (severe) obesity due to excess calories]ChronicOther nutritional; endocrine; and metabolic disorders (7 sources)Morbid (severe) obesity due to excess calories; Translations: [Morbid obesity]ChronicOther nutritional; endocrine; and metabolic disorders (7 sources)Body mass index (BMI) 40.0-44.9, adult; Translations: [Body Mass Index 40.0-44.9, adult]ChronicOther nutritional; endocrine; and metabolic disorders (10 sources)Morbid obesity; Translations: [Morbid (severe) obesity due to excess calories]Onset: 395170-50-7449IgnebngQxfbu nutritional; endocrine; and metabolic disorders (3 sources)Body mass index (BMI) 37.0-37.9, adult; Translations: [Body Mass Index 37.0-37.9, adult]55-89-2814CeekzdmYells nutritional; endocrine; and metabolic disorders (2 sources)Body mass index (BMI) 36.0-36.9, adult; Translations: [Body Mass Index 36.0-36.9, adult]39-38-7471HowxwoaOgomk nutritional; endocrine; and metabolic disorders (8 sources)Abnormal weight gain; Translations: [Abnormal weight gain]06-12-2024 EpisodicOther nutritional; endocrine; and metabolic disorders (9 sources)Abnormal weight gain; Translations: [Abnormal weight gain]06-12-2024 EpisodicOther screening for suspected conditions (not mental disorders or infectious disease) (7 sources)Encounter for screening for malignant neoplasm of cervix; Translations: [Urine test negative]Onset: 09-07-6374ZfrsyhvoGivzs upper respiratory disease (10 sources)Chronic laryngitis; Translations: [Chronic laryngitis]Onset: 183959-93-8405JkvtdmbZcgvd upper respiratory infections (1 source)Acute sinusitis, unspecifiedEpisodicOvarian cyst (4 sources)Unspecified ovarian cyst, left side; Translations: [UNSPECIFIED OVARIAN CYST LEFT SIDE]Onset: 11-05-5875JjntqhjpOxtgaycm; pneumothorax; pulmonary collapse (2 sources)PleurisyEpisodicResidual codes; unclassified (1 source)Tobacco user; Translations: [Tobacco use]EpisodicResidual codes; unclassified (1 source)History of uterine scar from previous surgery; Translations: [History of uterine scar from previoussurgery]EpisodicResidual codes; unclassified (9 sources)Acquired absence of stomach [part of]; Translations: [Personal history of surgery to other organs]54-19-4753LihxtnckKolszhzu codes; unclassified (9 sources)Acquired absence of other specified parts of digestive tract; Translations: [Other postprocedural status]09-79-1770AoaeqicqJhuxdgasdkjp (1 source)CONTACT W/AND (SUSP) EXPOS COVID-19; Translations: [CONTACT W/AND (SUSP) EXPOS COVID-19]Onset: 30-10-7293Rolshzimpjqt (5 sources)Pain in pelvis; Translations: [Pelvic pain]Onset: 08-13-2023 15-94-6439Akghqwjr veins of lower extremity (1 source)Pain co-occurrent and due to varicose veins of bilateral legs; Translations: [Varicose veins of bilateral lower extremities with pain]Episodic Past or Other Problems Problem ClassificationProblemDateDocumented DateEpisodic/ChronicAbdominal pain (20 sources)Pelvic and perineal pain; Translations: [Unspecified abdominal pain] Onset: 25-04-6685IdmqfxnwXptpenr disorders (2 sources)Anxiety disorder, unspecified; Translations: [Anxiety disorder]Onset: 11-18-2017 Resolved: 06-80-9843RiixpmkNjxfyzt dysrhythmias (1 source)Tachycardia; Translations: [Tachycardia, unspecified]Onset: 11-18-2017 Resolved: 31-55-9148QkjqlqorNepqhfoy of mouth; excluding dental (10 sources)Lesion of tongue; Translations: [Other diseases of tongue]Onset: 731860-63-2368GuhiqjilAzupado and fatigue (1 source)Fatigue; Translations: [Other fatigue]Onset: 11-18-2017 Resolved: 70-95-9135PaslgqbgVuurnliaigajp mental health disorders (1 source) depression; Translations: [ depression] Resolved: 80-15-8582LwhoofgbSumrt female genital disorders (4 sources)Other specified noninflammatory disorders of vagina; Translations: [OTH SPEC NONINFLAMMATORY D/O VAGINA]Onset: 97-06-4484IgxkrkdnSgsqn infections; including parasitic (1 source)Disorder due to infection; Translations: [Unspecified infectious disease] Resolved: 23-61-1950ZkjyiqjfZkrtm nutritional; endocrine; and metabolic disorders (3 sources)Obese class I; Translations: [Body mass index 32.0-32.9, adult]Onset: 11-18-2017 Resolved: 41-84-2388DnmoqfbYglfb nutritional; endocrine; and metabolic disorders (1 source)Overweight; Translations: [Overweight]Onset: 11-18-2017 Resolved: 46-25-3754MskewuxoSxroi upper respiratory disease (1 source)Disorder of upper respiratory system; Translations: [Other diseases of nasal cavity and sinuses]Onset: 11-18-2017 Resolved: 52-64-5717LymzbrksMnsro upper respiratory disease (20 sources)Feeling of lump in throat; Translations: [Globus sensation]Onset: 596295-21-8844RufknbanXarga upper respiratory infections (1 source)Chronic sinusitis; Translations: [Chronic sinusitis, unspecified] Resolved: 82-01-9619EnrglcuGgefnhgi codes; unclassified (1 source)C/O - a back symptom; Translations: [Other symptoms referable to back] Onset: 03-11-2018 Resolved: 01-95-3157YxzsamxpBdcxswdp codes; unclassified (17 sources)History of sleeve gastrectomy; Translations: [Acquired absence of stomach [part of]]Onset: 10-18-2013 Resolved: 613123-69-1348DqdzjbiiXvwdoxobios; intervertebral disc disorders; other back problems (16 sources)Low back pain; Translations: [Low back pain, unspecified]Onset: 08-01-2013 Resolved: 158948-44-6805FmnqhhnuRkhjbxahdaqw (1 source) care; Translations: [Supervision of other normal ] Urinary tract infections (11 sources)Urinary tract infection, site not specified; Translations: [Recurrent urinary tract infection]Onset: 38-48-5246Rdhqxobw Results Test NameValueInterpretationReference RangeFacilityRECURRENT VAGINITIS (HTRX)on 91-06-8286FUEVVFWOF BSSMNZU9APLT HealthcareATOPOBIUM VAGINAENot detectedNOMS HealthcareBVAB 2,3 (BACTERIAL VAGINOSIS ASSOCIATED BACTERIA 2, 3); MOBILUNCUS VBE5VRWJ HealthcareBVAB 2,3 (BACTERIAL VAGINOSIS ASSOCIATED BACTERIA 2, 3); MOBILUNCUS SPPNot detectedNOMS HealthcareCANDIDA ALBICANS, PARAPSILOSIS, OYEVZNXVVW6KZHT HealthcareCANDIDA ALBICANS, PARAPSILOSIS, TROPICALISNot detected NOMS HealthcareCANDIDA SKGPTEVN09.385AbnormalNOMS HealthcareCANDIDA GLABRATA DetectedAbnormalNOMS HealthcareCANDIDA WAKAZH8KUDS HealthcareCANDIDA KRUSEINot detectedNOMS HealthcareCHLAMYDIA NUYPDHNYCVK2YIQG HealthcareCHLAMYDIA TRACHOMATISNot detectedNOMS HealthcareGARDNERELLA HSUVYPMHB5QCQF Healthcare GARDNERELLA VAGINALISNot detectedNOMS HealthcareInterpretation and review of laboratory resultsAbnormalNOMS HealthcareMEGASPHAERA (TYPES 1, 2)0NOMS HealthcareMEGASPHAERA (TYPES 1, 2)Not detectedNOMS HealthcareMYCOPLASMA GEPJVNLYCQ4TGMQ HealthcareMYCOPLASMA GENITALIUMNot detectedNOMS Healthcare NEISSERIA PMXCDCAWLEG9VWSB HealthcareNEISSERIA GONORRHOEAENot detectedNOMS HealthcareTRICHOMONAS WJUVKLAEF2VEWN HealthcareTRICHOMONAS VAGINALISNot detected NOMS HealthcareNOMS HealthcarePhysical Therapy Noteon 43-61-8903Yjltvdbp Therapy [id number]#1.00[facility] Coding Summaryon 42-67-5513Ouljwj SummaryHTMLBase 64 JaaocrrlYDz6yMj+PGhlYWQ+LL5MGJFeI58azKDewW8bQ1DIBQxSPsvdVKXVZVuQLdVrisOyJB8xnGXa ZXJu [file] J2J (more content not included)...[facility] HospitalProvider Orderson 00-12-1476Uskpykhw [id number]#1.00OTGTIFF [facility] HospitalMM TOMOSYNTHESIS SCREENING BIon 57-91-8567[place] [address] Mammography Report Signed Patient: OLGA SALES MR#: [id number] : 1985 Acct:[id number] Age/Sex: 39 / F ADM Date: 02/09/25 Loc: MAMMO Attending Dr: Hamilton Torres D.O. Ordering Physician: Hamilton Torres D.O. Results: Date of Service: 02/09/25 Follow Up: Procedure(s): MM tomosynthesis screening BI Accession Number(s): [id number] cc: Kenzie Lazar M.D.; Hamilton Torres D.O. Patient Name: OLGA SALES MR#: [id number] : 1985 Exam Date: 02/09/2025 Ordering Doctor: DR HAMILTON TORRES . RADIOLOGY REPORT PROCEDURE: MM TOMOSYNTHESIS SCREENING BI COMPARISON: MM TOMOSYNTHESIS DIAGNOSTIC BI, 08/22/2021. MG MAMM GUNJAN DIAG W CAD, 06/18/2017. INDICATIONS: Mammogram Calculator Name NCI Breast Cancer Risk Assessment Tool 5 Year Breast Cancer Risk 0.60% Lifetime Breast Cancer Risk 11.10% Personal Breast Cancer No Personal Ovarian Cancer No Treatments None Family Cancers Father with lung cancer at age 57; Uncle-paternal with pancreatic cancer at age 61; Grandfather-maternal with lung cancer at age 60; Aunt-maternal with breast cancer at age 30; Aunt-paternal with lung cancer at age 49. LOCATION: [facility] BREAST COMPOSITION: There are scattered areas of fibroglandular density. FINDINGS: DIAGNOSTIC CATEGORY 1--NEGATIVE. RIGHT BREAST: No significant suspicious finding. LEFT BREAST: No significant suspicious finding. RECOMMENDATIONS: ROUTINE MAMMOGRAM AND CLINICAL EVALUATION IN 12 MONTHS. PLEASE NOTE: A NORMAL MAMMOGRAM DOES NOT EXCLUDE THE POSSIBILITY OF BREAST CANCER. A CLINICALLY SUSPICIOUS PALPABLE LUMP SHOULD BE BIOPSIED. Dictated by: Abel Geiger DO on 02/09/2025 at 14:18 Approved by: Abel Geiger DO on 02/09/2025 at 14:19 Dictated By: Abel Geiger M.D. Signed By: 02/09/25 1420 DD/ 1419 TD/TT: Shot Hole Driller:TBHRadiology, Radiologist, - 02/09/2025 [place] [address] Mammography Report Signed Patient: OLGA SALES MR#: [id number] : 1985 Acct:[id number] Age/Sex: 39 / F ADM Date: 02/09/25 Loc: MAMMO Attending Dr: Hamilton Torres D.O. Ordering Physician: Hamilton Torres D.O. Results: Date of Service: 02/09/25 Follow Up: Procedure(s): MM tomosynthesis screening BI Accession Number(s): [id number] cc: Kenzie Lazar M.D.; Hamilton Torres D.O. Patient Name: OLGA SALES MR#: [id number] : 1985 Exam Date: 02/09/2025 Ordering Doctor: DR HAMILTON TORRES . RADIOLOGY REPORT PROCEDURE: MM TOMOSYNTHESIS SCREENING BI COMPARISON: MM TOMOSYNTHESIS DIAGNOSTIC BI, 08/22/2021. MG MAMM GUNJAN DIAG W CAD, 06/18/2017. INDICATIONS: Mammogram Calculator Name NCI Breast Cancer Risk Assessment Tool 5 Year Breast Cancer Risk 0.60% Lifetime Breast Cancer Risk 11.10% Personal Breast Cancer No Personal Ovarian Cancer No Treatments None Family Cancers Father with lung cancer at age 57; Uncle-paternal with pancreatic cancer at age 61; Grandfather-maternal with lung cancer at age 60; Aunt-maternal with breast cancer at age 30; Aunt-paternal with lung cancer at age 49. LOCATION: [facility] BREAST COMPOSITION: There are scattered areas of fibroglandular density. FINDINGS: DIAGNOSTIC CATEGORY 1--NEGATIVE. RIGHT BREAST: No significant suspicious finding. LEFT BREAST: No significant suspicious finding. RECOMMENDATIONS: ROUTINE MAMMOGRAM AND CLINICAL EVALUATION IN 12 MONTHS. PLEASE NOTE: A NORMAL MAMMOGRAM DOES NOT EXCLUDE THE POSSIBILITY OF BREAST CANCER. A CLINICALLY SUSPICIOUS PALPABLE LUMP SHOULD BE BIOPSIED. Dictated by: Abel Geiger DO on 02/09/2025 at 14:18 Approved by: Abel Geiger DO on 02/09/2025 at 14:19 Dictated By: Abel Geiger M.D. Signed By: 02/09/25 1420 DD/ 1419 TD/TT: Shot Hole Driller: [facility] CenterRadiology Study observation (narrative)[facility] CenterMM TOMOSYNTHESIS SCREENING BIOrdered By: Radiologist Radiology on 87-52-8109UICA Daojia Work Phone: cNOVoe [phone] Visit (OTOL[facility]) SALES,OLGA ([id number]) 1985 F Date Time Provider Department 12/08/24 11:25 AM GIA ALVAREZ [facility] During your visit today, we recorded the following information about you: Gia Alvarez APRN.CNP 12/08/2024 12:02 PM Signed Tobacco Use: Not on file Gia Alvarez APRN.CNP 12/08/2024 12:02 PM Signed IMPRESSION: - [...] for her dysphagia, will reach out via [facility] with results. FOLLOW UP: Return as needed. Call sooner if problems develop. Gia Alvarez APRN.DIRECTOR OF HEMOPHILIA Referring Provider: I was consulted by self for dysphagia. Reason for Consult: Olga Sales is a 39 year old female who presents to [facility] Otolaryngology Department. Patient presents with: New Patient [...] on the right sided of her neck. [place] like a firm bump that had grown. [...] masses appreciated. Voice:Perceptual voic (more content not included)...NormalGalion HospitalvelandPathology study report documentOrdered By: Ward Macias on 24-80-7096Hezbfjdow studyFairfield Medical Center Other HCG ( test) IA.rapid Ql (U)Ordered By: Jane Spaulding on 30-84-2906LLM ( test) Ql (U)Urine human chorionic gonadotropin (hCG) detection by immunoassayFairfield Medical Center HCG,Urineon 89-03-5034Ugbp HCG ( test) Ql (U)NegativeNoFirstHealth Moore Regional Hospital [facility] Physician [facility] County HospitalComment on above:Result Comment: PERFORMED BY: [facility] [address] [place] [address] PATHOLOGIST NET ARCHITECT ROMEO DONG M.D.Performed By: #### UHCG #### [facility] [address] [facility] [place] [address] Fabi 08-17-2024 Specimen: [id number] Received: 08/17/24 Status: AD Matthewseden Num: [id number] Spec Type: Surgical Subm Dr: Jane Spaulding DO Tissues: A Small Intestine - Biopsy/Polyp (SM BOWEL BX R/O CELIAC) B GASTRIC FOR HP (GASTRIC BX R/O H PYLORI) C Esophagus Biopsy (DISTAL ESOPHAGUS BX R/O EOE) D Esophagus Biopsy (PROXIMAL ESOPHAGUS BX R/O EO) Procedures: HE/8, Gross/Micro L4/4, H PYLORI Age/ Patient Sex Location Account Attending Physician Olga Sales 39/F [id number] Jane Spaulding DO SPEC NUM: [id number] RECD: 08/17/24 STATUS: AD KAUR NUM: [id number] KARINA: 08/17/[address]: Jane Spaulding DO ENTERED: 08/17/[address] [facility] [address]: SPEC TYPE: Surgical DEPT: S ENTERED BY: [id number] RECV BY: [id number] ORDERED: HE/8, Gross/Micro L4/4, H PYLORI ORDERED: [...] seen Specimen: [id number] Received: 08/17/24 Status: AD Kaur Num: [id number] Spec Type: Surgical Subm Dr: Jane Spaulding DO Tissues: A Small Intestine - Biopsy/Polyp (SM BOWEL BX R/O CELIAC) B GASTRIC FOR HP (GASTRIC BX R/O H PYLORI) C Esophagus Biopsy (DISTAL ESOPHAGUS BX R/O EOE) D Esophagus Biopsy (PROXIMAL ESOPHAGUS BX R/O EO) Procedures: , Gross/Micro L4/4, H PYLORI Patient: Olga Sales [id number] (Continued) Specimen: [id number] Received: 08/17/24 (Continued) Signed (signature on file) Ward Macias Jr., MD 08/18/24 0926 Specimen: [id number] Received: 08/17/24 Status: AD Kaur Num: [id number] Spec Type: Surgical Subm Dr: Jane Spaulding DO Tissues: A Small Intestine - Biopsy/Polyp (SM BOWEL BX R/O CELIAC) B GASTRIC FOR HP (GASTRIC BX R/O H PYLORI) C Esophagus Biopsy (DISTAL ESOPHAGUS BX R/O EOE) D Esophagus Biopsy (PROXIMAL ESOPHAGUS BX R/O EO) Procedures: , Gross/Micro L4/4, H PYLORI Patient: Olga Sales [id number] (Continued) Specimen: [id number] Received: 08/17/24-1050 (Continued) Clinical Information Globus/constipation. Part A rule [...] a single cassette. (1, ns, S25-10 A) J Part B is received in formalin labeled with the patients name, date of , and gastric BX are 2 santana-delarosa, focally erythematous, friable, 0.2 and 0.3 cm in greatest dimension tissue bits. The specimen is entirely submitted in a single cassette. (1, ns, S25-10 B) J Part C is received in formalin labeled with the patients name, date of , and distal esophagus BX is a pale delarosa, focally erythematous, feathery, 0.3 cm in greatest dimension tissue bit. The specimen is entirely submitted in a single cassette. (1, ns, S25-10 C) Part D is received in formalin labeled [...] B1) for Helicobacter p (more content not included)...NormalThe [facility]/Nhrmc Physician GroupIGP,APTIMA HPV,AGE GDLNon 08-52-3182IUI GDLN ACOG TESTINGNote. NOMS HealthcareComment on above:TESTS RESULT FLAG UNITS REF RANGE LAB Clinician Provided Cytology Information Source.............Cervix;Endocervix No. of containers..01 ThinPrep Vial Age Algo ACOG Angélica... FLAG LEGEND: L-Low Normal,H-High Normal,LL-Alert Low,HH-Alert High <-Panic Low,>-Panic High,A-Abnormal,AA-Critical Abnormal Performed at: 01 =G [facility] [address] Elli Medeiros MD, HPV APTIMANegativeNegativeNOMS HealthcareComment on above:This nucleic acid amplification test detects fourteen high- risk HPV types (16,18,31,33,35,39,45,51,52,56,58,59,66,68) without differentiation. Performed at: =[facility] [id number] Route Delivery Driver: Elli Medeiros MD, Phone: [phone] Performed at: [facility] [address] [address] [place], [place] [id number] Route Delivery Driver: Edward Hamilton MD, Phone: [phone] IGP, APTIMA HPV, RFX 16/18,45Note.NOMS HealthcareComment on above:TESTS RESULT FLAG UNITS REF RANGE LAB DIAGNOSIS: 02 NEGATIVE FOR INTRAEPITHELIAL LESION OR MALIGNANCY. Specimen adequacy: 02 Satisfactory for evaluation. Endocervical and/or squamous metaplastic cells (endocervical component) are present. Performed by: Negrita Pizarro, Salesforce Developer ([facility]) . 02 Note: Note 03 The Pap [...] <-Panic Low,>-Panic High,A-Abnormal,AA-Critical Abnormal Performed at: 02 [facility] [address] [place] [address] Edward Hamilton MD, 03 WB [facility] [address] [place] [address] Elli Medeiros MD, BRUSH-SPATULA CERVIX ENDOCERVIX [facility] papilloma virus 16+18+31+33+35+39+45+51+52+56+58+59+66+68 DNA [Presence] in Yoan 93-46-1973QZT 16+18+31+33+35+39+45+51+52+56+58+59+66+68 DNA Probe+sig amp Ql (Cvx)Human papilloma virus 16+18+31+33+35+39+45+51+52+56+58+59+66+68 DNA [Presence] in [facility] Hospital [facility] ColumbusComment on above:This nucleic acid amplification test detects fourteen high-risk HPV types (16,18,31,33,35,39,45,51,52,56,58,59,66,68)without differentiation.Performed at: =G - [facility] [address] [id number] Director: Elli Medeiros MD, Phone: [phone] at: [facility] - [facility] [address] [place], [place] [id number] Director: Edward Hamilton MD, Phone: [phone] Panel Informationon 82-61-5415XIL High Risk Other CommentNote.Fairfield Medical CenterComment on above:TESTS RESULT FLAG UNITS REF RANGE LAB DIAGNOSIS: 02 NEGATIVE FOR INTRAEPITHELIAL LESION OR MALIGNANCY.Specimen adequacy: 02 Satisfactory forevaluation. Endocervical and/or squamous metaplastic cells (endocervical component) are present.Performed by: 02 Ifeanyi Pizarro, Salesforce Developer ([employer]). 02Note: Note 03 The Pap smear [...] use of an image guided system.HPV Genotype ReflexNote 02 Criteria not met, HPV Genotype not performed. FLAG LEGEND: L-Low Normal,H-High Normal,LL-Alert Low,HH-Alert High <-Panic Low,>- Panic High,A-Abnormal,AA-Critical Abnormal Performed at:02 KWCYT [facility] [address] [address] [place] [address] Edward Hamilton MD, [address] [facility] [address] [address] Elli Medeiros MD, Reference Lab Test Patient AgeNote.Fairfield Medical CenterComment on above:TESTS RESULT FLAG UNITS REF RANGE LAB Clinician Provided Cytology Information Source.............Cervix;Endocervix No. of containers..01 ThinPrep VialAge Supriya SALAZAR Angélica... 29 FLAG LEGEND: L-Low Normal,H-High Normal,LL-Alert Low,HH-Alert High <-Panic Low,>-Panic High,A- Abnormal,AA-Critical Abnormal Performed a t:01 =G [facility] [address] [address] Elli Medeiros MD, MHO ( test) IA.rapid Ql (U)on 12-07-2023 HCG ( test) Ql (U)NegativeNEGATIVEFairfield Medical CenterLon 82-26-4899CBsfdzxmx: [id number] Received: 12/08/23 Status: AD Kaur Num: [id number] Spec Type: Surgical Subm Dr: LAYNE SEE MD Tissues: A TONGUE - biopsy (RT TONGUE BASE) Procedures: HE/2, Gross/Micro L4, AE1-AE3, BCL-2, BCL-6, CD10, CD20, CD23, CD3, CD5, Ki-67, PAX5 Age/ Patient Sex Location Account Attending Physician Olga Sales 38/F [facility] [id number] LAYNE SEE MD SPEC NUM: [id number] RECD: 12/08/23 STATUS: AD KAUR NUM: [id number] KARINA: 12/07/[address]: LAYNE SEE MD ENTERED: 12/08/[address] [facility] [address]: [facility] SPEC TYPE: Surgical DEPT: ADILSON CAO ORDERED: [...] history: Dysphagia, santana base asymmetry CPT Codes 95925, 75586, 58254l1 Specimen: [id number] Received: 12/08/23 Status: AD Kaur Num: [id number] Spec Type: Surgical Subm Dr: LAYNE SEE MD Tissues: A TONGUE - biopsy (RT TONGUE BASE) Procedures: HE/2, Gross/Micro L4, AE1-AE3, BCL-2, BCL-6, CD10, CD20, CD23, CD3, CD5, Ki-67, PAX5 Patient: Olga Sales [id number] (Continued) Signed (signature on file) Romeo Dong MD 12/14/23 [facility] Physician GroupBasophils Auto (Bld) [#/Vol]on 14-25-9588Sudgqbxti (Bld) [#/Vol]0.0 10 3/uL0.0-0.1FMercy Health Anderson HospitalBasophils/100 WBC Auto (Bld)on 47-23-6542Evwplxgoj/100 WBC (Bld)0.3 % 0.2-2.0Fairfield Medical CenterECG 12-LEADon 38-96-1827[place] [address] Electrocardiograph Report Signed Patient: OLGA SALES MR#: [id number] : 1985 Acct:[id number] Age/Sex: 38 / F ADM Date: 11/26/23 Loc: [facility] Attending Dr: Layne See M.D. Ordering Physician: Layne See M.D. Date of Service: 11/26/23 Procedure(s): ECG 12 lead Accession Number(s): [id number] cc: [facility] Test Date: 2023-11-26 Pat Name: OLGA SALES Department: Room: - Gender: Female Padder Cushion: : 1985 Requested By: LAYNE SEE Order Number: [id number] Jenny MD: STANTON GILES Measurements Intervals [place] Rate: 54 P: 23 DE: 148 QRS: 45 QRSD: 90 T: 36 QT: 409 QTc: 389 Interpretive Statements SINUS BRADYCARDIA Compared to ECG 07/13/2022 08:44:24 Sinus rhythm no longer present Electronically Signed On 11-26-2023 18:56:34 EDT by STANTON GILES Dictated By: Stanton Giles D.O. Signed By: 11/26/231856 DD/ 1050 TD/TT: Shot Hole Driller:Vaughn Wood MD - 11/26/2023 [place] [address] Electrocardiograph Report Signed Patient: OLGA SALES MR#: [id number] : 1985 Acct:[id number] Age/Sex: 38 / F ADM Date: 11/26/23 Loc: PST Attending Dr: Layne See M.D. Ordering Physician: Layne See M.D. Date of Service: 11/26/23 Procedure(s): ECG 12 lead Accession Number(s): [id number] cc: [facility] Test Date: 2023-11-26 Pat Name: OLGA SALES Department: Room: - Gender: Female Padder Cushion: : 1985 Requested By: LAYNE SEE Order Number: [id number] Reading MD: STANTON GILES Measurements Intervals [place] Rate: 54 P: 23 DE: 148 QRS: 45 QRSD: 90 T: 36 QT: 409 QTc: 389 Interpretive Statements SINUS BRADYCARDIA Compared to ECG 07/13/2022 08:44:24 Sinus rhythm no longer present Electronically Signed On 11-26-2023 18:56:34 EDT by STANTON GILES Dictated By: Stanton Giles D.O. Signed By: 11/26/231856 DD/ 1050 TD/TT: Shot Hole Driller: YOLETTE HealthcareRadiology Study observation (narrative)YOLETTE HealthcareECG 12-LEAD Ordered By: Radiologist Radiology on 84-77-5614QOHG Healthcare Work Phone: Eosinophils/100 WBC Auto (Bld)on 11-26-2023 Eosinophils/100 WBC (Bld)0.8 %0.9-7.0[facility] Erythrocyte distribution width Auto (RBC) [Ratio]on 33-70-6621Qhcssxrmjwa distribution width (RBC) [Ratio]12.9 %11.0-15.0[facility] Hematocrit Auto (Bld) [Volume fraction]on 23-02-5350Aplbquawfe (Bld) [Volume fraction]37.8 %36.0-48.0[facility] Medical CenterHemoglobin [Mass/volume] in Bloodon 59-33-7122Quudysptrf (Bld) [Mass/Vol]12.3 g/dL12.0-16.0 [facility] CenterLaboratory - Hematology and Cell countson 33-35-2147Ufxfbyly granulocytes/100 WBC (Bld)0.3 %0.0-0.5FMercy Health Anderson HospitalLeukocytes [#/volume] corrected for nucleated erythrocytes in Blood by Automated counon 26-95-3472BND corrected for nucl RBC Auto (Bld) [#/Vol]6.5 10 3/uL4.0-11.0[facility] Medical CenterLymphocytes Auto (Bld) [#/Vol]on 40-27-6272Xbyuvyidwda (Bld) [#/Vol]2.4 10 3/uL1.2-3.8[facility] Medical CenterLymphocytes/100 WBC Auto (Bld)on 11-26-2023 Lymphocytes/100 WBC (Bld)37.2 %20.5-60.0[facility] Medical CenterMCH Auto (RBC) [Entitic mass]on 26-06-3653VQO (RBC) [Entitic mass]28.6 pg26.7-34.0 [facility] CenterMCHC Auto (RBC) [Mass/Vol]on 56-10-6841JKTU (RBC) [Mass/Vol]32.5 g/dL29.9-35.2FMercy Health Anderson HospitalMCV Auto (RBC) [Entitic vol]on 38-51-7483WNQ (RBC) [Entitic vol]87.9 fL81.0-99.0[facility] Medical CenterMonocytes Auto (Bld) [#/Vol]on 42-67-5415Gsrlyiweo (Bld) [#/Vol]0.4 10 3/uL0.3-0.8[facility] Medical CenterMonocytes/100 WBC Auto (Bld)on 06-83-7210Fvbxayazz/100 WBC (Bld)6.2 %1.7-12.0[facility] Medical CenterNeutrophils Auto (Bld) [#/Vol]on 90-74-7526Wjaeahqjlto (Bld) [#/Vol]3.6 10 3/uL1.4-6.5FMercy Health Anderson HospitalNeutrophils/100 WBC Auto (Bld)on 69-42-1081Nxemcpxupyp/100 WBC (Bld)55.2 %43.0-75.0[facility] Medical CenterNo Panel Informationon 13-32-8544Cidzhqbzwsc # (Auto)0.1 10 3/uL0.0-0.7FMercy Health Anderson HospitalImmature Granulocyte # (Auto)0.02 10 3/uL0.00-0.03[facility] Medical CenterPlatelet mean volume Auto (Bld) [Entitic vol]on 78-62-4380Bjwdsfnt mean volume (Bld) [Entitic vol]9.7 fL 9.5-13.5FMercy Health Anderson HospitalPlatelets Auto (Bld) [#/Vol]on 48-33-4015Lxmrytcfd (Bld) [#/Vol]279 10 3/nS231-111PpmzyheddFairfield Medical CenterRBC Auto (Bld) [#/Vol]on 64-92-0689HRH (Bld) [#/Vol]4.30 10 6/uL4.20-5.40 [facility] CenterCBC AUTO DIFFon 18-54-2708GMGF #0.0 103/ul Normal0.0-0.1[facility] For RehabilitationComment on above:Performed By: #### CBC #### [facility] [address] [address] [address] Cullen Cevallossophils/100 WBC (Bld)0.1 %Critically low0.2-2.0The [facility] HospitalComment on above:Performed By: #### CBC #### [facility] [address] [address] [address] Cullen Jimenez #0.0 103/ulNormal0.0-0.7The [facility] HospitalComment on above: Performed By: #### CBC #### [facility] [address] [place] [address] Dr. Cullen Boyleosinophils/100 WBC (Bld)0.5 %Critically low0.9-7.0The [facility] HospitalComment on above:Performed By: #### CBC #### [facility] [address] [place] [address] Dr. Cullen Boylerythrocyte distribution width (RBC) [Ratio]13.1 %Iqsddq95.0-15.0 [facility] HospitalComment on above:Performed By: #### CBC #### [facility] [address] [place] [address] Dr. Cullen GarciaHematocrit (Bld) [Volume fraction]38.2 %Airpwj44.0-48.0The [facility] HospitalComment on above:Performed By: #### CBC #### [facility] [address] [place] [address] Dr. Cullen GarciaHemoglobin (Bld) [Mass/Vol]12.8 g/uQRclgtw68.0-16.0[facility] HospitalComment on above:Performed By: #### CBC #### [facility] [address] [place] [address] Dr. Cullen He #0.02 10e3/ulNormal0.00-0.03The [facility] HospitalComment on above:Performed By: #### CBC #### [facility] [address] [place] [address] Dr. Cullen He %0.3 %Normal0.0-0.5The [facility] HospitalComment on above: Performed By: #### CBC #### [facility] [address] [place] [address] Dr. Cullen GodoyMPH #2.4 103/ulNormal1.2-3.8The [facility] HospitalComment on above:Performed By: #### CBC #### [facility] [address] [place] [address] Dr. Cullen Godoymphocytes/100 WBC (Bld)32.6 %Ikwyjf98.5-60.0The [facility] HospitalComment on above:Performed By: #### CBC #### [facility] [address] [place] [address] Dr. Cullen FaganUAL DIFF REQNONormalThe [facility] Arms HospitalComment on above: Performed By: #### CBC #### [facility] [address] [place] [address] Dr. Cullen Watson (RBC) [Entitic mass]28.9 hmRqnpow87.7-34.0The [facility] HospitalComment on above:Performed By: #### CBC #### [facility] [address] [place] [address] Dr. Cullen Watson (RBC) [Mass/Vol]33.5 g/aJDqyiom45.9-35.2The [facility] HospitalComment on above:Performed By: #### CBC #### [facility] [address] [place] [address] Dr. Cullen Watson (RBC) [Entitic vol]86.2 jIEtebpa14.0-99.0The [facility] HospitalComment on above:Performed By: #### CBC #### [facility] [address] [place] [address] Dr. Cullen Hartman #0.5 103/ulNormal0.3-0.8The [facility] HospitalComment on above:Performed By: #### CBC #### [facility] [address] [place] [address] Dr. Cullen Coxocytes/100 WBC (Bld)6.7 %Normal1.7-12.0The [facility] Comment on above:Performed By: #### CBC #### [facility] [address] [place] [address] Dr. Cullen Hankins #4.4 103/ulNormal1.4-6.5The [facility] HospitalComment on above:Performed By: #### CBC #### [facility] [address] [place] [address] Dr. Cullen GarciaNeutrophils/100 WBC (Bld)59.8 %Hwjntp59.0-75.0The [facility] HospitalComment on above:Performed By: #### CBC #### [facility] [address] [place] [address] Dr. Cullen GarciaPlatelet mean volume (Bld) [Entitic vol]9.5 fLNormal9.5-13.5The [facility] HospitalComment on above:Performed By: #### CBC #### [facility] [address] [place] [address] Dr. Cullen GarciaPLT279 103/vgAqajdf443-362Ofs [facility] HospitalComment on above: Performed By: #### CBC #### [facility] [address] [place] [address] Dr. Cullen GarciaRBC4.43 106/ulNormal4.20-5.40The [facility] HospitalComment on above:Performed By: #### CBC #### [facility] [address] [place] [address] Dr. Cullen GarciaWBC7.3 103/ulNormal4.0-11.0The [facility] HospitalComment on above: Performed By: #### CBC #### [facility] [address] [place] [address] Dr. Cullen GarciaCovid-19 PCR ([facility])on 17-94-9279DSAO-CoV-2 (COVID-19) RNA ALISE+probe Ql (Unsp spec)Not detectedNormalNOT DETECTEDThe [facility] Comment on above:Result Comment: This test is not yet approved or cleared by the [place] FDA. When there are no FDA-approved or cleared tests available, and other criteria are met, FDA can make tests available under an emergency access mechanism called an Emergency Use Authorization (EUA). The EUA for this test is supported by the [place] of Health and Human Service's (HHS's) declaration that circumstances exist to justify the emergency use of in vitro diagnostics for the detection and/or diagnosis of the virus that causes COVID- 19. This EUA will remain in effect (meaning [...] of clinical signs and symptoms consistent with SARS-CoV-2.Performed By: #### CVDTBH #### [facility] [address] [place] [address] Dr. Cullen GarciaPRENeha QUANT HCGon 94-35-5212CYE QUANT<1NormalCleveland Clinic Children'S [facility] Comment on above:Performed By: #### PREGQNT #### [facility] [address] [place] [address] Dr. Cullen GarciaHCG RANGESEE Berger HospitalComment on above: Result Comment: 5-50 0.2-1 WEEK 50-500 1-2 WEEKS 100-5,000 2-3 WEEKS 500-10,000 3-4 WEEKS 1,000-50,000 4-5 WEEKS 10,000-100,000 5-6 WEEKS 15,000-200,000 6-8 WEEKS 10,000-100,000 2-3 MONTHSPerformed By: #### PREGQNT #### [facility] [address] [place] [address] Dr. Cullen Polanco (TUMOR MARKER)on 27-15-3833IOA, Serum, Tumor Marker1.8 ng/mL Normal0.0-6.4The [facility] HospitalComment on above:Result Comment: [employer] Electrochemiluminescence Immunoassay (ECLIA) . Values obtained with different assay methods or kits cannot be used interchangeably. Results cannot be interpreted as absolute evidence of the presence or absence of malignant disease. . This test is not interpretable in females.Performed By: #### AFP. #### [facility] [address] [place] [address] Dr. Cullen GarciaCA 125on 94-85-8866Fsgqra Antigen (CA) 77084.7 U/mLNormal0.0-38.1 The [facility] HospitalComment on above:Result Comment: [employer] Electrochemiluminescence Immunoassay (ECLIA) . Values obtained with different assay methods or kits cannot be used interchangeably. Results cannot be interpreted as absolute evidence of the presence or absence of malignant disease.Performed By: #### CVDTBH #### [facility] [address] [place] [address] Dr. Cullen YoungbloodAoidalia 77-65-8312PLY2.5 ng/mLNormal0.0-4.7The [facility] Comment on above:Result Comment: Nonsmokers <3.9 Smokers <5.6 . [employer] Electrochemiluminescence Immunoassay (ECLIA) . Values obtained with different assay methods or kits cannot be used interchangeably. Results cannot be interpreted as absolute evidence of the presence or absence of malignant disease.Performed By: #### CEA. #### [facility] [address] [place] [address] Dr. Cullen BanksHoidalia 99-50-2666DCH906 U/HOjqzrt56-101VcoCleveland Clinic Children'S Hospital For Rehabilitation Comment on above:Performed By: #### CVDTBH #### [facility] [address] [place] [address] Dr. Cullen GarciaPRENeha QUANT HCGon 80-37-7392PSU QUANT<1NormalCleveland Clinic Children'S Hospital [facility] Rehabilitation Comment on above:Performed By: #### CVDTBH #### [facility] [address] [place] [address] Dr. Cullen GarciaHCNeha RANGESEE Berger HospitalComment on above: Result Comment: 5-50 0.2-1 WEEK 50-500 1-2 WEEKS 100-5,000 2-3 WEEKS 500-10,000 3-4 WEEKS 1,000-50,000 4-5 WEEKS 10,000-100,000 5-6 WEEKS 15,000-200,000 6-8 WEEKS 10,000-100,000 2-3 MONTHSPerformed By: #### CVDTBH #### [facility] [address] [place] [address] Dr. Cullen GarciaUS PELVIS AND TRANSVAGon 78-34-8342VW PELVIS AND TRANSVAG EXAMINATION: US PELVIS AND [...] Electronically authenticated by: JADEN LEBLANC Date: 2022-05-28 19:04[facility] ACOG PANEL 2: 30 to 65on 05-18-2022..NormalThe [facility] HospitalComment on above:Result Comment: Performed at: WBPerformed By: #### [id number] #### [facility] [address] [place] [address] Dr. Cullen Greenwood Gdln ACOG Yvafroj35-34RhinqdYygGrand Lake Joint Township District Memorial HospitalComment on above:Performed By: #### [id number] #### [facility] [address] [place] [address] Dr. Cullen GarciaDIAGNOSIS:CommentNoGrand Lake Joint Township District Memorial HospitalComment on above: Result Comment: NEGATIVE FOR INTRAEPITHELIAL LESION OR MALIGNANCY. Performed at: WBPerformed By: #### [id number] #### [facility] [address] [place] [address] Dr. Cullen GarciaHPV AptimaNegativeNormalNegativeCleveland Clinic Children'S Hospital For RehabilitationComment on above:Result Comment: This nucleic acid amplification test detects fourteen high-risk HPV types (16,18,31,33,35,39,45,51,52,56,58,59,66,68) without differentiation. Performed at: =GPerformed By: #### [id number] #### [facility] [address] [place] [address] Dr. Cullen GarciaMethodology:CommentNoGrand Lake Joint Township District Memorial HospitalComment on above: Result Comment: This liquid based ThinPrep(R) pap test was screened with the use of an image guided system. Performed at: WBPerformed By: #### [id number] #### [facility] [address] [place] [address] Dr. Cullen GarciaNote:CommentProMedica Defiance Regional Hospital on above:Result Comment: The Pap smear is a screening test designed to aid in the detection of premalignant and malignant conditions of the uterine cervix. It is not a diagnostic procedure and should not be used as the sole means of detecting cervical cancer. Both false-positive and false-negative reports do occur. . Performed at: WBPerformed By: #### [id number] #### [place] [address] Dr. Cullen GarciaPerformed by:CommentProMedica Defiance Regional Hospital on above: Result Comment: Melly Poon Salesforce Developer (ASCP) Performed at: WBPerformed By: #### [id number] #### [facility] [address] [place] [address] Dr. Cullen GarciaSpecimeidalia adequacy:CommentProMedica Defiance Regional Hospital on above:Result Comment: Satisfactory for evaluation. Endocervical and/or squamous metaplastic cells (endocervical component) are present. Performed at: WBPerformed By: #### [id number] #### [facility] [address] [place] [address] Dr. Cullen BenjaminPES SIMPLEX VIRUS (HSV) CULTUREon [id number] Culture/Type CommentSt. Elizabeth HospitalComcovenant medical center on above:Result Comment: Negative No Herpes simplex virus isolated.Performed By: #### HSVCUL #### [place] [address] Dr. Cullen GarciaVAGINITIS/VAGINOSIS DNA PROBEon 27-76-3594Nqxpbwd speciesNegative NormalNegativeThe [facility] on above:Performed By: #### VAGINT #### [place] [address] [address] Yilan ChangGardnerella vaginalisNegativeNormalNegativeCleveland Clinic [facility] Comment on above:Performed By: #### VAGINT #### [facility] [address] [place], [place] [address] Dr. Cullen GarciaTrichomonas vaginalisNegativeNormalNegativeCleveland Clinic [facility] Comment on above:Performed By: #### VAGINT #### [facility] [address] [place], [place] [address] Dr. Cullen GarciaDiagnostic Mammogram, Bilateral w/Beny (3D)on 08-22-2021 Diagnostic Mammogram, Bilateral w/Beny (3D)HISTORY: Right breast lump COMPARISON: No prior examinations. TECHNIQUE: 2D and 3D Tomosynthesis of the right and left breasts was performed. FINDINGS: Breast composition demonstrates scattered fibroglandular densities. No suspicious microcalcifications, dominant mass lesions, or distortion is present. IMPRESSION: BIRADS 1 - NEGATIVE MAMMOGRAM Board Certified Radiologist. Accredited by the ACR and FDA. MAMMOGRAPHY IS VERY IMPORTANT TO YOUR HEALTH. THE CURRENT [place] [employer] AND [employer] GUIDELINES RECOMMENDS ANNUAL MAMMOGRAPHY BEGINNING AT AGE 40 THIS FACILITY USES A REMINDER SYSTEM TO ENSURE ALL PATIENTS RECEIVE REMINDER NOTIFICATIONS AT THE APPROPRIATE TIME BASED ON THE RECOMMENDATIONS OF THIS EXAM. Report reported and signed by Abel Monroy on 08/22/2021 1304[facility] [place] Medical SpecialistXR Chest 2 Views*on [id number] Chest 2 Views*HISTORY: SOB x 1 month, right sided pain FINDINGS: No acute cardiac or pulmonary disease is identified. No worrisome mass lesions or infiltrates are seen. No pulmonary edema or pneumothorax is present. Cardiac silhouette size is normal. Skeletal structures are unremarkable. IMPRESSION: No acute cardiac or pulmonary disease. Report reported and signed by Abel Monroy on 08/22/2021 0938[facility] SpecialistProgress Noteon [id number] IP Note OR Wood Buffer NormalMercy Kaiser Foundation HospitalProgress Noteon 26-61-2531NMF IP Note OR TranscriptionNormalMercy Kaiser Foundation HospitalProgress Noteon 66-31-8985VNZ IP Note OR TranscriptionNormalMercy Kaiser Foundation HospitalProgress Noteon 08-98-4195HQU IP Note OR TranscriptionNormalMercy [facility] Progress Noteon 22-03-6571CEU IP Note OR TranscriptionNoMagruder Memorial HospitalH. pylori Detectionon 07-22-2017H. pylori DetectionSpecimen Description .TISSUE, STOMACH BIOPSY Special Requests NOT REPORTED Direct Exam NEGATIVE Report Status FINAL 07/22/2017[facility] HospitalComment on above:Performed By: #### HCLO ####[facility] [address] [place], [place] [id number] History and Physicalon 11-76-6400ZYU IP Note OR Wood Buffer [facility] Vital Signs Date TimeVital SignValuePerforming KfbjwyuaxCgnmunvs55-10-3149 11:53-0400Body mass index (BMI) [Ratio]30.7 kg/t7Irxcu Brian DO Work Phone: [facility] CenterHtodafavhj44-10-2561 11:53-0400Body bgyukn53.71 kgCorey Brian DO Work Phone: 1(335)942-[address] [place], [place] [address]Eicdewjvfn16-51-6481 11:53-0400Diastolic blood ehydwbgh00 mm[Hg]Hamilton Brian DO Work Phone: [facility] CenterHdfhpnttik29-83-7611 11:53-0400Systolic blood kanefxwo001 mm[Hg]Hamilton Brian DO Work Phone: [facility] CenterSkntzzkrfp37-70-6898 11:47-0400Body .94 cmKenzie Lazar MD Work Phone: [facility]08-10-2025 11:47-0400 Body mass index (BMI) [Ratio]32.3 kg/f9DgvkgqKenzie Lazar MD Work Phone: [facility]08-10-2025 11:47-0400 Body eznibpgywqz56.9 [degF]Kenzie Lazar MD Work Phone: [facility]08-10-2025 11:47-0400 Body ymjchs46.56 kgKenzie Lazar MD Work Phone: 1(419)[address]08-10-2025 11:47-0400 Diastolic blood zpttelcu67 mm[Hg]Kenzie Lazar MD Work Phone: 1(897)[address] [place] [address] [place], [place] 1707108-10-2025 11:47-0400 Heart rate73 /Ja Lazar MD Work Phone: 1(826)[address] [place] [address] [place], [place] 1707108-10-2025 11:47-0400 Respiratory rate16 /Ja Lazar MD Work Phone: 1(706)[address] [place] [address] [place], [place] 17[address]108-10-2025 11:47-0400 SaO2% (BldA) [Mass fraction]99 %Kenzie Lazar MD Work Phone: 1(154)[address] [place] [address] [place], [place] 1707108-10-2025 11:47-0400 Systolic blood ijbvsyrk51 mm[Hg]Kenzie Lazar MD Work Phone: 1(760)[address] [place] [address] [place], [place] 1707107-14-2025 09:03-0400 Body .94 cmKenzie Lazar MD Work Phone: 1(428)[address] [place] [address] [place], [place] 1707107-14-2025 09:03-0400 Body mass index (BMI) [Ratio]30.9 kg/y3TdhbdtKenzie Lazar MD Work Phone: 1(784)[address] [place] [address] [place], [place] 1707107-14-2025 09:03-0400 Body .38 kgKenzie Lazar MD Work Phone: 1(038)[address] [place] [address] [place], [place] 1707107-14-2025 09:03-0400 Diastolic blood blfrafeh57 mm[Hg]Kenzie Lazar MD Work Phone: 1(558)[address] [place], [place] 1707107-14-2025 09:03-0400 Heart rate80 /Ja Lazar MD Work Phone: 1(880)[address] [place], [place] 1707107-14-2025 09:03-0400 Systolic blood ifazjzen182 mm[Hg]Kenzie Lazar MD Work Phone: 1(089)[address] [place], [place] 1707104-04-2025 09:03-0400 Body zxeyem303.94 cmFairfield Medical Center04-04-2025 09:03-0400Body mass index (BMI) [Ratio]33.4 kg/c1KhtgpbqhnFairfield Medical Center04-04-2025 09:030400Body zmsnuw88.28 kgFairfield Medical Center01-24-2025 10:28-0500Body ikinuj911.94 cmKenzie Lazar MD Work Phone: 1(861)[address] [place] [address] [place], [place] 17[address]101-24-2025 10:28-0500 Body mass index (BMI) [Ratio]36.1 kg/o1YovhmiKenzie Lazar MD Work Phone: 1(820)[address] [place] [address] [place], [place] 17[address]101-24-2025 10:280500 Body ltujwp94.74 kgKenzie Lazar MD Work Phone: 1(099)[address] [place] [address] [place], [place] 1707101-24-2025 10:28-0500 Diastolic blood lxwiaeud03 mm[Hg]Kenzie Lazar MD Work Phone: 1(658)[address] [place], [place] 1707101-24-2025 10:28-0500 Heart rate96 /Ja Lazar MD Work Phone: 1(168)[address] [place] [address] [place], [place] 1707101-24-2025 10:28-0500 Respiratory rate18 /Ja Lazar MD Work Phone: 1(820)[address] [place] [address] [place], [place] 1707101-24-2025 10:28-0500 SaO2% (BldA) [Mass fraction]99 %Kenzie Lazar MD Work Phone: 1(577)[address] [place], [place] 17[address]101-24-2025 10:28-0500 Systolic blood lbfjapau416 mm[Hg]Kenzie Lazar MD Work Phone: 1(176)[address] [place] [address] [place], [place] 1707101-17-2025 09:03-0500 Body .94 cmKenzie Lazar MD Work Phone: 1(269)[address] [place] [address] [place], [place] 1707101-17-2025 09:03-0500 Body mass index (BMI) [Ratio]36.6 kg/m8NupvirKenzie Lazar MD Work Phone: 1(358)[address] [place] [address] [place], [place] 17[address]101-17-2025 09:03-0500 Body mwpoio04.99 kgKenzie Lazar MD Work Phone: 1(999)[address] [place] [address] [place], [place] 1707101-17-2025 09:03-0500 Diastolic blood huitlcmq32 mm[Hg]Kenzie Lazar MD Work Phone: 1(782)[address] [place] [address] [place], [place] 1707101-17-2025 09:03-0500 Heart rate85 /Ja Lazar MD Work Phone: 1(932)[address] [place] [address] [place], [place] 1707101-17-2025 09:03-0500 Systolic blood sqsmpahf447 mm[Hg]Kenzie Lazar MD Work Phone: 1(095)[address] [place] [address] [place], [place] 1707101-02-2025 08:42-0500 Diastolic blood ojakhraz34 mm[Hg]Kenzie Lazar MD Work Phone: 1(598)[address] [place], [place] 1707101-02-2025 08:42-0500 Heart rate80 /Ja Lazar MD Work Phone: 1(111)[address] [place], [place] 1707101-02-2025 08:42-0500 Respiratory rate20 /Ja Lazar MD Work Phone: 1(125)[address] [place], [place] 1707101-02-2025 08:42-0500 SaO2% (BldA) [Mass fraction]100 %Kenzie Lazar MD Work Phone: 1(086)[address] [place], [place] 1707101-02-2025 08:42-0500 Systolic blood hpefamxr295 mm[Hg]Kenzie Lazar MD Work Phone: 1(019)[address] [place], [place] 17[address]101-02-2025 07:22-0500 Body .94 cmKenzie Lazar MD Work Phone: 1(818)[address] [place], [place] 17[address]101-02-2025 07:22-0500 Body ckxses60.54 kgKenzie Lazar MD Work Phone: 1(176)[address] [place], [place] 1707112-23-2024 10:46-0500 Body mass index (BMI) [Ratio]36.84 kg/o8Krbiw Brian DO Work Phone: [facility] CenterRlgtwxtdxi97-33-5460 10:46-0500Body yhnwvu30.45 kgCorey Brian DO Work Phone: 1(419)[address]12-23-2024 10:46-0500Diastolic blood kygugvka17 mm[Hg]Hamilton Brian DO Work Phone: [facility] CenterAgvbyuzzhp16-52-0570 10:46-0500Systolic blood qcfoxaym980 mm[Hg]Hamilton Brian DO Work Phone: 1(374)[facility]-5856[facility] CenterWqexnvnlbp66-07-5587 10:09-0500Body tvbnom396.94 cmKenzie Lazar MD Work Phone: 1(922)[address] [place], [place] 1707112-13-2024 10:09-0500 Body mass index (BMI) [Ratio]37.8 kg/y6WkezcbKenzie Lazar MD Work Phone: 1(829)[address] [place], [place] 1707112-13-2024 10:09-0500 Body qosqco67.71 kgKenzie Lazar MD Work Phone: 1(057)[address] [place], [place] 1707112-13-2024 10:09-0500 Diastolic blood eiybjgma87 mm[Hg]Kenzie Lazar MD Work Phone: 1(042)[address] [place], [place] 1707112-13-2024 10:09-0500 Heart rate74 /Ja Lazar MD Work Phone: 1(358)[address] [place], [place] 1707112-13-2024 10:09-0500 Respiratory rate18 /Ja Lazar MD Work Phone: 1(212)[address] [place], [place] 1707112-13-2024 10:09-0500 SaO2% (BldA) [Mass fraction]100 %Kenzie Lazar MD Work Phone: 1(924)[address] [place], [place] 1707112-13-2024 10:09-0500 Systolic blood mm[Hg]Kenzie Lazar MD Work Phone: 1(656)[address] [place], [place] 1707112-04-2024 10:23-0500 Body .4 cmKenzie Lazar MD Work Phone: 1(129)[address] [place], [place] 1707112-04-2024 10:23-0500 Body mass index (BMI) [Ratio]39.4 kg/z5ErugwvKenzie Lazar MD Work Phone: [facility]12-04-2024 10:23-0500 Body souobz89.62 kgKenzie Lazar MD Work Phone: [facility]10-28-2024 14:47-0400 Body mass index (BMI) [Ratio]42.2 kg/z0MdnyxeqmlFairfield Medical Center 06-12-2024 14:47-0400Diastolic blood jytvgqxh81 mm[Hg][facility]10-28-2024 14:47-0400Heart rate80 /[facility] 06-12-2024 14:47-0400Respiratory rate16 /[facility] 06-12-2024 14:47-1141HvZ1% (BldA) [Mass fraction]100 %[facility]10-28-2024 14:47-0400Systolic blood mm[Hg][facility]10-28-2024 10:57-0400Body .03 cmFairfield Medical Center10-28-2024 10:57-0400Body .93 [facility]08-05-2024 13:32-0400Body qbyalb134.94 cmFairfield Medical Center08-05-2024 13:32-0400Body mass index (BMI) [Ratio]40 kg/v6GwiaasdfmFairfield Medical Center08-05-2024 13:32-0400Body fbbkyx32.16 [facility]08-05-2024 13:32-0400Diastolic blood kdnqlnim71 mm[Hg] [facility]08-05-2024 13:32-0400Heart rate83 /[facility]08-05-2024 13:32-0400Systolic blood mdltfemt131 mm[Hg] [facility]01-29-2024 09:30-0500Body gmjtjo670.94 cmKenzie Lazar Other [facility]01-29-2024 09:30-0500 Body mass index (BMI) [Ratio]41.26 kg/n7EbvmeiKenzie Lazar Other [employer] [employer] Other 01-29-2024 09:30-0500Body .07 kgKenzie Lazar Other [place] [employer] Other 01-29-2024 09:30-0500Body hsirbs22.06 kgMD Kenzie Lazar Work Phone: [facility]01-29-2024 09:30-0500 Diastolic blood vfzexugw78 mm[Hg]Kenzie Lazar Other [facility]01-29-2024 09:30-0500 Systolic blood brlvotzr764 mm[Hg]Kenzie Lazar Other [facility]01-10-2024 09:00-0500 Body inrdbb367.94 cmPamela Kate Other [employer] [employer] Other 01-10-2024 09:00-0500Body mass index (BMI) [Ratio] 41.19 kg/t4Kicahg Kate Other [employer] Other 01-10-2024 09:00-0500Body laeemjzwdla78.6 [degF]Natali Astudillomond Other [employer] Other 01-10-2024 09:00-0500Body jypbsd78.88 kgPamela Kate Other [employer] Other 01-10-2024 09:00-0500Diastolic blood nrqfaeyn63 mm[Hg] Natali Kate Other [employer] Other 01-10-2024 09:00-0500Respiratory rate18 /minPamela Kate Other [employer] Other 01-10-2024 09:00-2717VkD8% (BldA) [Mass fraction]97 % Natali Love Other [employer] Other 01-10-2024 09:00-0500Systolic blood eoqniwrm824 mm[Hg] Natali oLve Other [employer] Other 12-18-2023 13:15-0500Body .94 cmKenzie Lazar Other [employer] Other 12-18-2023 13:15-0500Body mass index (BMI) [Ratio]40.7 kg/x0GnwxipKenzie Lazar Other [employer] Other 12-18-2023 13:15-0500Body ncbrpy93.71 kgKenzie Lazar Other [employer] Other 12-18-2023 13:15-0500Diastolic blood acjgebmx68 mm[Hg] Kenzie Lazar Other [employer] Other 12-18-2023 13:15-0500Systolic blood nmjkqdyp547 mm[Hg] Kenzie Lazar Other [employer] Other 11-16-2023 10:45-0500Body yobpje642.94 cmKenzie Lazar Other [employer] Other 11-16-2023 10:45-0500Body mass index (BMI) [Ratio] 41.56 kg/j0AwwkjiKenzie Lazar Other [employer] Other 11-16-2023 10:45-0500Body bezwgr29.79 kgKenzie Lazar Other [employer] Other 11-16-2023 10:45-0500Diastolic blood jsnmjloo09 mm[Hg] Kenzie Lazar Other [employer] Other 11-16-2023 10:45-0500Systolic blood sxzggdig622 mm[Hg] Kenzie Lazar Other [employer] Other 06-23-2023 09:45-0400Body vubipx666.94 cmKristinkarinakamran Cady Other [employer] Other 06-23-2023 09:45-0400Body mass index (BMI) [Ratio] 40.62 kg/i7JdrocsKenzie Lazar Other [employer] Other 06-23-2023 09:45-0400Body koeecs10.52 kgKenzie Lazar Other [employer] Other 06-23-2023 09:45-0400Diastolic blood nmpifiti35 mm[Hg] Kenzie Lazar Other [employer] Other 06-23-2023 09:45-0400Systolic blood qqxzbaiq633 mm[Hg] Kenzie Lazar Other [employer] Other Encounters Encounter DateEncounter TypeCare ProviderFacilityStart: 06-12-2025 End: 86-22-4776Qpbknk flowsheetCorey Brian DO Work Phone: [facility] [facility]BGYNStart: 06-12-2025 End: 75-24-9332Wvfogg flowsheetCorey Brian DO Work Phone: [facility] OBGYNStart: 06-12-2025 End: 34-56-3769Lsmmddbh Result EncounterCorey Brian DO Work Phone: [facility] External Department UnsolicitedStart: 06-12-2025 End: 79-69-8573Mgejsi outpatient visit 15 minutesCorey Brian DO Work Phone: [facility] OBGYNComment on above:Vaginal itching; Hormone disorder; Yeast infectionStart: 06-12-2025 End: 01-18-5855tvxhsnfpdbPTFKX FAZIONot AvailableStart: 03-25-2025 End: 70-53-6626ymqzqkxzkrYycvyc E Braun MD Work Phone: [facility] Work Phone: Start: 03-25-2025 End: 62-50-4309Zqrbmez encounter procedureOlga Ambriz APRN-[facility] Work Phone: Start: 02-26-2025 End: 02-92-7474dufjfxthoyBuodca E Braun MD Work Phone: [facility] Work Phone: Start: 02-26-2025 End: 69-55-1859Whypjxw encounter Radha Lazar MD-[facility] Work Phone: Start: 02-14-2025 End: 28-13-7291nqbiwzmuvyLncqcd E BraunFacility:[facility]art: 02-09-2025 End: 60-20-1000Ywtsqbxvq Result EncounterCorey Brian DO Work Phone: noms External Department UnsolicitedStart: 02-09-2025 End: 29-79-0445Uzohkesac Result EncounterCorey Brian DO Work Phone: noms External Department UnsolicitedStart: 12-08-2024 End: 77-05-7081lsmmefitcgUIXVOENKO GROESCHFacility:[facility] Start: 11-17-2024 End: 07-70-5758ewrpcdipmsSrqbvbgwxSam[facility] Work Phone: Start: 11-17-2024 End: 27-46-8500Bgwlocu encounter procedureNov[facility] Work Phone: Start: 09-08-2024 End: 49-03-5237izxaivqyglZsmmoj E Braun MD Work Phone: [facility] Work Phone: Start: 09-08-2024 End: 64-02-7553Lqsolln encounter procedureKenzie Lazar MD Work Phone: [facility] Work Phone: Start: 09-01-2024 End: 60-78-3167sqaqpfnaedMrmgrx E Braun MD Work Phone: [facility] Work Phone: Start: 09-01-2024 End: 31-17-8194Ysovzpc encounter procedureKenzie Lazar MD Work Phone: [facility] Work Phone: Start: 31-73-9092Frg-patient / Non-visitKenzie Lazar MD Work Phone: [facility] Work Phone: Start: 51-49-6615Uqp-patient / Non-visitKenzie Lazar MD Work Phone: [facility] Work Phone: Start: 08-17-2024 End: 49-70-4339Hioewlmlt to same day surgery centerKenzie Lazar MD Work Phone: [facility] Work Phone: Start: 08-17-2024 End: 75-89-3680xnemkxiuwnXtqxmn E Braun MD Work Phone: [facility] Work Phone: Start: 08-07-2024 End: 65-06-5133Fogkop flowsheetCorey Brian DO Work Phone: n[facility] BCP OBStart: 08-07-2024 End: 29-77-5895Njqvan flowsheetCorey Brian DO Work Phone: noms BCP OBStart: 08-07-2024 End: 65-60-0127Gtdvgzxsn Result EncounterCorey Brian DO Work Phone: noms External Department UnsolicitedStart: 08-07-2024 End: 52-47-1961zjkbxlblyhWWBWN FAZIONot AvailableStart: 08-07-2024 End: 12-03-5412Lkeiora encounter procedureCorey Brian DO Work Phone: noms HealthcareStart: 08-07-2024 End: 77-75-9067Gwzhefcx preventive med est patient 40-64yrsCorey Brian DO Work Phone: [facility] OBComment on above:Well woman exam with routine gynecological exam; Breast cancer screening by mammogramStart: 07-28-2024 End: 09-67-7090Hcjcing encounter procedureKenzie Lazar MD Work Phone: [facility] Work Phone: Start: 07-19-2024 End: 44-95-2882Stusyqz encounter procedureKenzie Lazar MD Work Phone: [facility] Work Phone: Start: 06-12-2024 End: 70-18-2515nvlxhydzszIxxbwjayvSamaritan Hospital Work Phone: Start: 06-12-2024 End: 02-69-8596Dqvzkwt encounter procedureAtul Physician [facility] Work Phone: Start: 03-20-2024 End: 02-05-1426bjxvdaohqcDtfuqliidGuernsey Memorial Hospital Work Phone: Start: 03-20-2024 End: 28-39-1655Nqbmaxz encounter procedureNovant Health/[facility]ician [facility] Work Phone: Start: 12-07-2023 End: 95-70-6587lzwqdvmcgxQD Kenzie Solis Cady Work Phone: [facility] Work Phone: Start: 12-07-2023 End: 82-61-8146Ysmspboh ReferredMD Kenzie Lazar Work Phone: [facility]-LAB Path Spec Jayy HospStart: 25-25-7741Bel-patient / Non-visitMD Kenzie Lazar Work Phone: [facility] Work Phone: Start: 11-26-2023 End: 73-87-7064Grekygrxx Result EncounterHilablanca See MD Work Phone: noms External Department UnsolicitedStart: 11-26-2023 End: 71-94-7257Qbesztrtb Result EncounterHizheng See MD Work Phone: noms External Department UnsolicitedStart: 11-26-2023 Non-patient / Non-visitMD Kenzie Lazar Work Phone: [facility] Work Phone: Start: 74-58-6839Gwm-patient / Non-visitMD Kenzie Lazar Work Phone: [facility] Physician [facility] Work Phone: Start: 09-13-2023 End: 81-11-4237crmhdmejagMuxhci Braun Other [facility]En[facility] [employer] Other Start: 49-44-2015Eiwbhi outpatient visit 15 minutes Kenzie He [facility] Centertart: 09-13-2023 End: 59-68-7892Wdlagoy encounter procedureMD Kenzie Cady Work Phone: [facility]-Start: 08-25-2023 End: 69-30-8552rozqunwhguJbclll Kate Other noBondsy Soonr Other Start: 57-94-0753Mpheed outpatient visit 15 minutes Natali LovePRIYANKG [facility] ClydeStart: 08-02-2023 End: 40-24-7068ssuywulpwyBwpgjy Lazar Other noNovapost Other Start: 55-48-6218Jtnoly outpatient visit 15 minutes Kenzie [facility]ing [facility] ClinicStart: 07-01-2023 End: 36-93-9486sghbyjmwcwAqoxvc Lazar Other noNovapost Other Start: 99-19-5532Uwqbqw outpatient visit 15 minutes Kenzie [facility] ClinicStart: 03-13-2023 End: 46-99-2911czgzznmebaIzsaut Lazar Other noNovapost Other Start: 35-93-6962Uxlfmgflw encounterMarcia Ying [facility] ClinicStart: 02-19-2023 End: 98-11-5319ggmbffpxsnGmbcff Lazar Other noNovapost Other Start: 53-42-3608Wrrmgclap encounterMarcia Ying [facility] ClinicStart: 02-05-2023 End: 46-10-0267urtfdqvuwyWudozr Lazar Other noNovapost Other Start: 82-07-2475Ktyjji outpatient visit 25 minutes Kenzie LazarMELANIA [facility] ClinicStart: 05-26-3862Qhchafkgt for preprocedural laboratory examinationDR HAMILTON [facility] HospitalStart: 07-21-2022 End: 04-12-4980tdvlbaerdwAE HAMILTON FAOFacility:I4Nnbow: 07-18-2022 End: 20-25-4422gfvlhequnnZP HAMILTON FAZIOFacility:V0Fenxr: 07-18-2022 End: 23-81-1730Grehterys for preprocedural laboratory examinationDR HAMILTON BRIAN Facility:L1Cqqfu: 93-34-9448Jpvxkarfu for other preprocedural examinationDR HAMILTON MAKCity Hospital HospitalStart: 51-05-5205Wbxboqoam for preprocedural cardiovascular examinationDR HAMILTON MAKCity Hospital HospitalStart: 07-13-2022 End: 43-16-1960rmbezbvjcdDY HAMILOTN FAZIOFacility:O1Jbuiu: 07-13-2022 End: 37-07-7481Geojdhdph for preprocedural cardiovascular examinationDR HAMILTON FAZIOFacility:A5Ausuv: 06-16-2022 End: 74-21-8709grszruigfcDL HAMILTON FAZIOFacility:O1Vgbot: 05-28-2022 End: 26-02-5860sdrgckwewrKL HAMILTON FAZIOFacility:Z8Ejnit: 05-11-2022 End: 36-79-0737kqdhpzvxpzGU HAMILTON FAZIOFacility:J8Auqta: 69-86-6763Bwoco health examinationMarhailee Lazar Other NoNovapost Other Start: 12-66-9594Cdbankxbiutvw examination normal Kenzie Lazar Other [employer] Other Start: 02-04-2022 End: 93-02-5092yttoxexbqgTN CAROL ANN CHANGBECKYFacility:Y5Vubhd: 07-21-2017 End: 71-33-9548CujcwkdoudJKOKMND M [facility] Procedures DateProcedureProcedure DetailPerforming ClinicianStart: 41-27-8371XZZSMAMDG VAGINITIS (HTRX)Hamilton Brian DO Work Phone: Start: 84-61-1095IL TOMOSYNTHESIS SCREENING BICorey Brian DO Work Phone: Start: 70-53-9964DlktumkeqvxNtwmu Brian DO Work Phone: Start: 72-89-7226IcieggmiewhxaeiiaacivfjvtkHxgpxw Braun MD Work Phone: Start: 58-19-6001RNH,APTIMA HPV,AGE GDLNCorey Brian DO Work Phone: Start: 96-33-5650Yewyixbavuv observation [Identifier] in Cervix by Cyto stainCorey Brian DO Work Phone: Start: 94-01-3354CLA 12-LEADHilary Chapo See MD Work Phone: Start: 16-25-7290Onqecpgtxzl observation [Identifier] in Cervix by Cyto stainCorey Brian DO Work Phone: Start: 97-25-7061TwnxbytyraiMkvmb Brian DO Work Phone: Start: 47-90-5972RVESLBSKA PATIENTMATTHEW FOURMAN Start: 07-21-2017H. PYLORI DETECTIONMATTHEW FOURMANDepression screeningKenzie Lazar Other History of cholecystectomyHx laparoscopic cholecystectomy Plan of Treatment DateCare ActivityDetailAuthorStart: 43-31-4991Ohhrbxpzc for malignant neoplasm of cervixNOMS HealthcareStart: 07-91-5932Bluvzgasi for malignant neoplasm of cervixNOMS HealthcareStart: 24-68-4974Ovmopzzcx for malignant neoplasm of breast MammogramNOMS HealthcareStart: 09-11-2025 End: 91-03-9589Ekryyeb encounter /27/2026 8:30 AM EST Procedure Visit [facility]S Jayy SAHU [address] [place] [id number] Hamilton Torres DO [address] [place] [address] NOMSonali GUEVARAGYNStart: 06-12-2025 End: 39-04-8536K-peptideC-peptide Lab Routine Hormone disorder Expected: 06/12/2025 (Approximate), Expires: 06/12/2026NOMS HealthcareComment on above: Expected: 06/12/2025 (Approximate), Expires: 06/12/2026Start: 06-12-2025 End: 94-64-3163Prtpqtac freeCortisol, free Lab Routine Hormone disorder Expected: 06/12/2025 (Approximate), Expires: 06/12/2026NOMS HealthcareComment on above:Expected: 06/12/2025 (Approximate), Expires: 06/12/2026Start: 06-12-2025 End: 09-76-9687Sylsnhc [Mass/volume] in Serum or PlasmaGlucose, random Lab Routine Hormone disorder Expected: 06/12/2025 (Approximate), Expires: 06/12/2026 NOMS HealthcareComment on above:Expected: 06/12/2025 (Approximate), Expires: 06/12/2026Start: 06-12-2025 End: 35-86-4317Pqxjror, totalInsulin, total Lab Routine Hormone disorder Expected: 06/12/2025 (Approximate), Expires: 06/12/2026NOWV HealthcareComment on above:Expected: 06/12/2025 (Approximate), Expires: 06/12/2026Start: 06-12-2025 End: 07-17-3895Skivoihvg serumSerotonin serum Lab Routine Hormone disorder Expected: 06/12/2025 (Approximate), Expires: 06/12/2026NOWV HealthcareComment on above:Expected: 06/12/2025 (Approximate), Expires: 06/12/2026Start: 06-12-2025 End: 83-85-1488DymqojykvfwdoDlwghovumfejb Lab Routine Hormone disorder Expected: 06/12/2025 (Approximate), Expires: 06/12/2026NOWV HealthcareComment on above: Expected: 06/12/2025 (Approximate), Expires: 06/12/2026Start: 06-12-2025 End: 90-43-2709Hwtnmelgxdtwp AntibodyThyroglobulin Antibody Lab Routine Hormone disorder Expected: 06/12/2025 (Approximate), Expires: 06/12/2026[facility] Comment on above:Expected: 06/12/2025 (Approximate), Expires: 06/12/2026Start: 06-12-2025 End: 02-10-6680Llsmvetiicc [Units/volume] in Serum or PlasmaNOWV Healthcare Comment on above:Ordered: 06/12/2025Expected: 06/12/2025 (Approximate), Expires: 06/12/2026Start: 06-12-2025 End: 03-50-0989VM PelvisUS Pelvis w/ TV Imaging Routine Vaginal itching Hormone disorder Expected: 06/12/2025, Expires: 12/11/2025NOWV HealthcareComment on above:Expected: 06/12/2025, Expires: 12/11/2025Start: 06-12-2025 End: 64-19-9587Vsapywq encounter procedureNOMS Jayy OBGYNComment on above: ArrivedStart: 44-35-7784CYPRH-19 Vaccine ( season)COVID-19 Vaccine ( season)NOMS HealthcareStart: 48-46-3139Aiswddrya vaccinationInfluenza Vaccine (#1)NOMS HealthcareStart: 00-15-0186Sjhgwjw referralPrem[facility] Health [facility] Work Phone: Start: 52-33-7174KykoiqxvsFairfield Medical Center Start: 08-07-2024 End: 18-19-7161GO Breast - bilateral ScreeningBilateral screening mammogram Imaging Routine Breast cancer screening by mammogram Expected: 08/07/2024 (Approximate), Expires: 10/08/2025[facility] Work Phone: comment on above:Expected: 08/07/2024 (Approximate), Expires: 10/08/2025Start: 68-84-2221Zuoucxpde vaccinationInfluenza Vaccine (#1) NOMS HealthcareStart: 19-75-0160Ubebmxh referralPremier Health [facility] Center Work Phone: Start: 61-56-0968Gyxhglslm for malignant neoplasm of breastMammogramNOMS HealthcareStart: 61-82-5433Wqulopvcy for malignant neoplasm of cervixHPV/CotestNOWV HealthcareStart: 20-28-0336OMP Vaccines (1 - 3-dose SCDM series)HPV Vaccines (1 - 3-dose SCDM series)NOM HealthcareStart: 2003 Hepatitis B Vaccines (1 of 3 - 19+ 3-dose series)Hepatitis B Vaccines (1 of 3 - 19+ 3-dose series)NOM HealthcareStart: 21-52-4568Gjuaiio of varicella vaccinationVaricella Vaccines (1 of 2 - 13+ 2-dose series)NOM HealthcareStart: 03-48-1281TKkO/Tdap/Td Vaccines (1 - Tdap)DTaP/Tdap/Td Vaccines (1 - Tdap)NOM HealthcareStart: 91-83-3607FVG Vaccines (1 of 1 - Standard series)MMR Vaccines (1 of 1 - Standard series)NOMSaint John'S HospitalCHLAMYDIA TRACHOMATIS (GENITO/STI) CHLAMYDIA TRACHOMATIS (GENITO/STI) Lab Routine Vaginal itching Ordered: 06/12/2025[facility] HealthcareComment on above:Ordered: 06/12/2025T Neck W contrast [facility]DHEA-sulfateDHEA-sulfate Lab Routine Hormone disorder Ordered: 06/12/2025[facility] HealthcareComment on above:Ordered: 06/12/2025 EstradiolEstradiol Lab Routine Hormone disorder Ordered: 06/12/2025[facility] HealthcareComment on above:Ordered: 06/12/2025EstroneEstrone Lab Routine Hormone disorder Ordered: 06/12/2025[facility] HealthcareComment on above:Ordered: 06/12/2025 Ferritin [Mass/volume] in Serum or PlasmaFerritin Lab Routine Hormone disorder Ordered: 06/12/2025[facility] HealthcareComment on above:Ordered: 06/12/2025Hemoglobin A1c/Hemoglobin.total in BloodHemoglobin A1c Lab Routine Hormone disorder Ordered: 06/12/2025[facility] HealthcareComment on above:Ordered: 06/12/2025Neisseria gonorrhoeae DNA [Presence] in Unspecified specimen by ALISE with probe detection Neisseria gonorrhea DNA probe, direct Lab Routine Vaginal itching Ordered: 06/12/2025[facility] HealthcareComment on above:Ordered: 06/12/2025Patient Education Esophageal Stricture (DC) Hemorrhoids ED Know your [facility] Work Phone: Patient [facility] Work Phone: ProgesteroneProgesterone Lab Routine Hormone disorder Ordered: 06/12/2025[facility] HealthcareComment on above:Ordered: 06/12/2025Sex hormone binding globulinSex hormone binding globulin Lab Routine Hormone disorder Ordered: 06/12/2025[facility] HealthcareComment on above:Ordered: 06/12/2025 SURESWAB(R) ADVANCED VAGINITIS PLUS, TMASURESWAB(R) ADVANCED VAGINITIS PLUS, TMA Pathology and Cytology Routine Vaginal itching Ordered: 06/12/2025[facility] Healthcare Work Phone: comment on above:Ordered: 06/12/2025T3, reverseT3, reverse Lab Routine Hormone disorder Ordered: 06/12/2025[facility] HealthcareComment on above:Ordered: 06/12/2025TESTOSTERONE, FREETESTOSTERONE, FREE Lab Routine Hormone disorder Ordered: 06/12/2025[facility] HealthcareComment on above:Ordered: 06/12/2025Testosterone, free, totalTestosterone, free, total Lab Routine Hormone disorder Ordered: 06/12/2025[facility] HealthcareComment on above:Ordered: 06/12/2025 THIN PREP TIS PAP AND HR HPV DNATHIN PREP TIS PAP AND HR HPV DNA Pathology and Cytology Routine Well woman exam with routine gynecological exam Ordered: 08/07/2024[facility] HealthcareComment on above:Ordered: 08/07/2024Thyroid peroxidase antibodyThyroid peroxidase antibody Lab Routine Hormone disorder Ordered: 06/12/2025[facility] HealthcareComment on above:Ordered: 06/12/2025Thyroxine (T4) free [Mass/volume] in Serum or PlasmaT4, free Lab Routine Hormone disorder Ordered: 06/12/2025[facility] HealthcareComment on above:Ordered: 06/12/2025Triiodothyronine (T3) Free [Mass/volume] in Serum or PlasmaT3, free Lab Routine Hormone disorder Ordered: 06/12/2025[facility] HealthcareComment on above:Ordered: 06/12/2025Vitamin D 1,25 dihydroxyVitamin D 1,25 dihydroxy Lab Routine Hormone disorder Ordered: 06/12/2025[facility] CenterComment on above:Ordered: 06/12/2025 Immunizations Immunization DateImmunizationNotesCare ZzyrombaSlifyjrd97-70-0182hluebxeri virus vaccine, unspecified formulationCorey Brian DO Work Phone: [facility] CenterAyjlazwmta87-43-2770idzuoepxz, injectable, quadrivalent, preservative freeCorey Brian DO Work Phone: [facility] CenterTaopeglrjd61-98-9847adtbmtnqu, injectable, quadrivalent, preservative freeCorey Brian DO Work Phone: [facility] CenterJemfpvbxys24-17-1423befzgpebk, injectable, quadrivalent, preservative freeCorey Brian DO Work Phone: [facility] CenterFcmqndruac73-95-5637twdqtokao, injectable, quadrivalent, preservative freeCorey Brian DO Work Phone: [facility] Payers DatePayer CategoryPayerPolicy [id number] Health Insurance 1..[id number] 2..1.503552.3.57[id number] 2..1.267623.3.57[id number] 2..1.805407.3.57[id number] 2..1.595268.3.57[id number] 2..1.588055.3.57[id number] 2.16.840.1.290916.3.57[id number] 2..840.1.140378.3.57[id number] 2..840.1.260625.3.57[id number] 2.0.1.039333.3.57[id number] 2.840.1.044232.3.579.2.1259 [id number] [id number] 2.840.1.8[id number] 2.840.1.026190.3.579.2.531 Social History DateTypeDetailFacilityUnknown if ever smokedNoranken j[facility] Soonr Other Start: 08-27-2023 End: 21-18-3451Cmm Assigned At [facility] HealthcareStart: 08-13-2023 End: 13-82-6385Jnppekl smoking status NHISNever smoked tobacco (finding) [facility] Hospitaltart: 40-48-3097Zvx Assigned At [facility] Centertart: 88-80-1502Xliofhp use and exposure Smokeless tobacco non-userNOWV HealthcareStart: 12-13-2023 End: 16-88-7555Rvjebimmu beverage intakeEx-drinker (finding)[facility] Start: 08-27-2023 End: 69-01-2959Gerjmfu of Social functionNOMS HealthcareHow often to you have a drink containing alcohol?Monthly or lessNOMS HealthcareStart: 77-49-4047Eqnnmpf Number of DrinksNot on fileTHE [facility]IC SPECIALTY [facility] HealthcareStart: 84-27-6546Hnwtpxi Comment caffeine: sodAdrielWV HealthcareStart: 18-65-1251Kjlzgg identityIdentifies as female gender (finding)[facility] HealthcareStart: 24-71-7527Ikojnw orientation Heterosexual (finding)[facility] HealthcareStart: 08-17-2024 End: 05-06-6654JttHcbflq (finding)[facility] CenterNEGATED: Highlighted rowFairfield Medical Center Goals DatePatient GoalDesired Activity/State Clinical Notes 08-22-2021 to 06-12-2025 Note Date & KnpuQscvYcdcpmnx25-11-9346 History of Present illness Narrative* Soniasarah Rouse, XM1 TANK DRIVER - 06/12/2025 11:40 AM EDT Reason for Appointment: Patient ID: Olga Sales is a 40 y.o. female who presents [...] Pelvic pain 08/13/2023 Migraine 08/01/2013 Morbid obesity (CMS-HCC) 08/01/2013 Recurrent UTI 08/13/2023 Vitamin D deficiency [...] Father Connor Leann Diabetes Paternal Grandmother Sonjafelicita Spainune Cancer Father's Sister JULIO ARMENTA Cancer Father's Sister Rosy Crawford Cancer Father's Brother Dougie Noriega SURGICAL HISTORY Past Surgical History: Procedure Laterality Date ADENOIDECTOMY SECTION, LOW TRANSVERSE CHOLECYSTECTOMY 2007 GASTRECTOMY 09/2013 Verical sleeve OTHER SURGICAL HISTORY 12/07/2023 DL & BX @ [facility] Timmis PELVIC LAPAROSCOPY 07/21/2022 laparoscopy w/removal [...] nursing note reviewed. Exam conducted with a marketing finance manager present. Vitals: Estimated body mass index is 30.7 kg/m as calculated from the following: Height as of 24: 5' 1 . Weight as of this [...] of: Hamilton Torres DO documented in this encounterMercy Hospital [facility], formerly St[facility]'s Medical CenterVsjgoihytf87-82-1721 Evaluation note* Diagnosis Onset Date Resolution Status Admit Date Attention deficit disorder (ADD) in adul t acuteJuly 2024 9:01amClass 1 obesity with body mass index (BMI) of 30.0 to 30.9 in adultacuteJuly 2024 9:01amAllergic dermatitisacuteAugust 2024 11:43am [facility] Work Phone: 1(378) 169-308407-03-2025 Note [id number]04-25-2025 NoteHNO ID: [id number] Author: GIA ALVAREZ APRN.DIRECTOR OF HEMOPHILIA Service: ? Author Type: Nurse Practitioner Type: [...] for her dysphagia, will [facility] out [facility] results. FOLLOW UP: Return as needed. Call sooner if problems develop. Gia Alvarez APRN.DIRECTOR OF HEMOPHILIA Referring Provider: I was consulted by self for dysphagia. Reason for Consult: Olga Sales is a 39 year old female who presents to [facility] Otolaryngology Department. Patient presents with: New Patient [...] on the right sided of her neck. [place] like a firm bump that had grown. [...] sensation POSTOPERATIVE DIAGNOSIS: same (more content not included)...[facility]04-25-2025 NoteHNO ID: [id number] Author: GIA ALVAREZ APRN.DIRECTOR OF HEMOPHILIA Service: ? Author Type: Nurse Practitioner Type: Progress Notes Filed: 12/08/2024 12:02 Note Text: Tobacco Use: Not on fileMercy Health [facility]sburg Hospital01-17-2025 Evaluation note* Diagnosis Onset Date Resolution Status Admit Date Attention deficit disorder (ADD) in adul t acuteJanuary 2024 8:57amObesity, Class II, BMI 35-39.9acuteJanuary 2024 8:57amAbnormal weight gainacuteJanuary 2024 10:11amAttention deficit disorder (ADD) in adultacuteJanuary 2024 10:11amBinge eating disorderacute September 08, 2024 10:11amBMI 36.0-36.9,adultacuteJanuary 2024 10:11am Dietary surveillance and counselingacuteAuguary 2024 10:11amExercise counselingacuteAuguary 2024 10:11amH/O gastric sleeveacuteAuguary 2024 10:11amHeartburnacuteAuguary 2024 10:11amHx laparoscopic cholecystectomyacuteAuguary 2024 10:11amObesity, Class II, BMI 35-39.9 acuteJanuary 2024 10:11amDysphagiaacuteApril 2024 8:53amGERD (gastroesophageal reflux disease)acuteApril 2024 8:53amGlobus sensation acuteApril 2024 8:53amRectal pressureacuteApril 2024 8:53am [facility] Work Phone: 1(208) 524-336701-02-2025 [place] [address] Colonoscopy Procedure Report Signed Patient: Olga Sales MR#: [id number] : 1985 Acct:[id number] Age/Sex: 39 / F Adm Date: 5 Loc: Room: Type: [facility] Attending Dr: Jane Spaulding DO Copies to: [...] slowly withdrawn with the findings as below. Bristol bowel prep score was adequate. Findings: Terminal [...] DO 08/17/24 0744 Signed By: 08/17/24 0821 [facility]01-02-2025 [place] [address] EGD Procedure Note Signed Patient: Olga Sales MR#: [id number] : 1985 Acct:[id number] Age/Sex: 39 / F Adm Date: 5 Loc: Room: Type: [facility] Attending Dr: Jane Spaulding DO Copies to: [...] mild narrowing at the GE junction. A iiqxvbb-avx-qtqon esophageal balloon dilator was used to dilate [...] DO 08/17/24 0744 Signed By: 08/17/24 0807 [facility]01-02-2025 History and physical [address] [address] Gastroenterology H&P Signed Patient: Olga Sales MR#: [id number] : 1985 Acct:[id number] Age/Sex: 39 / F Adm Date: 5 Loc: Room: Type: [facility] Attending Dr: Jane Spaulding DO Copies to: [...] DO 08/17/24 0743 Signed By: 08/17/24 0805 [facility]12-23-2024 History of Present illness Narrative [...] Active Ambulatory Problems Diagnosis Date Noted Depressed (CMS/HCC) 08/01/2013 Endometriosis 08/13/2023 Epigastric pain 08/13/2023 Abdominal pain 08/13/2023 Back pain 08/01/2013 Flank pain 08/13/2023 Pelvic pain 08/13/2023 Migraine (CMS/HCC) 08/01/2013 Morbid obesity (CMS/HCC) 08/01/2013 Recurrent UTI 08/13/2023 Vitamin D deficiency [...] SURGICAL HISTORY 12/07/2023 DL & BX @ [facility] PELVIC LAPAROSCOPY 07/21/2022 laparoscopy w/removal of epiploic [...] nursing note reviewed. Exam conducted with a marketing finance manager present. Vitals: Estimated body mass index is [...] of: Hamilton Torres DO documented in this encounterMercy [facility], formerly [facility] CenterKvmokjlycy70-90-7087 Evaluation note* Diagnosis Onset Date Resolution Status Admit Date Abnormal weight gain acuteOct2023 1:54pmAttention deficit disorder (ADD) in adultacute June 12, 2024 1:54pmBinge eating disorderacuteOct2023 1:54pmBMI 40.0-44.9, adultacuteOct2023 1:54pmDietary surveillance and counselingacuteOct2023 1:54pmExercise counselingacuteOct2023 1:54pmH/O gastric sleeveacuteOct2023 1:54pmHeartburnacuteOct2023 1:54pmHx laparoscopic cholecystectomyacuteOct2023 1:54pm Obesity, Class III, BMI 40-49.9 (morbid obesity)acuteOct2023 1:54pm Globus sensationacuteDecember 2023 10:13amRectal pressureacuteDecember 2023 10:13amAbnormal weight gainacuteDecemb2023 10:05amAttention deficit disorder (ADD) in adultacuteDece2023 10:05amBinge eating disorderacuteDecember 2023 10:05amBMI 37.0-37.9, adultacuteDecember 2023 10:05amDietary surveillance and counselingacuteDece2023 10:05am Exercise counselingacuteDecember 2023 10:05amH/O gastric sleeveacute July 28, 2024 10:05amHeartburnacuteDecember 2023 10:05amHx laparoscopic cholecystectomyacuteDecemb2023 10:05amObesity, Class II, BMI 35[facility]39.9[facility] 10:05am [facility] Work Phone: 1(491) 921-625610-28-2024 Evaluation note* Diagnosis Onset Date Resolution Status Admit Date Abnormal weight gain acuteOctober 2023 1:54pmAttention deficit disorder (ADD) in adultacute June 12, 2024 1:54pmBinge eating disorderacuteOct2023 1:54pmBMI 40.0-44.9, adultacuteOct2023 1:54pmDietary surveillance and counselingacuteOct2023 1:54pmExercise counselingacuteOct2023 1:54pmH/O gastric sleeveacuteOct2023 1:54pmHeartburnacuteOctlexington [facility] 2023 1:54pmHx laparoscopic cholecystectomyacuteOct2023 1:54pm Obesity, Class III, BMI 40-49.9 (morbid obesity)acuteOct2023 1:54pm Globus sensationacuteDeceer 2023 10:13amRectal pressureacuteDeceer 2023 10:13amAbnormal weight gainacutePrceer 2023 10:05amAttention deficit disorder (ADD) [facility]Beck[facility] 10:05amBinge [facility]acute[facility] 20[facility] 10:05amBMI 37.0-37.9, adultacuteDeceer 2023 10:05amDietary surveillance and counselingacuteR[facility] Hospital[facility] 2023 10:05am [facility] 2023 10:05amH/O gastric sleeveacute July 28, 2024 10:05amHeartburnacuteDeceer 2023 10:05amHx laparoscopic cholecystectomyacuteR[facility] 2023 10:05amObesity, Class II, BMI 35-39.9[facility] 2023 10:05amAttention deficit disorder (ADD) [facility] 2024 8:57amObesity, Class II, BMI 35-39.9acuteJanuary 2024 8:57amAbnormal weight gainacuteJanuary 2024 10:11amAttention deficit disorder (ADD) in adultacuteJanuary 2024 10:11amBinge eating disorderacuteJanuary 2024 10:11amBMI 36.0-36.9,adultacuteJanuary 2024 10:11amDietary surveillance and counselingacuteJanuary 2024 10:11am Exercise counselingacuteJanuary 2024 10:11amH/O gastric sleeveacuteJanuary 2024 10:11amHeartburnacuteJanuary 2024 10:11amHx laparoscopic cholecystectomyacuteJanuary 2024 10:11amObesity, Class II, BMI 35-39.9 acuteJanuary 2024 10:11am [facility] Work Phone: 1(569) 852-940401-29-2024 Evaluation note* Encounter Date Diagnosis Assessment Notes Treatment Notes Treatment Clinical Notes Aug, Morbid (severe) obesity due to e xcess calories (ICD-10 - E66.01) Patient has clearly [...] plateau. Pt aware that they need to continueto work hard at weight loss or the weight will be regained. Side effects discussed and understood. Pt education printed and discussed. Pt notified of prescribing schedule with 30 day dispensing, no re fills, for up to 12 weeks, with a 6 month break in-between treatments. Id SOB, CP, mood changes, tachycardia, HTN, headaches, blurred vision occur, go to ER and Follow-up with me immediately. Aug,ody mass index [BMI] 40.0-44.9, adult (ICD-10 - Z68.41) Aug,leurisy (ICD-10 - R09.1)reviewed urgent care note and treatment. overall improved. Aug,LPRD (laryngopharyngeal reflux disease) (ICD-10 - K21.9)reviewed notes from ENT visit. Laryngoscopy was normal, per pt. Continue PPI, added famotidine qpm [facility] Other 01-10-2024 Evaluation note* Encounter Date Diagnosis Assessment Notes Treatment Notes Treatment Clinical Notes Aug, Acute sinusitis, rec urrence not specified, unspecified location (ICD-10 - J01.90) Sinusitis home care material was printed Drink plenty fluids, get plenty of rest. Take the doxycycline and prednisone as prescribed until gone for your sinus infection. The prednisone will help the pleurisy as well. Use your Flonase inhaleras prescribed until your symptoms of sinus infection improved. Take Tylenol or Motrin for aches pains or fevers. Off work today, may return to work tomorrow. Follow-up with your family physician if no improvement in 2 to 3 days Aug,leurisy (ICD-10 - R09.1) [facility] Other 12-18-2023 Evaluation note* Encounter Date Diagnosis Assessment Notes Treatment Notes Treatment Clinical Notes Jul, Morbid (severe) obesity due to e xcess calories (ICD-10 - E66.01) Patient has clearly [...] plateau. Pt aware that they need to continueto work hard at weight loss or the weight will be regained. Side effects discussed and understood. Pt education printed and discussed. Pt notified of prescribing schedule with 30 day dispensing, no re fills, for up to 12 weeks, with a 6 month break in-between treatments. Id SOB, CP, mood changes, tachycardia, HTN, headaches, blurred vision occur, go to ER and Follow-up with me immediately. Jul,ody mass index [BMI] 40.0-44.9, adult (ICD-10 - Z68.41) Jul, (laryngopharyngeal reflux disease) (ICD-10 - K21.9)Pt agrees to referral to Dr. See for globus sensation and ongoing LPRD while on PPI [facility] Other 11-16-2023 Evaluation note* Encounter Date Diagnosis Assessment Notes Treatment Notes Treatment Clinical Notes Jun, Morbid (severe) obesity due to e xcess calories (ICD-10 - E66.01) BMI 41. Patient [...] plateau. Pt aware that they need to continueto work hard at weight loss or the weight will be regained. Side effects discussed and understood. Pt education printed and discussed. Pt notified of prescribing schedule with 30 day dispensing, no re fills, for up to 12 weeks, with a 6 month break in-between treatments. Id SOB, CP, mood changes, tachycardia, HTN, headaches, blurred vision occur, go to ER and Follow-up with me immediately. Jun,ody mass index [BMI] 40.0-44.9, adult (ICD-10 - Z68.41) Jun, (laryngopharyngeal reflux disease) (ICD-10 - K21.9)Offered referral to GI. Would opt to start w PPI for 1 month and proceed with EGD, etc if needed in1 month. [facility] Other 06-23-2023 Evaluation note* Encounter Date Diagnosis Assessment Notes Treatment Notes Treatment Clinical Notes Jan, Lower abdominal pain (ICD-10 - R 10.30) Encouraged to followup w ECHOCARDIOGRAPHER. Pt will atkinson out CT and make phone calls to schedule. Order printed and given to Olga. Jan,Left flank pain (ICD-10 - R10.9)as above. R/o kidney stone Jan,inge eating disorder (ICD-10 - F50.81)resume sindyyvjimmye Jan,UTI (urinary tract infection) (ICD-10 - N39.0)Will treat empirically. [facility] Other 12-06-2022 NoteOPERATIVE NOTE OPERATION DATE: 07/21/2022 PROCEDURE: Diagnostic laparoscopy with removal of epiploic adhesion of the bowel from the patient's left ovary. PREOPERATIVE DIAGNOSIS: Pelvic pain. POSTOPERATIVE DIAGNOSIS: Pelvic pain including adhesion of epiploic fat to the patient's ovary. SURGEON: Hamilton Torres D.O. ARCHIVES TECHNICIAN: GOLDEN Conway URINE OUTPUT: Yellow and clear. [...] taken to Recovery Room in stable condition.[facility] [id number] NoteOPERATIVE NOTE OPERATION DATE: 07/29/2022 ADDENDUM: Please note adhesion of epiploic fat to the patient's left ovary was noted and this was bluntly and sharply dissected and taken down.[facility] [id number] NoteFINDINGS: Sonographic evaluation targeted to the right breast, periareolar region demonstrates no worrisome cystic or solid mass lesions. Comparison made with the same day bilateral mammogram. IMPRESSION: BIRADS 1 - NEGATIVE Report reported and signed by Abel Monroy on 08/22/2021 130[address] Medical SpecialistChief complaint+Reason for visit Narrative* Chief Complaint dicuss swallowing/ g astrology referral Reason for Visit Attention deficit di sorder (ADD) in adult [facility] Work Phone: Chief complaint+Reason for visit Narrative* Chief Complaint dicuss swallowing/ g [facility]Reason for VisitAttention deficit disorder (ADD) in adult Globus sensation Abnormal weight gain Attention deficit disorder (ADD) in adult Binge eating disorder BMI 40.0-44.9, adult Dietary surveillance and counseling Exercise counseling H/O gastric sleeve Heartburn Hx laparoscopic cholecystectomy Obesity, Class III, BMI 40-49.9 (morbid obesity) [facility] Work Phone: Evaluation noteNo InformationNort Soonr Other Evaluation noteNo assessment information available [facility] Work Phone: Evaluation note* Diagnosis Onset Date Resolution Status Attention deficit disorder (ADD) in adul t acute [facility] Work Phone: Evaluation note* Diagnosis Onset Date Resolution Status Attention deficit disorder (ADD) in adul t acuteGlobus sensationacuteAbnormal weight gainacuteAttention deficit disorder (ADD) in adultacuteBinge eating disorderacuteBMI 40.0-44.9, adultacuteDietary surveillance and counselingacuteExercise counselingacuteH/O gastric sleeveacute HeartburnacuteHx laparoscopic cholecystectomyacuteObesity, Class III, BMI 40- 49.9 (morbid obesity)acute [facility] Work Phone: Evaluation note* Diagnosis Well woman exam with routine gynecological exam Routine gynecological examination Breast cancer screening by mammogram documented in this encounter [facility] Healthcare[facility]* Diagnosis Vaginal itching Pruritus of genital organs Hormone disorder Unspecified endocrine disorder Yeast infection documented in this encounter [facility] HealthcareHistory and physical note Author Jane Spaulding [facility] CenterNote Date/TimeJanuary 2024 8:05[place] [address] Gastroenterology H&P Signed Patient: Olga Sales MR#: [id number] : 1985 Acct:[id number] Age/Sex: 39 / F Adm Date: 5 Loc: Room: Type: [facility] Attending Dr: Jane Spaulding DO Copies to: [...] signed by Jane Spaulding DO> 08/17/24 0805 [facility] Work Phone: History general Narrative - Reported* Type Description Date Medical History Endometriosis Surgical HistorylaparoscopySurgical Historyc section [id number] Historyvertical sleeve gastrectomyHospitalization HistorySEE SURIGCAL [facility] Other Hospital Discharge instructionsAmbulatory Orders* Referral to ENT Time Frame: 11/17/24, Location: None Selected [facility] Work Phone: Reason for referral (narrative)No reason for referral information availablePremier Health [facility] Work Phone: Summary Purpose Family History Relationship Condition Age at Onset Recorded Date/T destiny mother Mental disorder Unknown fatherMalignant neoplasmUnknownHypertensionUnknownHigh blood cholesterolUnknown brotherHypertensionUnknownsonAttention deficit hyperactivity disorder (ADHD) Unknown Advance Directives Advance Directive Response Recorded Date/ Time Advance Directives No November 25 11:52am Advance Directive Response Recorded Date/ Time Advance Directives No November 25 10:52am Reason for Referral Reason R anterior neck discomfort, LPRD on PPI Diagnosis 1 LPRD (laryngopharyng eal reflux disease) (K21.9) Referral Organization [facility] Referring Provider First Name Kenzie Referring Provider Last Name Cady Referring Provider Specialty Family [facility] Referred Organization [facility] Referred Provider Layne See Referred Address ,[place], [place],[address] Referred Provider Specialty Ear, Nose an d Throat Referral Priority Routine General Notes Qi Sanchez 02:09:20 PM >received today, waiting for notes to be locked Chief Complaint and Reason for Visit Chief Complaint Admit Date 6 month f/u February 26, 2025 9:01 am Rash 2of2 March 25, 2025 11 :43am Reason for Visit Admit Date Attention deficit disorder (ADD) in on [facility] of [facility] t February 26, 2025 9:01am Class 1 obesity with body ma ss index (BMI) of 30.0 to 30.9 in adult February 26, 2025 9:01am Allergic dermatitis March 25, 2025 11 :43am Chief Complaint Admit Date 6 month f/u February 26, 2025 9:01 am Chief Complaint Admit Date Amb Documentation August 22, 2024 9: 43am Med f/u September 01, 2024 8 :57am 3 month follow up November 17, 2024 8:53 am Reason for Visit Admit Date Attention deficit disorder (ADD) in on license of [facility] t September 01, 2024 8:57am Obesity, Class II, BMI 35-39.9 August 162024 8:57am Abnormal weight gain September 08, 2024 10:11am Attention deficit disorder (ADD) in on license of [facility] t September 08, 2024 10:11am Binge eating disorder September 08, 2024 10:11am BMI 36.0-36.9,adult September 08, 2024 1 0:11am Dietary surveillance and counseling Flo whittaker 2024 10:11am Exercise counseling September 08, [...] am Chief Complaint Admit Date [facility] June 12, 2024 1 :54pm Refer: foreign body sensation in throat July 19, 2024 10:13am See message to Dario August 07 12:49pm Globus/constipation August 17, 2024 7: 09am Globus/constipation August 17, 2024 7: 44am Reason for Visit Admit Date Abnormal weight gain June 12, 2024 1:54pm Attention deficit disorder (ADD) in adul t June 12, 2024 1:54pm Binge eating disorder June 12, 2024 1:54pm BMI 40.0-44.9, adult June 12, 2024 1:54pm Dietary surveillance and counseling Octo ced 2023 1:54pm Exercise counseling June 12, 2024 [...] 2024 10:05am Attention deficit disorder (ADD) in adul t July 28, 2024 10:05am Binge eating [...] section and content) DATE CREATED AUTHOR 02/02/2018 [facility] DATE CREATED AUTHOR AUTHOR'S ORGANIZ ATION 08/23/2021 [place] [facility] DATE CREATED AUTHOR AUTHOR'S ORGANIZ ATION 08/06/2022 [facility] DATE CREATED AUTHOR AUTHOR'S ORGANIZ ATION 08/27/2024 [facility] DATE CREATED AUTHOR AUTHOR'S ORGANIZ ATION 12/20/2024 [facility] DATE CREATED AUTHOR AUTHOR'S ORGANIZ ATION 05/09/2025 [facility] DATE CREATED AUTHOR AUTHOR'S ORGANIZ ATION 06/13/2025 [facility] EPIC REASON FOR VISIT (unrecogniz ed section and content) ReasonCommentsRoutine VisitReasonCommentsIrregular cycles Care Teams (unrecognized sec tion and content) Team Status: Active Member Role Status Dates Kenzie Lazar MD Primary Care Provider Active Team Status: Inactive Member Role Status Dates Kenzie Lazar MD Primary Care Provider Active Start: February 26, 2025 End: February 26, 2025Ugo Farr ProviderActiveStart: February 26, 2025 End: February 26, 2025 Team Status: Active Member Role Status Dates Kenzie Lazar MD Primary Care Provider Active Start: August 22, 2024 Baldev Spear ProviderActiveStart: August 22, 2024 Team Status: Inactive Member Role Status Sydnee Lazar MD Primary Care Provide r, Attending Provider Active Start: September 01, 2024 End: September 01, 2024 Team Status: Inactive Member Role Status Sydnee Lazar MD Primary Care Provider Active Start: September 08, 2024 End: September 08, 2024Leticia Razo DNPAttending ProviderActiveStart: September 08, 2024 End: September 08, 2024 Team Status: Inactive Member Role Status Sydnee Lazar MD Primary Care Provider Active Start: November 17, 2024 End: November 17eri Spaulding DOAttending ProviderActiveStart: November 17, 2024 End: November 17, 2024 Team Status: Inactive Member Role Status Sydnee Lazar MD Attending Provider Active St art: September 13, 2023 End: September 13, 2023 Team Status: Active Member Role Status Dates Kenzie Lazar MD Primary Care Provider Active Start: October 15, 2023 Cadence Britton ProviderActiveStart: October 15, 2023 Team Status: Active Member Role Status Dates Kenzie Lazar MD Primary Care Provide r, Attending Provider Active Start: November 26, 2023 Team Status: Active Member Role Status Sydnee Lazar MD Primary Care Provide r, Attending Provider Active Start: December 07, 2023 Team Status: Inactive Member Role Status Sydnee Lazar MD Primary Care Provider Active Start: December 07, 2023 End: December 07, 2023Layne See Jr MDAttending ProviderActiveStart: December 07, 2023 End: December 07, 2023 Team Status: Inactive Member Role Status Dates Kenzie Lazar MD Primary Care Provide r, Attending Provider Active Start: March 20, 2024 End: March 20, 2024 Team Status: Inactive Member Role Status Dates Kenzie Lazar MD Primary Care Provider Active Start: June 12, 2024 End: June 12, 2024Leticia Razo DNPAttending ProviderActiveStart: June 12, 2024 End: June 12, 2024Team MemberRelationshipSpecialtyStart DateEnd Date Kenzie Lazar MD [address] [place] [facility] [address] PCP [facility]08/03/23Team MemberRelationshipSpecialtyStart DateEnd Date Kenzie Lazar MD [address] [place] [facility] [address] PCP [facility]08/03/23Team MemberRelationshipSpecialtyStart DateEnd Date Kenzie Lazar MD [address] [facility] [place] [phone] PCP [facility]08/03/23 Team Status: Inactive Member Role Status Dates Kenzie Lazar MD Primary Care Provider Active Start: July 19, 2024 End: July 19eri Spaulding , DOAttending ProviderActiveStart: July 19, 2024 End: July 19, 2024 Team Status: Inactive Member Role Status Dates Kenzie Lazar MD Primary Care Provider Active Start: July 28, 2024 End: July 28, 2024Leticia Razo DNPAttending ProviderActiveStart: July 28, 2024 End: July 28, 2024 Team Status: Inactive Member Role Status Dates Kenzie Lazar MD Primary Care Provider Active Start: August 07, 2024 End: August 07ndjesus Gunter RD LDAttending ProviderActiveStart: August 07, 2024 End: August 07, 2024 Team Status: Inactive Member Role Status Dates Kenzie Lazar MD Primary Care Provider Active Start: August 17, 2024 End: August 17atherine L Ly , DOAttending ProviderActiveStart: August 17, 2024 End: August 17, 2024 Team Status: Active Member Role Status Dates Kenzie Lazar MD Primary Care Provider Active Start: August 17, 2024 Jane L Ly , DOAttending Provider, Other ProviderActiveStart: August 17, 2024 Team MemberRelationshipSpecialtyStart DateEnd Date Kenzie Lazar MD PCP - Gochxoj48/19/23 Team Status: Inactive Member Role Status Dates Kenzie Lazar MD Primary Care Provider Active Start: March 25, 2025 End: March 25junior Seth , APRNAttenhosea ProviderActiveStart: March 25, 2025 End: March 25, 2025Team MemberRelationshipSpecialtyStart DateEnd Date Kenzie Lazar MD [address] [place] [facility] [address] PCP - Mrntlqv12/19/23Team MemberRelationshipSpecialtyStart DateEnd Date Kenzie Lazar MD [address] [place] [phone] PCP - Vwbwfhq83/19/23Team MemberRelationshipSpecialtyStart DateEnd Date Kenzie Lazar MD [address] [place] [phone] PCP - Umfjwld61/19/23Team MemberRelationshipSpecialtyStart DateEnd Date Kenzie Lazar MD [address] [place] [phone] PCP - Zettvpi93/19/23 Goals (unrecognized section and content) Goals may [...] BE BASED ON THE PRIMARY CLINICAL RECORDS. [facility] [employer] [facility]. provides no warranty or guarantee of the accuracy or completeness of information in this document.
--- OUTSIDE RECORDS SUMMARY | 2025-06-20 07:42 | XMS_ITS | Encounter Summary ---
Author Organization [facility] Address [address] [place] [address] Care Team Providers Care Campaign Marketing Manager Name Role Phone Kenzie Lazar MD Primary Care Provider Encounter Details DateTypeDepartmentCare Team (Latest Contact Info)Ipnktzpzqal81/12/2024linisync Result Encounter [facility] External Department Unsolicited Veronica Becker MD [address] [place] [address] Social History Tobacco UseTypesPacks/DayYears UsedDateSmoking Tobacco: NeverSmokeless Tobacco: NeverAlcohol UseStandard Drinks/WeekCommentsNot Currently0 (1 standard drink = 0.6 oz pure alcohol)caffeine: sodaAUDIT-CAnswerDate RecordedQ1: How often do you have a drink containing alcohol?Monthly or less08/27/2023verage Number of DrinksNot on file08/27/2023Frequency of Binge DrinkingNot on file08/27/2023 CommentsUnknownSex and Gender InformationValueDate RecordedSex Assigned at ScsrwSgxokf69/25/2023 10:18 PM EDTLegal PvkLemtdv06/15/2023 6:42 PM EDTGender IlcjqhyaKgsoqj25/25/2023 10:18 PM EDTSexual QvcifhdyvirZzxqudtj73/25/2023 10:18 PM EDTdocumented as of this encounter Plan of Treatment DateTypeDepartmentCare Team (Latest Contact Info)Ottthylxced22/14/2025 11:00 AM ESTAncillary Procedure [facility] [address] [place] [phone] 09/11/2025 8:30 AM ESTProcedure Visit [facility] [address] [place] [address] Hamilton Torres, DO [address] [place] [address] documented as of this encounter Procedures Procedure NamePriorityDate/TimeAssociated DiagnosisCommentsECG 12-LEAD11/26/2023 10:50 AM EDT documented in this encounter Results * ECG 12-LEAD (11/26/2023 10:50 AM EDT)Anatomical RegionLateralityModalityOther Specimen (Source)Anatomical Location / LateralityCollection Method / Volume Collection TimeReceived Time11/26/2023 10:50 AM EDT Narrative 11/26/2023 6:57 PM EDT [facility] ?[address] ? [place] [address] ? Electrocardiograph Report ? Signed ? Patient: CARYN PRESSLEY ?MR#: [id number] ?? : 1985 ?Acct:[id number] ?? Age/Sex: 38 / F ?ADM Date: 11/26/23 ?? Loc: PST ? Attending Dr: Veronica Becker M.D. ? Ordering Physician: Veronica Becker M.D. ?? Date of Service: 11/26/23 ?? Procedure(s): ECG 12 lead ?? Accession Number(s): [id number] ? cc: ?[facility] ? Test Date: ?2023-11-26 ?? Pat Name: ? CARYN PRESSLEY ?Department: ? Room: ? - ?? Gender: ? Female ? Site Auditor: ? : ?1985 ? Requested By: VERONICA TIMMIS ?? Order Number: [id number] ?Reading MD: ?? STANTON ??BALL ? Measurements ?? Intervals ?[place] ? Rate: ? 54 ? P: ?23 ?? PA: ? 148 ?QRS: ?45 ?? QRSD: ? 90 ? T: ?36 ?? QT: ? 409 ? QTc: ?389 ? Interpretive Statements ?? SINUS BRADYCARDIA ?? Compared to ECG 07/13/2022 08:44:24 ?? Sinus rhythm no longer present ?? Electronically Signed On 11-26-2023 18:56:34 EDT by STANTON ??BALL ? Dictated By: ?Hesham,Stanton D.O. ? Signed By: ?11/26/23 1857 ? DD/ 1050 ? TD/TT: ? Instructor Hairspring: Procedure Note Radiology, Radiologist, MD - 11/26/[address] [address] Electrocardiograph Report Signed Patient: CARYN PRESSLEY LMR#: [id number] : 1985Acct:[id number] Age/Sex: 38 / FADM Date: 11/26/23 Loc: PST Attending Dr: Veronica Becker M.D. Ordering Physician: Veronica Becker M.D. Date of Service: 11/26/23 Procedure(s): ECG 12 lead Accession Number(s): [id number] cc: [facility] Test Date: 2023-11-26 Pat Name: CARYN PRESSLEY Department: Room: - Gender: Female Site Auditor: : 1985 Requested By: VERONICA BECKER Order Number: [id number] Reading MD: STANTON GILES Measurements Intervals [place] Rate: 54 P: 23 PA: 148 QRS: 45 QRSD: 90 T: 36 QT: 409 QTc: 389 Interpretive Statements SINUS BRADYCARDIA Compared to ECG 07/13/2022 08:44:24 Sinus rhythm no longer present Electronically Signed On 11-26-2023 18:56:34 EDT by STANTON GILES Dictated By: Stanton Giles D.O. Signed By:11/26/23 1857 DD/ 1050 TD/TT: Instructor [employer]: Authorizing ProviderResult TypeResult StatusHilary H Rosita MDCLINISYNC IMAGING Final Result documented in this encounter Visit Diagnoses Not on filedocumented in this encounter Care Teams Team MemberRelationshipSpecialtyStart DateEnd Date Kenzie Lazar MD [address] [place] [phone] PCP - Dlchvkx01/19/23documented as of this encounter
--- OUTSIDE RECORDS SUMMARY | 2025-06-20 07:43 | XMS_ITS | Encounter Summary ---
Author Organization [facility] Address [address] [place] [address] Care Team Providers Care Equipment Inspector Name Role Phone Kenzie Lazar MD Primary Care Provider [phone] Encounter Details DateTypeDepartmentCare Team (Latest Contact Info)Futvdeahalx81/03/2025Telephone [facility] [address] [place] [address] Hamilton Torres DO [address] [facility] [address] [place] [id number] Social History Tobacco UseTypesPacks/DayYears UsedDateSmoking Tobacco: NeverSmokeless Tobacco: NeverAlcohol UseStandard Drinks/WeekCommentsNot Currently0 (1 standard drink = 0.6 oz pure alcohol)caffeine: sodaAUDIT-CAnswerDate RecordedQ1: How often do you have a drink containing alcohol?Monthly or less08/27/2023verage Number of DrinksNot on file08/27/2023Frequency of Binge DrinkingNot on file08/27/2023 CommentsNoSex and Gender InformationValueDate RecordedSex Assigned at DzrpjTltsaa24/25/2023 10:18 PM EDTLegal SueAgbinl29/15/2023 6:42 PM EDTGender SreulrvpEpnpsq03/25/2023 10:18 PM EDTSexual OatzedfjotvGucoefya59/25/2023 10:18 PM EDTdocumented as of this encounter Miscellaneous Notes * Telephone Encounter - Rosario Rankin LPN - 06/18/2025 3:50 PM EST I am calling I saw Dr. Torres last week and he had given me the information packet for [facility] for the compound, natural hormonal replacement. Any who I was just calling for clarification of the process, I was given the orders for the labs. Can I go ahead and go get those done? I am on my 21 day of my cycle on Wednesday. I do not know if I could get those done prior to having the packet turned back in. I kind of forget. So if you could just give me a call and just let me know if I am good to go ahead on Wednesday morning and get those labs. I greatly appreciate it. Patient call was returned and she was advised she can have these done anytime between 7 and 9 am and fasting. Patient asked if she has to have paperwork one prior and she was advised she does not butas soon as paperwork is done to bring back to the office and we will get her labs and send these [facility]. PVU documented in this encounter Plan of Treatment DateTypeDepartmentCare Team (Latest Contact Info)Mumfcbairyk39/14/2025 11:00 AM ESTAncillary Procedure [facility] [address] [facility] [place] [address] 09/11/2025 8:30 AM ESTProcedure Visit [facility] [address] [place] [address] Hamilton Torres, [address] [place] [address] documented as of this encounter Visit Diagnoses Not on filedocumented in this encounter Care Teams Team MemberRelationshipSpecialtyStart DateEnd Date Kenzie Lazar MD [address] [place] [phone] PCP - Sdactop91/19/23documented as of this encounter
--- OUTSIDE RECORDS SUMMARY | 2025-06-20 07:43 | XMS_ITS | Clinical Summary ---
Author Organization [employer] [facility] Address [id number] [address] [place] [address] Care Team Providers Care Format Proofreader Name Role Phone Unavailable Primary Care Provider Unavailabl e Social History Tobacco UseTypesPacks/DayYears UsedDateSmoking Tobacco: Never AssessedChildcare AnswerDate AabuszsrTbfkckzhyIvesxrj45/12/2019EmploymentAnswerDate Recorded NztcaybaeaIndfxab26/12/2019CommentsUnknownSex and Gender Information ValueDate RecordedSex Assigned at BirthNot on fileLegal MnmMaxdbj70/06/2015 11:54 AM EDTGender IdentityNot on fileSexual OrientationNot on file Plan of Treatment Not on file Medical Devices Not on file
--- OUTSIDE RECORDS SUMMARY | 2025-06-20 07:43 | XMS_ITS | Encounter Summary ---
Author Organization [facility] Address [address] [place] [address] Care Team Providers Care Supply Service Worker Name Role Phone Kenzie Lazar MD Primary Care Provider [phone] Encounter Details DateTypeDepartmentCare Team (Latest Contact Info)Bfjpsdawwwh13/28/2025External Result Encounter [facility] External Department Unsolicited Hamilton Torres, DO [address] [place] [address] [address] [place] [place] [phone] Social History Tobacco UseTypesPacks/DayYears UsedDateSmoking Tobacco: NeverSmokeless Tobacco: NeverAlcohol UseStandard Drinks/WeekCommentsNot Currently0 (1 standard drink = 0.6 oz pure alcohol)caffeine: sodaAUDIT-CAnswerDate RecordedQ1: How often do you have a drink containing alcohol?Monthly or less08/27/2023verage Number of DrinksNot on file08/27/2023Frequency of Binge DrinkingNot on file08/27/2023 CommentsNoSex and Gender InformationValueDate RecordedSex Assigned at NbfepXbcxiw65/25/2023 10:18 PM EDTLegal YgoSqgfsl94/15/2023 6:42 PM EDTGender KznuwlotVliajm46/25/2023 10:18 PM EDTSexual DkqlvvvgebvDdxpqckp46/25/2023 10:18 PM EDTdocumented as of this encounter Plan of Treatment DateTypeDepartmentCare Team (Latest Contact Info)Eoadyomlogq49/14/2025 11:00 AM ESTAncillary Procedure [facility] [address] [facility] [place] [phone] 09/11/2025 8:30 AM ESTProcedure Visit [facility] [address] [place] [phone] BrianHamilton rios, DO [address] [facility] [address] [place], [place] [phone] documented as of this encounter Procedures Procedure NamePriorityDate/TimeAssociated DiagnosisCommentsRECURRENT VAGINITIS (HTRX)Mzhhywa1306/12/2025 3:22 PM EDT documented in this encounter Results * (ABNORMAL) RECURRENT VAGINITIS (HTRX) (06/12/2025 3:22 PM EDT)ComponentValue Ref RangeTest MethodAnalysis TimePerformed AtPathologist SignatureATOPOBIUM WBFVPBN355.961 - 24.689 ppm06/13/2025 6:40 AM EDTHealth[facility] ATOPOBIUM VAGINAENot Nfnjhcnw29.961 - 24.689 ppm06/13/2025 6:40 AM EDT [facility]BV[facility] 2,3 (BACTERIAL VAGINOSIS ASSOCIATED BACTERIA 2, 3); MOBILUNCUS JFO059.961 - 24.689 ppm06/13/2025 6:40 AM EDTHealthTrackRx at [facility] HealthAB 2,3 (BACTERIAL VAGINOSIS ASSOCIATED BACTERIA 2, 3); MOBILUNCUS SPP Not Bhrhrdht19.961 - 24.689 ppm06/13/2025 6:40 AM EDTHealth[facility] DEBBIE ALBICANS, PARAPSILOSIS, LPBXVWIZLR149.000 - 30.347 ppm06/13/2025 6:40 AM EDTHealthTrackRx at [facility] IndianaCANDIDA ALBICANS, PARAPSILOSIS, TROPICALISNot Xvrfezht82.000 - 30.347 ppm06/13/2025 6:40 AM EDT[facility] DEBBIE UCDCCHUC50.385(A)23.000 - 31.618 ppm06/13/2025 6:40 AM EDT [facility] IndianaCANDIDA GLABRATADetected(A)23.000 - 31.618 ppm 06/13/2025 6:40 AM EDTHealthTrackRx at LabPortCANDIDA YTWSNH042.000 - 30.873 ppm06/13/2025 6:40 AM EDTHealthTrackRx at LabPortCANDIDA KRUSEINot Detected 23.000 - 30.873 ppm06/13/2025 6:40 AM EDTHealthTrackRx at LabPortCHLAMYDIA RHBTPUYCWSG383.000 - 31.586 ppm06/13/2025 6:40 AM EDTHealth[facility] CHLAMYDIA TRACHOMATISNot Nszbekkg30.000 - 31.586 ppm06/13/2025 6:40 AM EDT [facility] at LabPortGARDNERELLA NZBXPNKDI133.961 - 24.689 ppm06/13/2025 6:40 AM EDTHealthTrackRx at [facility] IndianaGARDNERELLA VAGINALISNot Shxrxddv17.961 - 24.689 ppm06/13/2025 6:40 AM EDTHealthTrackRx at LabPortMEGASPHAERA (TYPES 1, 2)019.961 - 24.689 ppm06/13/2025 6:40 AM EDTHealthTrackRx at [facility] MEGASPHAERA (TYPES 1, 2)Not Jrldqvul37.961 - 24.689 ppm06/13/2025 6:40 AM EDT [facility] LabPortNEISSERIA RCKCWEWAJVS149.000 - 32.587 ppm06/13/2025 6:40 AM EDTHealthTrackRx at LabPortNEISSERIA GONORRHOEAENot Bsgrawwg84.000 - 32.587 ppm06/13/2025 6:40 AM EDTHealthTrackRx at LabPortTRICHOMONAS VAGINALIS0 23.000 - 31.995 ppm06/13/2025 6:40 AM EDTHealthTrackRx at LabPortTRICHOMONAS VAGINALISNot Tgolceaw85.000 - 31.995 ppm06/13/2025 6:40 AM EDTHealthTrackRx at LabPortMYCOPLASMA OSQEYJWATS447.961 - 24.689 ppm06/13/2025 6:40 AM EDT [facility] IndianaMYCOPLASMA GENITALIUMNot Lqmsdhrx49.961 - 24.689 ppm 06/13/2025 6:40 AM EDTHealthTrackRx at [facility]Heart [facility] Of IndianaSpecimen (Source)Anatomical Location / LateralityCollection Method / VolumeCollection TimeReceived Time Vekhvx6806/12/2025 3:22 PM EDT1 1:26 AM EDT Narrative Authorizing ProviderResult TypeResult StatusCorey Brian DOLAB BLOOD ORDERABLES Final ResultPerforming OrganizationAddressCity/State/ZIP CodePhone Number [facility] [address] [place] [phone] documented in this encounter Visit Diagnoses Not on filedocumented in this encounter Care Teams Team MemberRelationshipSpecialtyStart DateEnd Date Kenzie Lazar MD [address] [place] [phone] PCP - Prfxdys04/19/23documented as of this encounter
--- OUTSIDE RECORDS SUMMARY | 2025-06-20 07:43 | XMS_ITS | Clinical Summary ---
Author Organization [facility] Address [address] [place] [address] Care Team Providers Care Unscrambler Name Role Phone Kenzie Lazar MD Primary Care Provider [phone] Allergies Active AllergyReactionsCriticalityNoted DateCommentsCodeineNausea And Vomiting, HpgoglzGmb84/17/2013 Other Reaction(s): Other (See Comments) dizzy NsaidsGI bleeding,GI avnzvgfquee69/13/2023PenicillinsHives,Itching,Rash,Swelling Low08/01/2013 Other Reaction(s): Unknown Sulfa AntibioticsHives,Itching,Rash,AjkixannLan44/17/2013 Other Reaction(s): Unknown Medications MedicationSigDispense QuantityRefillsLast FilledStart DateEnd DateStatus omeprazole (PriLOSEC) [address] capsule Indications:LPRD (laryngopharyngeal reflux disease)Take 1 capsule (40 mg) by mouth in the morning. Take before meals. Do not crush or chew.. 90 capsule 08/30/2023ctive lisdexamfetamine (Vyvanse) 40 MG capsule Active Zepbound 2.5 MG/0.5ML solution auto-injector INJECT 2.5 MG SUBCUTANEOUSLY (UNDER THE SKIN) ONCE A WEEK Discontinued Tirzepatide-Weight Management (Zepbound) 5 MG/0.5ML solution auto-injector Indications:Encounter for weight managementInject 0.5 mL under the skin 1 (one) time per week 0.5 mL Discontinued fluconazole (Diflucan) 150 MG tablet Indications:Yeast infectionTake 1 tablet (150 mg) by mouth 1 (one) time for 1 dose This is a 1 time dose, take single tablet by mouth. 1 tablet Expired Active Problems ProblemNoted DateDiagnosed DateGlobus dvkozyvbc41/18/2024Tongue dcbgll8011/01/2023 LPRD (laryngopharyngeal reflux disease)08/30/2023hronic erxskaokvp56/15/2024 Qtcpynsrixdrv23/29/2023Epigastric pain08/13/2023bdominal pain08/13/2023Flank pain08/13/2023elvic pain08/13/2023Recurrent UTI08/13/2023Vitamin D deficiency 09/28/20141759Kkijcvrch73/17/2013ack pain08/01/20138069Hagdmgzy60/17/2013Morbid obesity 08/01/2013 Resolved Problems ProblemNoted DateDiagnosed DateResolved DateS/P laparoscopic sleeve gastrectomy Encounters DateTypeDepartmentCare KqsyUagxgijhhfv59/03/2025[place] [address] eSbas Torres DO 06/13/20[place] [address] Sebas Torres DO 06/12/2025 11:40 AM [place]TOff[place] [address] Sebas Torres DO Vaginal itching; Hormone disorder; Yeast zhypyokiq46/28/2025External Result Encounter [facility] External Department Unsolicited Sebas Torres DO 06/12/2025[place] [address] Sebas Torres DO from Last 3 Months Immunizations ImmunizationAdministration DatesNext DueInfluenza, injectable, quadrivalent, preservative free10/12/2022,05/29/2021,06/05/2020,06/02/2016 Family History Medical HistoryRelationNameCommentsCancerFatherKen LeJeuneHyperlipidemiaFather Connor LeJeuneHypertensionFatherKen LeJeuneMental illnessFatherKen LeJeuneCancer Father's BrotherRobert LeJeuneCancerFather's Sister 1MARY SALYERSCancerFather's Sister 2Debbie LoweHypertensionMotherDiane TracyMental illnessMotherDiane Bre MigrainesMotherDiane TracyDiabetesPaternal GrandmotherPatricia LeJeuneRelation NameStatusCommentsFatherKen LeJeuneAliveFather's BrotherRobert LeJeuneFather's Sister 1MARY SALYERSFather's Sister 2Debbie LoweMotherDiane TracyAlivePaternal GrandmotherPatricia Leann Social History Tobacco UseTypesPacks/DayYears UsedDateSmoking Tobacco: NeverSmokeless Tobacco: Never Tobacco Cessation:Counseling Given: Not Answered Alcohol UseStandard Drinks/WeekCommentsNot Currently0 (1 standard drink = 0.6 oz pure alcohol)caffeine: sodaAUDIT-CAnswerDate RecordedQ1: How often do you have a drink containing alcohol?Monthly or less4Average Number of DrinksNot on file08/27/2023Frequency of Binge DrinkingNot on file4CommentsNo Sex and Gender InformationValueDate RecordedSex Assigned at BirthFemale 03/09/2023 10:18 PM EDTLegal CsyXrcguy01/15/2023 6:42 PM EDTGender Identity Dvxugt6503/09/2023 10:18 PM EDTSexual LusmhcnjzvqBemmcklc21/25/2023 10:18 PM EDT Last Filed Vital Signs Vital SignReadingTime TakenCommentsBlood Reluxtnz449/8406/12/2025 11:53 AM EDT Pulse--Temperature--Respiratory Rate--Oxygen Saturation--Inhaled Oxygen Concentration--Vyumyy49.7 kg (162 lb 8 oz)06/12/2025 11:53 AM TGARgncum961.9 cm (5' 1 )12/13/2023 9:43 AM EDTBody Mass Index30.7012/13/2023 9:43 AM EDT Plan of Treatment DateTypeDepartmentCare Team (Latest Contact Info)Htzzkjmexvd98/14/2025 11:00 AM ESTAncillary Procedure [facility] [address] [place] [address] 09/11/2025 8:30 AM ESTProcedure Visit [facility] [address] [place] [phone] Sebas Torres, [address] [facility] [place] [address] Health MaintenanceDue DateLast DoneCommentsHPV/Bsjlhf4603/07/2014COVID-19 Vaccine ( season)Influenza Vaccine (#1)2025 06/07/2024, 05/20/2023, 06/17/2022, Additional history dfslyuXmrxvcbqh49/27/2026 02/09/2025, 2Cervical Cancer Jdprhfhuh88/23/2027Pap Smear08/07/2027 08/07/2024, 3Pneumococcal Vaccine: Pediatrics (0 to 5 Years) and At- Risk Patients (6 to 64 Years)Aged OutNo longer eligible based on patient's age to complete this topic Procedures Procedure NamePriorityDate/TimeAssociated DiagnosisCommentsRECURRENT VAGINITIS (HTRX)Jnojruf7106/12/2025 3:22 PM EDT MM TOMOSYNTHESIS SCREENING BI02/09/2025 2:19 PM EDT PAP JBAKPQeimkhz68/23/2024 12:00 AM ESTfrom Last 3 Months or Most Recently Relevant to Health Maintenance Results * (ABNORMAL) RECURRENT VAGINITIS (HTRX) (06/12/2025 3:22 PM EDT)ComponentValue Ref RangeTest MethodAnalysis TimePerformed AtPathologist SignatureATOPOBIUM HXNREKL010.961 - 24.689 ppm06/13/2025 6:40 AM EDTHealth[facility] at [facility] ATOPOBIUM VAGINAENot Asonsfir32.961 - 24.689 ppm06/13/2025 6:40 AM EDT [facility] HospitalBV[facility] 2,3 (BACTERIAL VAGINOSIS ASSOCIATED BACTERIA 2, 3); MOBILUNCUS TQK640.961 - 24.689 ppm06/13/2025 6:40 AM EDTHealth[facility]Rx at [facility] HospitalBVAB 2,3 (BACTERIAL VAGINOSIS ASSOCIATED BACTERIA 2, 3); MOBILUNCUS SPP Not Qvvenqza71.961 - 24.689 ppm06/13/2025 6:40 AM EDTHealth[facility] at [facility] DEBBIE ALBICANS, PARAPSILOSIS, BUWSKEAXIZ659.000 - 30.347 ppm06/13/2025 6:40 AM EDTHealth[facility] at [facility] HospitalCANDIDA ALBICANS, PARAPSILOSIS, TROPICALISNot Mjetscop21.000 - 30.347 ppm06/13/2025 6:40 AM EDTHealth[facility] at [facility] DEBBIE LMCSFNTW26.385(A)23.000 - 31.618 ppm06/13/2025 6:40 AM EDT [facility] HospitalCANDIDA GLABRATADetected(A)23.000 - 31.618 ppm 06/13/2025 6:40 AM EDTHealth[facility] at [facility] HospitalCANDIDA RRPXKS465.000 - 30.873 ppm06/13/2025 6:40 AM EDTHealth[facility] at [facility] HospitalCANDIDA KRUSEINot Detected 23.000 - 30.873 ppm06/13/2025 6:40 AM EDTHealth[facility] at [facility] HospitalCHLAMYDIA VTXZJXQRVNP401.000 - 31.586 ppm06/13/2025 6:40 AM EDTHealth[facility] at [facility] CHLAMYDIA TRACHOMATISNot Hremxhhq02.000 - 31.586 ppm06/13/2025 6:40 AM EDT [facility] HospitalGARDNERELLA DBRXNODDK979.961 - 24.689 ppm06/13/2025 6:40 AM EDTHealth[facility]Rx at LabPortGARDNERELLA VAGINALISNot Ihmlqlwj95.961 - 24.689 ppm06/13/2025 6:40 AM EDTHealthTrackRx at LabPortMEGASPHAERA (TYPES 1, 2)019.961 - 24.689 ppm06/13/2025 6:40 AM EDTHealth[facility] at [facility] MEGASPHAERA (TYPES 1, 2)Not Ubzfgecp55.961 - 24.689 ppm06/13/2025 6:40 AM EDT [facility] LabPortNEISSERIA EYZNIUPHWNA322.000 - 32.587 ppm06/13/2025 6:40 AM EDTHealthTrackRx at [facility] HospitalNEISSERIA GONORRHOEAENot Grcqokhz21.000 - 32.587 ppm06/13/2025 6:40 AM EDTHealthTrackRx at LabPortTRICHOMONAS VAGINALIS0 23.000 - 31.995 ppm06/13/2025 6:40 AM EDTHealthTrackRx at LabPortTRICHOMONAS VAGINALISNot Ztquthuc34.000 - 31.995 ppm06/13/2025 6:40 AM EDTHealthTrackRx at LabPortMYCOPLASMA ERBEYREHEX196.961 - 24.689 ppm06/13/2025 6:40 AM EDT [facility] LabPortMYCOPLASMA GENITALIUMNot Ytisaubz48.961 - 24.689 ppm 06/13/2025 6:40 AM EDTHealthTrackRx at LabPortSpecimen (Source)Anatomical Location / LateralityCollection Method / VolumeCollection TimeReceived Time Xhmuig5506/12/2025 3:22 PM EDT1 1:26 AM EDT Narrative Authorizing ProviderResult TypeResult StatusCorey Brian DOLAB BLOOD ORDERABLES Final ResultPerforming OrganizationAddressCity/State/ZIP CodePhone Number [facility] [address] [address] * MM TOMOSYNTHESIS SCREENING BI (02/09/2025 2:19 PM EDT)Anatomical Region LateralityModalityOtherSpecimen (Source)Anatomical Location / Laterality Collection Method / VolumeCollection TimeReceived Time02/09/2025 2:19 PM EDT Narrative 02/09/2025 2:[address] [facility] ?[address] ? [place] [address] ? Mammography Report ? Signed ? Patient: CARYN PRESSLEY L ?MR#: [id number] ?? : 1985 ?Acct:[id number] ?? Age/Sex: 39 / F ?ADM Date: 02/09/25 ?? Loc: MAMMO ? Attending Dr: Sebas Torres D.O. ? Ordering Physician: Sebas Torres D.O. ?Results: ? Date of Service: 02/09/25 ?Follow Up: ? Procedure(s): MM tomosynthesis screening BI ?? Accession Number(s): [id number] ? cc: Kenzie Lazar M.D.; Sebas Torres D.O. ? Patient Name: ? CARYN MÓNICA ? MR#: [id number] ? : 1985 ? Exam Date: 02/09/2025 ?? Ordering Doctor: DR SEBAS TORRES . ? RADIOLOGY REPORT ? PROCEDURE: ? MM TOMOSYNTHESIS SCREENING BI ? COMPARISON: ? MM TOMOSYNTHESIS DIAGNOSTIC BI, 08/22/2021. ??MG MAMM GUNJAN DIAG W ?? CAD, 06/18/2017. ? INDICATIONS: ? Mammogram ? Calculator Name ? NCI Breast Cancer Risk Assessment Tool ?? 5 Year Breast Cancer Risk ? 0.60% ?? Lifetime Breast Cancer Risk ? 11.10% ?? Personal Breast Cancer ?No ?? Personal Ovarian Cancer ? No ?? Treatments ? None ?? Family Cancers ? Father with lung cancer at age 57; Uncle-paternal with ?? pancreatic cancer at age 61; Grandfather-maternal with lung cancer at age ?? 60; Aunt-maternal with breast cancer at age 30; Aunt-paternal with lung ?? cancer at age 49. ? LOCATION: ? [facility] ? BREAST COMPOSITION: ? There are scattered areas of fibroglandular density. ? FINDINGS: ? DIAGNOSTIC CATEGORY 1--NEGATIVE. ? RIGHT BREAST: ??No significant suspicious finding. ? LEFT BREAST: ??No significant suspicious finding. ? RECOMMENDATIONS: ? ROUTINE MAMMOGRAM AND CLINICAL EVALUATION IN 12 MONTHS. ? PLEASE NOTE: ??A NORMAL MAMMOGRAM DOES NOT EXCLUDE THE POSSIBILITY OF BREAST ?? CANCER. ??A CLINICALLY SUSPICIOUS PALPABLE LUMP SHOULD BE BIOPSIED. ? Dictated by: Abel Geiger DO on 02/09/2025 at 14:18 ? Approved by: Abel Geiger DO on 02/09/2025 at 14:19 ? Dictated By: ?Abel Geiger M.D. ? Signed By: ?02/09/25 1420 ? DD/ 1419 ? TD/TT: ? Pickling Grader: Procedure Note Radiology, Radiologist, - 02/09/2025 [place] [address] Mammography Report Signed Patient: CARYN PRESSLEY LMR#: [id number] : 1985Acct:[id number] Age/Sex: 39 / FADM Date: 02/09/25 Loc: MAMMO Attending Dr: Sebas Torres D.O. Ordering Physician: Sebas Torres D.O.Results: Date of Service: 02/09/25Follow Up: Procedure(s): MM tomosynthesis screening BI Accession Number(s): [id number] cc: Kenzie Lazar M.D.; Sebas Torres D.O. Patient Name: CARYN PRESSLEY MR#: [id number] : 1985 Exam Date: 02/09/2025 Ordering Doctor: DR SEBAS TORRES . RADIOLOGY REPORT PROCEDURE: MM TOMOSYNTHESIS SCREENING BI COMPARISON: MM TOMOSYNTHESIS DIAGNOSTIC BI, 08/22/2021. MG MAMM BILDIAG W CAD, 06/18/2017. INDICATIONS: Mammogram Calculator Name [...] lung cancer at age 49. LOCATION: [facility] BREAST COMPOSITION: There are scattered areas of fibroglandulardensity. FINDINGS: DIAGNOSTIC CATEGORY 1--NEGATIVE. RIGHT BREAST: No significant suspicious finding. LEFT BREAST: No significant suspicious finding. RECOMMENDATIONS: ROUTINE MAMMOGRAM AND CLINICAL EVALUATION IN 12 MONTHS. PLEASE NOTE: A NORMAL MAMMOGRAM DOES NOT EXCLUDE THE POSSIBILITY OFBREAST CANCER. A CLINICALLY SUSPICIOUS PALPABLE LUMP SHOULD BE BIOPSIED. Dictated by: Abel Gegier DO on 02/09/2025 at 14:18 Approved by: Abel Geiger DO on 02/09/2025 at 14:19 Dictated By: Abel Geiger M.D. Signed By:02/09/25 1420 DD/ 1419 TD/TT: Pickling Grader: Authorizing ProviderResult TypeResult StatusCorey Brian DOCLINISYNC IMAGINGFinal Result * Pap Smear (08/07/2024 12:00 AM EST)Specimen (Source)Anatomical Location / LateralityCollection Method / VolumeCollection TimeReceived TimeSwabCervical swab / Unknown Narrative Authorizing ProviderResult TypeResult StatusCorey Brian DOLAB CYTOLOGY ORDERABLESFinal ResultPerforming OrganizationAddressCity/State/ZIP CodePhone Number EXTERNAL LAB from Last 3 Months or Most Recently Relevant to Health Maintenance Insurance [address] [place] [address] Care Teams Team MemberRelationshipSpecialtyStart DateEnd Date Kenzie Lazar MD [facility] [place] [phone] PCP - Meyydbu68/19/23
--- OUTSIDE RECORDS SUMMARY | 2025-06-20 07:43 | XMS_ITS | Encounter Summary ---
Author Organization [facility] Address [address] [place] [address] Care Team Providers Care Fire Marshal Refinery Name Role Phone Kenzie Lazar MD Primary Care Provider [phone] Encounter Details DateTypeDepartmentCare Team (Latest Contact Info)Rbzveumxdzh67/29/2025Telephone [facility] [address] [place] [address] Hamilton Torres DO [address] [facility] [address] [place] [id number] Social History Tobacco UseTypesPacks/DayYears UsedDateSmoking Tobacco: NeverSmokeless Tobacco: NeverAlcohol UseStandard Drinks/WeekCommentsNot Currently0 (1 standard drink = 0.6 oz pure alcohol)caffeine: sodaAUDIT-CAnswerDate RecordedQ1: How often do you have a drink containing alcohol?Monthly or less08/27/2023verage Number of DrinksNot on file08/27/2023Frequency of Binge DrinkingNot on file08/27/2023 CommentsNoSex and Gender InformationValueDate RecordedSex Assigned at VwpimBpmsqm37/25/2023 10:18 PM EDTLegal GsbDxfxev47/15/2023 6:42 PM EDTGender VzdvpvlnAttzpz95/25/2023 10:18 PM EDTSexual IdieyqcxkahRjfkhgeg33/25/2023 10:18 PM EDTdocumented as of this encounter Miscellaneous Notes * Telephone Encounter - Rosario Rankin LPN - 06/13/2025 10:53 AM EDT Patient was called made aware of results and to continue on script that was sent in. PVU documented in this encounter Plan of Treatment DateTypeDepartmentCare Team (Latest Contact Info)Coafshoadfp26/14/2025 11:00 AM ESTAncillary Procedure [facility] [address] [place] [address] 09/11/2025 8:30 AM ESTProcedure Visit [facility] [address] [place] [phone] Hamilton Torres DO [address] [facility] [place] [address] documented as of this encounter Visit Diagnoses Not on filedocumented in this encounter Care Teams Team MemberRelationshipSpecialtyStart DateEnd Date Kenzie Lazar MD [address] [facility] [place] [phone] PCP - Ynsvakr31/19/23documented as of this encounter
--- OUTSIDE RECORDS SUMMARY | 2025-06-20 07:43 | XMS_ITS | Clinical Summary ---
Author Organization [facility] Address [address], [address] [place] [address] Care Team Providers Care Surgical Services Asst Name Role Phone Unavailable Primary Care Provider Unavailabl e Allergies Active AllergyReactionsCriticalityNoted DateCommentsCodeineNausea And Vomiting, Other (See Comments)Low08/01/2013 dizzy AnunpwbzndxBmheUnl31/17/2013Sulfa RuqaicxtoptOmpiYpr38/17/2013 Medications MedicationSigDispense QuantityRefillsLast FilledStart DateEnd DateStatus CALCIUM CITRATE, BARIATRIC ADVANTAGE, 500MG LOZENGE Take 1 tablet by mouth 3 times daily.Active omeprazole (PRILOSEC) 40 MG delayed release capsule TAKE 1 CAPSULE BY MOUTH EVERY [id number] Multiple Vitamins-Minerals (THERAPEUTIC MULTIVITAMIN-MINERALS) tablet Take 1 tablet by mouth dailyActive citalopram (CELEXA) 20 MG tablet 20 mg [id number] phentermine (ADIPEX-P) 37.5 MG tablet 37.5 mg daily..Active PREVIDENT 5000 BOOSTER PLUS 1.1 % PSTE After brushing & flossing, brush pea size amount on teeth with emphasis at gumline. Spit out excess, do NOT rinse. Do NOT eat or drink for Active Active Problems Patient Care Coordination No te Formatting of this note is d ifferent from the original. Post -op Bariatric Summary Procedure: sleeve Surgeon: ousmane HT: 5'1.5 ?? Date Weight Labs Ordered Labs Resulted Notes Initial Wt 08/01/13 258 ?? Day of Surgery 10-03-13 248 ?? 2 Wk Post-op 10-18-13?? 235 ? 6 Wk Post-op 11-23-13 224 ? ?? 3 Mon Post-op ?? 210 ? 6 Mon Post-op 04-19-14?? 184 ? 9 Mon Post-op 08-06-14?? 176 ? 1 Year Post-op 09-28-14?? 169 ? 2 Year Post-op 11-28-15 193 4 yr postop 11-10-17 186 ? 11-10-17 Pending vitamin a, b1 and zinc results Starting at 1 Wk Post-op: Bariatric Multivitamin with iron and Calcium Citrate ProblemNoted DateDiagnosed DateVitamin D twinpfiwvi56/13/5638Rsssfwoop15/13/2015 S/P laparoscopic sleeve nxzgpvkhjaf78/05/2014Morbid xzbgwev3608/01/2013Depressed 08/01/20135500Wpcpsjuu28/17/2013ack pain08/01/2013Epigastric pain Family History Medical HistoryRelationNameCommentsDepressionFatherHigh Blood PressureFather CancerMaternal GrandfatherlungCancerMaternal GrandmotherlungDepressionMother Mental IllnessMotherOtherPaternal GrandfatheremphysemaDiabetesPaternal GrandmotherRelationNameStatusCommentsFatherAliveMaternal GrandfatherDeceased Maternal GrandmotherDeceasedMotherAlivePaternal GrandfatherDeceasedPaternal GrandmotherDeceased Social History Tobacco UseTypesPacks/DayYears UsedDateSmoking Tobacco: NeverSmokeless Tobacco: NeverAlcohol UseStandard Drinks/WeekCommentsNo0 (1 standard drink = 0.6 oz pure alcohol)CommentsNoSex and Gender InformationValueDate RecordedSex Assigned at BirthNot on fileLegal EirZulpir03/13/2013 1:24 PM ESTGender Identity Not on fileSexual OrientationNot on fileOccupationIndustryJob Start DateJob End DateRNNot on fileNot on fileNot on file Last Filed Vital Signs Vital SignReadingTime TakenCommentsBlood Ohpwcgie614/6805 8:40 AM EDT Alefw3619 8:40 AM XHZJjyptgapioe02.6 ??C (97.9 ??F)07/21/2017 9:55 AM ESTRespiratory Utzi362301/05/2018 8:40 AM EDTOxygen Opujzsgdek692%07/21/2017 10:25 AM ESTInhaled Oxygen Concentration--Msdphr25 kg (172 lb)01/05/2018 8:40 AM EDT Ncqsya759.2 cm (5' 1.5 )01/05/2018 8:40 AM EDTBody Mass Index31.9701/05/2018 8:40 AM EDT Plan of Treatment Not on file Insurance * Guarantor: Olga Pressley TypeRelation to PatientDate of BirthPhone Billing AddressPersonal/SsedlxCcxm[address] [place] [address] * Guarantor: Olga Pressley TypeRelation to PatientDate of BirthPhone Billing AddressPersonal/LdhsowOsjn[address] [place] [address] Advance Directives * Full Code (Latest Code Status on File) Date ActivatedDate EtvobnezypaTzfbyrdf57/6/2017 10:45 AM07/21/2017 12:41 PM * Full Code Date ActivatedDate InactivatedComments10/03/2013 11:37 AM10/04/2013 6:46 PM * Full Code Date ActivatedDate InactivatedComments08/25/2013 9:53 AM08/26/2013 3:08 AM
--- OUTSIDE RECORDS SUMMARY | 2025-06-20 07:43 | XMS_ITS | Clinical Summary ---
Author Organization [facility] Address [address] [place], [place] [id number] Care Team Providers Care Bet Taker Name Role Phone Jane Spaulding DO Unavailable Medications MedicationSigDispense QuantityRefillsLast FilledStart DateEnd DateStatus cephALEXin (KEFLEX) 500 mg capsule 500 mg.10/29/2021ctive citalopram (CELEXA) 20 mg tablet 20 mg once daily.11/18/2017Active Sodium Fluoride (PREVIDENT 5000 BOOSTER PLUS) 1.1 % After brushing & flossing, brush pea size amount on teeth with emphasis at gumline. Spit out excess, do NOT rinse. Do NOT eat or drink for Active lisdexamfetamine (VYVANSE) 40 mg capsule Take 40 mg by mouth once daily.Active Magnesium Glycinate 100 mg tab Active melatonin 5 mg chew Active omeprazole (PRILOSEC) 20 mg capsule Active Social History Tobacco UseTypesPacks/DayYears UsedDateSmoking Tobacco: NeverSmokeless Tobacco: Never Tobacco Cessation:Counseling Given: Not Answered Alcohol UseStandard Drinks/WeekCommentsNever0 (1 standard drink = 0.6 oz pure alcohol)Area Deprivation IndexAnswerDate RecordedNational Score (1-100), lower number is lower fria907012/08/2024State Score (1-10), lower number is lower risk4 12/08/2024Data from: https://www.neighborhoodatlas.medicine.[facility].edu/. Last address used for scqiogmknis[address] [address]/08/2024Comments UnknownSex and Gender InformationValueDate RecordedSex Assigned at BirthNot on fileLegal MyzZtlyxt22/16/2022 12:33 PM EDTGender IdentityNot on fileSexual OrientationNot on file Plan of Treatment Health MaintenanceDue DateLast DoneCommentsAnxiety Vikgojtcm31/23/2002Depression Vmldiglpr15/23/2002HIV Ildigsrxl11/23/2002Hepatitis C Hxkieglvm46/23/2002 DTaP,Tdap,Td Vaccine (1 - Tdap)2003Hepatitis B Vaccine (1 of 3 - 19+ 3- dose series)2003Cervical Cancer Ysqxgfgqk04/23/2005HPV Vaccine (1 - 3-dose SCDM series)2011Mammogram Poqbheybo50/23/112690/02/2022, 2Covid- 19 Vaccine (1 - 2024- season)2025Influenza Vaccine (#1)2025 05/20/2023, 05/29/2021, 06/05/2020, Additional history exists Insurance Care Teams Team MemberRelationshipSpecialtyStart DateEnd Jane Spaulding DO [address] [facility] [address] [place] [address] ReferringGastroenterology11/29/24
--- OUTSIDE RECORDS SUMMARY | 2025-06-20 07:43 | XMS_ITS | Encounter Summary ---
Author Organization [facility] Address [address] [place] [address] Care Team Providers Care [employer] Special Agent Name Role Phone Kenzie Lazar MD Primary Care Provider [phone] Encounter Details DateTypeDepartmentCare Team (Latest Contact Info)Pnihkvttcfm95/28/2025amboo flowsheet [facility] [place] [facility] [address] [place] [address] Hamilton Torres DO [address] [place], [facility] Social History Tobacco UseTypesPacks/DayYears UsedDateSmoking Tobacco: NeverSmokeless Tobacco: NeverAlcohol UseStandard Drinks/WeekCommentsNot Currently0 (1 standard drink = 0.6 oz pure alcohol)caffeine: sodaAUDIT-CAnswerDate RecordedQ1: How often do you have a drink containing alcohol?Monthly or less08/27/2023verage Number of DrinksNot on file08/27/2023Frequency of Binge DrinkingNot on file08/27/2023 CommentsNoSex and Gender InformationValueDate RecordedSex Assigned at HeiroNsxcuq33/25/2023 10:18 PM EDTLegal VolZyuaqy97/15/2023 6:42 PM EDTGender MstmnuouSugnvf86/25/2023 10:18 PM EDTSexual WiztmsjqqejEdhlwhzf98/25/2023 10:18 PM EDTdocumented as of this encounter Plan of Treatment DateTypeDepartmentCare Team (Latest Contact Info)Avuhxeydlby26/14/2025 11:00 AM ESTAncillary Procedure [facility] [address] [place] [address] 09/11/2025 8:30 AM ESTProcedure Visit [facility] [address] [place] [address] Hamilton Torres DO [address] [place], [place] [id number] documented as of this encounter Visit Diagnoses Not on filedocumented in this encounter Care Teams Team MemberRelationshipSpecialtyStart DateEnd Date Kenzie Lazar MD [address] [facility] [place] [id number] PCP - Rvofrqb66/19/23documented as of this encounter
[2025-06-20 09:54] LABS: Free T3 2.64 pg/mL (2.18-3.98); Glucose 85 mg/dL (74-106); Thyroid Stimulating Hormone 2.421 uIU/mL (0.358-3.740)
[2025-06-20 10:47] LABS: Ferritin 15.0 ng/mL (8.0-252.0)
[2025-06-21 08:09] LABS: Sex Horm Binding Glob, Serum 81.4 nmol/L (24.6-122.0)
[2025-06-22 13:08] LABS: Calcitriol(1,25 di-OH Vit D) 52.6 pg/mL (24.8-81.5)
[2025-06-24 17:09] LABS: Reverse T3, Serum 19.2 ng/dL (9.2-24.1)
== END 2025-06-20 07:38 | disposition home or self-care (01) ==
LOC: LAB 07:39
PROVIDERS: PCP Family Medicine; Visit Provider Obstetrics & Gynecology
DX: E34.9 Endocrine disorder, unspecified (principal)
CPT/HCPCS: 36415; 82530; 82627; 82652; 82670; 82679; 82728; 82947; 83036; 83525; 84144; 84260; 84270; 84402; 84403; 84432; 84436; 84439; 84443; 84481; 84482; 84681; 86376; 86800